=== PATIENT | female | born 1945 | race Caucasian/White ===

== ENCOUNTER 2017-10-23 17:19 | Inpatient (IN) | payer MEDICARE, OTHER ==
--- NOTE | 2017-10-23 17:37 | EDM.PDOC ---
ED HPI GENERAL MEDICAL PROBLEM - General Chief Complaint: Fever Stated Complaint: SWOLLEN FEET Time Seen by Provider: 10/23/17 17:19 Source of Information: Reports: Patient, Family History Limitations: Reports: Physical Impairment - History of Present Illness INITIAL COMMENTS - FREE TEXT/NARRATIVE: 72 y.o.w.f came with her friend to the ed due to worsening of SOB, weight loss, ankle swelling and unable to ambulate. Pt lives by herself. She is a smoker for > then 50 years. Poor PO intake in the past 3 days. No C/P no N/V/D. BP 84/45 Pulse 115 RR 20 O2 sat on 2 liters O2 by NC 94% Onset: Gradual Onset Date: 10/22/17 Onset Time: 08:00 Duration: Getting Worse, Intermittent Location: Reports: Chest Quality: Reports: Other (hemoptosis) Severity: Moderate Improves with: Reports: Rest Worsens with: Reports: Movement Context: Reports: Activity, Other (tobacco use) Associated Symptoms: Reports: Fever/Chills, Loss of Appetite, Shortness of Breath, Weakness Middle Back Pain Score (Numeric/FACES): 0 - Related Data Allergies Allergy/AdvReac Type Severity Reaction Status Date / Time No Known Allergies Allergy Verified 10/23/17 17:30 Home Meds: Home Meds Aspirin [Adult Low Dose Aspirin EC] 81 mg PO DAILY 10/23/17 [History] Calcium Carbonate [Calcium] 600 mg PO DAILY 10/23/17 [History] Multivitamin [Multi-Day Vitamins] 1 tab PO DAILY 10/23/17 [History] Pregabalin [Lyrica] 75 mg PO BID 10/23/17 [History] ED ROS GENERAL - Review of Systems Review Of Systems: See Below Constitutional: Reports: Chills, Weakness, Decreased Appetite, Weight Loss HEENT: Reports: No Symptoms Respiratory: Reports: Shortness of Breath Cardiovascular: Reports: No Symptoms Endocrine: Reports: No Symptoms GI/Abdominal: Reports: No Symptoms : Reports: No Symptoms Musculoskeletal: Reports: No Symptoms Skin: Reports: No Symptoms Neurological: Reports: No Symptoms, Weakness, Gait Disturbance Psychiatric: Reports: No Symptoms Hematologic/Lymphatic: Reports: No Symptoms Immunologic: Reports: No Symptoms ED EXAM, GENERAL - Physical Exam Exam: See Below Exam Limited By: Physical Impairment General Appearance: Alert, Mild Distress, Cachetic Eye Exam: Bilateral Eye: Normal Inspection Ears: Normal External Exam Ear Exam: Right Ear: TM Red, Bilateral Ear: Auricle Normal Nose: Normal Inspection Throat/Mouth: Normal Lips, Normal Voice, No Airway Compromise Head: Atraumatic, Normocephalic Neck: Normal Inspection, Supple, Non-Tender, Full Range of Motion Respiratory/Chest: Respiratory Distress, Decreased Breath Sounds (Right lung), Rales Cardiovascular: Normal Peripheral Pulses, Regular Rate, Rhythm, Other (ankle edema) Peripheral Pulses: 1+: Brachial (R) GI/Abdominal: Normal Bowel Sounds, Soft, Non-Tender, No Organomegaly, No Mass, Pelvis Stable (Female) Exam: Deferred Rectal (Female) Exam: Deferred Back Exam: Normal Inspection, Full Range of Motion Extremities: Pedal Edema (ankle edema bilat) Neurological: Alert, Oriented, CN II-XII Intact, Normal Cognition, Abnormal Gait (too weak to ambulate) Psychiatric: Normal Affect, Normal Mood Skin Exam: Warm, Dry, Intact, Normal Color, No Rash Lymphatic: No Adenopathy EKG INTERPRETATION EKG Date: 10/23/17 Time: 18:00 Rhythm: NSR Rate (Beats/Min): 106 [place]: Normal P-Wave: Present QRS: Normal ST-T: Normal QT: Normal Comparison: NA - No Prior EKG Course - Vital Signs Text/Narrative:: 72 y.o.w.f came with her friend to the ed due to worsening of SOB, coughing off blood for 3 days, weight loss, ankle swelling and unable to ambulate. Pt lives by herself. She is a smoker for > then 50 years. Poor PO intake in the past 3 days. No C/P no N/V/D. BP 84/45 Pulse 115 RR 20 O2 sat on 2 liters O2 by NC 94% denies Tuberculosis exposture PE: Weak, severely cachectic, with SOB and unable to ambulate due to weakness and SOB Imaging: Mass vs pneumonia R lung Labs: WBC 25K H/H nl.K 3.4 Na 139 Lactic acid 1.0 Glc 139 UA pos for UTI, BCx are pending Impression: Hemoptosis, Mass vs CA right lung, cachexia, weight loss. Weakness, unable to ambulate, UTI, DNR/DNI Tx: Levofloxacin, NS, Solu Medrol 6.45 pm Consultation: Dr. Paulino, Hospitalist: Solumedrol 125 every 8 hours, Abx, CT chest tonight Pt was signed out to Dr. Alejandre at 7 pm due to shift changes Last Recorded V/S: Last Vital Signs Temp 36.6 C 10/25/17 18:00 Pulse 105 H 10/25/17 18:00 Resp 18 10/25/17 18:00 BP 146/62 H 10/25/17 18:00 Pulse Ox 94 L 10/25/17 18:00 - Orders/Labs/Meds Orders: Medication Orders Albuterol (Ventolin Hfa) 0 gm INH Q4H PRN PRN Reason: Shortness of Breath Albuterol/Ipratropium (Duoneb 3.0-0.5 Mg/3 Ml) 3 ml NEB TIDRT [facility] Last Admin: 10/25/17 14:53 Dose: 3 ml Albuterol/Ipratropium (Duoneb 3.0-0.5 Mg/3 Ml) 3 ml NEB Q4H PRN PRN Reason: Cough Last Admin: 10/25/17 12:42 Dose: 3 ml Aspirin (Halfprin) 81 mg PO DAILY [facility] Calcium Carbonate (Calcium Carbonate/Vitamin D 1250 Mg-200 Unit) 1 tab PO DAILY [facility] Docusate Sodium (Colace) 100 mg PO BID PRN PRN Reason: Constipation Levofloxacin/Dextrose 750 mg/ (Premix) 150 mls @ 100 mls/hr IV Q24H [facility] Last Admin: 10/25/17 19:24 Dose: 100 mls/hr Infusion: 10/24/17 20:08 Dose: 100 mls/hr Admin: 10/24/17 18:38 Dose: 100 mls/hr Multivitamins/Minerals/Vitamin C (Tab-A-Ivelisse) 1 tab PO DAILY [facility] Pantoprazole Sodium (Protonix) 40 mg PO 0600 [facility] Last Admin: 10/25/17 13:59 Dose: 40 mg Prednisone (Prednisone) 20 mg PO BIDMEALS [facility] Last Admin: 10/25/17 18:00 Dose: 20 mg Admin: 10/25/17 08:37 Dose: 20 mg Admin: 10/24/17 18:42 Dose: 20 mg Admin: 10/24/17 11:14 Dose: 20 mg Pregabalin (Lyrica) 75 mg PO BID [facility] Last Admin: 10/25/17 08:37 Dose: 75 mg Admin: 10/24/17 20:40 Dose: 75 mg Admin: 10/24/17 09:25 Dose: 75 mg Admin: 10/23/17 22:08 Dose: 75 mg Sodium Chloride (Saline Flush) 10 ml FLUSH ASDIRECTED PRN PRN Reason: Keep Vein Open Last Admin: 10/24/17 19:14 Dose: 10 ml Admin: 10/24/17 10:29 Dose: 10 ml Admin: 10/23/17 18:43 Dose: 10 ml Labs: Laboratory Tests 10/23/17 10/23/17 10/23/17 Range/Units 17:50 17:50 17:50 WBC 25.7 H (4.5-12.0) X10-3/uL RBC 4.77 (3.23-5.20) x10(6)uL Hgb 12.9 (11.5-15.5) g/dL Hct 39.2 (30.0-51.3) % MCV 82.3 (80-96) fL MCH 27.0 L (27.7-33.6) pg MCHC 32.8 (32.2-35.4) g/dL RDW 12.6 (11.5-15.5) % Plt Count 496 H (125-369) X10(3)uL MPV 8.7 (7.4-10.4) fL Add Manual Diff Yes Neutrophils % (Manual) 88 H (46-82) % Lymphocytes % (Manual) 5 L (13-37) % Monocytes % (Manual) 7 (4-12) % Toxic Granulation Few H (NOT SEEN) PT 11.2 H (8.7-11.1) INR 1.11 (0.89-1.13) Sodium 139 (135-145) mmol/L Potassium 3.4 L (3.5-5.3) mmol/L Chloride 102 (100-110) mmol/L Carbon Dioxide 26 (21-32) mmol/L BUN 12 (7-18) mg/dL Creatinine 0.7 (0.55-1.02) mg/dL Est Cr Clr Drug Dosing 52.51 mL/min Estimated GFR (MDRD) > 60 (>60) BUN/Creatinine Ratio 17.1 (9-20) Glucose 137 H (80-116) mg/dL Lactic Acid (0.4-2.2) mmol/L Calcium 8.3 L (8.6-10.2) mg/dL Total Bilirubin 0.8 (0.1-1.3) mg/dL Direct Bilirubin 0.28 H (0.10-0.20) mg/dL AST 39 H (5-25) IU/L ALT 50 H (12-36) U/L Alkaline Phosphatase 244 H (56-112) IU/L Troponin I (<0.017-0.056) ng/mL NT-Pro-B Natriuret Pep (<=125) pg/mL Total Protein 7.2 (6.0-8.0) g/dL Albumin 2.5 L (3.2-4.6) g/dL Urine Color (YELLOW) Urine Appearance (CLEAR) Urine pH (5.0-6.5) Ur Specific [place] (1.010-1.025) Urine Protein (NEGATIVE) mg/dL Urine Glucose (UA) (NEGATIVE) mg/dL Urine Ketones (NEGATIVE) mg/dL Urine Occult Blood (NEGATIVE) Urine Nitrite (NEGATIVE) Urine Bilirubin (NEGATIVE) Urine Urobilinogen (NEGATIVE) mg/dL Ur Leukocyte Esterase (NEGATIVE) Urine RBC (0) Urine WBC (0) Ur Squamous Epith Cells (NS,R,O) Urine Bacteria (NS) 10/23/17 10/23/17 10/23/17 Range/Units 17:50 17:50 18:20 WBC (4.5-12.0) X10-3/uL RBC (3.23-5.20) x10(6)uL Hgb (11.5-15.5) g/dL Hct (30.0-51.3) % MCV (80-96) fL MCH (27.7-33.6) pg MCHC (32.2-35.4) g/dL RDW (11.5-15.5) % Plt Count (125-369) X10(3)uL MPV (7.4-10.4) fL Add Manual Diff Neutrophils % (Manual) (46-82) % Lymphocytes % (Manual) (13-37) % Monocytes % (Manual) (4-12) % Toxic Granulation (NOT SEEN) PT (8.7-11.1) INR (0.89-1.13) Sodium (135-145) mmol/L Potassium (3.5-5.3) mmol/L Chloride (100-110) mmol/L Carbon Dioxide (21-32) mmol/L BUN (7-18) mg/dL Creatinine (0.55-1.02) mg/dL Est Cr Clr Drug Dosing mL/min Estimated GFR (MDRD) (>60) BUN/Creatinine Ratio (9-20) Glucose (80-116) mg/dL Lactic Acid 1.0 (0.4-2.2) mmol/L Calcium (8.6-10.2) mg/dL Total Bilirubin (0.1-1.3) mg/dL Direct Bilirubin (0.10-0.20) mg/dL AST (5-25) IU/L ALT (12-36) U/L Alkaline Phosphatase (56-112) IU/L Troponin I < 0.017 L (<0.017-0.056) ng/mL NT-Pro-B Natriuret Pep 301 H (<=125) pg/mL Total Protein (6.0-8.0) g/dL Albumin (3.2-4.6) g/dL Urine Color Yellow (YELLOW) Urine Appearance Slightly cloudy (CLEAR) Urine pH 6.5 (5.0-6.5) Ur Specific [place] 1.015 (1.010-1.025) Urine Protein Negative (NEGATIVE) mg/dL Urine Glucose (UA) Normal (NEGATIVE) mg/dL Urine Ketones 15 H (NEGATIVE) mg/dL Urine Occult Blood Moderate H (NEGATIVE) Urine Nitrite Negative (NEGATIVE) Urine Bilirubin Negative (NEGATIVE) Urine Urobilinogen 1 H (NEGATIVE) mg/dL Ur Leukocyte Esterase Moderate H (NEGATIVE) Urine RBC 5-10 (0) Urine WBC 20-30 H (0) Ur Squamous Epith Cells Moderate H (NS,R,O) Urine Bacteria Few H (NS) Meds: Medications Generic Name Dose Route Start Last Admin Trade Name Freq PRN Reason Stop Dose Admin Albuterol 0 gm 10/25/17 09:09 Ventolin Hfa INH Q4H PRN Shortness of Breath Albuterol/Ipratropium 3 ml 10/25/17 15:00 10/25/17 14:53 Duoneb 3.0-0.5 Mg/3 Ml NEB 3 ml TIDRT [facility] Administration Albuterol/Ipratropium 3 ml 10/25/17 12:15 10/25/17 12:42 Duoneb 3.0-0.5 Mg/3 Ml NEB 3 ml Q4H PRN Administration Cough Aspirin 81 mg 10/26/17 09:00 Halfprin PO DAILY [facility] Calcium Carbonate 1 tab 10/26/17 09:00 Calcium Carbonate/Vitamin D 1250 Mg-200 Unit PO DAILY [facility] Docusate Sodium 100 mg 10/23/17 18:45 Colace PO BID PRN Constipation Levofloxacin/Dextrose 750 mg/ 150 mls @ 100 mls/hr 10/24/17 19:00 10/25/17 19 :24 Premix IV 100 mls/hr Q24H [facility] Administration Multivitamins/Minerals/Vitamin C 1 tab 10/26/17 09:00 Tab-A-Ivelisse PO DAILY [facility] Pantoprazole Sodium 40 mg 10/25/17 10:00 10/25/17 13:59 Protonix PO 40 mg 0600 [facility] Administration Prednisone 20 mg 10/24/17 10:00 10/25/17 18:00 Prednisone PO 20 mg BIDMEALS [facility] Administration Pregabalin 75 mg 10/23/17 22:00 10/25/17 08:37 Lyrica PO 75 mg BID [facility] Administration Sodium Chloride 10 ml 10/23/17 18:40 10/24/17 19:14 Saline Flush FLUSH 10 ml ASDIRECTED PRN Administration Keep Vein Open Discontinued Medications Generic Name Dose Route Start Last Admin Trade Name Freq PRN Reason Stop Dose Admin Albuterol/Ipratropium 3 ml 10/23/17 18:45 Duoneb 3.0-0.5 Mg/3 Ml INH ONETIME PRN Shortness Of Breath/wheezing Albuterol/Ipratropium 3 ml 10/24/17 10:00 10/25/17 05:50 Duoneb 3.0-0.5 Mg/3 Ml NEB 3 ml Q4H [facility] Administration Albuterol/Ipratropium 3 ml 10/25/17 09:03 Duoneb 3.0-0.5 Mg/3 Ml NEB Q4H PRN Dyspnea Albuterol/Ipratropium Confirm 10/25/17 12:21 10/25/17 13:44 Duoneb 3.0-0.5 Mg/3 Ml Administered 10/25/17 12:22 Not Given Dose 3 ml .ROUTE .STK-MED ONE Hydroxyzine HCl 25 mg 10/23/17 23:46 10/25/17 02:20 Atarax PO 25 mg BEDTIME PRN Administration Insomnia Hydroxyzine HCl Confirm 10/25/17 02:19 10/25/17 04:19 Atarax Administered 10/25/17 02:20 Not Given Dose 25 mg .ROUTE .STK-MED ONE Levofloxacin/Dextrose 500 mg/ 100 mls @ 100 mls/hr 10/23/17 18:30 10/23/17 19 :09 Premix IV 10/23/17 19:29 100 mls/hr ONETIME ONE Administration Lactated Ringer's 1,000 mls @ 125 mls/hr 10/23/17 18:45 10/24/17 04:43 Ringers, Lactated IV 125 mls/hr ASDIRECTED [facility] Administration Iopamidol 75 ml 10/24/17 10:26 10/24/17 11:38 Isovue-370 (76%) IV 10/24/17 10:27 60 ml ASDIRECTED ONE Administration Methylprednisolone Sodium Succinate 125 mg 10/23/17 18:41 10/23/17 19:03 Solu-Medrol IVPUSH 10/23/17 18:42 125 mg Q8H STA Administration Departure - Departure Time of Disposition: 18:57 Disposition: Admitted As Inpatient 64 Condition: Fair Clinical Impression: Lung infiltrate, Hemoptysis - Discharge Information
[2017-10-23] MEDS ORDERED: Levofloxacin/Dextrose 5%-Water 500 MG in Premix Bag 1 BAG IV ONE (18:30)
[2017-10-23] MEDS ORDERED: methylPREDNISolone Sodium Succinate 125 MG/2 ML SDV IVPUSH STA (18:41)
[2017-10-23] MEDS: Sodium Chloride 0.9% 10 ML Syringe FLUSH PRN (18:43)
[2017-10-23] MEDS ORDERED: Docusate Sodium 100 MG Cap PO PRN (18:45)
[2017-10-23] MEDS ORDERED: Albuterol/Ipratropium 3.0-0.5 MG/3 ML Neb Soln INH PRN (18:45)
[2017-10-23] MEDS: Lactated Ringers 1,000 ML IV SCH (19:06)
[2017-10-23] MEDS: Pregabalin 75 MG Cap PO SCH (22:08)
[2017-10-24] MEDS: hydrOXYzine HCl 25 MG Tab PO PRN (00:03)
[2017-10-24] MEDS: Lactated Ringers 1,000 ML IV SCH (04:43)
[2017-10-24] MEDS: Pregabalin 75 MG Cap PO SCH ×2 (09:25→20:40)
--- NOTE | 2017-10-24 09:30 | PCM.HP ---
H&P History of Present Illness - General Date of Service: 10/24/17 History Limitations: Reports: No Limitations - History of Present Illness Initial Comments - Free Text/Narative: Phase a 72-year-old female was a heavy smoker for more than 50 years. She presents yesterday night to the ER with shortness of breath and cough along with hemoptysis. She is a poor historian symptoms have gone on for several days in addition she's had low-grade fever for almost a month. She is not sure if she lost weight. Shortness of breath is worse with any ambulation and the cough is persistent and intermittent. Is a history of COPD,albeit undiagnosed. She also complains of leg swelling for several days. She has no chest pain. Middle Back Pain Score (Numeric/FACES): 2 - Related Data Allergies/Adverse Reactions: Allergies Allergy/AdvReac Type Severity Reaction Status Date / Time No Known Allergies Allergy Verified 10/23/17 17:30 Home Medications: Home Meds Aspirin [Adult Low Dose Aspirin EC] 81 mg PO DAILY 10/23/17 [History] Calcium Carbonate [Calcium] 600 mg PO DAILY 10/23/17 [History] Multivitamin [Multi-Day Vitamins] 1 tab PO DAILY 10/23/17 [History] Pregabalin [Lyrica] 75 mg PO BID 10/23/17 [History] Past Medical History HEENT History: Reports: Impaired Vision Other HEENT History: wears glasses. Has ear wax build up and needs gerald cleaned out Respiratory History: Reports: COPD, SOB Gastrointestinal History: Reports: Chronic Constipation, Colon Polyp Genitourinary History: Reports: None Musculoskeletal History: Reports: Osteoporosis Oncologic (Cancer) History: Reports: Other (See Below) Other Oncologic History: removed mole from by right eye Dermatologic History: Reports: Psoriasis - Infectious Disease History Infectious Disease History: Reports: Influenza, Measles - Past Surgical History HEENT Surgical History: Reports: Adenoidectomy, Tonsillectomy Respiratory Surgical History: Reports: None GI Surgical History: Reports: None Female Surgical History: Reports: Tubal Ligation Musculoskeletal Surgical History: Reports: Other (See Below) Other Musculoskeletal Surgeries/Procedures:: fx hip left and knee replacement left Oncologic Surgical History: Reports: None Dermatological Surgical History: Reports: None Social & Family History - Family History Family Medical History: Noncontributory - Tobacco Use Smoking Status *Q: Current Every Day Smoker Years of Tobacco use: 54 Packs/Tins Daily: 1 Used Tobacco, but Quit: No - Caffeine Use Caffeine Use: Reports: Coffee, Tea - Recreational Drug Use Recreational Drug Use: No H&P Review of Systems - Review of Systems: Review Of Systems: ROS reveals no pertinent complaints other than HPI. Exam - Exam Exam: See Below - Vital Signs Vital Signs: Last Vital Signs Temp 97.6 F 10/24/17 08:00 Pulse 92 10/24/17 08:00 Resp 20 10/24/17 08:00 BP 142/72 H 10/24/17 08:00 Pulse Ox 94 L 10/24/17 08:00 Weight: 49.668 kg - Exam Quality Assessment: No: Supplemental Oxygen General: Alert, Oriented, 4 HEENT: PERRLA, Hearing Intact, Mucosa Moist & Christoval, Nares Patent, Normal Nasal Septum, Posterior Pharynx Clear, Conjunctiva Clear, EOMI, EACs Clear, TMs Clear Neck: Supple, Trachea Midline, 2 Lungs: Normal Respiratory Effort, Decreased Breath Sounds Cardiovascular: Regular Rate, Regular Rhythm GI/Abdominal Exam: Normal Bowel Sounds, Soft, Non-Tender, No Organomegaly, No Distention, No Abnormal Bruit, No Mass, Pelvis Stable (Female) Exam: Deferred Rectal (Female) Exam: Deferred Back Exam: Normal Inspection, Full Range of Motion, NT Extremities: Pedal Edema Skin: Warm, Dry, Intact Neurological: Cranial Nerves Intact, Reflexes Equal Bilateral Neuro Extensive - Mental Status: Alert, Oriented x3, Normal Mood/Affect, Normal Cognition Neuro Extensive - Motor, Sensory, Reflexes: CN II-XII Intact, Normal Gait, Normal Reflexes Psychiatric: Alert, Normal Affect, Normal Mood - Patient Data Result Diagrams: 10/23/17 17:50 10/23/17 17:50 *Q Meaningful Use (ADM) - VTE *Q VTE Criteria *Q: - Stroke *Q Stroke Criteria *Q: - AMI *Q AMI Criteria *Q: - Problem List (1) CAP (community acquired pneumonia) SNOMED Code(s): 659607750 ICD Code: J18.9 - PNEUMONIA, UNSPECIFIED ORGANISM Status: Acute Current Visit: Yes Qualifiers: Laterality: right (2) Hemoptysis SNOMED Code(s): 58726348 ICD Code: R04.2 - HEMOPTYSIS Status: Acute Current Visit: Yes (3) Tobacco abuse SNOMED Code(s): 681208594 ICD Code: Z72.0 - TOBACCO USE Status: Acute Current Visit: Yes (4) COPD (chronic obstructive pulmonary disease) SNOMED Code(s): 10957648 ICD Code: J44.9 - CHRONIC OBSTRUCTIVE PULMONARY DISEASE, UNSPECIFIED Status : Acute Current Visit: Yes Qualifiers: COPD type: COPD with acute exacerbation Qualified Code(s): J44.1 - Chronic obstructive pulmonary disease with (acute) exacerbation (5) Leg edema SNOMED Code(s): 531117616 ICD Code: R60.0 - LOCALIZED EDEMA Status: Acute Current Visit: Yes (6) IBS (irritable bowel syndrome) SNOMED Code(s): 11601085 ICD Code: K58.9 - IRRITABLE BOWEL SYNDROME WITHOUT DIARRHEA Status: Acute Current Visit: Yes Qualifiers: Irritable bowel syndrome type: with diarrhea Qualified Code(s): K58.0 - Irritable bowel syndrome with diarrhea Problem List Initiated/Reviewed/Updated: Yes Orders Last 24hrs: Active Orders 24 hr Category Date Time Status Pregabalin [Lyrica] Med 10/23/17 22:00 Active 75 mg PO BID hydrOXYzine HCl [Atarax] Med 10/23/17 23:46 Active 25 mg PO BEDTIME PRN Medication Orders Albuterol/Ipratropium (Duoneb 3.0-0.5 Mg/3 Ml) 3 ml INH ONETIME PRN PRN Reason: Shortness Of Breath/wheezing Docusate Sodium (Colace) 100 mg PO BID PRN PRN Reason: Constipation Hydroxyzine HCl (Atarax) 25 mg PO BEDTIME PRN PRN Reason: Insomnia Last Admin: 10/24/17 00:03 Dose: 25 mg Lactated Ringer's (Ringers, Lactated) 1,000 mls @ 125 mls/hr IV ASDIRECTED [facility] Last Admin: 10/24/17 04:43 Dose: 125 mls/hr Infusion: 10/24/17 03:06 Dose: 125 mls/hr Admin: 10/23/17 19:06 Dose: 125 mls/hr Pregabalin (Lyrica) 75 mg PO BID [facility] Last Admin: 10/23/17 22:08 Dose: 75 mg Sodium Chloride (Saline Flush) 10 ml FLUSH ASDIRECTED PRN PRN Reason: Keep Vein Open Last Admin: 10/23/17 18:43 Dose: 10 ml Assessment/Plan Comment:: I personally reviewed the image of the x-ray that showed a mass in the right lung. This is possibly pneumonia or could be cancer. I've recommended a CT of the chest. In the meantime will treat with IV Levaquin, and oral prednisone. We' ll repeat CBC CMP and a BNP in the morning. Blood cultures are pending. Hep- Lock IV and encourage oral fluids.
[2017-10-24] MEDS ORDERED: Iopamidol 755 Mg/ML 75 ML Bottle IV ONE (10:26)
[2017-10-24] MEDS: Sodium Chloride 0.9% 10 ML Syringe FLUSH PRN ×2 (10:29→19:14)
--- NOTE | 2017-10-24 10:31 | CR ---
INDICATION: Hemoptysis. CHEST: A single AP upright portable view of the chest 10/23/2017 was compared with 11/12/2015 and now reveals an area of consolidation in the area of the right upper lobe, suprahilar and perihilar. Findings may be on the basis of pneumonia. In a smoker with this history, additional examination may be warranted, such as CT without and with IV contrast, especially since there is question of some nodularity in the lower lung [place]. Bilateral nipple shadows are also noted. 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 The heart is normal in size and shape. IMPRESSION: 1. Findings are compatible with pneumonia in the right upper lobe. Followup to clearing recommended. CT examination may be of further diagnostic benefit without and with IV contrast, since there is appearance of some nodularity in both lung bases. 2. COPD. 3. Mild ASD aorta. 4. Scoliosis. Report was called to Dr. Rodolfo Paulino at 0952 hours on 10/24/2017. JOSE
[2017-10-24] MEDS: Albuterol/Ipratropium 3.0-0.5 MG/3 ML Neb Soln NEB SCH ×4 (10:36→22:15)
[2017-10-24] MEDS: predniSONE 20 MG Tab PO SCH ×2 (11:14→18:42)
--- NOTE | 2017-10-24 13:08 | CT ---
INDICATION: Mass versus infiltrate right lung in a patient with hemoptysis. CT CHEST WITHOUT AND WITH CONTRAST: Spiral 2.5 mm axial sections were obtained through the chest without contrast and then with 60 mL Isovue 370 at 3 mL/second , with sagittal and coronal reconstructions, 10/24/2017. Comparison was chest x -ray from 10/23/2017. Total exam DLP = 290.94 mGy-cm. There is an area of somewhat triangular shaped infiltration extending most prominently through the right upper lobe, but also there is infiltrate in the middle lobe. Likely these infiltrates are on the basis of pneumonia, although an underlying neoplastic process is difficult to entirely exclude, and followup to clearing is strongly recommended. There is contrast enhancement in this area , which can be seen in areas of consolidating pneumonia. Lymphadenopathy in the mediastinum may be on the basis of pneumonia but should be correlated clinically. One lymph node, precarinal in location, was 17 mm. Other than benign disease cannot be excluded with this appearance. Severe central lobular emphysematous changes are noted. No active infiltrate or effusion was suggested on the left. Heavy markings at the right lung base likely fibrotic. No mediastinal masses were seen. Calcifications are noted in the thoracic aorta and abdominal aorta. No gross abnormality is noted in the upper abdomen included on the study. IMPRESSION: 1. Findings are felt to be most compatible with severely consolidating pneumonia in the right upper lobe with more patchy consolidating pneumonia in the middle lobe. Followup to clearing, however, is strongly recommended, since underlying neoplasia in the upper lobe cannot be excluded. 2. Severe central lobular emphysema. 3. ASD. Report was called to Dr. Rodolfo Paulino at 1200 hours on 10/24/2017. [facility]
[2017-10-24] MEDS: Levofloxacin/Dextrose 5%-Water 750 MG in Premix Bag 1 BAG IV SCH (18:38)
[2017-10-25] MEDS: Albuterol/Ipratropium 3.0-0.5 MG/3 ML Neb Soln NEB SCH ×4 (01:52→21:02)
[2017-10-25] MEDS ORDERED: hydrOXYzine HCl 25 MG Tab ONE (02:19)
[2017-10-25] MEDS: hydrOXYzine HCl 25 MG Tab PO PRN (02:20)
[2017-10-25] MEDS: Pregabalin 75 MG Cap PO SCH ×2 (08:37→21:02)
[2017-10-25] MEDS: predniSONE 20 MG Tab PO SCH ×2 (08:37→18:00)
[2017-10-25] MEDS ORDERED: Albuterol/Ipratropium 3.0-0.5 MG/3 ML Neb Soln NEB PRN ×2 (09:03→12:15)
--- NOTE | 2017-10-25 09:08 | PCM.PN ---
- General Info Date of Service: 10/25/17 Subjective Update: Olinda does sleep well, mostly because he woke up for DuoNeb. She complains that she still feels short of breath, weak, and has had a headache. Denies chest pain and she has no more fevers chills. - Patient Data Vitals - Most Recent: Last Vital Signs Temp 98.1 F 10/25/17 08:00 Pulse 111 H 10/25/17 08:00 Resp 20 10/25/17 08:00 BP 124/44 L 10/25/17 08:00 Pulse Ox 92 L 10/25/17 08:00 Weight - Most Recent: 49.668 kg I&O - Last 24 Hours: Intake & Output 10/24/17 10/25/17 10/25/17 22:59 06:59 14:59 Intake Total 150 150 Output Total 0 Balance 150 150 Lab Results Last 24 Hours: Laboratory Results - last 24 hr 10/25/17 10/25/17 Range/Units 06:10 06:10 WBC 22.3 H (4.5-12.0) X10-3/uL RBC 3.90 (3.23-5.20) x10(6)uL Hgb 10.8 L (11.5-15.5) g/dL Hct 32.1 (30.0-51.3) % MCV 82.4 (80-96) fL MCH 27.7 (27.7-33.6) pg MCHC 33.6 (32.2-35.4) g/dL RDW 12.4 (11.5-15.5) % Plt Count 432 H (125-369) X10(3)uL MPV 8.5 (7.4-10.4) fL Add Manual Diff Yes Neutrophils % (Manual) 86 H (46-82) % Band Neutrophils % 2 (0-6) % Lymphocytes % (Manual) 7 L (13-37) % Monocytes % (Manual) 5 (4-12) % Toxic Granulation Few H (NOT SEEN) Sodium 142 (135-145) mmol/L Potassium 3.5 (3.5-5.3) mmol/L Chloride 105 (100-110) mmol/L Carbon Dioxide 27 (21-32) mmol/L BUN 14 (7-18) mg/dL Creatinine 0.7 (0.55-1.02) mg/dL Est Cr Clr Drug Dosing 55.28 mL/min Estimated GFR (MDRD) > 60 (>60) BUN/Creatinine Ratio 20.0 (9-20) Glucose 180 H (80-116) mg/dL Calcium 8.6 (8.6-10.2) mg/dL Nikolas Results Last 24 Hours: Microbiology 10/24/17 13:25 Gram Stain - Final Sputum - Expectorated Sputum Culture - Preliminary Normal Joseline 10/23/17 18:55 Aerobic Blood Culture - Preliminary Blood - Venous - Lab Draw NO GROWTH AFTER 1 DAY Anaerobic Blood Culture - Preliminary NO GROWTH AFTER 1 DAY Med Orders - Current: Current Medications Albuterol/Ipratropium (Duoneb 3.0-0.5 Mg/3 Ml) 3 ml INH ONETIME PRN PRN Reason: Shortness Of Breath/wheezing Albuterol/Ipratropium (Duoneb 3.0-0.5 Mg/3 Ml) 3 ml NEB TID [facility]IGUELANGEL Albuterol/Ipratropium (Duoneb 3.0-0.5 Mg/3 Ml) 3 ml NEB Q4H PRN PRN Reason: Dyspnea Docusate Sodium (Colace) 100 mg PO BID PRN PRN Reason: Constipation Levofloxacin/Dextrose 750 mg/ (Premix) 150 mls @ 100 mls/hr IV Q24H [facility] Last Admin: 10/24/17 18:38 Dose: 100 mls/hr Pantoprazole Sodium (Protonix) 40 mg PO 0600 [facility] Prednisone (Prednisone) 20 mg PO BIDMEALS [facility] Last Admin: 10/25/17 08:37 Dose: 20 mg Pregabalin (Lyrica) 75 mg PO BID [facility] Last Admin: 10/25/17 08:37 Dose: 75 mg Sodium Chloride (Saline Flush) 10 ml FLUSH ASDIRECTED PRN PRN Reason: Keep Vein Open Last Admin: 10/24/17 19:14 Dose: 10 ml Discontinued Medications Albuterol/Ipratropium (Duoneb 3.0-0.5 Mg/3 Ml) 3 ml NEB Q4H [facility] Last Admin: 10/25/17 05:50 Dose: 3 ml Hydroxyzine HCl (Atarax) 25 mg PO BEDTIME PRN PRN Reason: Insomnia Last Admin: 10/25/17 02:20 Dose: 25 mg Hydroxyzine HCl (Atarax) Confirm Administered Dose 25 mg .ROUTE .STK-MED ONE Stop: 10/25/17 02:20 Last Admin: 10/25/17 04:19 Dose: Not Given Levofloxacin/Dextrose 500 mg/ (Premix) 100 mls @ 100 mls/hr IV ONETIME ONE Stop: 10/23/17 19:29 Last Admin: 10/23/17 19:09 Dose: 100 mls/hr Lactated Ringer's (Ringers, Lactated) 1,000 mls @ 125 mls/hr IV ASDIRECTED [facility] Last Admin: 10/24/17 04:43 Dose: 125 mls/hr Iopamidol (Isovue-370 (76%)) 75 ml IV ASDIRECTED ONE Stop: 10/24/17 10:27 Last Admin: 10/24/17 11:38 Dose: 60 ml Methylprednisolone Sodium Succinate (Solu-Medrol) 125 mg IVPUSH Q8H STA Stop: 10/23/17 18:42 Last Admin: 10/23/17 19:03 Dose: 125 mg - Exam General: Alert, Oriented HEENT: Pupils Equal Neck: Supple Lungs: Clear to Auscultation Cardiovascular: Regular Rate Skin: Warm Neurological: No New Focal Deficit Psy/Mental Status: Alert, Agitated - Problem List & Annotations (1) CAP (community acquired pneumonia) SNOMED Code(s): 730283107 Code(s): J18.9 - PNEUMONIA, UNSPECIFIED ORGANISM Status: Acute Current Visit: Yes Qualifiers: Laterality: right (2) Hemoptysis SNOMED Code(s): 30363329 Code(s): R04.2 - HEMOPTYSIS Status: Acute Current Visit: Yes (3) Tobacco abuse SNOMED Code(s): 573640480 Code(s): Z72.0 - TOBACCO USE Status: Acute Current Visit: Yes (4) COPD (chronic obstructive pulmonary disease) SNOMED Code(s): 31361123 Code(s): J44.9 - CHRONIC OBSTRUCTIVE PULMONARY DISEASE, UNSPECIFIED Status : Acute Current Visit: Yes Qualifiers: COPD type: COPD with acute exacerbation Qualified Code(s): J44.1 - Chronic obstructive pulmonary disease with (acute) exacerbation (5) Leg edema SNOMED Code(s): 627664671 Code(s): R60.0 - LOCALIZED EDEMA Status: Acute Current Visit: Yes (6) IBS (irritable bowel syndrome) SNOMED Code(s): 22171485 Code(s): K58.9 - IRRITABLE BOWEL SYNDROME WITHOUT DIARRHEA Status: Acute Current Visit: Yes Qualifiers: Irritable bowel syndrome type: with diarrhea Qualified Code(s): K58.0 - Irritable bowel syndrome with diarrhea (7) Dyspnea SNOMED Code(s): 735443303 Code(s): R06.00 - DYSPNEA, UNSPECIFIED Status: Acute Current Visit: Yes Qualifiers: Dyspnea type: dyspnea on exertion Qualified Code(s): R06.09 - Other forms of dyspnea (8) General weakness SNOMED Code(s): 72420238 Code(s): R53.1 - WEAKNESS Status: Acute Current Visit: Yes (9) Feeling poorly SNOMED Code(s): 779920274 Code(s): R68.89 - OTHER GENERAL SYMPTOMS AND SIGNS Status: Acute Current Visit: Yes - Problem List Review Problem List Initiated/Reviewed/Updated: Yes - My Orders Last 24 Hours: My Active Orders 10/24/17 09:54 RT Aerosol Therapy [RC] ASDIRECTED 10/24/17 10:00 predniSONE 20 mg PO BIDMEALS 10/24/17 10:43 IS (RT) [RT Incentive Spirometry] [RC] ASDIRECTED 10/24/17 13:25 CULTURE SPUTUM + SMEAR [RM] Routine 10/24/17 19:00 Levofloxacin/Dextrose 5%-Water [Levaquin in D5W 750 MG/150 ML] 750 mg Premix Bag 1 bag IV Q24H 10/25/17 09:03 Albuterol/Ipratropium [DuoNeb 3.0-0.5 MG/3 ML] 3 ml NEB Q4H PRN 10/25/17 09:04 OT Evaluation and Treatment [CONS] Routine PT Evaluation and Treatment [CONS] Routine 10/25/17 09:05 Consult to Meat Grader [CONS] Routine 10/25/17 10:00 Pantoprazole [ProTONIX] 40 mg PO 0600 10/25/17 14:00 Albuterol/Ipratropium [DuoNeb 3.0-0.5 MG/3 ML] 3 ml NEB TID 10/25/17 21:00 Pregabalin [Lyrica] 75 mg PO BID 10/26/17 05:11 BASIC METABOLIC PANEL,BMP [CHEM] AM CBC WITH AUTO DIFF [HEME] AM 10/26/17 09:00 Aspirin [Halfprin] 81 mg PO DAILY Calcium Carbonate [Calcium] 600 mg PO DAILY Multivitamins [Tab-A-Ivelisse] 1 tab PO DAILY - Plan Plan:: The CT scan of the chest done yesterday did not show any malignancy, favoring pneumonia. We'll continue IV Levaquin. Patient has dyspnea, we'll continue with SVNs but this as needed basis. For general weakness,feeling poorly, I've asked physical and outpatient therapy, along with medical numerical control operator to see if she needs home health upon discharge.
[2017-10-25] MEDS ORDERED: Albuterol 8 GM Inhaler INH PRN (09:09)
[2017-10-25] MEDS ORDERED: Albuterol/Ipratropium 3.0-0.5 MG/3 ML Neb Soln ONE (12:21)
[2017-10-25] MEDS: Pantoprazole 40 MG Tab.CR PO SCH (13:59)
[2017-10-25] MEDS: Levofloxacin/Dextrose 5%-Water 750 MG in Premix Bag 1 BAG IV SCH (19:24)
[2017-10-25] MEDS: Sodium Chloride 0.9% 10 ML Syringe FLUSH PRN (20:56)
[2017-10-25] MEDS ORDERED: Pregabalin 75 MG Cap PO SCH (21:00)
[2017-10-25] MEDS ORDERED: Acetaminophen 325 MG Tab PO PRN (21:43)
[2017-10-26] MEDS: Pantoprazole 40 MG Tab.CR PO SCH (05:43)
[2017-10-26] MEDS: Albuterol/Ipratropium 3.0-0.5 MG/3 ML Neb Soln NEB SCH (07:21)
--- NOTE | 2017-10-26 08:58 | PCM.PN ---
- General Info Date of Service: 10/26/17 Admission Dx/Problem (Free Text): Patient states she is coughing and some congestion. She denies shortness of breath with walking. She says walking is going quite well with her walker. She denies fevers or chills or hemoptysis. - Patient Data Vitals - Most Recent: Last Vital Signs Temp 97.7 F 10/26/17 05:43 Pulse 80 10/26/17 07:35 Resp 18 10/26/17 05:43 BP 139/78 10/26/17 05:43 Pulse Ox 93 L 10/26/17 07:35 Weight - Most Recent: 109 lb 8 oz I&O - Last 24 Hours: Intake & Output 10/25/17 10/26/17 10/26/17 22:59 06:59 14:59 Intake Total 150 0 Output Total 1000 Balance -850 0 Lab Results Last 24 Hours: Laboratory Results - last 24 hr 10/26/17 10/26/17 Range/Units 06:11 06:11 WBC 19.2 H (4.5-12.0) X10-3/uL RBC 3.89 (3.23-5.20) x10(6)uL Hgb 10.6 L (11.5-15.5) g/dL Hct 32.2 (30.0-51.3) % MCV 82.8 (80-96) fL MCH 27.1 L (27.7-33.6) pg MCHC 32.8 (32.2-35.4) g/dL RDW 12.3 (11.5-15.5) % Plt Count 481 H (125-369) X10(3)uL MPV 8.1 (7.4-10.4) fL Add Manual Diff Yes Neutrophils % (Manual) 76 (46-82) % Band Neutrophils % 1 (0-6) % Lymphocytes % (Manual) 12 L (13-37) % Monocytes % (Manual) 11 (4-12) % Sodium 143 (135-145) mmol/L Potassium 3.6 (3.5-5.3) mmol/L Chloride 107 (100-110) mmol/L Carbon Dioxide 28 (21-32) mmol/L BUN 15 (7-18) mg/dL Creatinine 0.7 (0.55-1.02) mg/dL Est Cr Clr Drug Dosing 55.28 mL/min Estimated GFR (MDRD) > 60 (>60) BUN/Creatinine Ratio 21.4 H (9-20) Glucose 145 H (80-116) mg/dL Calcium 8.3 L (8.6-10.2) mg/dL Nikolas Results Last 24 Hours: Microbiology 10/24/17 13:25 Gram Stain - Final Sputum - Expectorated Sputum Culture - Final Normal Joseline 10/23/17 18:55 Aerobic Blood Culture - Preliminary Blood - Venous - Lab Draw NO GROWTH AFTER 2 DAYS Anaerobic Blood Culture - Preliminary NO GROWTH AFTER 2 DAYS Med Orders - Current: Current Medications Acetaminophen (Tylenol) 650 mg PO Q4H PRN PRN Reason: Insomnia Last Admin: 10/25/17 22:38 Dose: 650 mg Albuterol (Ventolin Hfa) 0 gm INH Q4H PRN PRN Reason: Shortness of Breath Albuterol/Ipratropium (Duoneb 3.0-0.5 Mg/3 Ml) 3 ml NEB TIDRT [facility] Last Admin: 10/26/17 07:21 Dose: 3 ml Albuterol/Ipratropium (Duoneb 3.0-0.5 Mg/3 Ml) 3 ml NEB Q4H PRN PRN Reason: Cough Last Admin: 10/25/17 12:42 Dose: 3 ml Aspirin (Halfprin) 81 mg PO DAILY [facility] Calcium Carbonate (Calcium Carbonate/Vitamin D 1250 Mg-200 Unit) 1 tab PO DAILY [facility] Docusate Sodium (Colace) 100 mg PO BID PRN PRN Reason: Constipation Levofloxacin/Dextrose 750 mg/ (Premix) 150 mls @ 100 mls/hr IV Q24H [facility] Last Admin: 10/25/17 19:24 Dose: 100 mls/hr Multivitamins/Minerals/Vitamin C (Tab-A-Ivelisse) 1 tab PO DAILY [facility] Pantoprazole Sodium (Protonix) 40 mg PO 0600 [facility] Last Admin: 10/26/17 05:43 Dose: 40 mg Prednisone (Prednisone) 20 mg PO BIDMEALS [facility] Last Admin: 10/25/17 18:00 Dose: 20 mg Pregabalin (Lyrica) 75 mg PO BID [facility] Last Admin: 10/25/17 21:02 Dose: 75 mg Sodium Chloride (Saline Flush) 10 ml FLUSH ASDIRECTED PRN PRN Reason: Keep Vein Open Last Admin: 10/25/17 20:56 Dose: 10 ml Discontinued Medications Albuterol/Ipratropium (Duoneb 3.0-0.5 Mg/3 Ml) 3 ml INH ONETIME PRN PRN Reason: Shortness Of Breath/wheezing Albuterol/Ipratropium (Duoneb 3.0-0.5 Mg/3 Ml) 3 ml NEB Q4H [facility] Last Admin: 10/25/17 05:50 Dose: 3 ml Albuterol/Ipratropium (Duoneb 3.0-0.5 Mg/3 Ml) 3 ml NEB Q4H PRN PRN Reason: Dyspnea Albuterol/Ipratropium (Duoneb 3.0-0.5 Mg/3 Ml) Confirm Administered Dose 3 ml .ROUTE .STK-MED ONE Stop: 10/25/17 12:22 Last Admin: 10/25/17 13:44 Dose: Not Given Hydroxyzine HCl (Atarax) 25 mg PO BEDTIME PRN PRN Reason: Insomnia Last Admin: 10/25/17 02:20 Dose: 25 mg Hydroxyzine HCl (Atarax) Confirm Administered Dose 25 mg .ROUTE .STK-MED ONE Stop: 10/25/17 02:20 Last Admin: 10/25/17 04:19 Dose: Not Given Levofloxacin/Dextrose 500 mg/ (Premix) 100 mls @ 100 mls/hr IV ONETIME ONE Stop: 10/23/17 19:29 Last Admin: 10/23/17 19:09 Dose: 100 mls/hr Lactated Ringer's (Ringers, Lactated) 1,000 mls @ 125 mls/hr IV ASDIRECTED [facility] Last Admin: 10/24/17 04:43 Dose: 125 mls/hr Iopamidol (Isovue-370 (76%)) 75 ml IV ASDIRECTED ONE Stop: 10/24/17 10:27 Last Admin: 10/24/17 11:38 Dose: 60 ml Methylprednisolone Sodium Succinate (Solu-Medrol) 125 mg IVPUSH Q8H [facility] Stop: 10/23/17 18:42 Last Admin: 10/23/17 19:03 Dose: 125 mg - Exam General: Alert, Oriented, Cooperative Lungs: Clear to Auscultation, Normal Respiratory Effort. No: Rales, Rhonchi, Rub Extremities: No Pedal Edema - Problem List & Annotations (1) CAP (community acquired pneumonia) SNOMED Code(s): 257686094 Code(s): J18.9 - PNEUMONIA, UNSPECIFIED ORGANISM Status: Acute Current Visit: Yes Qualifiers: Laterality: right Lung location: upper lobe of lung Qualified Code(s): J18.1 - Lobar pneumonia, unspecified organism (2) Tobacco abuse SNOMED Code(s): 270179041 Code(s): Z72.0 - TOBACCO USE Status: Acute Current Visit: Yes - Problem List Review Problem List Initiated/Reviewed/Updated: Yes - My Orders Last 24 Hours: My Active Orders 10/25/17 21:43 Acetaminophen [Tylenol] 650 mg PO Q4H PRN - Plan Plan:: Discharge to home on Levaquin and prednisone twice a day. Home health.
[2017-10-26] MEDS ORDERED: Calcium Carbonate/Vitamin D3 1250 MG-200 Unit Tab PO SCH (09:00)
[2017-10-26] MEDS ORDERED: Multivitamin Tab PO SCH (09:00)
[2017-10-26] MEDS ORDERED: Aspirin 81 MG Tab.EC PO SCH (09:00)
--- NOTE | 2017-10-26 09:15 | PCM.DCSUM1 ---
Discharge Summary - Hospital Course Free Text/Narrative:: Hospital course-patient was placed on Levaquin 750 mg IV, prednisone 20 mg by mouth twice a day. Patient did well and responded well to the medications. She had a urine that showed Escherichia coli sensitive to everything. Patient's symptoms improved rapidly. A chest x-ray showed right upper lobe pneumonia. CT scan showed the same thing. Patient is able to walk down the [place]. Patient had PT and they felt that she could go home with home health. She'll be discharged to home with Levaquin 750 mg a day for 8 days. She also prednisone 20 mg a day twice a day. She states she has Advair inhaler and albuterol at home that she doesn't use. I advised her to start using them again. Smoking cessation was discussed. She is going to try to quit in her home. We discussed Chantix today but she scared because of possibility of bad dreams. Brief History: 72-year-old female was a heavy smoker for more than 50 years. She presents yesterday night to the ER with shortness of breath and cough along with hemoptysis. She is a poor historian symptoms have gone on for several days in addition she's had low-grade fever for almost a month. She is not sure if she lost weight. Shortness of breath is worse with any ambulation and the cough is persistent and intermittent. Is a history of COPD,albeit undiagnosed. She also complains of leg swelling for several days. She has no chest pain. - Discharge Data Discharge Date: 10/26/17 Discharge Disposition: Home, Home Health Agency 06 Condition: Good - Discharge Diagnosis/Problem(s) (1) CAP (community acquired pneumonia) SNOMED Code(s): 383861464 ICD Code: J18.9 - PNEUMONIA, UNSPECIFIED ORGANISM Status: Acute Current Visit: Yes Qualifiers: Laterality: right Lung location: upper lobe of lung Qualified Code(s): J18.1 - Lobar pneumonia, unspecified organism (2) Tobacco abuse SNOMED Code(s): 736410145 ICD Code: Z72.0 - TOBACCO USE Status: Acute Current Visit: Yes (3) UTI (urinary tract infection) SNOMED Code(s): 93280243 ICD Code: N39.0 - URINARY TRACT INFECTION, SITE NOT SPECIFIED Status: Acute Current Visit: Yes - Patient Summary/Data Consults: Consultations 10/25/17 09:04 OT Evaluation and Treatment [CONS] Routine Please Evaluate and Treat. OT Reason for Consult: ADL's This query below is only for informational purposes and is not editable. Admission Diagnosis/Problem: Hemoptysis PT Evaluation and Treatment [CONS] Routine Please Evaluate and Treat. PT Reason for Consult: Ambulation This query below is only for informational purposes and is not editable. Admission Diagnosis/Problem: Hemoptysis 10/25/17 09:05 Consult to Multifocal Lens Inspector [CONS] Routine Comment: Physician Instructions: - Patient Instructions Diet: Regular Diet as Tolerated Activity: As Tolerated Driving: Do Not Drive Showering/Bathing: May Shower Notify Provider of: Fever, Increased Pain, Nausea and/or Vomiting Other/Special Instructions: 1. Recheck with Pamella Segura in 7-10 days. 2. Home health with PT/OT for strengthening, ambulation, home safety, medication education and disease education. - Discharge Plan Prescriptions/Med Rec: Levofloxacin [Levaquin] 750 mg PO DAILY #8 tablet Home Medications: Home Meds Aspirin [Adult Low Dose Aspirin EC] 81 mg PO DAILY 10/23/17 [History] Calcium Carbonate [Calcium] 600 mg PO DAILY 10/23/17 [History] Multivitamin [Multi-Day Vitamins] 1 tab PO DAILY 10/23/17 [History] Pregabalin [Lyrica] 75 mg PO BID 10/23/17 [History] Levofloxacin [Levaquin] 750 mg PO DAILY #8 tablet 10/26/17 [Rx] Patient Handouts: Steps to Quit Smoking, [id number], Hemoptysis, [id number] , Urinary Tract Infection, Adult, Fall Prevention in Hospitals, Adult, Venous Thromboembolism Prevention Forms: ED Department Discharge Referrals: Pamella Segura, [facility] [Primary Care Provider] - - Discharge Summary/Plan Comment DC Time >30 min.: No - Patient Data Vitals - Most Recent: Last Vital Signs Temp 97.7 F 10/26/17 05:43 Pulse 80 10/26/17 07:35 Resp 18 10/26/17 05:43 BP 139/78 10/26/17 05:43 Pulse Ox 93 L 10/26/17 07:35 Weight - Most Recent: 109 lb 8 oz I&O - Last 24 hours: Intake & Output 10/25/17 10/26/17 10/26/17 22:59 06:59 14:59 Intake Total 150 0 Output Total 1000 Balance -850 0 Lab Results - Last 24 hrs: Laboratory Results - last 24 hr 10/26/17 10/26/17 Range/Units 06:11 06:11 WBC 19.2 H (4.5-12.0) X10-3/uL RBC 3.89 (3.23-5.20) x10(6)uL Hgb 10.6 L (11.5-15.5) g/dL Hct 32.2 (30.0-51.3) % MCV 82.8 (80-96) fL MCH 27.1 L (27.7-33.6) pg MCHC 32.8 (32.2-35.4) g/dL RDW 12.3 (11.5-15.5) % Plt Count 481 H (125-369) X10(3)uL MPV 8.1 (7.4-10.4) fL Add Manual Diff Yes Neutrophils % (Manual) 76 (46-82) % Band Neutrophils % 1 (0-6) % Lymphocytes % (Manual) 12 L (13-37) % Monocytes % (Manual) 11 (4-12) % Sodium 143 (135-145) mmol/L Potassium 3.6 (3.5-5.3) mmol/L Chloride 107 (100-110) mmol/L Carbon Dioxide 28 (21-32) mmol/L BUN 15 (7-18) mg/dL Creatinine 0.7 (0.55-1.02) mg/dL Est Cr Clr Drug Dosing 55.28 mL/min Estimated GFR (MDRD) > 60 (>60) BUN/Creatinine Ratio 21.4 H (9-20) Glucose 145 H (80-116) mg/dL Calcium 8.3 L (8.6-10.2) mg/dL [id number] Results - Last 24 hrs: Microbiology 10/24/17 13:25 Gram Stain - Final Sputum - Expectorated Sputum Culture - Final Normal Joseline 10/23/17 18:55 Aerobic Blood Culture - Preliminary Blood - Venous - Lab Draw NO GROWTH AFTER 2 DAYS Anaerobic Blood Culture - Preliminary NO GROWTH AFTER 2 DAYS Med Orders - Current: Current Medications Acetaminophen (Tylenol) 650 mg PO Q4H PRN PRN Reason: Insomnia Last Admin: 10/25/17 22:38 Dose: 650 mg Albuterol (Ventolin Hfa) 0 gm INH Q4H PRN PRN Reason: Shortness of Breath Albuterol/Ipratropium (Duoneb 3.0-0.5 Mg/3 Ml) 3 ml NEB TIDRT [facility] Last Admin: 10/26/17 07:21 Dose: 3 ml Albuterol/Ipratropium (Duoneb 3.0-0.5 Mg/3 Ml) 3 ml NEB Q4H PRN PRN Reason: Cough Last Admin: 10/25/17 12:42 Dose: 3 ml Aspirin (Halfprin) 81 mg PO DAILY [facility] Calcium Carbonate (Calcium Carbonate/Vitamin D 1250 Mg-200 Unit) 1 tab PO DAILY [facility] Docusate Sodium (Colace) 100 mg PO BID PRN PRN Reason: Constipation Levofloxacin/Dextrose 750 mg/ (Premix) 150 mls @ 100 mls/hr IV Q24H [facility] Last Admin: 10/25/17 19:24 Dose: 100 mls/hr Multivitamins/Minerals/Vitamin C (Tab-A-Ivelisse) 1 tab PO DAILY [facility] Pantoprazole Sodium (Protonix) 40 mg PO 0600 [facility] Last Admin: 10/26/17 05:43 Dose: 40 mg Prednisone (Prednisone) 20 mg PO BIDMEALS [facility] Last Admin: 10/25/17 18:00 Dose: 20 mg Pregabalin (Lyrica) 75 mg PO BID [facility] Last Admin: 10/25/17 21:02 Dose: 75 mg Sodium Chloride (Saline Flush) 10 ml FLUSH ASDIRECTED PRN PRN Reason: Keep Vein Open Last Admin: 10/25/17 20:56 Dose: 10 ml Discontinued Medications Albuterol/Ipratropium (Duoneb 3.0-0.5 Mg/3 Ml) 3 ml INH ONETIME PRN PRN Reason: Shortness Of Breath/wheezing Albuterol/Ipratropium (Duoneb 3.0-0.5 Mg/3 Ml) 3 ml NEB Q4H [facility] Last Admin: 10/25/17 05:50 Dose: 3 ml Albuterol/Ipratropium (Duoneb 3.0-0.5 Mg/3 Ml) 3 ml NEB Q4H PRN PRN Reason: Dyspnea Albuterol/Ipratropium (Duoneb 3.0-0.5 Mg/3 Ml) Confirm Administered Dose 3 ml .ROUTE .STK-MED ONE Stop: 10/25/17 12:22 Last Admin: 10/25/17 13:44 Dose: Not Given Hydroxyzine HCl (Atarax) 25 mg PO BEDTIME PRN PRN Reason: Insomnia Last Admin: 10/25/17 02:20 Dose: 25 mg Hydroxyzine HCl (Atarax) Confirm Administered Dose 25 mg .ROUTE .STK-MED ONE Stop: 10/25/17 02:20 Last Admin: 10/25/17 04:19 Dose: Not Given Levofloxacin/Dextrose 500 mg/ (Premix) 100 mls @ 100 mls/hr IV ONETIME ONE Stop: 10/23/17 19:29 Last Admin: 10/23/17 19:09 Dose: 100 mls/hr Lactated Ringer's (Ringers, Lactated) 1,000 mls @ 125 mls/hr IV ASDIRECTED [facility] Last Admin: 10/24/17 04:43 Dose: 125 mls/hr Iopamidol (Isovue-370 (76%)) 75 ml IV ASDIRECTED ONE Stop: 10/24/17 10:27 Last Admin: 10/24/17 11:38 Dose: 60 ml Methylprednisolone Sodium Succinate (Solu-Medrol) 125 mg IVPUSH Q8H [facility] Stop: 10/23/17 18:42 Last Admin: 10/23/17 19:03 Dose: 125 mg *Q Meaningful Use (DIS) - VTE *Q VTE Criteria *Q: - Stroke *Q Stroke Criteria *Q: - AMI *Q AMI Criteria *Q:
[2017-10-26] MEDS: Pregabalin 75 MG Cap PO SCH (10:03)
[2017-10-26] MEDS: predniSONE 20 MG Tab PO SCH (10:03)
== END 2017-10-26 14:00 | disposition home health service (06) | DRG 194 ==
LOC: FB.ED 17:19 → FB.MS 18:53
PROVIDERS: ADMIT Emergency Medicine; ATTEND Family Medicine
DX: J18.1 Lobar pneumonia, unspecified organism (principal); N39.0 Urinary tract infection, site not specified; R04.2 Hemoptysis; B96.20 Unspecified Escherichia coli [E. coli] as the cause of diseases classified elsewhere; F17.210 Nicotine dependence, cigarettes, uncomplicated; R53.1 Weakness; Z66 Do not resuscitate; R50.9 Fever, unspecified; R60.0 Localized edema; R68.89 Other general symptoms and signs; K58.0 Irritable bowel syndrome with diarrhea; H54.7 Unspecified visual loss; Z96.652 Presence of left artificial knee joint; Z79.82 Long term (current) use of aspirin; Z79.52 Long term (current) use of systemic steroids
CPT/HCPCS: 36415; 71045; 80048; 80076; 81001; 83605; 83880; 84484; 85025; 85610; 87040; 87086; 87088; 87186; 93005; 99285; J7050; 71270; 87070; 87205; 94150; 94640; 96365; 96375; 97161-GP; 97166-GO; A9270-GY; J1956; J2930; J7120; J7620; Q9967

== ENCOUNTER 2017-11-08 14:32 | Emergency (ER) | payer MEDICARE, OTHER ==
--- NOTE | 2017-11-08 16:02 | EDM.PDOC ---
ED HPI GENERAL MEDICAL PROBLEM - General Chief Complaint: Neuro Symptoms/Deficits Stated Complaint: FEVER WEAKNESS Time Seen by Provider: 11/08/17 15:10 Source of Information: Reports: Patient History Limitations: Reports: No Limitations - History of Present Illness INITIAL COMMENTS - FREE TEXT/NARRATIVE: c/o fever and weak and difficulty walking x 3d lives alone, gets Meals on Wheels, has not fallen was in hospital here 10/23 to 10/26 for RUL CAP with possible underlying CA on chest CT with and without contrast, repeat CxR 2d ago without change no rales today, internal CxR pending, hx and PE highly suspicious for CA will need to go to [facility] for additional imaging and possible bronchoscopy most recent prior CxR 11-12-15 from [facility] showed chronic hyperinflation and no opacity smoked 1 ppd until 2w ago on levofloxacin until 5d ago also dx with UTI, however U/A on 10/23/17 showed moderate squams, UC did show 50- 100k E coli sensitive to everything R sided Headache Pain Score (Numeric/FACES): 3 - Related Data Allergies Allergy/AdvReac Type Severity Reaction Status Date / Time No Known Allergies Allergy Verified 11/08/17 14:39 Home Meds: Home Meds Aspirin [Adult Low Dose Aspirin EC] 81 mg PO DAILY 10/23/17 [History] Calcium Carbonate [Calcium] 600 mg PO DAILY 10/23/17 [History] Multivitamin [Multi-Day Vitamins] 1 tab PO DAILY 10/23/17 [History] Pregabalin [Lyrica] 150 mg PO BID 10/23/17 [History] Fluticasone/Salmeterol [Advair 250-50 Diskus] 1 puff BID 11/08/17 [History] Past Medical History HEENT History: Reports: Impaired Vision Other HEENT History: wears glasses. 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: Other OB/BYN History: Musculoskeletal History: Reports: Fracture, Osteoporosis Other Musculoskeletal History: L knee fx, L ankle fx Neurological History: Reports: Neuropathy, Peripheral Oncologic (Cancer) History: Reports: Basal Cell Carcinoma, Other (See Below) Other Oncologic History: removed mole from by right eye Dermatologic History: Reports: Psoriasis - Infectious Disease History Infectious Disease History: Reports: Influenza, Measles - Past Surgical History Head Surgeries/Procedures: Reports: None HEENT Surgical History: Reports: Adenoidectomy, Tonsillectomy Respiratory Surgical History: Reports: None GI Surgical History: Reports: Colostomy Female Surgical History: Reports: Tubal Ligation Musculoskeletal Surgical History: Reports: Knee Replacement, Other (See Below) Other Musculoskeletal Surgeries/Procedures:: fx hip left and knee replacement left Oncologic Surgical History: Reports: None Dermatological Surgical History: Reports: None Social & Family History - Family History Family Medical History: Noncontributory - Tobacco Use Smoking Status *Q: Former Smoker Years of Tobacco use: 50 Packs/Tins Daily: 1.5 Used Tobacco, but Quit: Yes Month/Year Tobacco Last Used: sep - Caffeine Use Caffeine Use: Reports: Coffee - Recreational Drug Use Recreational Drug Use: No ED ROS GENERAL - Review of Systems Review Of Systems: See Below Constitutional: Reports: No Symptoms, Fever, Weakness, Fatigue HEENT: Reports: No Symptoms Respiratory: Reports: No Symptoms Cardiovascular: Reports: Dyspnea on Exertion Endocrine: Reports: No Symptoms GI/Abdominal: Reports: No Symptoms : Reports: No Symptoms Musculoskeletal: Reports: No Symptoms Skin: Reports: No Symptoms Neurological: Reports: Weakness Psychiatric: Reports: No Symptoms Hematologic/Lymphatic: Reports: No Symptoms Immunologic: Reports: No Symptoms ED EXAM, GENERAL - Physical Exam Exam: See Below Exam Limited By: No Limitations General Appearance: Alert, WD/WN, Mild Distress, Other (alert, cooperative, nontoxic, mild to moderate dyspnea) Nose: Normal Inspection, Normal Mucosa, No Blood Throat/Mouth: Normal Inspection, Normal Lips, Normal Teeth, Normal Gums, Normal Oropharynx, Normal Voice, No Airway Compromise Head: Atraumatic Neck: Normal Inspection, Supple, Non-Tender, Full Range of Motion Respiratory/Chest: Other (fair AE, no rales or wheeze posterior, scattered wheezing heard YOVANY anteriorly, leaning forward in w/c to breath, no retractions , using accessory muscles, talks 6-word sentences) Cardiovascular: Regular Rate, Rhythm, No Edema, No Gallop, No JVD, No Rub, Other (2/6 ANGEL at LSB, slight heave at 5th ICS just lateral to MCL) GI/Abdominal: Normal Bowel Sounds, Soft, Non-Tender, No Organomegaly, No Distention Back Exam: Normal Inspection Extremities: Normal Inspection, Normal Range of Motion, Non-Tender, No Pedal Edema Neurological: Alert, Oriented, CN II-XII Intact, Normal Cognition, No Motor/ Sensory Deficits Psychiatric: Normal Affect, Normal Mood Skin Exam: Warm, Dry, Intact, Normal Color, No Rash Lymphatic: No Adenopathy Course - Vital Signs Last Recorded V/S: Last Vital Signs Temp 38.3 C H 11/08/17 15:05 Pulse 116 H 11/08/17 14:36 Resp 24 H 11/08/17 14:36 BP 158/66 H 11/08/17 14:36 Pulse Ox 95 11/08/17 14:36 - Orders/Labs/Meds Orders: Active Orders 24 hr Category Date Time Status Chest 2V [CR] Stat Exams 11/08/17 15:47 Taken Head wo Cont [CT] Stat Exams 11/08/17 15:48 Taken CULTURE BLOOD [BC] Urgent Lab 11/08/17 15:20 Received CULTURE BLOOD [BC] Urgent Lab 11/08/17 16:05 Received URINALYSIS W/MICROSCOPIC [UA W/MICROSCOPIC] [URIN] Stat Lab 11/08/17 15:33 Ordered Blood Culture x2 Reflex Set [OM.PC] Urgent Oth 11/08/17 15:32 Ordered EKG 12 Lead [EK] Routine Ther 11/08/17 15:33 Ordered Labs: Laboratory Tests 11/08/17 11/08/17 11/08/17 Range/Units 15:20 15:20 15:20 WBC (4.5-12.0) X10-3/uL RBC (3.23-5.20) x10(6)uL Hgb (11.5-15.5) g/dL Hct (30.0-51.3) % MCV (80-96) fL MCH (27.7-33.6) pg MCHC (32.2-35.4) g/dL RDW (11.5-15.5) % Plt Count (125-369) X10(3)uL MPV (7.4-10.4) fL Add Manual Diff Neutrophils % (Manual) (46-82) % Band Neutrophils % (0-6) % Lymphocytes % (Manual) (13-37) % Monocytes % (Manual) (4-12) % POC VBG pH 7.36 (7.31-7.41) POC VBG pCO2 44.7 (41-51) mmHG POC VBG HCO3 25.5 (23-28) mmol/L POC VBG Total CO2 27 (24-29) mmol/L POC VBG Base Excess 0 (-2-3) mmol/L Sodium (135-145) mmol/L Potassium (3.5-5.3) mmol/L Chloride (100-110) mmol/L Carbon Dioxide (21-32) mmol/L BUN (7-18) mg/dL Creatinine (0.55-1.02) mg/dL Est Cr Clr Drug Dosing mL/min Estimated GFR (MDRD) (>60) BUN/Creatinine Ratio (9-20) Glucose (80-116) mg/dL Lactic Acid 1.7 (0.4-2.2) mmol/L Calcium (8.6-10.2) mg/dL Total Bilirubin (0.1-1.3) mg/dL AST (5-25) IU/L ALT (12-36) U/L Alkaline Phosphatase (56-112) IU/L Troponin I < 0.017 L (<0.017-0.056) ng/mL NT-Pro-B Natriuret Pep 456 H (<=125) pg/mL Total Protein (6.0-8.0) g/dL Albumin (3.2-4.6) g/dL Globulin g/dL Albumin/Globulin Ratio 11/08/17 11/08/17 Range/Units 15:20 15:20 WBC 48.4 H* (4.5-12.0) X10-3/uL RBC 5.11 (3.23-5.20) x10(6)uL Hgb 13.6 D (11.5-15.5) g/dL Hct 42.2 D (30.0-51.3) % MCV 82.7 (80-96) fL MCH 26.7 L (27.7-33.6) pg MCHC 32.3 (32.2-35.4) g/dL RDW 13.9 (11.5-15.5) % Plt Count 497 H (125-369) X10(3)uL MPV 8.2 (7.4-10.4) fL Add Manual Diff Yes Neutrophils % (Manual) 85 H (46-82) % Band Neutrophils % 5 (0-6) % Lymphocytes % (Manual) 4 L (13-37) % Monocytes % (Manual) 6 (4-12) % POC VBG pH (7.31-7.41) POC VBG pCO2 (41-51) mmHG POC VBG HCO3 (23-28) mmol/L POC VBG Total CO2 (24-29) mmol/L POC VBG Base Excess (-2-3) mmol/L Sodium 134 L (135-145) mmol/L Potassium 4.4 (3.5-5.3) mmol/L Chloride 94 L D (100-110) mmol/L Carbon Dioxide 26 (21-32) mmol/L BUN 10 (7-18) mg/dL Creatinine 0.9 (0.55-1.02) mg/dL Est Cr Clr Drug Dosing 42.76 mL/min Estimated GFR (MDRD) > 60 (>60) BUN/Creatinine Ratio 11.1 (9-20) Glucose 139 H (80-116) mg/dL Lactic Acid (0.4-2.2) mmol/L Calcium 9.2 (8.6-10.2) mg/dL Total Bilirubin 1.3 (0.1-1.3) mg/dL AST 42 H (5-25) IU/L ALT 49 H (12-36) U/L Alkaline Phosphatase 143 H (56-112) IU/L Troponin I (<0.017-0.056) ng/mL NT-Pro-B Natriuret Pep (<=125) pg/mL Total Protein 7.8 (6.0-8.0) g/dL Albumin 3.0 L (3.2-4.6) g/dL Globulin 4.8 g/dL Albumin/Globulin Ratio 0.6 Meds: Medications Discontinued Medications Generic Name Dose Route Start Last Admin Trade Name Freq PRN Reason Stop Dose Admin Piperacillin Sod/Tazobactam 100 mls @ 200 mls/hr 11/08/17 16:01 11/08/17 18: 00 Sod 4.5 gm/ Sodium Chloride IV 11/08/17 16:30 200 mls/hr NOW STA Administration Sodium Chloride 1,000 mls @ 999 mls/hr 11/08/17 16:07 11/08/17 17:00 Normal Saline IV 11/08/17 17:07 999 mls/hr .BOLUS ONE Administration - Re-Assessments/Exams Free Text/Narrative Re-Assessment/Exam: 11/08/17 19:34 d/w Dr Henriquez 30 min ago who accepted her in transfer to [facility], pt and dtr agree Departure - Departure Time of Disposition: 19:35 Disposition: DC/Tfer to Acute Hospital 02 Condition: Fair Clinical Impression: Right upper lobe pneumonia, Leukocytosis, Smoker within last 12 months - Discharge Information Referrals: Pamella Segura, CAPACITOR REPAIRER [Primary Care Provider] - Forms: ED Department Discharge - My Orders Last 24 Hours: My Active Orders 11/08/17 15:20 CULTURE BLOOD [BC] Urgent 11/08/17 15:32 Blood Culture x2 Reflex Set [OM.PC] Urgent 11/08/17 15:33 URINALYSIS W/MICROSCOPIC [UA W/MICROSCOPIC] [URIN] Stat EKG 12 Lead [EK] Routine 11/08/17 15:47 Chest 2V [CR] Stat 11/08/17 15:48 Head wo Cont [CT] Stat 11/08/17 16:05 CULTURE BLOOD [BC] Urgent - Assessment/Plan Last 24 Hours: My Active Orders 11/08/17 15:20 CULTURE BLOOD [BC] Urgent 11/08/17 15:32 Blood Culture x2 Reflex Set [OM.PC] Urgent 11/08/17 15:33 URINALYSIS W/MICROSCOPIC [UA W/MICROSCOPIC] [URIN] Stat EKG 12 Lead [EK] Routine 11/08/17 15:47 Chest 2V [CR] Stat 11/08/17 15:48 Head wo Cont [CT] Stat 11/08/17 16:05 CULTURE BLOOD [BC] Urgent
[2017-11-08] MEDS: Sodium Chloride 0.9% 1,000 ML IV ONE (17:00)
[2017-11-08] MEDS: Piperacillin/Tazobactam 4.5 GM in Sodium Chloride 0.9% 100 ML IV STA (18:00)
--- NOTE | 2017-11-09 09:07 | CT ---
INDICATION: Weakness, ataxia, question metastasis. CT HEAD WITHOUT CONTRAST: Serial contiguous 2.5 and 5-mm sections were obtained through the brain without contrast, 11/08/2017, and compared with 01/26. Total Exam DLP = 949.36 mGy-cm. No shift of midline structures was identified. Ventricles are prominent, compatible with a mild degree of central atrophy. White matter changes are noted with patchy areas of decreased density scattered throughout the white matter, appearing somewhat more prominent in some areas than on the previous study, suggesting progressive microvascular disease. This should be correlated clinically. No other abnormal areas of density were identified, except for what appears to be a lacunar infarct at the anterior limb of the right internal capsule, which was present previously, but not as well defined. No bleeding site or hematoma was seen. Calcifications are noted in the internal carotid arteries. The paranasal sinuses and mastoid air cells appear to be fairly well aerated and similar to the previous study. There are some minimally opacified, inferiorly located, mastoid air cells of questionable significance again noted. No definite cranial abnormality was identified. IMPRESSION: 1. No definite acute intracranial abnormality. 2. Progressive white matter changes compatible with microvascular disease - correlate clinically as other cause of leukoencephalopathy cannot be excluded. 3. Cerebrovascular disease with internal carotid artery calcifications noted. 4. Central atrophy slightly more prominent than on the previous examination. 5. No definite evidence of sinusitis on the current study. Report was called to Dr. Alejandre at 1650 hours, 11/08/2017. [facility]
--- NOTE | 2017-11-09 09:09 | CR ---
INDICATION: New fever and weak x3 days. CHEST: PA and lateral views of the chest were obtained 11/08/2017 and compared with 11/05/2017-[facility] images, revealing increased infiltration and increased density of infiltration in the right upper lobe compatible with progressively more severe right upper lobe pneumonia with a significant degree of consolidation. The infiltrate extends from perihilar area to the chest wall. No gross pleural effusion could be identified. Flattened diaphragm leaves, prominent AP diameter, and hyperaeration suggest COPD. Diminished bone density is suggested, compatible with osteoporosis along with a mild dextroconvex scoliosis and mild anterior hypertrophic degenerative changes off vertebral bodies. The aorta is calcified in the arch area. The heart did not appear enlarged. IMPRESSION: 1. Increasing severity of right upper lobe consolidating pneumonia, although other cause of the infiltrate besides infection should be considered - this should be followed up to clearing, as a central neoplasm is difficult to entirely exclude, especially in this age group in a smoker. 2. ASD aorta. 3. COPD. 4. Osteoporosis, scoliosis, DJD spine. Report was called to Dr. Alejandre at 1650 hours, 11/08/2017. [facility]
== END 2017-11-08 20:15 ==
LOC: FB.ED 14:32
DX: J18.9 Pneumonia, unspecified organism (principal); D72.829 Elevated white blood cell count, unspecified; J44.9 Chronic obstructive pulmonary disease, unspecified; L40.9 Psoriasis, unspecified; Z79.82 Long term (current) use of aspirin; Z79.899 Other long term (current) drug therapy; Z87.891 Personal history of nicotine dependence
CPT/HCPCS: 36415; 70450; 71046; 80053; 81001; 82803; 83605; 83880; 84484; 85025; 87040; 93005; 96361; 96365; 99285; J2543; J7030; J7040

== ENCOUNTER 2017-11-14 13:34 | Inpatient (IN) | payer MEDICARE, OTHER ==
[2017-11-14] MEDS ORDERED: Benzocaine/Cetylpyridinium/Menthol Lozenge MUCMEM PRN (16:00)
[2017-11-14] MEDS ORDERED: Enoxaparin 30 MG/0.3 ML Syringe SUBCUT SCH (16:00)
[2017-11-14] MEDS ORDERED: Docusate Sodium 100 MG Cap PO PRN (16:00)
[2017-11-14] MEDS ORDERED: guaiFENesin 100 MG/5 ML Soln 5 ML UD Cup PO PRN (16:00)
--- NOTE | 2017-11-14 16:53 | PCM.HP ---
H&P History of Present Illness - General Date of Service: 11/14/17 Admit Problem/Dx: Admission Diagnosis/Problem Admission Diagnosis/Problem Debility Source of Information: Patient, Old Records, Provider - History of Present Illness Initial Comments - Free Text/Narative: The patient is a 72-year-old female admitted to [facility] on October 24 2017 with pneumonia. She was discharged home on 10/26/17 on oral Levaquin. She returned on 11/08/17 with recurrent symptoms, chest x-ray showed worsening infiltrate, and white cell count was 48,000. At that time the patient was transferred to [place] for non-resolving pneumonia, rule out malignancy, and was treated with antibiotics and a lung biopsy with brushings which was negative for cancer. After 6 days of Zosyn the patient did well. She was quite debilitated after almost a month of illness and we were asked to admit the patient for swing bed for physical rehabilitation and for completion of 10 day course of IV Zosyn. The patient is feeling fairly well. She is very very weak but no longer has any chest pain or shortness of breath. She had some diarrhea with her antibiotics and a C. difficile was going to be tested but she had no further stools today. She has no pain. She is just very fatigued. Past medical history: Basal cell cancer of the face Irritable bowel syndrome COPD Neuropathic pain for which she takes Lyrica. Social history: The patient lives in [place] in her own home alone. She is . She has no family nearby. She has no children. Family history: The patient's mother at 86 of heart problems and had early dementia. The patient's father at 86 of unknown causes. He had some type of cancer but it had resolved. She has one brother in good health and one sister with macular degeneration. She lost a sister to breast cancer at the age of 40 and a brother to Parkinson's disease at 70. - Related Data Allergies/Adverse Reactions: Allergies Allergy/AdvReac Type Severity Reaction Status Date / Time No Known Allergies Allergy Verified 11/08/17 14:39 Home Medications: Home Meds Aspirin [Adult Low Dose Aspirin EC] 81 mg PO DAILY 10/23/17 [History] Multivitamin [Multi-Day Vitamins] 1 tab PO DAILY 10/23/17 [History] Pregabalin [Lyrica] 75 mg PO BID 10/23/17 [History] Fluticasone/Salmeterol [Advair 250-50 Diskus] 1 puff IH BID 11/08/17 [History] Acetaminophen/Diphenhydramine [Tylenol Pm Ex-Strength Caplet] 1 tab PO BEDTIME PRN 11/14/17 [History] Albuterol [Ventolin HFA] 2 puff IH Q4H PRN 11/14/17 [History] Ca Carbonate/Vitamin D3/Vit K [Calcium + D Soft Chewable Tab] 1 tab PO DAILY [History] Past Medical History HEENT History: Reports: Impaired Vision Other HEENT History: wears glasses. 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 History: Musculoskeletal History: Reports: Fracture, Osteoporosis Other Musculoskeletal History: L knee fx, L ankle fx Neurological History: Reports: Neuropathy, Peripheral Oncologic (Cancer) History: Reports: Basal Cell Carcinoma, Other (See Below) Other Oncologic History: removed mole from by right eye Dermatologic History: Reports: Psoriasis - Infectious Disease History Infectious Disease History: Reports: Influenza, Measles - Past Surgical History Head Surgeries/Procedures: Reports: None HEENT Surgical History: Reports: Adenoidectomy, Tonsillectomy Respiratory Surgical History: Reports: None GI Surgical History: Reports: Colostomy Female Surgical History: Reports: Tubal Ligation Musculoskeletal Surgical History: Reports: Knee Replacement, Other (See Below) Other Musculoskeletal Surgeries/Procedures:: fx hip left and knee replacement left Oncologic Surgical History: Reports: None Dermatological Surgical History: Reports: None Social & Family History - Family History Family Medical History: Noncontributory - Tobacco Use Smoking Status *Q: Former Smoker Years of Tobacco use: 50 Packs/Tins Daily: 1.5 Used Tobacco, but Quit: Yes Month/Year Tobacco Last Used: 2017 - Caffeine Use Caffeine Use: Reports: Coffee Other Caffeine Use: 1-2 cups per day - Recreational Drug Use Recreational Drug Use: No H&P Review of Systems - Review of Systems: Review Of Systems: ROS reveals no pertinent complaints other than HPI. Exam - Exam Exam: See Below - Vital Signs Vital Signs: Last Vital Signs Temp 36.3 C 11/14/17 16:10 Pulse 101 H 11/14/17 16:10 Resp 18 11/14/17 16:10 BP 140/56 L 11/14/17 16:10 Pulse Ox 93 L 11/14/17 16:10 Weight: 52.645 kg - Exam Quality Assessment: Supplemental Oxygen General: Alert, Oriented, Cooperative HEENT: PERRLA, Conjunctiva Clear, Mucosa Moist & [place], Posterior Pharynx Clear Neck: Supple, Trachea Midline Lungs: Clear to Auscultation, Normal Respiratory Effort, Decreased Breath Sounds Cardiovascular: Regular Rate, Regular Rhythm, Normal S1, Normal S2 GI/Abdominal Exam: Normal Bowel Sounds, Soft, Non-Tender, No Distention Back Exam: Normal Inspection Extremities: Normal Inspection, No Pedal Edema Psychiatric: Alert, Normal Affect, Normal Mood - Patient Data Lab Results Last 24 hrs: Glucose 120, BUN 14, creatinine 0.73, BUN creatinine ratio 19.2, sodium 138, potassium 3.6, chloride 101, carbon dioxide 30 calcium 8.1, phosphorus 2.8, albumin 2.3, white count 17.2, hemoglobin 8.9, absolute neutrophils 13.7, platelets 321. This is from 11/13. Bronchoalveolar lavage was negative for malignancy and showed only reactive cells and acute inflammation. *Q Meaningful Use (ADM) - VTE *Q VTE Criteria *Q: - Stroke *Q Stroke Criteria *Q: - AMI *Q AMI Criteria *Q: - Problem List (1) General weakness SNOMED Code(s): 88792031 ICD Code: R53.1 - WEAKNESS Status: Acute Current Visit: No Problem Details: Significant debility and weakness after almost a month of illness and 2 weeks of that in the hospital. PT and OT to evaluate and treat. Dietary consult for nutritional supplementation. (2) COPD (chronic obstructive pulmonary disease) SNOMED Code(s): 23405586 ICD Code: J44.9 - CHRONIC OBSTRUCTIVE PULMONARY DISEASE, UNSPECIFIED Status : Acute Current Visit: No Problem Details: With recent history of right upper lobe pneumonia. Continue antibiotic therapy. DuoNeb's 4 times a day when necessary. Patient may benefit from Spiriva. Tobacco cessation. Patient has a follow-up visit in 6 weeks with pulmonary for follow-up CT. (3) IBS (irritable bowel syndrome) SNOMED Code(s): 97464362 ICD Code: K58.9 - IRRITABLE BOWEL SYNDROME WITHOUT DIARRHEA Status: Acute Current Visit: No Problem Details: No diarrhea today. Continue to monitor. Also will monitor for C. difficile. Qualifiers: Irritable bowel syndrome type: with diarrhea Qualified Code(s): K58.0 - Irritable bowel syndrome with diarrhea (4) Right upper lobe pneumonia SNOMED Code(s): 863182068 ICD Code: J18.1 - LOBAR PNEUMONIA, UNSPECIFIED ORGANISM Status: Acute Current Visit: No Problem Details: Resolving. Patient needs 4 more days of antibiotic therapy with Zosyn 4.5 g every 8 hours. (5) Tobacco abuse SNOMED Code(s): 401290730 ICD Code: Z72.0 - TOBACCO USE Status: Acute Current Visit: No Problem Details: Currently not smoking. Will encourage to continue cessation. Nicotine replacement as needed. (6) DVT prophylaxis SNOMED Code(s): 402151247 ICD Code: [id number] - Status: Acute Current Visit: Yes Problem Details: Heparin 5000 units twice a day. Problem List Initiated/Reviewed/Updated: Yes Orders Last 24hrs: Active Orders 24 hr Category Date Time Status Patient Status [ADT] Routine ADT 11/14/17 16:00 Active Dietary Supplements [RC] WITHMEALSANDBED Care 11/14/17 16:00 Active Height and Weight [RC] WEEKLY Care 11/14/17 16:00 Active Notify Provider Vital Signs [RC] ASDIRECTED Care 11/14/17 16:02 Active Oxygen Therapy [RC] PRN Care 11/14/17 16:00 Active Up ad Raisa [RC] ASDIRECTED Care 11/14/17 16:00 Active VTE/DVT Education [RC] Per Unit Routine Care 11/14/17 16:00 Active Vital Signs [RC] PER UNIT ROUTINE Care 11/14/17 16:00 Active Consult to Separator Tender [CONS] Routine Cons 11/14/17 16:00 Active Respiratory Care Assess and Treatment [CONS] Routine Cons 11/14/17 16:00 Active Regular Diet [DIET] Diet 11/14/17 Lunch Active Acetaminophen [Tylenol] Med 11/14/17 16:00 Active 650 mg PO Q4H PRN Benzocaine/Cetylpyrd/Menthol [Cepacol Sore Throat] Med 11/14/17 16:00 Active 1 lozenge MUCMEM ASDIRECTED PRN Docusate Sodium [Colace] Med 11/14/17 16:00 Active 100 mg PO BID PRN Heparin Sodium Med 11/14/17 21:00 Active 5,000 units SUBCUT Q12H Mometasone/Formoterol [Dulera 200-5 MCG] Med 11/14/17 21:00 Active 2 puff IH BID Pregabalin [Lyrica] Med 11/14/17 21:00 Active 75 mg PO BID guaiFENesin [Robitussin] Med 11/14/17 16:00 Active 100 mg PO Q4H PRN Antiembolic Hose [OM.PC] Per Unit Routine Oth 11/14/17 16:02 Ordered Sequential Compression Device [OM.PC] Per Unit Routine Oth 11/14/17 16:02 Ordered Resuscitation Status Routine Resus Stat 11/14/17 16:00 Ordered Medication Orders Acetaminophen (Tylenol) 650 mg PO Q4H PRN PRN Reason: Pain (Mild 1-3)/fever Benzocaine/Menthol (Cepacol Sore Throat) 1 lozenge MUCMEM ASDIRECTED PRN PRN Reason: Sore Throat Docusate Sodium (Colace) 100 mg PO BID PRN PRN Reason: Constipation Guaifenesin (Robitussin) 100 mg PO Q4H PRN PRN Reason: Cough Heparin Sodium (Porcine) (Heparin Sodium) 5,000 units SUBCUT Q12H MIGUELANGEL Mometasone Furoate/Formoterol Fumar (Dulera 200-5 Mcg) 2 puff IH BID MIGUELANGEL Pregabalin (Lyrica) 75 mg PO BID [facility] Assessment/Plan Comment:: CODE STATUS from [facility] was DNR/DNI. Will continue this.
[2017-11-14] MEDS: Piperacillin/Tazobactam 4.5 GM in Sodium Chloride 0.9% 100 ML IV SCH (18:43)
[2017-11-14] MEDS: Formoterol/Mometasone 200-5 MCG 8.8 GM Inhaler IH SCH (20:56)
[2017-11-14] MEDS: Heparin Sodium 5,000 Units/ML Vial SUBCUT SCH (20:59)
[2017-11-14] MEDS: Pregabalin 75 MG Cap PO SCH (21:00)
[2017-11-14] MEDS: Acetaminophen 325 MG Tab PO PRN (21:09)
[2017-11-15] MEDS: Piperacillin/Tazobactam 4.5 GM in Sodium Chloride 0.9% 100 ML IV SCH ×3 (03:51→19:16)
[2017-11-15] MEDS: Sodium Chloride 0.9% 10 ML Syringe FLUSH PRN ×2 (03:53→12:13)
[2017-11-15] MEDS: Pregabalin 75 MG Cap PO SCH ×2 (08:58→20:36)
[2017-11-15] MEDS: Formoterol/Mometasone 200-5 MCG 8.8 GM Inhaler IH SCH ×2 (08:58→20:35)
[2017-11-15] MEDS: Heparin Sodium 5,000 Units/ML Vial SUBCUT SCH ×2 (08:59→20:36)
--- NOTE | 2017-11-15 18:18 | PCM.SN ---
- Free Text/Narrative Note: Patient doing well today except for diarrhea returned. I added a C. difficile as this was not done in [place].
[2017-11-15] MEDS: Acetaminophen 325 MG Tab PO PRN (20:36)
[2017-11-16] MEDS: Piperacillin/Tazobactam 4.5 GM in Sodium Chloride 0.9% 100 ML IV SCH ×3 (03:48→18:50)
[2017-11-16] MEDS: Sodium Chloride 0.9% 10 ML Syringe FLUSH PRN ×3 (03:50→20:11)
[2017-11-16] MEDS ORDERED: Albuterol/Ipratropium 3.0-0.5 MG/3 ML Neb Soln INH PRN (08:54)
[2017-11-16] MEDS: Formoterol/Mometasone 200-5 MCG 8.8 GM Inhaler IH SCH ×2 (08:55→21:12)
[2017-11-16] MEDS: Heparin Sodium 5,000 Units/ML Vial SUBCUT SCH ×2 (08:55→21:14)
[2017-11-16] MEDS: Pregabalin 75 MG Cap PO SCH ×2 (08:55→21:19)
[2017-11-16] MEDS: Multivitamin Tab PO SCH (09:34)
[2017-11-16] MEDS: Calcium Carbonate/Vitamin D3 1250 MG-200 Unit Tab PO SCH (09:34)
[2017-11-16] MEDS: Aspirin 81 MG Tab.EC PO SCH (09:34)
[2017-11-16] MEDS: Melatonin 3 MG Tab PO SCH (21:16)
[2017-11-16] MEDS: Acetaminophen 325 MG Tab PO PRN (21:19)
[2017-11-17] MEDS: Piperacillin/Tazobactam 4.5 GM in Sodium Chloride 0.9% 100 ML IV SCH ×3 (03:32→18:40)
[2017-11-17] MEDS: Sodium Chloride 0.9% 10 ML Syringe FLUSH PRN ×4 (03:34→11:59)
[2017-11-17] MEDS: Multivitamin Tab PO SCH (08:34)
[2017-11-17] MEDS: Formoterol/Mometasone 200-5 MCG 8.8 GM Inhaler IH SCH ×2 (08:34→21:03)
[2017-11-17] MEDS: Heparin Sodium 5,000 Units/ML Vial SUBCUT SCH ×2 (08:34→21:03)
[2017-11-17] MEDS: Calcium Carbonate/Vitamin D3 1250 MG-200 Unit Tab PO SCH (08:34)
[2017-11-17] MEDS: Aspirin 81 MG Tab.EC PO SCH (08:34)
[2017-11-17] MEDS: Pregabalin 75 MG Cap PO SCH ×2 (08:36→21:03)
[2017-11-17] MEDS: Acetaminophen 325 MG Tab PO PRN (21:03)
[2017-11-17] MEDS: Melatonin 3 MG Tab PO SCH (21:03)
[2017-11-18] MEDS: Piperacillin/Tazobactam 4.5 GM in Sodium Chloride 0.9% 100 ML IV SCH ×3 (03:32→18:49)
[2017-11-18] MEDS: Multivitamin Tab PO SCH (08:29)
[2017-11-18] MEDS: Calcium Carbonate/Vitamin D3 1250 MG-200 Unit Tab PO SCH (08:29)
[2017-11-18] MEDS: Sodium Chloride 0.9% 10 ML Syringe FLUSH PRN (08:29)
[2017-11-18] MEDS: Aspirin 81 MG Tab.EC PO SCH (08:29)
[2017-11-18] MEDS: Pregabalin 75 MG Cap PO SCH ×2 (08:29→20:40)
[2017-11-18] MEDS: Formoterol/Mometasone 200-5 MCG 8.8 GM Inhaler IH SCH ×2 (08:29→20:40)
[2017-11-18] MEDS: Heparin Sodium 5,000 Units/ML Vial SUBCUT SCH ×2 (08:29→20:41)
[2017-11-18] MEDS: Melatonin 3 MG Tab PO SCH (20:40)
[2017-11-19] MEDS: Piperacillin/Tazobactam 4.5 GM in Sodium Chloride 0.9% 100 ML IV SCH ×2 (03:52→10:44)
[2017-11-19] MEDS: Formoterol/Mometasone 200-5 MCG 8.8 GM Inhaler IH SCH (09:37)
[2017-11-19] MEDS: Heparin Sodium 5,000 Units/ML Vial SUBCUT SCH (09:38)
[2017-11-19] MEDS: Multivitamin Tab PO SCH (09:38)
[2017-11-19] MEDS: Calcium Carbonate/Vitamin D3 1250 MG-200 Unit Tab PO SCH (09:38)
[2017-11-19] MEDS: Pregabalin 75 MG Cap PO SCH (09:38)
[2017-11-19] MEDS: Aspirin 81 MG Tab.EC PO SCH (09:38)
[2017-11-19] MEDS ORDERED: Tuberculin, PPD 5 Units/0.1 ML 1 ML MDV IDERM ONE (10:30)
--- NOTE | 2017-11-19 10:52 | DISCH ---
DISCHARGE DATE: 11/19/2017 REASON FOR ADMISSION: 1. General debility and weakness. 2. Right upper lobe pneumonia. 3. Tobacco abuse. 4. Chronic obstructive pulmonary disease. 5. Irritable bowel syndrome. BRIEF HISTORY AND HOSPITAL COURSE: This is a 72-year-old female who had been sick with pneumonia for approximately two weeks, was admitted here, and transferred to [place] with a non resolving pneumonia. Biopsy revealed a lung infection for which she responded to Zosyn. She finished a course of Zosyn on the . She had been going through physical therapy and she is ready to go to the senior care for further rehab. She was taking Tylenol PM to help sleep, but this was discontinued in favor of melatonin 6 mg. DISCHARGE MEDICATIONS: 1. Albuterol. 2. Ipratropium as needed. 3. Aspirin. 4. Docusate sodium. 5. Robitussin with codeine. 6. One multivitamin a day. 7. Lyrica 75 mg b.i.d. FOLLOWUP: She will see Pamella Segura at the senior care within the coming month. Please note that I spent more than 35 minutes in the discharge of the patient. /[id number] L[place]ZAR[place]/EDDI
== END 2017-11-19 11:34 | disposition home or self-care (01) | DRG 195 ==
LOC: FB.MS 15:55
PROVIDERS: ADMIT Family Medicine; ATTEND Family Medicine
DX: J18.1 Lobar pneumonia, unspecified organism (principal); R53.1 Weakness; K58.0 Irritable bowel syndrome with diarrhea; J44.9 Chronic obstructive pulmonary disease, unspecified; Z85.828 Personal history of other malignant neoplasm of skin; M79.2 Neuralgia and neuritis, unspecified; M81.0 Age-related osteoporosis without current pathological fracture; Z87.891 Personal history of nicotine dependence; H54.7 Unspecified visual loss; Z79.82 Long term (current) use of aspirin; Z96.652 Presence of left artificial knee joint; Z66 Do not resuscitate
CPT/HCPCS: 36415; 82565; 84460; 85025; 86580; 94150; 97110-GO; 97110-GP; 97116-GP; 97161-GP; 97165-GO; 97530-GP; A9270-GY; J1644; J2543; J7030; J7050

== ENCOUNTER 2018-05-04 18:53 | Inpatient (IN) | payer MEDICARE, OTHER ==
[2018-05-04] MEDS ORDERED: Albuterol/Ipratropium 3.0-0.5 MG/3 ML Neb Soln NEB ONE (19:02)
[2018-05-04] MEDS ORDERED: Meclizine 25 MG Tab PO ONE (19:02)
--- NOTE | 2018-05-04 19:03 | EDM.PDOC ---
ED HPI GENERAL MEDICAL PROBLEM - General Chief Complaint: Fever Stated Complaint: cold, tired Time Seen by Provider: 05/04/18 18:53 Source of Information: Reports: Patient History Limitations: Reports: Physical Impairment - History of Present Illness INITIAL COMMENTS - FREE TEXT/NARRATIVE: 72 y.o.w.f with a h/o COPD, former smoker, came to the ED by PC due to cough and SOB, fever and chills for several days and those symptoms are getting worse. getting worse. No N/V or diarrhea. Pt had poor po intake in the last few days as well. She does not feel well at all for a week. Pt is a poor historian and no family is present. BP{ 158/73 Pulse 117 Temp 37.1 Pulse ox 87% on 2 liters O 2 Onset Date: 04/29/18 Onset Time: 08:00 Duration: Day(s):, Getting Worse Location: Reports: Chest Quality: Reports: Ache, Burning, Dull, Other (sob) Severity: Moderate Improves with: Reports: Rest Worsens with: Reports: Movement Context: Reports: Sick Contact Associated Symptoms: Reports: Chest Pain, Cough, Fever/Chills - Related Data Allergies Allergy/AdvReac Type Severity Reaction Status Date / Time No Known Allergies Allergy Verified 05/04/18 18:57 Home Meds: Home Meds Aspirin [Adult Low Dose Aspirin EC] 81 mg PO DAILY 10/23/17 [History] Multivitamin [Multi-Day Vitamins] 1 tab PO DAILY 10/23/17 [History] Pregabalin [Lyrica] 75 mg PO BID 10/23/17 [History] Fluticasone/Salmeterol [Advair 250-50 Diskus] 1 puff IH BID 11/08/17 [History] Ca Carbonate/Vitamin D3/Vit K [Calcium + D Soft Chewable Tab] 1 tab PO DAILY [History] Melatonin 6 mg PO BEDTIME #30 tablet 11/19/17 [Rx] guaiFENesin [Robitussin] 100 mg PO Q4H PRN #2 cup 11/19/17 [Rx] Acetaminophen 325 mg PO Q4HR PRN 05/04/18 [History] Albuterol [Ventolin HFA] 90 mcg INH Q4HR PRN 05/04/18 [History] Bifidobacterium Infantis [Align] 4 mg PO DAILY 05/04/18 [History] Loratadine [Claritin] 10 mg PO DAILY 05/04/18 [History] Nystatin 1 applic TOP DAILY PRN 05/04/18 [History] Omeprazole 20 mg PO DAILY 05/04/18 [History] Polyethylene Glycol 3350 [Miralax] 17 gm PO DAILY 05/04/18 [History] Ranitidine HCl [Zantac] 300 mg PO DAILY 05/04/18 [History] Past Medical History HEENT History: Reports: Impaired Vision Other HEENT History: wears glasses. 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: Musculoskeletal History: Reports: Fracture, Osteoporosis Other Musculoskeletal History: L knee fx, L ankle fx Neurological History: Reports: Neuropathy, Peripheral Oncologic (Cancer) History: Reports: Basal Cell Carcinoma, Other (See Below) Other Oncologic History: removed mole from by right eye Dermatologic History: Reports: Psoriasis Other Dermatologic History: years ago - Infectious Disease History Infectious Disease History: Reports: Influenza, Measles - Past Surgical History Head Surgeries/Procedures: Reports: None HEENT Surgical History: Reports: Adenoidectomy, Tonsillectomy Respiratory Surgical History: Reports: None GI Surgical History: Reports: Colostomy Female Surgical History: Reports: Tubal Ligation Musculoskeletal Surgical History: Reports: Knee Replacement, Other (See Below) Other Musculoskeletal Surgeries/Procedures:: fx hip left and knee replacement left Oncologic Surgical History: Reports: None Dermatological Surgical History: Reports: None Social & Family History - Family History Family Medical History: Noncontributory - Caffeine Use Caffeine Use: Reports: Coffee Other Caffeine Use: 1-2 cups per day ED ROS GENERAL - Review of Systems Review Of Systems: See Below Constitutional: Reports: Weakness, Night Sweats, Decreased Appetite HEENT: Reports: No Symptoms Respiratory: Reports: Shortness of Breath Cardiovascular: Reports: No Symptoms Endocrine: Reports: No Symptoms GI/Abdominal: Reports: No Symptoms : Reports: No Symptoms Musculoskeletal: Reports: No Symptoms Skin: Reports: No Symptoms Neurological: Reports: No Symptoms Psychiatric: Reports: No Symptoms Hematologic/Lymphatic: Reports: No Symptoms Immunologic: Reports: No Symptoms ED EXAM, GENERAL - Physical Exam Exam: See Below Exam Limited By: No Limitations General Appearance: Alert, Moderate Distress, Cachetic Eye Exam: Bilateral Eye: Normal Inspection Ears: Normal External Exam Ear Exam: Bilateral Ear: Auricle Normal Nose: Normal Inspection, Normal Mucosa, No Blood Throat/Mouth: Normal Inspection, Normal Lips, Normal Gums, Normal Voice, No Airway Compromise Head: Atraumatic, Normocephalic Neck: Normal Inspection, Supple, Non-Tender, Full Range of Motion Respiratory/Chest: No Accessory Muscle Use, Chest Non-Tender, Respiratory Distress, Decreased Breath Sounds, Crackles, Rhonchi, Wheezing Cardiovascular: Normal Peripheral Pulses, Regular Rate, Rhythm, No Edema, No Gallop, No JVD, No Murmur, No Rub Peripheral Pulses: 1+: Brachial (R) GI/Abdominal: Normal Bowel Sounds, Soft, Non-Tender, No Organomegaly, No Distention, No Abnormal Bruit, No Mass, Pelvis Stable (Female) Exam: Deferred Rectal (Female) Exam: Deferred Back Exam: Normal Inspection, Full Range of Motion Extremities: Normal Inspection, Normal Range of Motion, Non-Tender, No Pedal Edema, Normal Capillary Refill Neurological: Alert, Oriented, CN II-XII Intact, Normal Cognition, Normal Gait, No Motor/Sensory Deficits Psychiatric: Normal Affect, Normal Mood Skin Exam: Warm, Dry, Intact, Normal Color, No Rash Lymphatic: No Adenopathy Course - Vital Signs Text/Narrative:: 72 y.o.w.f with a h/o COPD, former smoker, came to the ED by PC due to cough and SOB, fever and chills for several days and those symptoms are getting worse. getting worse. No N/V or diarrhea. Pt had poor po intake in the last few days as well. She does not feel well at all for a week. Pt is a poor historian and no family is present. BP{ 158/73 Pulse 117 Temp 37.1 Pulse ox 87% on 2 liters O 2 PE: Thin, ill appearing 72 y.o.w.f with F/C and sob Imaging: CXR: RML and RLL infiltrate Labs: WBC 21K HGB 12.1 HKT 37.7 INR 1.03 BMP nl Glc 163 Lactic acid 0.7 GFR > 60 Na/K nl BUN 9 Cr 0.8 Impression: RML and RLL infiltrate Tx: Leveoquine, NS, Duoneb 7.41pm Consultation: Dr. Paulino: Accepted the pt for admission to inpatient M/ S Plan: admit to inpatient Last Recorded V/S: Last Vital Signs Temp 36.6 C 05/06/18 00:00 Pulse 95 05/06/18 00:00 Resp 20 05/06/18 00:00 BP 119/66 05/06/18 00:00 Pulse Ox 92 L 05/06/18 00:00 - Orders/Labs/Meds Orders: Medication Orders Albuterol/Ipratropium (Duoneb 3.0-0.5 Mg/3 Ml) 3 ml INH ONETIME PRN PRN Reason: Shortness Of Breath/wheezing Docusate Sodium (Colace) 100 mg PO BID PRN PRN Reason: Constipation Levofloxacin/Dextrose 750 mg/ (Premix) 150 mls @ 100 mls/hr IV Q24H [facility] Last Admin: 05/05/18 20:19 Dose: 100 mls/hr Melatonin (Melatonin) 6 mg PO BEDTIME [facility] Last Admin: 05/05/18 20:20 Dose: 6 mg Admin: 05/04/18 22:06 Dose: 6 mg Methylprednisolone Sodium Succinate (Solu-Medrol) 125 mg IVPUSH Q8H [facility] Last Admin: 05/06/18 00:14 Dose: 125 mg Admin: 05/05/18 16:53 Dose: 125 mg Admin: 05/05/18 09:27 Dose: 125 mg Ondansetron HCl (Zofran Odt) 4 mg PO Q4H PRN PRN Reason: nausea, able to take PO Pregabalin (Lyrica) 75 mg PO BID [facility] Last Admin: 05/05/18 20:28 Dose: Admin: 05/05/18 09:27 Dose: 75 mg Admin: 05/04/18 22:05 Dose: 75 mg Sodium Chloride (Saline Flush) 10 ml FLUSH ASDIRECTED PRN PRN Reason: Keep Vein Open Last Admin: 05/05/18 16:53 Dose: 10 ml Labs: Laboratory Tests 05/04/18 05/04/18 05/04/18 Range/Units 19:10 19:10 19:10 WBC 23.1 H (4.5-12.0) X10-3/uL RBC 4.72 (3.23-5.20) x10(6)uL Hgb 12.1 D (11.5-15.5) g/dL Hct 37.7 (30.0-51.3) % MCV 79.8 L (80-96) fL MCH 25.7 L (27.7-33.6) pg MCHC 32.2 (32.2-35.4) g/dL RDW 14.6 (11.5-15.5) % Plt Count 326 (125-369) X10(3)uL MPV 8.1 (7.4-10.4) fL Add Manual Diff Yes Neutrophils % (Manual) 81 (46-82) % Band Neutrophils % 5 (0-6) % Lymphocytes % (Manual) 8 L (13-37) % Monocytes % (Manual) 6 (4-12) % Microcytosis Few PT 9.8 (8.7-11.1) INR 1.01 (0.89-1.13) Sodium 136 (135-145) mmol/L Potassium 3.8 (3.5-5.3) mmol/L Chloride 101 D (100-110) mmol/L Carbon Dioxide 26 (21-32) mmol/L BUN 9 (7-18) mg/dL Creatinine 0.8 (0.55-1.02) mg/dL Est Cr Clr Drug Dosing TNP Estimated GFR (MDRD) > 60 (>60) BUN/Creatinine Ratio 11.3 (9-20) Glucose 163 H (80-116) mg/dL Lactic Acid (0.4-2.2) mmol/L Calcium 9.0 (8.6-10.2) mg/dL 05/04/18 Range/Units 19:10 WBC (4.5-12.0) X10-3/uL RBC (3.23-5.20) x10(6)uL Hgb (11.5-15.5) g/dL Hct (30.0-51.3) % MCV (80-96) fL MCH (27.7-33.6) pg MCHC (32.2-35.4) g/dL RDW (11.5-15.5) % Plt Count (125-369) X10(3)uL MPV (7.4-10.4) fL Add Manual Diff Neutrophils % (Manual) (46-82) % Band Neutrophils % (0-6) % Lymphocytes % (Manual) (13-37) % Monocytes % (Manual) (4-12) % Microcytosis PT (8.7-11.1) INR (0.89-1.13) Sodium (135-145) mmol/L Potassium (3.5-5.3) mmol/L Chloride (100-110) mmol/L Carbon Dioxide (21-32) mmol/L BUN (7-18) mg/dL Creatinine (0.55-1.02) mg/dL Est Cr Clr Drug Dosing Estimated GFR (MDRD) (>60) BUN/Creatinine Ratio (9-20) Glucose (80-116) mg/dL Lactic Acid 0.7 (0.4-2.2) mmol/L Calcium (8.6-10.2) mg/dL Meds: Medications Generic Name Dose Route Start Last Admin Trade Name Freq PRN Reason Stop Dose Admin Albuterol/Ipratropium 3 ml 05/04/18 19:49 Duoneb 3.0-0.5 Mg/3 Ml INH ONETIME PRN Shortness Of Breath/wheezing Docusate Sodium 100 mg 05/04/18 19:49 Colace PO BID PRN Constipation Levofloxacin/Dextrose 750 mg/ 150 mls @ 100 mls/hr 05/05/18 20:00 05/05/18 20 :19 Premix IV 100 mls/hr Q24H [facility]UELANGEL Administration Melatonin 6 mg 05/04/18 21:55 05/05/18 20:20 Melatonin PO 6 mg BEDTIME [facility]ANG[facility] Administration Methylprednisolone Sodium Succinate 125 mg 05/05/18 08:30 05/06/18 00:14 Solu-Medrol IVPUSH 125 mg Q8H [facility] Administration Ondansetron HCl 4 mg 05/04/18 19:49 Zofran Odt PO Q4H PRN nausea, able to take PO Pregabalin 75 mg 05/04/18 21:30 05/05/18 20:28 Lyrica PO Not Given BID [facility]UELANGEL Sodium Chloride 10 ml 05/04/18 19:49 05/05/18 16:53 Saline Flush FLUSH 10 ml ASDIRECTED PRN Administration Keep Vein Open Discontinued Medications Generic Name Dose Route Start Last Admin Trade Name Dorothea PRN Reason Stop Dose Admin Albuterol/Ipratropium 3 ml 05/04/18 19:02 05/04/18 19:10 Duoneb 3.0-0.5 Mg/3 Ml NEB 05/04/18 19:03 3 ml ONETIME ONE Administration Levofloxacin/Dextrose 750 mg/ 150 mls @ 100 mls/hr 05/04/18 19:45 05/04/18 20 :00 Premix IV 05/04/18 21:14 100 mls/hr ONETIME ONE Administration Sodium Chloride 1,000 mls @ 125 mls/hr 05/04/18 21:45 05/05/18 05:24 Normal Saline IV 125 mls/hr ASDIRECTED MIGUELANGEL Administration Meclizine HCl 25 mg 05/04/18 19:02 05/04/18 19:10 Antivert PO 05/04/18 19:03 25 mg ONETIME ONE Administration Melatonin 6 mg 05/05/18 21:00 Melatonin PO BEDTIME [facility]UELANGEL Pregabalin Confirm 05/05/18 20:15 05/05/18 20:20 Lyrica Administered 05/05/18 20:16 75 mg Dose Administration 75 mg .ROUTE .STK-MED ONE Departure - Departure Time of Disposition: 15:00 Disposition: DC/Tfer to Acute Hospital 02 Condition: Fair Clinical Impression: Pneumonia - Discharge Information
[2018-05-04] MEDS ORDERED: Levofloxacin/Dextrose 5%-Water 750 MG in Premix Bag 1 BAG IV ONE (19:45)
[2018-05-04] MEDS ORDERED: Ondansetron 4 MG Tab.DIS PO PRN (19:49)
[2018-05-04] MEDS ORDERED: Albuterol/Ipratropium 3.0-0.5 MG/3 ML Neb Soln INH PRN (19:49)
[2018-05-04] MEDS ORDERED: Docusate Sodium 100 MG Cap PO PRN (19:49)
[2018-05-04] MEDS: Sodium Chloride 0.9% 1,000 ML IV SCH (21:50)
[2018-05-04] MEDS: Pregabalin 75 MG Cap PO SCH (22:05)
[2018-05-04] MEDS: Melatonin 3 MG Tab PO SCH (22:06)
[2018-05-05] MEDS: Sodium Chloride 0.9% 1,000 ML IV SCH (05:24)
--- NOTE | 2018-05-05 08:40 | PCM.HP ---
H&P History of Present Illness - General Date of Service: 05/05/18 Admit Problem/Dx: Admission Diagnosis/Problem Admission Diagnosis/Problem Pneumonia Source of Information: Patient History Limitations: Reports: No Limitations - History of Present Illness Initial Comments - Free Text/Narative: Yanelis is a pleasant 72-year-old female who came in with cough fever and chills over 2 days. Crystal lives at the [facility].She has a history of COPD, but does not use oxygen. She was in her usual state of health until 2 days ago. She is a former smoker and quit in October. At that time she was diagnosed with pneumonia and COPD exacerbation. She denies any headache but has had decreased appetite, and difficulty sleeping. - Related Data Allergies/Adverse Reactions: Allergies Allergy/AdvReac Type Severity Reaction Status Date / Time No Known Allergies Allergy Verified 05/04/18 18:57 Home Medications: Home Meds Aspirin [Adult Low Dose Aspirin EC] 81 mg PO DAILY 10/23/17 [History] Multivitamin [Multi-Day Vitamins] 1 tab PO DAILY 10/23/17 [History] Pregabalin [Lyrica] 75 mg PO BID 10/23/17 [History] Fluticasone/Salmeterol [Advair 250-50 Diskus] 1 puff IH BID 11/08/17 [History] Ca Carbonate/Vitamin D3/Vit K [Calcium + D Soft Chewable Tab] 1 tab PO DAILY [History] Melatonin 6 mg PO BEDTIME #30 tablet 11/19/17 [Rx] guaiFENesin [Robitussin] 100 mg PO Q4H PRN #2 cup 11/19/17 [Rx] Acetaminophen 325 mg PO Q4HR PRN 05/04/18 [History] Albuterol [Ventolin HFA] 90 mcg INH Q4HR PRN 05/04/18 [History] Bifidobacterium Infantis [Align] 4 mg PO DAILY 05/04/18 [History] Loratadine [Claritin] 10 mg PO DAILY 05/04/18 [History] Nystatin 1 applic TOP DAILY PRN 05/04/18 [History] Omeprazole 20 mg PO DAILY 05/04/18 [History] Polyethylene Glycol 3350 [Miralax] 17 gm PO DAILY 05/04/18 [History] Ranitidine HCl [Zantac] 300 mg PO DAILY 05/04/18 [History] Past Medical History HEENT History: Reports: Impaired Vision Other HEENT History: wears glasses. 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: Musculoskeletal History: Reports: Fracture, Osteoporosis Other Musculoskeletal History: L knee fx, L ankle fx Neurological History: Reports: Neuropathy, Peripheral Oncologic (Cancer) History: Reports: Basal Cell Carcinoma, Other (See Below) Other Oncologic History: removed mole from by right eye Dermatologic History: Reports: Psoriasis Other Dermatologic History: years ago - Infectious Disease History Infectious Disease History: Reports: Influenza, Measles - Past Surgical History Head Surgeries/Procedures: Reports: None HEENT Surgical History: Reports: Adenoidectomy, Tonsillectomy Respiratory Surgical History: Reports: None GI Surgical History: Reports: Colostomy Female Surgical History: Reports: Tubal Ligation Musculoskeletal Surgical History: Reports: Knee Replacement, Other (See Below) Other Musculoskeletal Surgeries/Procedures:: fx hip left and knee replacement left Oncologic Surgical History: Reports: None Dermatological Surgical History: Reports: None Social & Family History - Family History Family Medical History: Noncontributory - Tobacco Use Smoking Status *Q: Never Smoker Used Tobacco, but Quit: Yes Month/Year Tobacco Last Used: 1 year Second Hand Smoke Exposure: No - Caffeine Use Caffeine Use: Reports: Coffee Other Caffeine Use: 1-2 cups per day - Recreational Drug Use Recreational Drug Use: No H&P Review of Systems - Review of Systems: Review Of Systems: ROS reveals no pertinent complaints other than HPI. Exam - Exam Exam: See Below - Vital Signs Vital Signs: Last Vital Signs Temp 99.4 F 05/05/18 08:00 Pulse 112 H 05/05/18 08:00 Resp 16 05/05/18 08:00 BP 151/76 H 05/05/18 08:00 Pulse Ox 92 L 05/05/18 08:00 Weight: 62.278 kg - Exam Quality Assessment: Supplemental Oxygen General: Alert, Oriented HEENT: PERRLA Neck: Supple Lungs: Rales, Rhonchi Cardiovascular: Regular Rate GI/Abdominal Exam: Normal Bowel Sounds Back Exam: Normal Inspection Extremities: Normal Inspection, Normal Range of Motion, Non-Tender, No Pedal Edema, Normal Capillary Refill Skin: Warm, Dry, Intact Neurological: Cranial Nerves Intact, Reflexes Equal Bilateral Psychiatric: Alert, Normal Affect, Normal Mood - Patient Data Lab Results Last 24 hrs: Laboratory Results - last 24 hr 05/04/18 05/04/18 05/04/18 Range/Units 19:10 19:10 19:10 WBC 23.1 H (4.5-12.0) X10-3/uL RBC 4.72 (3.23-5.20) x10(6)uL Hgb 12.1 D (11.5-15.5) g/dL Hct 37.7 (30.0-51.3) % MCV 79.8 L (80-96) fL MCH 25.7 L (27.7-33.6) pg MCHC 32.2 (32.2-35.4) g/dL RDW 14.6 (11.5-15.5) % Plt Count 326 (125-369) X10(3)uL MPV 8.1 (7.4-10.4) fL Add Manual Diff Yes Neutrophils % (Manual) 81 (46-82) % Band Neutrophils % 5 (0-6) % Lymphocytes % (Manual) 8 L (13-37) % Monocytes % (Manual) 6 (4-12) % Microcytosis Few PT 9.8 (8.7-11.1) INR 1.01 (0.89-1.13) Sodium 136 (135-145) mmol/L Potassium 3.8 (3.5-5.3) mmol/L Chloride 101 D (100-110) mmol/L Carbon Dioxide 26 (21-32) mmol/L BUN 9 (7-18) mg/dL Creatinine 0.8 (0.55-1.02) mg/dL Est Cr Clr Drug Dosing TNP Estimated GFR (MDRD) > 60 (>60) BUN/Creatinine Ratio 11.3 (9-20) Glucose 163 H (80-116) mg/dL Lactic Acid (0.4-2.2) mmol/L Calcium 9.0 (8.6-10.2) mg/dL 05/04/18 Range/Units 19:10 WBC (4.5-12.0) X10-3/uL RBC (3.23-5.20) x10(6)uL Hgb (11.5-15.5) g/dL Hct (30.0-51.3) % MCV (80-96) fL MCH (27.7-33.6) pg MCHC (32.2-35.4) g/dL RDW (11.5-15.5) % Plt Count (125-369) X10(3)uL MPV (7.4-10.4) fL Add Manual Diff Neutrophils % (Manual) (46-82) % Band Neutrophils % (0-6) % Lymphocytes % (Manual) (13-37) % Monocytes % (Manual) (4-12) % Microcytosis PT (8.7-11.1) INR (0.89-1.13) Sodium (135-145) mmol/L Potassium (3.5-5.3) mmol/L Chloride (100-110) mmol/L Carbon Dioxide (21-32) mmol/L BUN (7-18) mg/dL Creatinine (0.55-1.02) mg/dL Est Cr Clr Drug Dosing Estimated GFR (MDRD) (>60) BUN/Creatinine Ratio (9-20) Glucose (80-116) mg/dL Lactic Acid 0.7 (0.4-2.2) mmol/L Calcium (8.6-10.2) mg/dL Result Diagrams: 05/05/18 12:45 05/05/18 12:45 EKG INTERPRETATION Rhythm: NSR - Problem List (1) CAP (community acquired pneumonia) SNOMED Code(s): 906744906 ICD Code: J18.9 - PNEUMONIA, UNSPECIFIED ORGANISM Status: Acute Current Visit: No Qualifiers: Laterality: right Lung location: upper lobe of lung Qualified Code(s): J18.1 - Lobar pneumonia, unspecified organism (2) COPD (chronic obstructive pulmonary disease) SNOMED Code(s): 31599815 ICD Code: J44.9 - CHRONIC OBSTRUCTIVE PULMONARY DISEASE, UNSPECIFIED Status : Acute Current Visit: No (3) Feeling poorly SNOMED Code(s): 405007799 ICD Code: R68.89 - OTHER GENERAL SYMPTOMS AND SIGNS Status: Acute Current Visit: No (4) IBS (irritable bowel syndrome) SNOMED Code(s): 89982102 ICD Code: K58.9 - IRRITABLE BOWEL SYNDROME WITHOUT DIARRHEA Status: Acute Current Visit: No Qualifiers: Irritable bowel syndrome type: with diarrhea Qualified Code(s): K58.0 - Irritable bowel syndrome with diarrhea (5) Smoker within last 12 months SNOMED Code(s): 7088274453109 ICD Code: Z87.891 - PERSONAL HISTORY OF NICOTINE DEPENDENCE Status: Acute Current Visit: No Problem List Initiated/Reviewed/Updated: Yes Orders Last 24hrs: Active Orders 24 hr Category Date Time Status Patient Status [ADT] Routine ADT 05/04/18 19:50 Active Oxygen Therapy [RC] PRN Care 05/04/18 19:50 Active RT Aerosol Therapy [RC] ASDIRECTED Care 05/04/18 19:02 Active Up With Assistance [RC] ASDIRECTED Care 05/04/18 19:49 Active Vital Signs [RC] 00,04,08,12,16,20 Care 05/04/18 19:50 Active Chest 1V Frontal [CR] Stat Exams 05/04/18 19:02 Taken BASIC METABOLIC PANEL,BMP [CHEM] Stat Lab 05/05/18 08:17 Ordered CBC WITH AUTO DIFF [HEME] Stat Lab 05/05/18 08:17 Ordered CULTURE BLOOD [BC] Urgent Lab 05/04/18 19:40 Received CULTURE BLOOD [BC] Urgent Lab 05/04/18 19:45 Received PRO B-TYPE NATRIUR PEPT,BNPPRO [CHEM] Stat Lab 05/05/18 08:17 Ordered TROPONIN I [CHEM] Routine Lab 05/05/18 08:17 Ordered Albuterol/Ipratropium [DuoNeb 3.0-0.5 MG/3 ML] Med 05/04/18 19:49 Active 3 ml INH ONETIME PRN Docusate Sodium [Colace] Med 05/04/18 19:49 Active 100 mg PO BID PRN Levofloxacin/Dextrose 5%-Water [Levaquin in D5W 750 MG/ Med 05/05/18 08:30 Ordered 150 ML] 750 mg Premix Bag 1 bag IV Q24H Melatonin Med 05/04/18 21:55 Active 6 mg PO BEDTIME Ondansetron [Zofran ODT] Med 05/04/18 19:49 Active 4 mg PO Q4H PRN Pregabalin [Lyrica] Med 05/04/18 21:30 Active 75 mg PO BID Sodium Chloride 0.9% [Saline Flush] Med 05/04/18 19:49 Active 10 ml FLUSH ASDIRECTED PRN methylPREDNISolone Sod Succ [Solu-MEDROL] Med 05/05/18 08:30 Ordered 125 mg IVPUSH Q8H Blood Culture x2 Reflex Set [OM.PC] Urgent Oth 05/04/18 19:36 Ordered Peripheral IV Insertion Adult [OM.PC] Routine Oth 05/04/18 19:49 Ordered Resuscitation Status Routine Resus Stat 05/04/18 19:49 Ordered Medication Orders Albuterol/Ipratropium (Duoneb 3.0-0.5 Mg/3 Ml) 3 ml INH ONETIME PRN PRN Reason: Shortness Of Breath/wheezing Docusate Sodium (Colace) 100 mg PO BID PRN PRN Reason: Constipation Levofloxacin/Dextrose 750 mg/ (Premix) 150 mls @ 100 mls/hr IV Q24H [facility] Melatonin (Melatonin) 6 mg PO BEDTIME [facility] Last Admin: 05/04/18 22:06 Dose: 6 mg Methylprednisolone Sodium Succinate (Solu-Medrol) 125 mg IVPUSH Q8H [facility]ANGEL Ondansetron HCl (Zofran Odt) 4 mg PO Q4H PRN PRN Reason: nausea, able to take PO Pregabalin (Lyrica) 75 mg PO BID [facility] Last Admin: 05/04/18 22:05 Dose: 75 mg Sodium Chloride (Saline Flush) 10 ml FLUSH ASDIRECTED PRN PRN Reason: Keep Vein Open Assessment/Plan Comment:: I will continue with Levaquin, and added Solu-Medrol. I have discontinued IV fluids. We'll continue DuoNeb every 4 hours when necessary and incentive spirometry. Plan to repeat a CBC basic profile and BNP.
[2018-05-05] MEDS: methylPREDNISolone Sodium Succinate 125 MG/2 ML SDV IVPUSH SCH ×2 (09:27→16:53)
[2018-05-05] MEDS: Pregabalin 75 MG Cap PO SCH ×2 (09:27→20:28)
[2018-05-05] MEDS: Sodium Chloride 0.9% 10 ML Syringe FLUSH PRN (16:53)
[2018-05-05] MEDS ORDERED: Pregabalin 25 MG Cap ONE (20:15)
[2018-05-05] MEDS: Levofloxacin/Dextrose 5%-Water 750 MG in Premix Bag 1 BAG IV SCH (20:19)
[2018-05-05] MEDS: Melatonin 3 MG Tab PO SCH (20:20)
[2018-05-05] MEDS ORDERED: Melatonin 3 MG Tab PO SCH (21:00)
[2018-05-06] MEDS: methylPREDNISolone Sodium Succinate 125 MG/2 ML SDV IVPUSH SCH ×3 (00:14→17:01)
[2018-05-06] MEDS ORDERED: Acetaminophen 325 MG Tab PO PRN (09:00)
[2018-05-06] MEDS ORDERED: guaiFENesin 100 MG/5 ML Soln 5 ML UD Cup PO PRN (09:00)
[2018-05-06] MEDS ORDERED: Polyethylene Glycol 3350 Powder 17 GM Packet PO PRN (09:00)
--- NOTE | 2018-05-06 09:04 | PCM.PN ---
- General Info Date of Service: 05/06/18 Subjective Update: Crystal feels much better than when she came in. Still weak,short of breath,but is much improved Functional Status: Reports: Pain Controlled - Review of Systems General: Reports: No Symptoms, Weakness HEENT: Reports: No Symptoms Pulmonary: Reports: Shortness of Breath, Cough, Wheezing Cardiovascular: Reports: No Symptoms Gastrointestinal: Reports: No Symptoms Genitourinary: Reports: No Symptoms - Patient Data Vitals - Most Recent: Last Vital Signs Temp 97.5 F 05/06/18 07:30 Pulse 93 05/06/18 07:30 Resp 20 05/06/18 07:30 BP 141/76 H 05/06/18 07:30 Pulse Ox 86 L 05/06/18 07:30 Weight - Most Recent: 62.278 kg I&O - Last 24 Hours: Intake & Output 05/05/18 05/06/18 05/06/18 22:59 06:59 14:59 Intake Total 143 Balance 143 Lab Results Last 24 Hours: Laboratory Results - last 24 hr 05/05/18 05/05/18 05/05/18 Range/Units 12:45 12:45 12:45 WBC 20.0 H (4.5-12.0) X10-3/uL RBC 4.29 (3.23-5.20) x10(6)uL Hgb 11.3 L (11.5-15.5) g/dL Hct 34.5 (30.0-51.3) % MCV 80.4 (80-96) fL MCH 26.3 L (27.7-33.6) pg MCHC 32.7 (32.2-35.4) g/dL RDW 14.7 (11.5-15.5) % Plt Count 288 (125-369) X10(3)uL MPV 8.1 (7.4-10.4) fL Add Manual Diff Yes Neutrophils % (Manual) 97 H (46-82) % Lymphocytes % (Manual) 2 L (13-37) % Monocytes % (Manual) 1 L (4-12) % Hypersegmented Neuts Occasional Sodium 135 (135-145) mmol/L Potassium 4.4 (3.5-5.3) mmol/L Chloride 103 (100-110) mmol/L Carbon Dioxide 25 (21-32) mmol/L BUN 7 (7-18) mg/dL Creatinine 0.8 (0.55-1.02) mg/dL Est Cr Clr Drug Dosing 60.00 mL/min Estimated GFR (MDRD) > 60 (>60) BUN/Creatinine Ratio 8.8 L (9-20) Glucose 234 H (80-116) mg/dL Calcium 8.7 (8.6-10.2) mg/dL Troponin I < 0.017 L (<0.017-0.056) ng/mL NT-Pro-B Natriuret Pep (<=125) pg/mL 05/05/18 Range/Units 12:45 WBC (4.5-12.0) X10-3/uL RBC (3.23-5.20) x10(6)uL Hgb (11.5-15.5) g/dL Hct (30.0-51.3) % MCV (80-96) fL MCH (27.7-33.6) pg MCHC (32.2-35.4) g/dL RDW (11.5-15.5) % Plt Count (125-369) X10(3)uL MPV (7.4-10.4) fL Add Manual Diff Neutrophils % (Manual) (46-82) % Lymphocytes % (Manual) (13-37) % Monocytes % (Manual) (4-12) % Hypersegmented Neuts Sodium (135-145) mmol/L Potassium (3.5-5.3) mmol/L Chloride (100-110) mmol/L Carbon Dioxide (21-32) mmol/L BUN (7-18) mg/dL Creatinine (0.55-1.02) mg/dL Est Cr Clr Drug Dosing mL/min Estimated GFR (MDRD) (>60) BUN/Creatinine Ratio (9-20) Glucose (80-116) mg/dL Calcium (8.6-10.2) mg/dL Troponin I (<0.017-0.056) ng/mL NT-Pro-B Natriuret Pep 835 H (<=125) pg/mL Nikolas Results Last 24 Hours: Microbiology 05/04/18 19:40 Aerobic Blood Culture - Preliminary Blood - Venous NO GROWTH AFTER 1 DAY Anaerobic Blood Culture - Preliminary NO GROWTH AFTER 1 DAY 05/04/18 19:45 Aerobic Blood Culture - Preliminary Blood - Venous - Lab Draw NO GROWTH AFTER 1 DAY Anaerobic Blood Culture - Preliminary NO GROWTH AFTER 1 DAY Med Orders - Current: Current Medications Albuterol/Ipratropium (Duoneb 3.0-0.5 Mg/3 Ml) 3 ml INH ONETIME PRN PRN Reason: Shortness Of Breath/wheezing Docusate Sodium (Colace) 100 mg PO BID PRN PRN Reason: Constipation Last Admin: 05/06/18 08:46 Dose: 100 mg Levofloxacin/Dextrose 750 mg/ (Premix) 150 mls @ 100 mls/hr IV Q24H [facility] Last Admin: 05/05/18 20:19 Dose: 100 mls/hr Melatonin (Melatonin) 6 mg PO BEDTIME [facility] Last Admin: 05/05/18 20:20 Dose: 6 mg Methylprednisolone Sodium Succinate (Solu-Medrol) 125 mg IVPUSH Q8H [facility] Last Admin: 05/06/18 00:14 Dose: 125 mg Ondansetron HCl (Zofran Odt) 4 mg PO Q4H PRN PRN Reason: nausea, able to take PO Pregabalin (Lyrica) 75 mg PO BID [facility] Last Admin: 05/05/18 20:28 Dose: Not Given Sodium Chloride (Saline Flush) 10 ml FLUSH ASDIRECTED PRN PRN Reason: Keep Vein Open Last Admin: 05/05/18 16:53 Dose: 10 ml Discontinued Medications Albuterol/Ipratropium (Duoneb 3.0-0.5 Mg/3 Ml) 3 ml NEB ONETIME ONE Stop: 05/04/18 19:03 Last Admin: 05/04/18 19:10 Dose: 3 ml Levofloxacin/Dextrose 750 mg/ (Premix) 150 mls @ 100 mls/hr IV ONETIME ONE Stop: 05/04/18 21:14 Last Admin: 05/04/18 20:00 Dose: 100 mls/hr Sodium Chloride (Normal Saline) 1,000 mls @ 125 mls/hr IV ASDIRECTED [facility] Last Admin: 05/05/18 05:24 Dose: 125 mls/hr Meclizine HCl (Antivert) 25 mg PO ONETIME ONE Stop: 05/04/18 19:03 Last Admin: 05/04/18 19:10 Dose: 25 mg Melatonin (Melatonin) 6 mg PO BEDTIME [facility] Pregabalin (Lyrica) Confirm Administered Dose 75 mg .ROUTE .STK-MED ONE Stop: 05/05/18 20:16 Last Admin: 05/05/18 20:20 Dose: 75 mg - Exam Quality Assessment: Supplemental Oxygen General: Alert, Mild Distress HEENT: Pupils Equal Neck: Supple Lungs: Clear to Auscultation Cardiovascular: Regular Rate - Problem List & Annotations (1) CAP (community acquired pneumonia) SNOMED Code(s): 016636891 Code(s): J18.9 - PNEUMONIA, UNSPECIFIED ORGANISM Status: Acute Current Visit: No Qualifiers: Laterality: right Lung location: upper lobe of lung Qualified Code(s): J18.1 - Lobar pneumonia, unspecified organism (2) COPD (chronic obstructive pulmonary disease) SNOMED Code(s): 48322751 Code(s): J44.9 - CHRONIC OBSTRUCTIVE PULMONARY DISEASE, UNSPECIFIED Status : Acute Current Visit: No Qualifiers: COPD type: COPD with acute lower respiratory infection Qualified Code(s): J44.0 - Chronic obstructive pulmonary disease with acute lower respiratory infection (3) Feeling poorly SNOMED Code(s): 586831397 Code(s): R68.89 - OTHER GENERAL SYMPTOMS AND SIGNS Status: Acute Current Visit: No (4) IBS (irritable bowel syndrome) SNOMED Code(s): 65452737 Code(s): K58.9 - IRRITABLE BOWEL SYNDROME WITHOUT DIARRHEA Status: Acute Current Visit: No Qualifiers: Irritable bowel syndrome type: with diarrhea Qualified Code(s): K58.0 - Irritable bowel syndrome with diarrhea (5) Smoker within last 12 months SNOMED Code(s): 0091454831955 Code(s): Z87.891 - PERSONAL HISTORY OF NICOTINE DEPENDENCE Status: Acute Current Visit: No (6) Palliative care patient SNOMED Code(s): 370965033 Code(s): Z51.5 - ENCOUNTER FOR PALLIATIVE CARE Status: Acute Current Visit: Yes (7) Dyspnea SNOMED Code(s): 982983492 Code(s): R06.00 - DYSPNEA, UNSPECIFIED Status: Acute Current Visit: Yes Qualifiers: Dyspnea type: dyspnea on exertion Qualified Code(s): R06.09 - Other forms of dyspnea - Problem List Review Problem List Initiated/Reviewed/Updated: Yes - My Orders Last 24 Hours: My Active Orders 05/05/18 08:30 methylPREDNISolone Sod Succ [Solu-MEDROL] 125 mg IVPUSH Q8H 05/05/18 15:04 IS (RT) [RT Incentive Spirometry] [RC] ASDIRECTED 05/05/18 20:00 Levofloxacin/Dextrose 5%-Water [Levaquin in D5W 750 MG/150 ML] 750 mg Premix Bag 1 bag IV Q24H 05/06/18 08:59 CXR [Chest 2V] [CR] Routine 05/06/18 09:00 Acetaminophen [Tylenol] 650 mg PO Q4H PRN Aspirin [Halfprin] 81 mg PO DAILY Bifidobacterium Infantis [Align] 4 mg PO DAILY Ca Carbonate/Vitamin D3/Vit K [Calcium + D Soft Chewable Tab] 1 tab PO DAILY Fluticasone/Salmeterol [Advair 250-50 Diskus] 1 puff IH BID Loratadine [Claritin] 10 mg PO DAILY Multivitamins [Tab-A-Ivelisse] 1 tab PO DAILY Nystatin [Nystatin] 1 applic TOP BID Omeprazole [Omeprazole] 20 mg PO DAILY Polyethylene Glycol 3350 [MiraLAX] 17 gm PO DAILY PRN Ranitidine HCl [Zantac] 300 mg PO DAILY guaiFENesin [Robitussin] 100 mg PO Q4H PRN 05/06/18 21:00 Melatonin 9 mg PO BEDTIME 05/07/18 05:11 BASIC METABOLIC PANEL,BMP [CHEM] AM CBC WITH AUTO DIFF [HEME] AM - Plan Plan:: Continue current Rx. Obtain a repeat 2 view CXR
[2018-05-06] MEDS ORDERED: Albuterol/Ipratropium 3.0-0.5 MG/3 ML Neb Soln INH PRN (10:00)
[2018-05-06] MEDS: Sodium Chloride 0.9% 10 ML Syringe FLUSH PRN ×3 (10:19→21:42)
[2018-05-06] MEDS: Multivitamin Tab PO SCH (10:50)
[2018-05-06] MEDS: Pantoprazole 40 MG Tab.CR PO SCH (10:50)
[2018-05-06] MEDS: Formoterol/Mometasone 200-5 MCG 8.8 GM Inhaler IH SCH ×2 (10:50→21:33)
[2018-05-06] MEDS: Calcium Carbonate/Vitamin D3 1250 MG-200 Unit Tab PO SCH (10:50)
[2018-05-06] MEDS: Aspirin 81 MG Tab.EC PO SCH (10:50)
[2018-05-06] MEDS: Lactobacillus Rhamnosus GG (Probiotic) Cap PO SCH (10:50)
[2018-05-06] MEDS: Nystatin Topical Powder 15 GM Bottle TOP SCH ×2 (10:52→21:27)
--- NOTE | 2018-05-06 10:54 | CR ---
INDICATION: Follow up pneumonia. CHEST: PA and lateral views of the chest were obtained 05/06/2018 and compared with 05/04/2018 and 11/08/2017 and revealed decreased infiltrate in the right mid lung field and possibly minimally in the right lung base, compared with the previous study, suggesting resolving pneumonia superimposed on fibrosis in that area. No other change or new acute process was identified. MTDD
[2018-05-06] MEDS: Pregabalin 75 MG Cap PO SCH ×2 (10:58→21:46)
[2018-05-06] MEDS: Loratadine 10 MG Tab PO SCH (11:03)
--- NOTE | 2018-05-06 11:14 | CR ---
INDICATION: Short of breath. CHEST: An AP upright view of the chest revealed an appearance of hyperaeration. Interstitial markings are very prominent with irregular linear density in the right upper middle lung field also seen and heavier markings overall in the mid to lower lung [place] with bronchial wall cuffing and probable bronchiectasis in the lower lung [place] and mid lung field on the right. Findings most likely represent chronic inflammatory disease and pulmonary fibrosis. The possibility that these findings all represent fibrosis is also a consideration - correlate clinically. Patchy pneumonia cannot be excluded in the lung bases and right mid lung field, as well as upper middle lung field to the right with the areas of heavy markings present. The heart is normal in size and shape. The aorta is calcified in the arch area. Dextroconvex scoliosis of moderate degree is noted of the upper middle thoracic spine. IMPRESSION: 1. Findings most likely represent chronic findings in the chest, most likely pulmonary fibrosis, possibly with chronic inflammatory disease superimposed with bronchiectasis. Findings are most notable in the upper middle lung field on the right and both lung bases, as well as mid lung field on the right. Some of these findings are likely on the basis of previous pneumonia with fibrosis. Additionally, interstitial fibrosis is strongly suggested. 2. COPD. 3. ASD aorta. 4. Scoliosis. MTDD
[2018-05-06] MEDS: Levofloxacin/Dextrose 5%-Water 750 MG in Premix Bag 1 BAG IV SCH (20:07)
[2018-05-06] MEDS: Melatonin 3 MG Tab PO SCH (21:37)
[2018-05-06] MEDS: Famotidine 20 MG Tab PO SCH (21:39)
[2018-05-07] MEDS: Sodium Chloride 0.9% 10 ML Syringe FLUSH PRN ×2 (00:01→10:32)
[2018-05-07] MEDS: methylPREDNISolone Sodium Succinate 125 MG/2 ML SDV IVPUSH SCH ×2 (00:07→10:32)
[2018-05-07] MEDS: Pantoprazole 40 MG Tab.CR PO SCH (06:33)
[2018-05-07] MEDS: Calcium Carbonate/Vitamin D3 1250 MG-200 Unit Tab PO SCH (08:28)
[2018-05-07] MEDS: Loratadine 10 MG Tab PO SCH (08:28)
[2018-05-07] MEDS: Multivitamin Tab PO SCH (08:28)
[2018-05-07] MEDS: Lactobacillus Rhamnosus GG (Probiotic) Cap PO SCH (08:28)
[2018-05-07] MEDS: Aspirin 81 MG Tab.EC PO SCH (08:28)
[2018-05-07] MEDS: Formoterol/Mometasone 200-5 MCG 8.8 GM Inhaler IH SCH ×2 (08:28→20:18)
[2018-05-07] MEDS: Nystatin Topical Powder 15 GM Bottle TOP SCH ×2 (08:29→20:20)
--- NOTE | 2018-05-07 09:28 | PCM.PN ---
- General Info Date of Service: 05/07/18 Subjective Update: Crystal reports marked improvement, she is now off oxygenation. Functional Status: Reports: Pain Controlled, Tolerating Diet - Review of Systems General: Reports: No Symptoms HEENT: Reports: No Symptoms Pulmonary: Reports: Cough Cardiovascular: Reports: No Symptoms Gastrointestinal: Reports: No Symptoms - Patient Data Vitals - Most Recent: Last Vital Signs Temp 97.6 F 05/07/18 05:00 Pulse 82 05/07/18 05:00 Resp 16 05/07/18 05:00 BP 140/74 05/07/18 05:00 Pulse Ox 95 05/07/18 05:00 Weight - Most Recent: 62.278 kg I&O - Last 24 Hours: Intake & Output 05/06/18 05/07/18 05/07/18 22:59 06:59 14:59 Intake Total 150 Balance 150 Lab Results Last 24 Hours: Laboratory Results - last 24 hr 05/07/18 05/07/18 Range/Units 06:15 06:15 WBC 14.7 H (4.5-12.0) X10-3/uL RBC 3.91 (3.23-5.20) x10(6)uL Hgb 10.0 L (11.5-15.5) g/dL Hct 31.2 (30.0-51.3) % MCV 79.9 L (80-96) fL MCH 25.7 L (27.7-33.6) pg MCHC 32.2 (32.2-35.4) g/dL RDW 14.7 (11.5-15.5) % Plt Count 284 (125-369) X10(3)uL MPV 8.5 (7.4-10.4) fL Neut % (Auto) 87.4 H (46-82) % Lymph % (Auto) 7.8 L (13-37) % [place] % (Auto) 4.7 (4-12) % Eos % (Auto) 0 L (1.0-5.0) % Baso % (Auto) 0 (0-2) % Neut # (Auto) 12.9 H (1.6-8.3) # Lymph # (Auto) 1.1 (0.6-5.0) # [place] # (Auto) 0.7 (0.0-1.3) # Eos # (Auto) 0.0 (0.0-0.8) # Baso # (Auto) 0.0 (0.0-0.2) # Sodium 140 (135-145) mmol/L Potassium 4.0 (3.5-5.3) mmol/L Chloride 105 (100-110) mmol/L Carbon Dioxide 29 (21-32) mmol/L BUN 18 D (7-18) mg/dL Creatinine 0.8 (0.55-1.02) mg/dL Est Cr Clr Drug Dosing 60.00 mL/min Estimated GFR (MDRD) > 60 (>60) BUN/Creatinine Ratio 22.5 H (9-20) Glucose 179 H (80-116) mg/dL Calcium 8.4 L (8.6-10.2) mg/dL Nikolas Results Last 24 Hours: Microbiology 05/04/18 19:45 Aerobic Blood Culture - Preliminary Blood - Venous - Lab Draw NO GROWTH AFTER 2 DAYS Anaerobic Blood Culture - Preliminary NO GROWTH AFTER 2 DAYS 05/04/18 19:40 Aerobic Blood Culture - Preliminary Blood - Venous NO GROWTH AFTER 2 DAYS Anaerobic Blood Culture - Preliminary NO GROWTH AFTER 2 DAYS Med Orders - Current: Current Medications Acetaminophen (Tylenol) 650 mg PO Q4H PRN PRN Reason: Pain (moderate 4-6) Albuterol/Ipratropium (Duoneb 3.0-0.5 Mg/3 Ml) 3 ml INH Q4H PRN PRN Reason: Shortness Of Breath/wheezing Aspirin (Halfprin) 81 mg PO DAILY [facility] Last Admin: 05/07/18 08:28 Dose: 81 mg Calcium Carbonate (Calcium Carbonate/Vitamin D 1250 Mg-200 Unit) 1 tab PO DAILY [facility] Last Admin: 05/07/18 08:28 Dose: 1 tab Docusate Sodium (Colace) 100 mg PO BID PRN PRN Reason: Constipation Last Admin: 05/06/18 08:46 Dose: 100 mg Famotidine (Pepcid) 40 mg PO BEDTIME [facility] Last Admin: 05/06/18 21:39 Dose: 40 mg Guaifenesin (Robitussin) 100 mg PO Q4H PRN PRN Reason: Cough Levofloxacin/Dextrose 750 mg/ (Premix) 150 mls @ 100 mls/hr IV Q24H [facility] Last Admin: 05/06/18 20:07 Dose: 100 mls/hr Lactobacillus Rhamnosus (Culturelle) 1 cap PO DAILY [facility] Last Admin: 05/07/18 08:28 Dose: 1 cap Loratadine (Claritin) 10 mg PO DAILY [facility] Last Admin: 05/07/18 08:28 Dose: 10 mg Melatonin (Melatonin) 9 mg PO BEDTIME [facility] Last Admin: 05/06/18 21:37 Dose: 9 mg Methylprednisolone Sodium Succinate (Solu-Medrol) 125 mg IVPUSH Q8H [facility] Last Admin: 05/07/18 00:07 Dose: 125 mg Mometasone Furoate/Formoterol Fumar (Dulera 200-5 Mcg) 2 puff IH BID [facility] Last Admin: 05/07/18 08:28 Dose: 2 puff Multivitamins/Minerals/Vitamin C (Tab-A-Ivelisse) 1 tab PO DAILY [facility] Last Admin: 05/07/18 08:28 Dose: 1 tab Nystatin (Nystop) 0 gm TOP BID [facility] Last Admin: 05/07/18 08:29 Dose: Not Given Ondansetron HCl (Zofran Odt) 4 mg PO Q4H PRN PRN Reason: nausea, able to take PO Pantoprazole Sodium (Protonix) 40 mg PO DAILY@0600 [facility] Last Admin: 05/07/18 06:33 Dose: 40 mg Polyethylene Glycol (Miralax) 17 gm PO DAILY PRN PRN Reason: Constipation Last Admin: 05/06/18 11:49 Dose: 17 gm Pregabalin (Lyrica) 75 mg PO BID [facility] Last Admin: 05/06/18 21:46 Dose: 75 mg Sodium Chloride (Saline Flush) 10 ml FLUSH ASDIRECTED PRN PRN Reason: Keep Vein Open Last Admin: 05/07/18 00:01 Dose: 10 ml Discontinued Medications Albuterol/Ipratropium (Duoneb 3.0-0.5 Mg/3 Ml) 3 ml NEB ONETIME ONE Stop: 05/04/18 19:03 Last Admin: 05/04/18 19:10 Dose: 3 ml Albuterol/Ipratropium (Duoneb 3.0-0.5 Mg/3 Ml) 3 ml INH ONETIME PRN PRN Reason: Shortness Of Breath/wheezing Levofloxacin/Dextrose 750 mg/ (Premix) 150 mls @ 100 mls/hr IV ONETIME ONE Stop: 05/04/18 21:14 Last Admin: 05/04/18 20:00 Dose: 100 mls/hr Sodium Chloride (Normal Saline) 1,000 mls @ 125 mls/hr IV ASDIRECTED [facility] Last Admin: 05/05/18 05:24 Dose: 125 mls/hr Meclizine HCl (Antivert) 25 mg PO ONETIME ONE Stop: 05/04/18 19:03 Last Admin: 05/04/18 19:10 Dose: 25 mg Melatonin (Melatonin) 6 mg PO BEDTIME [facility] Melatonin (Melatonin) 6 mg PO BEDTIME [facility] Last Admin: 05/05/18 20:20 Dose: 6 mg Pregabalin (Lyrica) Confirm Administered Dose 75 mg .ROUTE .STK-MED ONE Stop: 05/05/18 20:16 Last Admin: 05/05/18 20:20 Dose: 75 mg - Exam General: Alert HEENT: Pupils Equal Neck: Supple Lungs: Clear to Auscultation - Problem List & Annotations (1) CAP (community acquired pneumonia) SNOMED Code(s): 204751954 Code(s): J18.9 - PNEUMONIA, UNSPECIFIED ORGANISM Status: Acute Current Visit: No Qualifiers: Laterality: right Lung location: upper lobe of lung Qualified Code(s): J18.1 - Lobar pneumonia, unspecified organism (2) COPD (chronic obstructive pulmonary disease) SNOMED Code(s): 70143939 Code(s): J44.9 - CHRONIC OBSTRUCTIVE PULMONARY DISEASE, UNSPECIFIED Status : Acute Current Visit: No Qualifiers: COPD type: COPD with acute lower respiratory infection Qualified Code(s): J44.0 - Chronic obstructive pulmonary disease with acute lower respiratory infection (3) Feeling poorly SNOMED Code(s): 501277076 Code(s): R68.89 - OTHER GENERAL SYMPTOMS AND SIGNS Status: Acute Current Visit: No (4) IBS (irritable bowel syndrome) SNOMED Code(s): 43212484 Code(s): K58.9 - IRRITABLE BOWEL SYNDROME WITHOUT DIARRHEA Status: Acute Current Visit: No Qualifiers: Irritable bowel syndrome type: with diarrhea Qualified Code(s): K58.0 - Irritable bowel syndrome with diarrhea (5) Smoker within last 12 months SNOMED Code(s): 7570912533225 Code(s): Z87.891 - PERSONAL HISTORY OF NICOTINE DEPENDENCE Status: Acute Current Visit: No (6) Palliative care patient SNOMED Code(s): 666535915 Code(s): Z51.5 - ENCOUNTER FOR PALLIATIVE CARE Status: Acute Current Visit: Yes (7) Dyspnea SNOMED Code(s): 957792337 Code(s): R06.00 - DYSPNEA, UNSPECIFIED Status: Acute Current Visit: Yes Qualifiers: Dyspnea type: dyspnea on exertion Qualified Code(s): R06.09 - Other forms of dyspnea - Problem List Review Problem List Initiated/Reviewed/Updated: Yes - My Orders Last 24 Hours: My Active Orders 05/06/18 09:00 Acetaminophen [Tylenol] 650 mg PO Q4H PRN Aspirin [Halfprin] 81 mg PO DAILY Loratadine [Claritin] 10 mg PO DAILY Multivitamins [Tab-A-Ivelisse] 1 tab PO DAILY Pantoprazole [ProTONIX] 40 mg PO DAILY@0600 Polyethylene Glycol 3350 [MiraLAX] 17 gm PO DAILY PRN guaiFENesin [Robitussin] 100 mg PO Q4H PRN 05/06/18 09:15 Calcium Carbonate/Vitamin D3 [Calcium Carbonate/Vitamin D 1250 MG-200 Unit] 1 tab PO DAILY Nystatin [Nystop] 0 gm TOP BID 05/06/18 09:30 Mometasone/Formoterol [Dulera 200-5 MCG] 2 puff IH BID 05/06/18 09:45 Lactobacillus Rhamnosus GG [Culturelle] 1 cap PO DAILY 05/06/18 21:00 Famotidine [Pepcid] 40 mg PO BEDTIME Melatonin 9 mg PO BEDTIME - Plan Plan:: Switch to orals today and then discharge home tomorrow.
[2018-05-07] MEDS: Pregabalin 75 MG Cap PO SCH ×2 (10:28→20:22)
[2018-05-07] MEDS: predniSONE 20 MG Tab PO SCH ×2 (11:05→17:37)
[2018-05-07] MEDS ORDERED: Levofloxacin 750 MG Tab PO SCH (20:00)
[2018-05-07] MEDS: Famotidine 20 MG Tab PO SCH (20:22)
[2018-05-07] MEDS: Melatonin 3 MG Tab PO SCH (20:22)
[2018-05-08] MEDS: Pantoprazole 40 MG Tab.CR PO SCH (05:32)
[2018-05-08] MEDS: predniSONE 20 MG Tab PO SCH (08:18)
[2018-05-08] MEDS: Loratadine 10 MG Tab PO SCH (08:20)
[2018-05-08] MEDS: Calcium Carbonate/Vitamin D3 1250 MG-200 Unit Tab PO SCH (08:20)
[2018-05-08] MEDS: Lactobacillus Rhamnosus GG (Probiotic) Cap PO SCH (08:21)
[2018-05-08] MEDS: Multivitamin Tab PO SCH (08:21)
[2018-05-08] MEDS: Formoterol/Mometasone 200-5 MCG 8.8 GM Inhaler IH SCH (08:21)
[2018-05-08] MEDS: Aspirin 81 MG Tab.EC PO SCH (08:21)
[2018-05-08] MEDS: Nystatin Topical Powder 15 GM Bottle TOP SCH (08:21)
[2018-05-08] MEDS: Pregabalin 75 MG Cap PO SCH (08:33)
--- NOTE | 2018-05-08 08:54 | PCM.PN ---
- General Info Date of Service: 05/08/18 Admission Dx/Problem (Free Text): Admission Diagnosis/Problem Admission Diagnosis/Problem Pneumonia Subjective Update: Crystal reports marked improvement, she is now off oxygenation. Functional Status: Reports: Pain Controlled, Tolerating Diet - Review of Systems General: Reports: No Symptoms HEENT: Reports: No Symptoms Pulmonary: Reports: No Symptoms Cardiovascular: Reports: No Symptoms - Patient Data Vitals - Most Recent: Last Vital Signs Temp 97.5 F 05/08/18 08:00 Pulse 91 05/08/18 08:00 Resp 18 05/08/18 08:00 BP 157/77 H 05/08/18 08:00 Pulse Ox 93 L 05/08/18 08:00 Weight - Most Recent: 62.278 kg Nikolas Results Last 24 Hours: Microbiology 05/04/18 19:40 Aerobic Blood Culture - Preliminary Blood - Venous NO GROWTH AFTER 3 DAYS Anaerobic Blood Culture - Preliminary NO GROWTH AFTER 3 DAYS 05/04/18 19:45 Aerobic Blood Culture - Preliminary Blood - Venous - Lab Draw NO GROWTH AFTER 3 DAYS Anaerobic Blood Culture - Preliminary NO GROWTH AFTER 3 DAYS Med Orders - Current: Current Medications Acetaminophen (Tylenol) 650 mg PO Q4H PRN PRN Reason: Pain (moderate 4-6) Albuterol/Ipratropium (Duoneb 3.0-0.5 Mg/3 Ml) 3 ml INH Q4H PRN PRN Reason: Shortness Of Breath/wheezing Aspirin (Halfprin) 81 mg PO DAILY [facility] Last Admin: 05/08/18 08:21 Dose: 81 mg Calcium Carbonate (Calcium Carbonate/Vitamin D 1250 Mg-200 Unit) 1 tab PO DAILY [facility] Last Admin: 05/08/18 08:20 Dose: 1 tab Docusate Sodium (Colace) 100 mg PO BID PRN PRN Reason: Constipation Last Admin: 05/06/18 08:46 Dose: 100 mg Famotidine (Pepcid) 40 mg PO BEDTIME [facility] Last Admin: 05/07/18 20:22 Dose: 40 mg Guaifenesin (Robitussin) 100 mg PO Q4H PRN PRN Reason: Cough Lactobacillus Rhamnosus (Culturelle) 1 cap PO DAILY [facility] Last Admin: 05/08/18 08:21 Dose: 1 cap Levofloxacin (Levaquin) 750 mg PO Q24H [facility] Last Admin: 05/07/18 20:21 Dose: 750 mg Loratadine (Claritin) 10 mg PO DAILY [facility] Last Admin: 05/08/18 08:20 Dose: 10 mg Melatonin (Melatonin) 9 mg PO BEDTIME [facility] Last Admin: 05/07/18 20:22 Dose: 9 mg Mometasone Furoate/Formoterol Fumar (Dulera 200-5 Mcg) 2 puff IH BID [facility] Last Admin: 05/08/18 08:21 Dose: 2 puff Multivitamins/Minerals/Vitamin C (Tab-A-Ivelisse) 1 tab PO DAILY [facility] Last Admin: 05/08/18 08:21 Dose: 1 tab Nystatin (Nystop) 0 gm TOP BID [facility] Last Admin: 05/08/18 08:21 Dose: 1 applic Ondansetron HCl (Zofran Odt) 4 mg PO Q4H PRN PRN Reason: nausea, able to take PO Pantoprazole Sodium (Protonix) 40 mg PO DAILY@0600 [facility] Last Admin: 05/08/18 05:32 Dose: 40 mg Polyethylene Glycol (Miralax) 17 gm PO DAILY PRN PRN Reason: Constipation Last Admin: 05/06/18 11:49 Dose: 17 gm Prednisone (Prednisone) 20 mg PO BIDMEALS [facility] Last Admin: 05/08/18 08:18 Dose: 20 mg Pregabalin (Lyrica) 75 mg PO BID [facility] Last Admin: 05/08/18 08:33 Dose: 75 mg Sodium Chloride (Saline Flush) 10 ml FLUSH ASDIRECTED PRN PRN Reason: Keep Vein Open Last Admin: 05/07/18 10:32 Dose: 10 ml Discontinued Medications Albuterol/Ipratropium (Duoneb 3.0-0.5 Mg/3 Ml) 3 ml NEB ONETIME ONE Stop: 05/04/18 19:03 Last Admin: 05/04/18 19:10 Dose: 3 ml Albuterol/Ipratropium (Duoneb 3.0-0.5 Mg/3 Ml) 3 ml INH ONETIME PRN PRN Reason: Shortness Of Breath/wheezing Levofloxacin/Dextrose 750 mg/ (Premix) 150 mls @ 100 mls/hr IV ONETIME ONE Stop: 05/04/18 21:14 Last Admin: 05/04/18 20:00 Dose: 100 mls/hr Sodium Chloride (Normal Saline) 1,000 mls @ 125 mls/hr IV ASDIRECTED [facility] Last Admin: 05/05/18 05:24 Dose: 125 mls/hr Levofloxacin/Dextrose 750 mg/ (Premix) 150 mls @ 100 mls/hr IV Q24H [facility] Last Admin: 05/06/18 20:07 Dose: 100 mls/hr Meclizine HCl (Antivert) 25 mg PO ONETIME ONE Stop: 05/04/18 19:03 Last Admin: 05/04/18 19:10 Dose: 25 mg Melatonin (Melatonin) 6 mg PO BEDTIME [facility] Melatonin (Melatonin) 6 mg PO BEDTIME [facility] Last Admin: 05/05/18 20:20 Dose: 6 mg Methylprednisolone Sodium Succinate (Solu-Medrol) 125 mg IVPUSH Q8H [facility] Last Admin: 05/07/18 10:32 Dose: Not Given Pregabalin (Lyrica) Confirm Administered Dose 75 mg .ROUTE .STK-MED ONE Stop: 05/05/18 20:16 Last Admin: 05/05/18 20:20 Dose: 75 mg - Exam Quality Assessment: No: Supplemental Oxygen General: Alert, Oriented HEENT: Pupils Equal Neck: Supple Lungs: Clear to Auscultation Cardiovascular: Regular Rate - Problem List & Annotations (1) CAP (community acquired pneumonia) SNOMED Code(s): 686135775 Code(s): J18.9 - PNEUMONIA, UNSPECIFIED ORGANISM Status: Acute Current Visit: No Qualifiers: Laterality: right Lung location: upper lobe of lung Qualified Code(s): J18.1 - Lobar pneumonia, unspecified organism (2) COPD (chronic obstructive pulmonary disease) SNOMED Code(s): 28062538 Code(s): J44.9 - CHRONIC OBSTRUCTIVE PULMONARY DISEASE, UNSPECIFIED Status : Acute Current Visit: No Qualifiers: COPD type: COPD with acute lower respiratory infection Qualified Code(s): J44.0 - Chronic obstructive pulmonary disease with acute lower respiratory infection (3) Feeling poorly SNOMED Code(s): 991182953 Code(s): R68.89 - OTHER GENERAL SYMPTOMS AND SIGNS Status: Acute Current Visit: No (4) IBS (irritable bowel syndrome) SNOMED Code(s): 72830646 Code(s): K58.9 - IRRITABLE BOWEL SYNDROME WITHOUT DIARRHEA Status: Acute Current Visit: No Qualifiers: Irritable bowel syndrome type: with diarrhea Qualified Code(s): K58.0 - Irritable bowel syndrome with diarrhea (5) Smoker within last 12 months SNOMED Code(s): 5983743718851 Code(s): Z87.891 - PERSONAL HISTORY OF NICOTINE DEPENDENCE Status: Acute Current Visit: No (6) Palliative care patient SNOMED Code(s): 681624199 Code(s): Z51.5 - ENCOUNTER FOR PALLIATIVE CARE Status: Acute Current Visit: Yes (7) Dyspnea SNOMED Code(s): 684746352 Code(s): R06.00 - DYSPNEA, UNSPECIFIED Status: Acute Current Visit: Yes Qualifiers: Dyspnea type: dyspnea on exertion Qualified Code(s): R06.09 - Other forms of dyspnea - Problem List Review Problem List Initiated/Reviewed/Updated: Yes - My Orders Last 24 Hours: My Active Orders 05/07/18 09:30 predniSONE 20 mg PO BIDMEALS 05/07/18 20:00 levoFLOXacin [Levaquin] 750 mg PO Q24H - Plan Plan:: discharge home today
--- NOTE | 2018-05-08 16:26 | DISCH ---
DISCHARGE DATE: 05/08/2018 REASON FOR ADMISSION: 1. Pneumonia. 2. COPD. DISCHARGE DIAGNOSES: 1. Pneumonia. 2. Chronic obstructive pulmonary disease. SECONDARY DIAGNOSES: 1. Irritable bowel syndrome. 2. Generalized anxiety disorder. 3. Peripheral neuropathy. 4. History of tobacco abuse. HOSPITAL COURSE: This is a 72-year-old female from [facility] who was admitted for cough, fever, lethargy, and was found to have pneumonia and COPD exacerbation. She was treated with IV Levaquin and Solu-Medrol. Symptoms improved dramatically. She was able to go back to the [facility] today with Home Health, and the [facility] to monitor vital signs, blood pressure, and medications. DISCHARGE MEDICATIONS: 1. Prednisone 10 mg b.i.d. for 5 days. 2. 750 mg of Levaquin daily for another five days. 3. She will also go home on her usual home medications. Please note that I spent more than 35 minutes in discharge of the patient. The patient was advised to see Dr. Lee in one week. /[id number] LÁZARO/EDDI
== END 2018-05-08 13:52 | disposition home health service (06) | DRG 190 ==
LOC: FB.ED 18:53 → FB.MS 19:49
PROVIDERS: ADMIT Family Medicine; ATTEND Family Medicine
DX: J44.0 Chronic obstructive pulmonary disease with (acute) lower respiratory infection (principal); J18.1 Lobar pneumonia, unspecified organism; J44.1 Chronic obstructive pulmonary disease with (acute) exacerbation; R06.02 Shortness of breath; R05 Cough; R50.9 Fever, unspecified; Z51.5 Encounter for palliative care; Z66 Do not resuscitate; Z87.891 Personal history of nicotine dependence; K58.0 Irritable bowel syndrome with diarrhea; F41.1 Generalized anxiety disorder; Z85.828 Personal history of other malignant neoplasm of skin; Z87.01 Personal history of pneumonia (recurrent); H54.7 Unspecified visual loss; G62.9 Polyneuropathy, unspecified; Z96.659 Presence of unspecified artificial knee joint; Z86.010 Personal history of colon polyps; Z79.82 Long term (current) use of aspirin; Z79.52 Long term (current) use of systemic steroids
CPT/HCPCS: 36415; 71045; 80048; 83605; 85025; 85610; 87040 ×2; 94640; 99284; A9270; 71046; 83880; 84484; 93005; 94150; 96365; 96366; J1956; J2930; J7030; J7050; J7620-GY

== ENCOUNTER 2019-05-07 12:48 | Inpatient (IN) | payer MEDICARE, OTHER ==
[2019-05-07] MEDS ORDERED: Ondansetron 4 MG Tab.DIS PO PRN (13:02)
--- NOTE | 2019-05-07 14:49 | CT ---
INDICATION: Generalized weakness - question CVA. CT HEAD WITHOUT CONTRAST: Spiral 3.75 mm axial sections were obtained through the brain without contrast, 05/07/19, and compared with 11/08/17. Total exam DLP = 1,296.53 mGy-cm. The paranasal sinuses and the mastoid air cells appear to be fairly well-aerated , except for inferiorly at the mastoid air cells, which is of questionable significance but could be related to previous mastoiditis. Moderate degenerative change is noted at the atlantoodontoid joint. No definite cranial abnormality was identified. Calcifications are noted in the vertebral and for the most part left internal carotid arteries. The orbits appear to be intact. There appears to be significant progression of white matter changes in a patchily diffuse pattern, compatible with moderately severe microvascular disease that is progressive. The lateral ventricles appear to be slightly more prominent, suggesting progressive central atrophy. No bleeding site or hematoma was seen. No finding to strongly suggest an acute thrombotic CVA was noted. No shift of midline structures was noted. IMPRESSION: 1. No acute intracranial abnormality. 2. Progressive central atrophy. 3. Progressive white matter changes compatible with moderate to moderately severe microvascular disease. 4. Cerebrovascular disease with arterial calcifications. Report was called to Dr. Lundy at 1426 hours on 05/07/19. [facility]
[2019-05-07] MEDS ORDERED: Albuterol 8 GM Inhaler *PTOM INH PRN (15:35)
[2019-05-07] MEDS ORDERED: Acetaminophen 325 MG Tab PO PRN (15:35)
[2019-05-07] MEDS ORDERED: Albuterol 0.083% 2.5 MG/3 ML Neb Soln INH PRN (15:35)
[2019-05-07] MEDS ORDERED: Polyethylene Glycol 3350 Powder 17 GM Packet PO PRN (15:35)
--- NOTE | 2019-05-07 15:44 | PCM.HP.2 ---
H&P History of Present Illness - General Date of Service: 05/07/19 Admit Problem/Dx: Admission Diagnosis/Problem Admission Diagnosis/Problem Weakness Source of Information: Patient History Limitations: Reports: No Limitations - History of Present Illness Initial Comments - Free Text/Narative: This is a 73-year-old female patient of the [facility]. She has a history of severe COPD. She's had over week history where she is becoming progressively weak. She states that she couldn't keep up with her walker which she normally uses. And today she couldn't stand on need to use the wheelchair. She was brought to the clinic and seen by Jesse Sanchez. He could not find any etiology but she couldn't get up and was profoundly weak. UA was negative and CBC was normal. Did a chest x-ray and the resulted not been read by the time she came over here. But it was read as either a little pneumonia or edema. She has no recent weight changes. She denies fevers, chills, ear pain, sore throat, congestion. She does have a cough is mildly productive. She denies any more shortness of breath in usual. - Related Data Allergies/Adverse Reactions: Allergies Allergy/AdvReac Type Severity Reaction Status Date / Time No Known Allergies Allergy Verified 08/26/18 21:50 Home Medications: Home Meds Aspirin [Adult Low Dose Aspirin EC] 81 mg PO DAILY 10/23/17 [History] Multivitamin [Multi-Day Vitamins] 1 tab PO DAILY@1200 10/23/17 [History] Pregabalin [Lyrica] 75 mg PO BID 10/23/17 [History] Ca Carbonate/Vitamin D3/Vit K [Calcium + D Soft Chewable Tab] 1 tab PO DAILY@ 1200 11/14/17 [History] Loratadine [Claritin] 10 mg PO DAILY 05/04/18 [History] Nystatin 1 applic TOP BID PRN 05/04/18 [History] Omeprazole 20 mg PO DAILY 05/04/18 [History] Ranitidine HCl [Zantac] 300 mg PO DAILY 05/04/18 [History] Melatonin 9 mg PO BEDTIME 05/06/18 [History] Acetaminophen [Tylenol] 650 mg PO Q4H PRN 08/12/18 [History] Albuterol [Ventolin HFA] 2 puff IH Q4H PRN 08/12/18 [History] Polyethylene Glycol 3350 [MiraLAX] 17 gm PO DAILY PRN 08/12/18 [History] Furosemide [Lasix] 20 mg PO DAILY@1200 08/26/18 [History] Albuterol Sulfate 3 ml IH Q4H PRN 05/07/19 [History] Arformoterol [Brovana] 15 mcg INH BID 05/07/19 [History] Bifidobacterium Infantis [Align] 4 mg PO BID 05/07/19 [History] Budesonide [Pulmicort] 0.5 mg PO BID 05/07/19 [History] Carvedilol [Coreg] 3.125 mg PO BIDMEALS 05/07/19 [History] Cholecalciferol (Vitamin D3) [Vitamin D3] 25 mcg PO DAILY@1200 05/07/19 [History ] Dicyclomine [Bentyl] 10 mg PO TIDAC 05/07/19 [History] Ferrous Gluconate 324 mg PO MOWEFR@08 05/07/19 [History] Incruse 62.5 mcg IH DAILY 05/07/19 [History] Loperamide [Imodium AD] 2 mg PO ASDIRECTED PRN 05/07/19 [History] Magnesium Chloride [Mag-64] 128 mg PO BIDMEALS 05/07/19 [History] Potassium Chloride 10 meq PO DAILY 05/07/19 [History] Tamsulosin HCl [Flomax] 0.4 mg PO DAILY 05/07/19 [History] Triamcinolone Acetonide 1 applic TP BID PRN 05/07/19 [History] Past Medical History HEENT History: Reports: Impaired Vision Other HEENT History: wears glasses. Has ear wax build up and needs gerald cleaned out Cardiovascular History: Reports: None Respiratory History: Reports: COPD, Pneumonia, Recurrent, SOB Gastrointestinal History: Reports: Chronic Constipation, Colon Polyp, Diverticulosis, GERD, Irritable Bowel Syndrome Genitourinary History: Reports: None Other Genitourinary History: previous UTI HOME HEALTH REGISTERED NURSE History: Reports: Other OB/BYN History: Musculoskeletal History: Reports: Fracture, Osteoporosis, Other (See Below) Other Musculoskeletal History: L knee fx, L ankle fx, bursitis left hip Neurological History: Reports: Neuropathy, Peripheral Psychiatric History: Reports: None Endocrine/Metabolic History: Reports: None Hematologic History: Reports: Anemia, Anticoagulation Therapy, Blood Transfusion (s) Other Hematologic History: ASA 81mg Daily Immunologic History: Reports: None Oncologic (Cancer) History: Reports: Basal Cell Carcinoma, Other (See Below) Other Oncologic History: removed mole from by right eye Dermatologic History: Reports: Psoriasis Other Dermatologic History: years ago - Infectious Disease History Infectious Disease History: Reports: Measles - Past Surgical History Head Surgeries/Procedures: Reports: None HEENT Surgical History: Reports: Adenoidectomy, Tonsillectomy Respiratory Surgical History: Reports: None GI Surgical History: Reports: Colonoscopy Musculoskeletal Surgical History: Reports: Hip Replacement, Knee Replacement, Other (See Below) Other Musculoskeletal Surgeries/Procedures:: fx hip left and knee replacement left Oncologic Surgical History: Reports: None Dermatological Surgical History: Reports: None Social & Family History - Family History Family Medical History: Noncontributory - Tobacco Use Smoking Status *Q: Former Smoker Years of Tobacco use: 50 Used Tobacco, but Quit: Yes Month/Year Tobacco Last Used: 04/2016 Second Hand Smoke Exposure: No - Caffeine Use Caffeine Use: Reports: Coffee, Soda Other Caffeine Use: 1-2 cups per day - Recreational Drug Use Recreational Drug Use: No H&P Review of Systems - Review of Systems: Review Of Systems: See Below General: Reports: Weakness. Denies: Fever, Chills, Malaise, Fatigue HEENT: Reports: No Symptoms Pulmonary: Reports: Wheezing, Cough, Sputum. Denies: Shortness of Breath, Hemoptysis Cardiovascular: Reports: No Symptoms Gastrointestinal: Reports: No Symptoms Genitourinary: Reports: No Symptoms Musculoskeletal: Reports: No Symptoms Skin: Reports: No Symptoms Psychiatric: Reports: No Symptoms Neurological: Reports: No Symptoms Hematologic/Lymphatic: Reports: No Symptoms Immunologic: Reports: No Symptoms Exam - Exam Exam: See Below - Vital Signs Vital Signs: Last Vital Signs Temp 98.1 F 05/07/19 13:13 Pulse 99 05/07/19 13:13 Resp 16 05/07/19 13:13 BP 144/79 H 05/07/19 13:13 Pulse Ox 92 L 05/07/19 13:13 Weight: 167 lb 8.821 oz - Exam General: Alert, Oriented, Cooperative Neck: Supple, Trachea Midline Lungs: Clear to Auscultation, Decreased Breath Sounds, Wheezing. No: Crackles, Rales Cardiovascular: Regular Rate, Regular Rhythm, Normal S1, Normal S2. No: Systolic Murmur, Diastolic Murmur GI/Abdominal Exam: Normal Bowel Sounds, Soft, Non-Tender, No Distention Back Exam: Normal Inspection Extremities: Normal Inspection, Non-Tender, No Pedal Edema Skin: Warm, Dry, Intact Neurological: Normal Speech Neuro Extensive - Mental Status: Alert, Oriented x3, Normal Mood/Affect, Normal Cognition Psychiatric: Alert, Normal Affect, Normal Mood - Problem List (1) Weakness SNOMED Code(s): 08207826 ICD Code: R53.1 - WEAKNESS Status: Acute Current Visit: Yes (2) Palliative care status SNOMED Code(s): 274826356 ICD Code: Z51.5 - ENCOUNTER FOR PALLIATIVE CARE Status: Acute Current Visit: Yes (3) Pneumonia SNOMED Code(s): 523134825 ICD Code: J18.9 - PNEUMONIA, UNSPECIFIED ORGANISM Status: Acute Current Visit: No Problem List Initiated/Reviewed/Updated: Yes Orders Last 24hrs: Active Orders 24 hr Category Date Time Status Patient Status [ADT] Routine ADT 05/07/19 13:02 Active Bedrest Bedside Commode [RC] ASDIRECTED Care 05/07/19 13:02 Active EKG Documentation Completion [RC] ASDIRECTED Care 05/07/19 15:33 Ordered Height and Weight [RC] DAILY Care 05/07/19 13:02 Active Intake and Output [RC] QSHIFT Care 05/07/19 13:02 Active Oxygen Therapy [RC] PRN Care 05/07/19 13:02 Active Oxygen Therapy [RC] PRN Care 05/07/19 15:35 Ordered Vital Signs [RC] Q4H Care 05/07/19 13:02 Active Consult to Occupational Therapy [OT Evaluation and Cons 05/07/19 15:35 Ordered Treatment] [CONS] Routine Regular Diet [DIET] Diet 05/07/19 Dinner Active COMPREHENSIVE METABOLIC PN,CMP [CHEM] Routine Lab 05/07/19 15:35 Ordered CULTURE BLOOD [BC] Urgent Lab 05/07/19 15:34 Ordered CULTURE BLOOD [BC] Urgent Lab 05/07/19 15:34 Ordered PRO B-TYPE NATRIUR PEPT,BNPPRO [CHEM] Routine Lab 05/07/19 15:33 Ordered TROPONIN I [CHEM] Routine Lab 05/07/19 15:33 Ordered Acetaminophen [Tylenol] Med 05/07/19 15:35 Ordered 650 mg PO Q4H PRN Albuterol [Proventil Neb Soln] Med 05/07/19 15:35 Ordered 2.5 mg INH Q4H PRN Albuterol [Ventolin HFA] Med 05/07/19 15:35 Ordered 2 puff INH Q4H PRN Arformoterol [Brovana] Med 05/07/19 21:00 Ordered 15 mcg INH BID Aspirin [Halfprin] Med 05/08/19 09:00 Ordered 81 mg PO DAILY Bifidobacterium Infantis [Align] Med 05/07/19 21:00 Ordered 4 mg PO BID Budesonide [Pulmicort] Med 05/07/19 21:00 Ordered 0.5 mg INH BID Ca Carbonate/Vitamin D3/Vit K [Calcium + D Soft Med 05/08/19 12:00 Ordered Chewable Tab] 1 tab PO DAILY@1200 Carvedilol [Coreg] Med 05/07/19 18:00 Ordered 3.125 mg PO BIDMEALS Cholecalciferol (Vitamin D3) [Vitamin D3] Med 05/08/19 12:00 Ordered 25 mcg PO DAILY@1200 Dicyclomine [Bentyl] Med 05/07/19 17:30 Ordered 10 mg PO TIDAC Enoxaparin [Lovenox] Med 05/07/19 14:30 Active 40 mg SUBCUT DAILY@1430 Ferrous Gluconate [Ferrous Gluconate] Med 05/09/19 08:00 Ordered 324 mg PO MOWEFR@08 Furosemide [Lasix] Med 05/08/19 12:00 Ordered 20 mg PO DAILY@1200 Incruse Med 05/08/19 09:00 Ordered 62.5 mcg IH DAILY Loperamide [Imodium AD] Med 05/07/19 15:35 Ordered 2 mg PO ASDIRECTED PRN Loratadine [Claritin] Med 05/08/19 09:00 Ordered 10 mg PO DAILY Magnesium Chloride [Mag-64] Med 05/07/19 18:00 Ordered 128 mg PO BIDMEALS Melatonin Med 05/07/19 21:00 Ordered 9 mg PO BEDTIME Multivitamins [Tab-A-Ivelisse] Med 05/08/19 12:00 Ordered 1 tab PO DAILY@1200 Nystatin [Nystatin] Med 05/07/19 15:35 Ordered 1 applic TOP BID PRN Omeprazole [Omeprazole] Med 05/08/19 09:00 Ordered 20 mg PO DAILY Ondansetron [Zofran ODT] Med 05/07/19 13:02 Active 4 mg PO Q4H PRN Polyethylene Glycol 3350 [MiraLAX] Med 05/07/19 15:35 Ordered 17 gm PO DAILY PRN Potassium Chloride [Klor-Con 10] Med 05/08/19 09:00 Ordered 10 meq PO DAILY Pregabalin [Lyrica] Med 05/07/19 21:00 Ordered 75 mg PO BID Ranitidine HCl [Zantac] Med 05/08/19 09:00 Ordered 300 mg PO DAILY Sodium Chloride 0.9% [Normal Saline] 1,000 ml Med 05/07/19 13:15 Active IV ASDIRECTED Sodium Chloride 0.9% [Saline Flush] Med 05/07/19 13:02 Active 10 ml FLUSH ASDIRECTED PRN Blood Culture x2 Reflex Set [OM.PC] Urgent Oth 05/07/19 15:34 Ordered Peripheral IV Insertion Adult [OM.PC] Routine Oth 05/07/19 13:02 Ordered Sequential Compression Device [OM.PC] Per Unit Routine Oth 05/07/19 13:03 Ordered Resuscitation Status Routine Resus Stat 05/07/19 13:02 Ordered EKG 12 Lead [EK] Routine Ther 05/07/19 15:33 Ordered Medication Orders Enoxaparin Sodium (Lovenox) 40 mg SUBCUT DAILY@1430 MIGUELANGEL Sodium Chloride (Normal Saline) 1,000 mls @ 125 mls/hr IV ASDIRECTED MIGUELANGEL Ondansetron HCl (Zofran Odt) 4 mg PO Q4H PRN PRN Reason: nausea, able to take PO Sodium Chloride (Saline Flush) 10 ml FLUSH ASDIRECTED PRN PRN Reason: Keep Vein Open Assessment/Plan Comment:: 1. Admit to observation. 2. Patient wants to be a DO NOT RESUSCITATE. 3. CT scan was read as age-related changes and no acute strokes or tumors bleeds. 4. VTE prophylaxis with Lovenox 5. Blood cultures, troponin, EKG CMP 6. She had a UA, CBC at the clinic. Chest x-ray was read later after I did the orders that showed possible edema or pneumonia. 7. PT/OT 8. Regular diet 9. Bed rest with bedside commode. If the nurses feel that she can get up we can advance to up with assist. 10. Reviewed her medications and restart the majority.
[2019-05-07] MEDS ORDERED: cefTRIAXone 1 GM in Sodium Chloride 0.9% 50 ML IV SCH (15:45)
[2019-05-07] MEDS ORDERED: Loperamide 2 MG Cap PO PRN (16:29)
[2019-05-07] MEDS ORDERED: Nystatin Topical Powder 15 GM Bottle TOP PRN (16:30)
[2019-05-07] MEDS: Enoxaparin 40 MG/0.4 ML Syringe SUBCUT SCH (16:37)
[2019-05-07] MEDS ORDERED: Azithromycin 500 MG in Sodium Chloride 0.9% 250 ML IV ONE (17:00)
[2019-05-07] MEDS: Sodium Chloride 0.9% 1,000 ML IV SCH (17:03)
[2019-05-07] MEDS: cefTRIAXone 1 GM Vial IVPUSH SCH (17:04)
[2019-05-07] MEDS: Carvedilol 3.125 MG Tab PO SCH (17:29)
[2019-05-07] MEDS: Magnesium Chloride 64 MG Tab.ER *PTOM PO SCH (17:29)
[2019-05-07] MEDS ORDERED: Melatonin 3 MG Tab *PTOM PO SCH (21:00)
[2019-05-07] MEDS: Pregabalin 75 MG Cap PO SCH (21:00)
[2019-05-07] MEDS: BIFIDOBACTERIUM INFANTIS 4 MG PO SCH (21:03)
[2019-05-07] MEDS: Arformoterol 15 MCG/2 ML Neb Soln INH SCH (21:03)
[2019-05-07] MEDS: Budesonide 0.5 MG/2 ML Neb Susp INH SCH (21:04)
[2019-05-08] MEDS: Sodium Chloride 0.9% 1,000 ML IV SCH (01:57)
[2019-05-08] MEDS ORDERED: (Omeprazole [Omeprazole] 20 MG) *PTOM PO SCH (06:00)
--- NOTE | 2019-05-08 08:32 | PCM.PN ---
- General Info Date of Service: 05/08/19 Admission Dx/Problem (Free Text): The patient states that she still cough and a little phlegm up. She denies been short of breath although she's not using oxygen at home which she is here. She denies wheezing today, fevers, chills. She states she feels a little stronger and she has a little bit of appetite today. - Patient Data Vitals - Most Recent: Last Vital Signs Temp 98.2 F 05/08/19 05:05 Pulse 95 05/08/19 05:05 Resp 22 H 05/08/19 05:05 BP 142/68 H 05/08/19 05:05 Pulse Ox 93 L 05/08/19 05:05 Weight - Most Recent: 167 lb 8.821 oz I&O - Last 24 Hours: Intake & Output 05/07/19 05/08/19 05/08/19 22:59 06:59 14:59 Intake Total 936 917 Output Total 680 300 Balance 256 617 Lab Results Last 24 Hours: Laboratory Results - last 24 hr 05/07/19 05/07/19 Range/Units 15:55 15:55 Sodium 136 (135-145) mmol/L Potassium 4.3 (3.5-5.3) mmol/L Chloride 100 (100-110) mmol/L Carbon Dioxide 30 (21-32) mmol/L BUN 8 (7-18) mg/dL Creatinine 0.9 (0.55-1.02) mg/dL Est Cr Clr Drug Dosing 52.52 mL/min Estimated GFR (MDRD) > 60 (>60) BUN/Creatinine Ratio 8.9 L (9-20) Glucose 129 H (80-116) mg/dL Calcium 8.7 (8.6-10.2) mg/dL Total Bilirubin 0.4 (0.1-1.3) mg/dL AST 51 H (5-25) IU/L ALT 73 H D (12-36) U/L Alkaline Phosphatase 108 (56-112) IU/L Troponin I < 0.017 L (<0.017-0.056) ng/mL NT-Pro-B Natriuret Pep 238 (<=450) pg/mL Total Protein 6.9 (6.0-8.0) g/dL Albumin 3.1 L (3.2-4.6) g/dL Globulin 3.8 g/dL Albumin/Globulin Ratio 0.8 Med Orders - Current: Current Medications Acetaminophen (Tylenol) 650 mg PO Q4H PRN PRN Reason: Pain/Fever Albuterol (Ventolin Hfa) 0 gm INH Q4H PRN PRN Reason: Wheezing Albuterol (Proventil Neb Soln) 2.5 mg INH Q4H PRN PRN Reason: Wheezing Arformoterol Tartrate (Brovana) 15 mcg INH BID [facility] Last Admin: 05/07/19 21:03 Dose: 15 mcg Aspirin (Halfprin) 81 mg PO DAILY [facility] Budesonide (Pulmicort) 0.5 mg INH BID [facility] Last Admin: 05/07/19 21:04 Dose: 0.5 mg Carvedilol (Coreg) 3.125 mg PO BIDMEALS [facility] Last Admin: 05/07/19 17:29 Dose: 3.125 mg Ceftriaxone Sodium (Rocephin) 1 gm IVPUSH Q24H [facility] Last Admin: 05/07/19 17:04 Dose: 1 gm Cholecalciferol (Vitamin D3) 25 mcg PO DAILY@1200 [facility] Enoxaparin Sodium (Lovenox) 40 mg SUBCUT DAILY@1430 [facility] Last Admin: 05/07/19 16:37 Dose: 40 mg Furosemide (Lasix) 20 mg PO DAILY@1200 [facility] Azithromycin 250 mg/ Sodium (Chloride) 250 mls @ 250 mls/hr IV Q24H [facility] Stop: 05/11/19 17:59 Loperamide HCl (Imodium) 2 mg PO ASDIRECTED PRN PRN Reason: LOOSE STOOLES Loratadine (Claritin) 10 mg PO DAILY [facility] Magnesium Chloride (Mag-64) 128 mg PO BIDMEALS [facility] Last Admin: 05/07/19 17:29 Dose: 128 mg Melatonin (Melatonin) 9 mg PO BEDTIME [facility] Last Admin: 05/07/19 21:02 Dose: 9 mg Multivitamins/Minerals/Vitamin C (Tab-A-Ivelisse) 1 tab PO DAILY@1200 [facility] (Bifidobacterium Infantis [Align] 4 Mg) *Ptom 4 mg PO BID [facility] Last Admin: 05/07/19 21:03 Dose: 4 mg Viactiv ([Calcium + D Soft Chewabled] * Ptom 1 tab PO DAILY@1200 [facility] (Dicyclomine [Bentyl (] 20 Mg) *Ptom) 0 mg PO TIDAC [facility] Last Admin: 05/08/19 06:44 Dose: 20 mg Ferrous Gluconate [ Ferrous Gluconate] 324 Mg *Ptom 324 mg PO MOWEFR@08 [facility] Non-Formulary Medication 1 Each ( Incruse 62.5 Mcg) * Ptom 62.5 mcg IH DAILY [facility] (Omeprazole [ Omeprazole] 20 Mg) * Ptom 20 mg PO DAILY@0600 [facility] Last Admin: 05/08/19 06:45 Dose: 20 mg (Ranitidine Hcl [ Zantac] 300 Mg) * Ptom 300 mg PO DAILY@0600 [facility] Last Admin: 05/08/19 06:44 Dose: 300 mg Nystatin (Nystop) 0 gm TOP BID PRN PRN Reason: RASH Ondansetron HCl (Zofran Odt) 4 mg PO Q4H PRN PRN Reason: nausea, able to take PO Polyethylene Glycol (Miralax) 17 gm PO DAILY PRN PRN Reason: Constipation Potassium Chloride (Klor-Con 10) 10 meq PO DAILY [facility] Pregabalin (Lyrica) 75 mg PO BID [facility] Last Admin: 05/07/19 21:00 Dose: 75 mg Sodium Chloride (Saline Flush) 10 ml FLUSH ASDIRECTED PRN PRN Reason: Keep Vein Open Discontinued Medications Sodium Chloride (Normal Saline) 1,000 mls @ 125 mls/hr IV ASDIRECTED [facility] Last Admin: 05/08/19 01:57 Dose: 125 mls/hr Azithromycin 500 mg/ Sodium (Chloride) 250 mls @ 250 mls/hr IV ONETIME ONE Stop: 05/07/19 17:59 Last Admin: 05/07/19 17:00 Dose: 250 mls/hr - Exam General: Alert, Oriented Lungs: Clear to Auscultation, Normal Respiratory Effort, Decreased Breath Sounds , Crackles, Rales, Rhonchi Cardiovascular: Regular Rate, No Murmurs - Problem List & Annotations (1) Weakness SNOMED Code(s): 60969356 Code(s): R53.1 - WEAKNESS Status: Acute Current Visit: Yes (2) Palliative care status SNOMED Code(s): 245997790 Code(s): Z51.5 - ENCOUNTER FOR PALLIATIVE CARE Status: Acute Current Visit: Yes (3) Pneumonia SNOMED Code(s): 415806965 Code(s): J18.9 - PNEUMONIA, UNSPECIFIED ORGANISM Status: Acute Current Visit: No - Problem List Review Problem List Initiated/Reviewed/Updated: Yes - My Orders Last 24 Hours: My Active Orders 05/07/19 13:02 Patient Status [ADT] Routine Height and Weight [RC] DAILY Oxygen Therapy [RC] PRN Vital Signs [RC] QSHIFT Ondansetron [Zofran ODT] 4 mg PO Q4H PRN Sodium Chloride 0.9% [Saline Flush] 10 ml FLUSH ASDIRECTED PRN Peripheral IV Insertion Adult [OM.PC] Routine Resuscitation Status Routine 05/07/19 13:03 Sequential Compression Device [OM.PC] Per Unit Routine 05/07/19 14:30 Enoxaparin [Lovenox] 40 mg SUBCUT DAILY@1430 05/07/19 15:33 EKG 12 Lead [EK] Routine 05/07/19 15:34 Blood Culture x2 Reflex Set [OM.PC] Urgent 05/07/19 15:35 Oxygen Therapy [RC] PRN Consult to Occupational Therapy [OT Evaluation and Treatment] [CONS] Routine Acetaminophen [Tylenol] 650 mg PO Q4H PRN Albuterol [Proventil Neb Soln] 2.5 mg INH Q4H PRN Albuterol [Ventolin HFA] 0 gm INH Q4H PRN Polyethylene Glycol 3350 [MiraLAX] 17 gm PO DAILY PRN 05/07/19 15:55 CULTURE BLOOD [BC] Urgent 05/07/19 16:00 CULTURE BLOOD [BC] Urgent 05/07/19 16:15 cefTRIAXone [Rocephin] 1 gm IVPUSH Q24H 05/07/19 16:29 Loperamide [Imodium] 2 mg PO ASDIRECTED PRN 05/07/19 16:30 Nystatin [Nystop] 0 gm TOP BID PRN 05/07/19 17:30 Dicyclomine [Bentyl] 0 mg PO TIDAC 05/07/19 18:00 Carvedilol [Coreg] 3.125 mg PO BIDMEALS Magnesium Chloride [Mag-64] 128 mg PO BIDMEALS 05/07/19 19:35 Up With Assistance [RC] ASDIRECTED 05/07/19 21:00 Arformoterol [Brovana] 15 mcg INH BID Bifidobacterium Infantis [Align] 4 mg PO BID Budesonide [Pulmicort] 0.5 mg INH BID Melatonin 9 mg PO BEDTIME Pregabalin [Lyrica] 75 mg PO BID 05/07/19 Dinner Regular Diet [DIET] 05/08/19 06:00 Omeprazole [Omeprazole] 20 mg PO DAILY@0600 Ranitidine HCl [Zantac] 300 mg PO DAILY@0600 05/08/19 08:29 Consult to Physical Therapy [PT Evaluation and Treatment] [CONS] Routine 05/08/19 09:00 Aspirin [Halfprin] 81 mg PO DAILY Incruse 62.5 mcg IH DAILY Loratadine [Claritin] 10 mg PO DAILY Potassium Chloride [Klor-Con 10] 10 meq PO DAILY 05/08/19 12:00 Ca Carbonate/Vitamin D3/Vit K [Calcium + D Soft Chewable Tab] 1 tab PO DAILY@ 1200 Cholecalciferol (Vitamin D3) [Vitamin D3] 25 mcg PO DAILY@1200 Furosemide [Lasix] 20 mg PO DAILY@1200 Multivitamins [Tab-A-Ivelisse] 1 tab PO DAILY@1200 05/08/19 17:00 Azithromycin [Zithromax] 250 mg Sodium Chloride 0.9% [Normal Saline] 250 ml IV Q24H 05/09/19 08:00 Ferrous Gluconate [Ferrous Gluconate] 324 mg PO MOWEFR@08 - Plan Plan:: 1 DC IV fluids and saline lock IV. 2. Vitals every shift. 3. Continue to wean O2. 4. PT/OT eval 5. Make sure that she is impatient 6. Continue IV antibiotics
[2019-05-08] MEDS ORDERED: INCRUSE 62.5 MCG IH SCH (09:00)
[2019-05-08] MEDS: Carvedilol 3.125 MG Tab PO SCH ×2 (09:07→17:12)
[2019-05-08] MEDS: Magnesium Chloride 64 MG Tab.ER *PTOM PO SCH (09:08)
[2019-05-08] MEDS: predniSONE 20 MG Tab PO SCH (09:08)
[2019-05-08] MEDS: BIFIDOBACTERIUM INFANTIS 4 MG PO SCH (09:10)
[2019-05-08] MEDS: Arformoterol 15 MCG/2 ML Neb Soln INH SCH ×2 (09:11→20:03)
[2019-05-08] MEDS: Aspirin 81 MG Tab.EC PO SCH (09:11)
[2019-05-08] MEDS: Loratadine 10 MG Tab PO SCH (09:11)
[2019-05-08] MEDS: Potassium Chloride 10 MEQ TAB PO SCH (09:12)
[2019-05-08] MEDS: Budesonide 0.5 MG/2 ML Neb Susp INH SCH ×2 (09:12→20:02)
[2019-05-08] MEDS: Pregabalin 75 MG Cap PO SCH ×2 (09:15→20:02)
[2019-05-08] MEDS ORDERED: Albuterol 8 GM Inhaler INH PRN (09:51)
[2019-05-08] MEDS: Calcium Carbonate 500 MG Tablet PO SCH (11:50)
[2019-05-08] MEDS: Dicyclomine 10 MG Cap PO SCH ×2 (11:50→17:14)
[2019-05-08] MEDS: Multivitamin Tab PO SCH (11:50)
[2019-05-08] MEDS: Furosemide 20 MG Tab PO SCH (11:50)
[2019-05-08] MEDS: Cholecalciferol (Vitamin D3) 25 MCG Tab PO SCH (11:50)
[2019-05-08] MEDS: Enoxaparin 40 MG/0.4 ML Syringe SUBCUT SCH (14:51)
[2019-05-08] MEDS: cefTRIAXone 1 GM Vial IVPUSH SCH (16:48)
[2019-05-08] MEDS: Sodium Chloride 0.9% 10 ML Syringe FLUSH PRN (16:54)
[2019-05-08] MEDS: Azithromycin 250 MG in Sodium Chloride 0.9% 250 ML IV SCH (17:03)
[2019-05-08] MEDS: Magnesium Chloride 64 MG Tab.ER PO SCH (17:14)
[2019-05-08] MEDS: Lactobacillus Rhamnosus GG (Probiotic) Cap PO SCH (20:02)
[2019-05-08] MEDS: Melatonin 3 MG Tab PO SCH (20:02)
[2019-05-09] MEDS: Famotidine 20 MG Tab PO SCH (07:08)
[2019-05-09] MEDS: Pantoprazole 40 MG Tab.CR PO SCH (07:09)
[2019-05-09] MEDS: Dicyclomine 10 MG Cap PO SCH ×3 (07:12→16:32)
[2019-05-09] MEDS: predniSONE 20 MG Tab PO SCH (07:58)
[2019-05-09] MEDS: Ferrous Sulfate 325 MG Tab PO SCH (07:58)
[2019-05-09] MEDS: Magnesium Chloride 64 MG Tab.ER PO SCH ×2 (07:58→17:34)
[2019-05-09] MEDS: Potassium Chloride 10 MEQ TAB PO SCH (07:59)
[2019-05-09] MEDS: Lactobacillus Rhamnosus GG (Probiotic) Cap PO SCH ×2 (07:59→20:27)
[2019-05-09] MEDS: Loratadine 10 MG Tab PO SCH (07:59)
[2019-05-09] MEDS: Aspirin 81 MG Tab.EC PO SCH (07:59)
[2019-05-09] MEDS: Pregabalin 75 MG Cap PO SCH ×2 (09:02→20:33)
[2019-05-09] MEDS: Carvedilol 3.125 MG Tab PO SCH ×2 (09:02→17:33)
[2019-05-09] MEDS: Tiotropium Inhaler 18 MCG Inhalation Powder Cap Kit of 5 INH SCH (09:06)
[2019-05-09] MEDS: Arformoterol 15 MCG/2 ML Neb Soln INH SCH ×2 (09:07→20:21)
[2019-05-09] MEDS: Budesonide 0.5 MG/2 ML Neb Susp INH SCH ×2 (09:31→20:23)
[2019-05-09] MEDS: Furosemide 20 MG Tab PO SCH (11:41)
[2019-05-09] MEDS: Multivitamin Tab PO SCH (11:41)
[2019-05-09] MEDS: Calcium Carbonate 500 MG Tablet PO SCH (11:41)
[2019-05-09] MEDS: Cholecalciferol (Vitamin D3) 25 MCG Tab PO SCH (11:41)
[2019-05-09] MEDS: Sodium Chloride 0.9% 10 ML Syringe FLUSH PRN ×3 (11:42→17:52)
--- NOTE | 2019-05-09 13:33 | CR ---
INDICATION: Follow up pneumonia. CHEST: PA and lateral views of the chest were obtained 05/09/19 and compared with 08/26/18 and 08/15/18. Findings remain compatible with COPD and osteoporosis with a stable compression fracture at what appears to be T11. The heart remains normal in size and shape. The aorta is slightly tortuous with calcification in the arch. Heavy markings in the mid to lower lung field on the right and to a lesser extent on the left are again noted and appear slightly diminished in severity compared with the previous study, suggesting resolving pneumonia in areas of pulmonary fibrosis. A new acute process is not identified. IMPRESSION: There does appear to be some resolution of areas of heavy markings , most likely representing superimposed areas of patchy pneumonia with pulmonary fibrosis. MTDD
--- NOTE | 2019-05-09 13:46 | PCM.PN ---
- General Info Date of Service: 05/09/19 Subjective Update: Patient short of breath after taking shower and was off oxygen. States she normally isn't on oxygen at home but records/imaging suggest severe COPD. No chest pain, nausea, vomiting or diarrhea. Had CBC normal and CXR showed pneumonia at [facility] per Dr Lundy's H&P. Blood cultures negative to date. No fevers, or chills. - Patient Data Vitals - Most Recent: Last Vital Signs Temp 36.4 C 05/09/19 08:50 Pulse 90 05/09/19 09:02 Resp 20 05/09/19 08:50 BP 133/66 05/09/19 09:02 Pulse Ox 94 L 05/09/19 08:50 Weight - Most Recent: 76 kg Nikolas Results Last 24 Hours: Microbiology 05/07/19 15:55 Aerobic Blood Culture - Preliminary Blood - Venous NO GROWTH AFTER 1 DAY Anaerobic Blood Culture - Preliminary NO GROWTH AFTER 1 DAY 05/07/19 16:00 Aerobic Blood Culture - Preliminary Blood - Venous - Lab Draw NO GROWTH AFTER 1 DAY Anaerobic Blood Culture - Preliminary NO GROWTH AFTER 1 DAY Med Orders - Current: Current Medications Acetaminophen (Tylenol) 650 mg PO Q4H PRN PRN Reason: Pain/Fever Albuterol (Proventil Neb Soln) 2.5 mg INH Q4H PRN PRN Reason: Wheezing Albuterol (Ventolin Hfa) 0 gm INH Q4H PRN PRN Reason: Wheezing Arformoterol Tartrate (Brovana) 15 mcg INH BID [facility] Last Admin: 05/09/19 09:07 Dose: 15 mcg Aspirin (Halfprin) 81 mg PO DAILY [facility] Last Admin: 05/09/19 07:59 Dose: 81 mg Budesonide (Pulmicort) 0.5 mg INH BID [facility] Last Admin: 05/09/19 09:31 Dose: 0.5 mg Calcium Carbonate/Glycine (Oyster Shell Calcium) 500 mg PO DAILY@1200 [facility] Last Admin: 05/09/19 11:41 Dose: 500 mg Carvedilol (Coreg) 3.125 mg PO BIDMEALS [facility] Last Admin: 05/09/19 09:02 Dose: 3.125 mg Ceftriaxone Sodium (Rocephin) 1 gm IVPUSH Q24H [facility] Last Admin: 05/08/19 16:48 Dose: 1 gm Cholecalciferol (Vitamin D3) 25 mcg PO DAILY@1200 [facility] Last Admin: 05/09/19 11:41 Dose: 25 mcg Dicyclomine HCl (Bentyl) 10 mg PO TIDAC [facility] Last Admin: 05/09/19 11:41 Dose: 10 mg Enoxaparin Sodium (Lovenox) 40 mg SUBCUT DAILY@1430 [facility] Last Admin: 05/08/19 14:51 Dose: 40 mg Famotidine (Pepcid) 40 mg PO DAILY@0600 [facility] Last Admin: 05/09/19 07:08 Dose: 40 mg Ferrous Sulfate (Ferrous Sulfate) 325 mg PO MoWeFr@0800 [facility] Last Admin: 05/09/19 07:58 Dose: 325 mg Furosemide (Lasix) 20 mg PO DAILY@1200 [facility] Last Admin: 05/09/19 11:41 Dose: 20 mg Azithromycin 250 mg/ Sodium (Chloride) 250 mls @ 250 mls/hr IV Q24H [facility] Stop: 05/11/19 17:59 Last Admin: 05/08/19 17:03 Dose: 250 mls/hr Lactobacillus Rhamnosus (Culturelle) 1 cap PO BID [facility] Last Admin: 05/09/19 07:59 Dose: 1 cap Loperamide HCl (Imodium) 2 mg PO ASDIRECTED PRN PRN Reason: LOOSE STOOLES Loratadine (Claritin) 10 mg PO DAILY [facility] Last Admin: 05/09/19 07:59 Dose: 10 mg Magnesium Chloride (Mag-64) 128 mg PO BIDMEALS [facility] Last Admin: 05/09/19 07:58 Dose: 128 mg Melatonin (Melatonin) 9 mg PO BEDTIME [facility] Last Admin: 05/08/19 20:02 Dose: 9 mg Multivitamins/Minerals/Vitamin C (Tab-A-Ivelisse) 1 tab PO DAILY@1200 [facility] Last Admin: 05/09/19 11:41 Dose: 1 tab Nystatin (Nystop) 0 gm TOP BID PRN PRN Reason: RASH Ondansetron HCl (Zofran Odt) 4 mg PO Q4H PRN PRN Reason: nausea, able to take PO Pantoprazole Sodium (Protonix) 40 mg PO DAILY@0600 [facility] Last Admin: 05/09/19 07:09 Dose: 40 mg Polyethylene Glycol (Miralax) 17 gm PO DAILY PRN PRN Reason: Constipation Potassium Chloride (Klor-Con 10) 10 meq PO DAILY [facility] Last Admin: 05/09/19 07:59 Dose: 10 meq Prednisone (Prednisone) 40 mg PO WITHBREAKFAST [facility] Stop: 05/12/19 08:01 Last Admin: 05/09/19 07:58 Dose: 40 mg Pregabalin (Lyrica) 75 mg PO BID [facility] Last Admin: 05/09/19 09:02 Dose: 75 mg Sodium Chloride (Saline Flush) 10 ml FLUSH ASDIRECTED PRN PRN Reason: Keep Vein Open Last Admin: 05/09/19 11:42 Dose: 10 ml Tiotropium [place] (Spiriva Handihaler) 18 mcg INH DAILY [facility] Last Admin: 05/09/19 09:06 Dose: 1 cap Discontinued Medications Albuterol (Ventolin Hfa) 0 gm INH Q4H PRN PRN Reason: Wheezing Sodium Chloride (Normal Saline) 1,000 mls @ 125 mls/hr IV ASDIRECTED [facility] Last Admin: 05/08/19 01:57 Dose: 125 mls/hr Azithromycin 500 mg/ Sodium (Chloride) 250 mls @ 250 mls/hr IV ONETIME ONE Stop: 05/07/19 17:59 Last Admin: 05/07/19 17:00 Dose: 250 mls/hr Magnesium Chloride (Mag-64) 128 mg PO BIDMEALS [facility] Last Admin: 05/08/19 09:08 Dose: 128 mg Melatonin (Melatonin) 9 mg PO BEDTIME [facility] Last Admin: 05/07/19 21:02 Dose: 9 mg (Bifidobacterium Infantis [Align] 4 Mg) *Ptom 4 mg PO BID [facility] Last Admin: 05/08/19 09:10 Dose: 4 mg (Dicyclomine [Bentyl (] 20 Mg) *Ptom) 0 mg PO TIDAC [facility] Last Admin: 05/08/19 06:44 Dose: 20 mg Non-Formulary Medication 1 Each ( Incruse 62.5 Mcg) * Ptom 62.5 mcg IH DAILY [facility] Last Admin: 05/08/19 09:12 Dose: 62.5 mcg (Omeprazole [ Omeprazole] 20 Mg) * Ptom 20 mg PO DAILY@0600 [facility] Last Admin: 05/08/19 06:45 Dose: 20 mg (Ranitidine Hcl [ Zantac] 300 Mg) * Ptom 300 mg PO DAILY@0600 [facility] Last Admin: 05/08/19 06:44 Dose: 300 mg - Exam Quality Assessment: Supplemental Oxygen General: Alert, Oriented, Cooperative, Other (Mild respiratory distress) Lungs: Decreased Breath Sounds (Increased effort since coming back to bed), Wheezing (bibasilar) Cardiovascular: Regular Rate, Regular Rhythm GI/Abdominal Exam: Normal Bowel Sounds, Soft, Non-Tender, No Distention Extremities: No Pedal Edema - Problem List & Annotations (1) CAP (community acquired pneumonia) SNOMED Code(s): 177751184 Code(s): J18.9 - PNEUMONIA, UNSPECIFIED ORGANISM Status: Acute Current Visit: No Qualifiers: Laterality: unspecified laterality Qualified Code(s): J18.9 - Pneumonia, unspecified organism (2) COPD exacerbation SNOMED Code(s): 434248634 Code(s): J44.1 - CHRONIC OBSTRUCTIVE PULMONARY DISEASE W (ACUTE) EXACERBATION Status: Acute Current Visit: No (3) Weakness SNOMED Code(s): 48307704 Code(s): R53.1 - WEAKNESS Status: Acute Current Visit: Yes (4) COPD (chronic obstructive pulmonary disease) SNOMED Code(s): 71891182 Code(s): J44.9 - CHRONIC OBSTRUCTIVE PULMONARY DISEASE, UNSPECIFIED Status : Acute Current Visit: No Qualifiers: COPD type: COPD with acute lower respiratory infection Qualified Code(s): J44.0 - Chronic obstructive pulmonary disease with acute lower respiratory infection (5) Palliative care status SNOMED Code(s): 819949734 Code(s): Z51.5 - ENCOUNTER FOR PALLIATIVE CARE Status: Acute Current Visit: Yes - Problem List Review Problem List Initiated/Reviewed/Updated: Yes - My Orders Last 24 Hours: My Active Orders 05/10/19 06:00 CBC WITH AUTO DIFF [HEME] Routine COMPREHENSIVE METABOLIC PN,CMP [CHEM] Routine - Plan Plan:: 1. Chest X-ray showed no acute process, some improvement of patchy pneumonia with pulmonary fibrosis. 2. Continue antibiotics at this time, recheck her CBC/CMP tomorrow. Continue Prednisone. 3. Continue to wean O2. 4. PT/OT eval
[2019-05-09] MEDS: Enoxaparin 40 MG/0.4 ML Syringe SUBCUT SCH (14:17)
[2019-05-09] MEDS: cefTRIAXone 1 GM Vial IVPUSH SCH (16:38)
[2019-05-09] MEDS: Azithromycin 250 MG in Sodium Chloride 0.9% 250 ML IV SCH (16:42)
[2019-05-09] MEDS: Melatonin 3 MG Tab PO SCH (20:24)
[2019-05-10] MEDS: Pantoprazole 40 MG Tab.CR PO SCH (06:27)
[2019-05-10] MEDS: Famotidine 20 MG Tab PO SCH (06:28)
[2019-05-10] MEDS: Carvedilol 3.125 MG Tab PO SCH ×2 (07:48→17:29)
[2019-05-10] MEDS: Magnesium Chloride 64 MG Tab.ER PO SCH ×2 (07:48→17:27)
[2019-05-10] MEDS: Dicyclomine 10 MG Cap PO SCH ×3 (07:49→17:28)
[2019-05-10] MEDS: predniSONE 20 MG Tab PO SCH (07:49)
[2019-05-10] MEDS: Lactobacillus Rhamnosus GG (Probiotic) Cap PO SCH ×2 (08:34→20:45)
[2019-05-10] MEDS: Potassium Chloride 10 MEQ TAB PO SCH (08:35)
[2019-05-10] MEDS: Loratadine 10 MG Tab PO SCH (08:35)
[2019-05-10] MEDS: Arformoterol 15 MCG/2 ML Neb Soln INH SCH ×2 (08:36→20:44)
[2019-05-10] MEDS: Tiotropium Inhaler 18 MCG Inhalation Powder Cap Kit of 5 INH SCH (08:36)
[2019-05-10] MEDS: Aspirin 81 MG Tab.EC PO SCH (08:36)
[2019-05-10] MEDS: Pregabalin 75 MG Cap PO SCH ×2 (08:46→20:54)
[2019-05-10] MEDS: Budesonide 0.5 MG/2 ML Neb Susp INH SCH ×2 (08:46→20:44)
--- NOTE | 2019-05-10 09:22 | PCM.PN ---
- General Info Date of Service: 05/10/19 Subjective Update: Patient is off oxygen this morning, states she got up to the bathroom ok, did not feel as short of breath. Feeling stronger, but not to her baseline. No chest pain, or nausea, vomiting. Doesn't know if she's ever had PFTs done. - Patient Data Vitals - Most Recent: Last Vital Signs Temp 36.4 C 05/09/19 23:30 Pulse 84 05/10/19 07:48 Resp 20 05/10/19 06:40 BP 168/92 H 05/10/19 07:48 Pulse Ox 90 L 05/10/19 06:40 Weight - Most Recent: 76 kg Lab Results Last 24 Hours: Laboratory Results - last 24 hr 05/10/19 05/10/19 Range/Units 06:15 06:15 WBC 11.7 (4.5-12.0) X10-3/uL RBC 4.48 (3.23-5.20) x10(6)uL Hgb 12.2 (11.5-15.5) g/dL Hct 37.1 (30.0-51.3) % MCV 82.9 (80-96) fL MCH 27.3 L (27.7-33.6) pg MCHC 32.9 (32.2-35.4) g/dL RDW 14.3 (11.5-15.5) % Plt Count 296 (125-369) X10(3)uL MPV 8.4 (7.4-10.4) fL Neut % (Auto) 68.6 (46-82) % Lymph % (Auto) 19.9 (13-37) % Cochran % (Auto) 9.6 (4-12) % Eos % (Auto) 2 (1.0-5.0) % Baso % (Auto) 0 (0-2) % Neut # (Auto) 8.1 (1.6-8.3) # Lymph # (Auto) 2.3 (0.6-5.0) # Cochran # (Auto) 1.1 (0.0-1.3) # Eos # (Auto) 0.2 (0.0-0.8) # Baso # (Auto) 0.0 (0.0-0.2) # Sodium 143 (135-145) mmol/L Potassium 3.8 (3.5-5.3) mmol/L Chloride 105 D (100-110) mmol/L Carbon Dioxide 28 (21-32) mmol/L BUN 10 (7-18) mg/dL Creatinine 0.8 (0.55-1.02) mg/dL Est Cr Clr Drug Dosing 59.09 mL/min Estimated GFR (MDRD) > 60 (>60) BUN/Creatinine Ratio 12.5 (9-20) Glucose 92 (80-116) mg/dL Calcium 8.6 (8.6-10.2) mg/dL Total Bilirubin 0.3 (0.1-1.3) mg/dL AST 24 D (5-25) IU/L ALT 65 H D (12-36) U/L Alkaline Phosphatase 98 (56-112) IU/L Total Protein 6.2 (6.0-8.0) g/dL Albumin 2.6 L (3.2-4.6) g/dL Globulin 3.6 g/dL Albumin/Globulin Ratio 0.7 Nikolas Results Last 24 Hours: Microbiology 05/07/19 16:00 Aerobic Blood Culture - Preliminary Blood - Venous - Lab Draw NO GROWTH AFTER 2 DAYS Anaerobic Blood Culture - Preliminary NO GROWTH AFTER 2 DAYS 05/07/19 15:55 Aerobic Blood Culture - Preliminary Blood - Venous NO GROWTH AFTER 2 DAYS Anaerobic Blood Culture - Preliminary NO GROWTH AFTER 2 DAYS Med Orders - Current: Current Medications Acetaminophen (Tylenol) 650 mg PO Q4H PRN PRN Reason: Pain/Fever Albuterol (Proventil Neb Soln) 2.5 mg INH Q4H PRN PRN Reason: Wheezing Albuterol (Ventolin Hfa) 0 gm INH Q4H PRN PRN Reason: Wheezing Arformoterol Tartrate (Brovana) 15 mcg INH BID [facility] Last Admin: 05/10/19 08:36 Dose: 15 mcg Aspirin (Halfprin) 81 mg PO DAILY [facility] Last Admin: 05/10/19 08:36 Dose: 81 mg Budesonide (Pulmicort) 0.5 mg INH BID [facility] Last Admin: 05/10/19 08:46 Dose: 0.5 mg Calcium Carbonate/Glycine (Oyster Shell Calcium) 500 mg PO DAILY@1200 [facility] Last Admin: 05/09/19 11:41 Dose: 500 mg Carvedilol (Coreg) 3.125 mg PO BIDMEALS [facility] Last Admin: 05/10/19 07:48 Dose: 3.125 mg Ceftriaxone Sodium (Rocephin) 1 gm IVPUSH Q24H [facility] Last Admin: 05/09/19 16:38 Dose: 1 gm Cholecalciferol (Vitamin D3) 25 mcg PO DAILY@1200 [facility] Last Admin: 05/09/19 11:41 Dose: 25 mcg Dicyclomine HCl (Bentyl) 10 mg PO TIDAC [facility] Last Admin: 05/10/19 07:49 Dose: 10 mg Enoxaparin Sodium (Lovenox) 40 mg SUBCUT DAILY@1430 [facility] Last Admin: 05/09/19 14:17 Dose: 40 mg Famotidine (Pepcid) 40 mg PO DAILY@0600 [facility] Last Admin: 05/10/19 06:28 Dose: 40 mg Ferrous Sulfate (Ferrous Sulfate) 325 mg PO MoWeFr@0800 [facility] Last Admin: 05/09/19 07:58 Dose: 325 mg Furosemide (Lasix) 20 mg PO DAILY@1200 [facility] Last Admin: 05/09/19 11:41 Dose: 20 mg Azithromycin 250 mg/ Sodium (Chloride) 250 mls @ 250 mls/hr IV Q24H [facility] Stop: 05/11/19 17:59 Last Admin: 05/09/19 16:42 Dose: 250 mls/hr Lactobacillus Rhamnosus (Culturelle) 1 cap PO BID [facility] Last Admin: 05/10/19 08:34 Dose: 1 cap Loperamide HCl (Imodium) 2 mg PO ASDIRECTED PRN PRN Reason: LOOSE STOOLES Loratadine (Claritin) 10 mg PO DAILY [facility] Last Admin: 05/10/19 08:35 Dose: 10 mg Magnesium Chloride (Mag-64) 128 mg PO BIDMEALS [facility] Last Admin: 05/10/19 07:48 Dose: 128 mg Melatonin (Melatonin) 9 mg PO BEDTIME [facility] Last Admin: 05/09/19 20:24 Dose: 9 mg Multivitamins/Minerals/Vitamin C (Tab-A-Ivelisse) 1 tab PO DAILY@1200 [facility] Last Admin: 05/09/19 11:41 Dose: 1 tab Nystatin (Nystop) 0 gm TOP BID PRN PRN Reason: RASH Ondansetron HCl (Zofran Odt) 4 mg PO Q4H PRN PRN Reason: nausea, able to take PO Pantoprazole Sodium (Protonix) 40 mg PO DAILY@0600 [facility] Last Admin: 05/10/19 06:27 Dose: 40 mg Polyethylene Glycol (Miralax) 17 gm PO DAILY PRN PRN Reason: Constipation Potassium Chloride (Klor-Con 10) 10 meq PO DAILY [facility] Last Admin: 05/10/19 08:35 Dose: 10 meq Prednisone (Prednisone) 40 mg PO WITHBREAKFAST [facility] Stop: 05/12/19 08:01 Last Admin: 05/10/19 07:49 Dose: 40 mg Pregabalin (Lyrica) 75 mg PO BID [facility] Last Admin: 05/10/19 08:46 Dose: 75 mg Sodium Chloride (Saline Flush) 10 ml FLUSH ASDIRECTED PRN PRN Reason: Keep Vein Open Last Admin: 05/09/19 17:52 Dose: 10 ml Tiotropium [place] (Spiriva Handihaler) 18 mcg INH DAILY [facility] Last Admin: 05/10/19 08:36 Dose: 1 cap Discontinued Medications Albuterol (Ventolin Hfa) 0 gm INH Q4H PRN PRN Reason: Wheezing Sodium Chloride (Normal Saline) 1,000 mls @ 125 mls/hr IV ASDIRECTED [facility] Last Admin: 05/08/19 01:57 Dose: 125 mls/hr Azithromycin 500 mg/ Sodium (Chloride) 250 mls @ 250 mls/hr IV ONETIME ONE Stop: 05/07/19 17:59 Last Admin: 05/07/19 17:00 Dose: 250 mls/hr Magnesium Chloride (Mag-64) 128 mg PO BIDMEALS [facility] Last Admin: 05/08/19 09:08 Dose: 128 mg Melatonin (Melatonin) 9 mg PO BEDTIME [facility] Last Admin: 05/07/19 21:02 Dose: 9 mg (Bifidobacterium Infantis [Align] 4 Mg) *Ptom 4 mg PO BID [facility] Last Admin: 05/08/19 09:10 Dose: 4 mg (Dicyclomine [Bentyl (] 20 Mg) *Ptom) 0 mg PO TIDAC [facility] Last Admin: 05/08/19 06:44 Dose: 20 mg Non-Formulary Medication 1 Each ( Incruse 62.5 Mcg) * Ptom 62.5 mcg IH DAILY [facility] Last Admin: 05/08/19 09:12 Dose: 62.5 mcg (Omeprazole [ Omeprazole] 20 Mg) * Ptom 20 mg PO DAILY@0600 [facility] Last Admin: 05/08/19 06:45 Dose: 20 mg (Ranitidine Hcl [ Zantac] 300 Mg) * Ptom 300 mg PO DAILY@0600 [facility] Last Admin: 05/08/19 06:44 Dose: 300 mg - Exam General: Alert, Oriented, Cooperative Lungs: Normal Respiratory Effort, Decreased Breath Sounds, Wheezing Cardiovascular: Regular Rate, Regular Rhythm GI/Abdominal Exam: Normal Bowel Sounds, Soft, Non-Tender, No Distention Extremities: No Pedal Edema Skin: Warm, Dry, Intact Psy/Mental Status: Alert, Normal Affect, Normal Mood - Problem List & Annotations (1) CAP (community acquired pneumonia) SNOMED Code(s): 662135020 Code(s): J18.9 - PNEUMONIA, UNSPECIFIED ORGANISM Status: Acute Current Visit: No Qualifiers: Laterality: unspecified laterality Qualified Code(s): J18.9 - Pneumonia, unspecified organism (2) COPD exacerbation SNOMED Code(s): 961487395 Code(s): J44.1 - CHRONIC OBSTRUCTIVE PULMONARY DISEASE W (ACUTE) EXACERBATION Status: Acute Current Visit: No (3) Weakness SNOMED Code(s): 58477418 Code(s): R53.1 - WEAKNESS Status: Acute Current Visit: Yes (4) COPD (chronic obstructive pulmonary disease) SNOMED Code(s): 91598456 Code(s): J44.9 - CHRONIC OBSTRUCTIVE PULMONARY DISEASE, UNSPECIFIED Status : Acute Current Visit: No Qualifiers: COPD type: COPD with acute lower respiratory infection Qualified Code(s): J44.0 - Chronic obstructive pulmonary disease with acute lower respiratory infection (5) Palliative care status SNOMED Code(s): 787621734 Code(s): Z51.5 - ENCOUNTER FOR PALLIATIVE CARE Status: Acute Current Visit: Yes - Problem List Review Problem List Initiated/Reviewed/Updated: Yes - Plan Plan:: 1. Chest X-ray showed no acute process, some improvement of patchy pneumonia with pulmonary fibrosis. 2. Continue antibiotics at this time, labs normal, improving clinically. Continue Prednisone. 3. PT/OT eval 4. Possible discharge on Sunday back to [facility].
[2019-05-10] MEDS: Calcium Carbonate 500 MG Tablet PO SCH (12:11)
[2019-05-10] MEDS: Cholecalciferol (Vitamin D3) 25 MCG Tab PO SCH (12:12)
[2019-05-10] MEDS: Multivitamin Tab PO SCH (12:12)
[2019-05-10] MEDS: Furosemide 20 MG Tab PO SCH (12:12)
[2019-05-10] MEDS: Enoxaparin 40 MG/0.4 ML Syringe SUBCUT SCH ×2 (12:13→15:35)
[2019-05-10] MEDS: cefTRIAXone 1 GM Vial IVPUSH SCH (15:37)
[2019-05-10] MEDS: Sodium Chloride 0.9% 10 ML Syringe FLUSH PRN ×2 (15:38→17:27)
[2019-05-10] MEDS: Azithromycin 250 MG in Sodium Chloride 0.9% 250 ML IV SCH (16:22)
[2019-05-10] MEDS: Melatonin 3 MG Tab PO SCH (20:54)
[2019-05-11] MEDS: Famotidine 20 MG Tab PO SCH (05:28)
[2019-05-11] MEDS: Pantoprazole 40 MG Tab.CR PO SCH (05:28)
--- NOTE | 2019-05-11 08:46 | PCM.PN ---
- General Info Date of Service: 05/11/19 Subjective Update: Patient is sitting up in bed, off oxygen, feeling much better. States she ambulated to bathroom and back with walker by herself. No chest pain, vomiting or diarrhea. Shortness of breath and wheezing better. - Patient Data Vitals - Most Recent: Last Vital Signs Temp 36.2 C 05/11/19 08:00 Pulse 78 05/11/19 08:00 Resp 20 05/11/19 08:00 BP 162/82 H 05/11/19 08:00 Pulse Ox 91 L 05/11/19 08:00 Weight - Most Recent: 76 kg I&O - Last 24 Hours: Intake & Output 05/10/19 05/11/19 05/11/19 22:59 06:59 14:59 Intake Total 500 Balance 500 Nikolas Results Last 24 Hours: Microbiology 05/07/19 16:00 Aerobic Blood Culture - Preliminary Blood - Venous - Lab Draw NO GROWTH AFTER 3 DAYS Anaerobic Blood Culture - Preliminary NO GROWTH AFTER 3 DAYS 05/07/19 15:55 Aerobic Blood Culture - Preliminary Blood - Venous NO GROWTH AFTER 3 DAYS Anaerobic Blood Culture - Preliminary NO GROWTH AFTER 3 DAYS Med Orders - Current: Current Medications Acetaminophen (Tylenol) 650 mg PO Q4H PRN PRN Reason: Pain/Fever Albuterol (Proventil Neb Soln) 2.5 mg INH Q4H PRN PRN Reason: Wheezing Albuterol (Ventolin Hfa) 0 gm INH Q4H PRN PRN Reason: Wheezing Arformoterol Tartrate (Brovana) 15 mcg INH BID [facility] Last Admin: 05/10/19 20:44 Dose: 15 mcg Aspirin (Halfprin) 81 mg PO DAILY [facility] Last Admin: 05/10/19 08:36 Dose: 81 mg Budesonide (Pulmicort) 0.5 mg INH BID [facility] Last Admin: 05/10/19 20:44 Dose: 0.5 mg Calcium Carbonate/Glycine (Oyster Shell Calcium) 500 mg PO DAILY@1200 [facility] Last Admin: 05/10/19 12:11 Dose: 500 mg Carvedilol (Coreg) 3.125 mg PO BIDMEALS [facility] Last Admin: 05/10/19 17:29 Dose: 3.125 mg Ceftriaxone Sodium (Rocephin) 1 gm IVPUSH Q24H [facility] Last Admin: 05/10/19 15:37 Dose: 1 gm Cholecalciferol (Vitamin D3) 25 mcg PO DAILY@1200 [facility] Last Admin: 05/10/19 12:12 Dose: 25 mcg Dicyclomine HCl (Bentyl) 10 mg PO TIDAC [facility] Last Admin: 05/10/19 17:28 Dose: 10 mg Enoxaparin Sodium (Lovenox) 40 mg SUBCUT DAILY@1430 [facility] Last Admin: 05/10/19 15:35 Dose: Not Given Famotidine (Pepcid) 40 mg PO DAILY@0600 [facility] Last Admin: 05/11/19 05:28 Dose: 40 mg Ferrous Sulfate (Ferrous Sulfate) 325 mg PO MoWeFr@0800 [facility] Last Admin: 05/09/19 07:58 Dose: 325 mg Furosemide (Lasix) 20 mg PO DAILY@1200 [facility] Last Admin: 05/10/19 12:12 Dose: 20 mg Azithromycin 250 mg/ Sodium (Chloride) 250 mls @ 250 mls/hr IV Q24H [facility] Stop: 05/11/19 17:59 Last Admin: 05/10/19 16:22 Dose: 250 mls/hr Lactobacillus Rhamnosus (Culturelle) 1 cap PO BID [facility] Last Admin: 05/10/19 20:45 Dose: 1 cap Loperamide HCl (Imodium) 2 mg PO ASDIRECTED PRN PRN Reason: LOOSE STOOLES Loratadine (Claritin) 10 mg PO DAILY [facility] Last Admin: 05/10/19 08:35 Dose: 10 mg Magnesium Chloride (Mag-64) 128 mg PO BIDMEALS [facility] Last Admin: 05/10/19 17:27 Dose: 128 mg Melatonin (Melatonin) 9 mg PO BEDTIME [facility] Last Admin: 05/10/19 20:54 Dose: 9 mg Multivitamins/Minerals/Vitamin C (Tab-A-Ivelisse) 1 tab PO DAILY@1200 [facility] Last Admin: 05/10/19 12:12 Dose: 1 tab Nystatin (Nystop) 0 gm TOP BID PRN PRN Reason: RASH Ondansetron HCl (Zofran Odt) 4 mg PO Q4H PRN PRN Reason: nausea, able to take PO Pantoprazole Sodium (Protonix) 40 mg PO DAILY@0600 [facility] Last Admin: 05/11/19 05:28 Dose: 40 mg Polyethylene Glycol (Miralax) 17 gm PO DAILY PRN PRN Reason: Constipation Potassium Chloride (Klor-Con 10) 10 meq PO DAILY [facility] Last Admin: 05/10/19 08:35 Dose: 10 meq Prednisone (Prednisone) 40 mg PO WITHBREAKFAST [facility] Stop: 05/12/19 08:01 Last Admin: 05/10/19 07:49 Dose: 40 mg Pregabalin (Lyrica) 75 mg PO BID [facility] Last Admin: 05/10/19 20:54 Dose: 75 mg Sodium Chloride (Saline Flush) 10 ml FLUSH ASDIRECTED PRN PRN Reason: Keep Vein Open Last Admin: 05/10/19 17:27 Dose: 10 ml Tiotropium [place] (Spiriva Handihaler) 18 mcg INH DAILY [facility] Last Admin: 05/10/19 08:36 Dose: 1 cap Discontinued Medications Albuterol (Ventolin Hfa) 0 gm INH Q4H PRN PRN Reason: Wheezing Sodium Chloride (Normal Saline) 1,000 mls @ 125 mls/hr IV ASDIRECTED [facility] Last Admin: 05/08/19 01:57 Dose: 125 mls/hr Azithromycin 500 mg/ Sodium (Chloride) 250 mls @ 250 mls/hr IV ONETIME ONE Stop: 05/07/19 17:59 Last Admin: 05/07/19 17:00 Dose: 250 mls/hr Magnesium Chloride (Mag-64) 128 mg PO BIDMEALS [facility] Last Admin: 05/08/19 09:08 Dose: 128 mg Melatonin (Melatonin) 9 mg PO BEDTIME [facility] Last Admin: 05/07/19 21:02 Dose: 9 mg (Bifidobacterium Infantis [Align] 4 Mg) *Ptom 4 mg PO BID [facility] Last Admin: 05/08/19 09:10 Dose: 4 mg (Dicyclomine [Bentyl (] 20 Mg) *Ptom) 0 mg PO TIDAC [facility] Last Admin: 05/08/19 06:44 Dose: 20 mg Non-Formulary Medication 1 Each ( Incruse 62.5 Mcg) * Ptom 62.5 mcg IH DAILY [facility] Last Admin: 05/08/19 09:12 Dose: 62.5 mcg (Omeprazole [ Omeprazole] 20 Mg) * Ptom 20 mg PO DAILY@0600 [facility] Last Admin: 05/08/19 06:45 Dose: 20 mg (Ranitidine Hcl [ Zantac] 300 Mg) * Ptom 300 mg PO DAILY@0600 [facility] Last Admin: 05/08/19 06:44 Dose: 300 mg - Exam General: Alert, Oriented, Cooperative Lungs: Clear to Auscultation, Normal Respiratory Effort, Decreased Breath Sounds. No: Wheezing Cardiovascular: Regular Rate, Regular Rhythm GI/Abdominal Exam: Normal Bowel Sounds, Soft, Non-Tender, No Distention Extremities: No Pedal Edema - Problem List & Annotations (1) CAP (community acquired pneumonia) SNOMED Code(s): 130165235 Code(s): J18.9 - PNEUMONIA, UNSPECIFIED ORGANISM Status: Acute Current Visit: No Qualifiers: Laterality: unspecified laterality Qualified Code(s): J18.9 - Pneumonia, unspecified organism (2) COPD exacerbation SNOMED Code(s): 876977226 Code(s): J44.1 - CHRONIC OBSTRUCTIVE PULMONARY DISEASE W (ACUTE) EXACERBATION Status: Acute Current Visit: No (3) Weakness SNOMED Code(s): 34628280 Code(s): R53.1 - WEAKNESS Status: Acute Current Visit: Yes (4) COPD (chronic obstructive pulmonary disease) SNOMED Code(s): 66247528 Code(s): J44.9 - CHRONIC OBSTRUCTIVE PULMONARY DISEASE, UNSPECIFIED Status : Acute Current Visit: No Qualifiers: COPD type: COPD with acute lower respiratory infection Qualified Code(s): J44.0 - Chronic obstructive pulmonary disease with acute lower respiratory infection (5) Palliative care status SNOMED Code(s): 238156911 Code(s): Z51.5 - ENCOUNTER FOR PALLIATIVE CARE Status: Acute Current Visit: Yes - Problem List Review Problem List Initiated/Reviewed/Updated: Yes - Plan Plan:: 1. Cultures No growth. 2. Continue antibiotics, improving clinically. Continue Prednisone day 3 of 5. 3. PT/OT eval 4. Discharge on Sunday back to [facility].
[2019-05-11] MEDS: Dicyclomine 10 MG Cap PO SCH ×3 (08:51→17:16)
[2019-05-11] MEDS: Loratadine 10 MG Tab PO SCH (08:52)
[2019-05-11] MEDS: Magnesium Chloride 64 MG Tab.ER PO SCH ×2 (08:52→17:16)
[2019-05-11] MEDS: Carvedilol 3.125 MG Tab PO SCH ×2 (08:52→17:16)
[2019-05-11] MEDS: predniSONE 20 MG Tab PO SCH (08:53)
[2019-05-11] MEDS: Aspirin 81 MG Tab.EC PO SCH (08:55)
[2019-05-11] MEDS: Potassium Chloride 10 MEQ TAB PO SCH (08:55)
[2019-05-11] MEDS: Tiotropium Inhaler 18 MCG Inhalation Powder Cap Kit of 5 INH SCH (08:55)
[2019-05-11] MEDS: Budesonide 0.5 MG/2 ML Neb Susp INH SCH ×2 (08:56→20:03)
[2019-05-11] MEDS: Lactobacillus Rhamnosus GG (Probiotic) Cap PO SCH ×2 (08:56→20:08)
[2019-05-11] MEDS: Arformoterol 15 MCG/2 ML Neb Soln INH SCH ×2 (08:56→20:02)
[2019-05-11] MEDS: Pregabalin 75 MG Cap PO SCH ×2 (09:03→20:04)
[2019-05-11] MEDS: Cholecalciferol (Vitamin D3) 25 MCG Tab PO SCH (11:53)
[2019-05-11] MEDS: Calcium Carbonate 500 MG Tablet PO SCH (11:53)
[2019-05-11] MEDS: Furosemide 20 MG Tab PO SCH (11:54)
[2019-05-11] MEDS: Multivitamin Tab PO SCH (11:54)
[2019-05-11] MEDS: Enoxaparin 40 MG/0.4 ML Syringe SUBCUT SCH (14:30)
[2019-05-11] MEDS: Azithromycin 250 MG in Sodium Chloride 0.9% 250 ML IV SCH (17:12)
[2019-05-11] MEDS: Sodium Chloride 0.9% 10 ML Syringe FLUSH PRN ×2 (17:14→18:07)
[2019-05-11] MEDS: cefTRIAXone 1 GM Vial IVPUSH SCH (17:15)
[2019-05-11] MEDS: Melatonin 3 MG Tab PO SCH (20:08)
[2019-05-12] MEDS: Pantoprazole 40 MG Tab.CR PO SCH (05:37)
[2019-05-12] MEDS: Famotidine 20 MG Tab PO SCH (05:37)
[2019-05-12] MEDS: Carvedilol 3.125 MG Tab PO SCH (07:31)
[2019-05-12] MEDS: Dicyclomine 10 MG Cap PO SCH ×2 (07:31→10:42)
[2019-05-12] MEDS: Ferrous Sulfate 325 MG Tab PO SCH (07:32)
[2019-05-12] MEDS: Magnesium Chloride 64 MG Tab.ER PO SCH (07:32)
[2019-05-12] MEDS: predniSONE 20 MG Tab PO SCH (07:33)
[2019-05-12] MEDS: Potassium Chloride 10 MEQ TAB PO SCH (08:08)
[2019-05-12] MEDS: Tiotropium Inhaler 18 MCG Inhalation Powder Cap Kit of 5 INH SCH (08:08)
[2019-05-12] MEDS: Lactobacillus Rhamnosus GG (Probiotic) Cap PO SCH (08:09)
[2019-05-12] MEDS: Aspirin 81 MG Tab.EC PO SCH (08:09)
[2019-05-12] MEDS: Loratadine 10 MG Tab PO SCH (08:09)
[2019-05-12] MEDS: Arformoterol 15 MCG/2 ML Neb Soln INH SCH (08:09)
[2019-05-12] MEDS: Budesonide 0.5 MG/2 ML Neb Susp INH SCH (08:09)
[2019-05-12] MEDS: Pregabalin 75 MG Cap PO SCH (08:36)
[2019-05-12] MEDS: Sodium Chloride 0.9% 10 ML Syringe FLUSH PRN (10:29)
[2019-05-12] MEDS: Furosemide 20 MG Tab PO SCH (10:42)
[2019-05-12] MEDS: Calcium Carbonate 500 MG Tablet PO SCH (10:45)
[2019-05-12] MEDS: Multivitamin Tab PO SCH (10:46)
[2019-05-12] MEDS: Cholecalciferol (Vitamin D3) 25 MCG Tab PO SCH (10:46)
[2019-05-12] MEDS ORDERED: cefTRIAXone 1 GM Vial IVPUSH SCH (11:00)
--- NOTE | 2019-05-12 12:37 | PCM.DCSUM1 ---
Discharge Summary - Hospital Course HPI Initial Comments: A 73-year-old female patient of the [facility]. She has a history of severe COPD. She's had over week history where she is becoming progressively weak. She states that she couldn't keep up with her walker which she normally uses. And today she couldn't stand on need to use the wheelchair. She was brought to the clinic and seen by Jesse Sanchez PA-C. He could not find any etiology but she couldn't get up and was profoundly weak. UA was negative and CBC was normal. Did a chest x-ray and the result had not been read by the time she came over here. Received the read later as either a little pneumonia or edema. She has no recent weight changes. She denies fevers, chills, ear pain, sore throat, congestion. She does have a cough is mildly productive. She denies any more shortness of breath in usual. She did not remember the last time she saw Pulmonology in [place] or when she last had PFTs. Diagnosis: Stroke: No - Discharge Data Discharge Date: 05/12/19 Discharge Disposition: Home, Self-Care 01 Condition: Good - Referral to Home Health Date of Face to Face Encounter: 05/12/19 Reason for Homebound Status: COPD, discharged to Basic Care Facility [facility] Primary Care Physician: Jesse Sanchez PA-C Skilled Need: Basic care - Discharge Diagnosis/Problem(s) (1) CAP (community acquired pneumonia) SNOMED Code(s): 803943260 ICD Code: J18.9 - PNEUMONIA, UNSPECIFIED ORGANISM Status: Acute Current Visit: No Problem Details: improving Qualifiers: Laterality: unspecified laterality Qualified Code(s): J18.9 - Pneumonia, unspecified organism (2) COPD exacerbation SNOMED Code(s): 840539891 ICD Code: J44.1 - CHRONIC OBSTRUCTIVE PULMONARY DISEASE W (ACUTE) EXACERBATION Status: Acute Current Visit: No (3) Weakness SNOMED Code(s): 06379777 ICD Code: R53.1 - WEAKNESS Status: Resolved Current Visit: Yes (4) COPD (chronic obstructive pulmonary disease) SNOMED Code(s): 93084656 ICD Code: J44.9 - CHRONIC OBSTRUCTIVE PULMONARY DISEASE, UNSPECIFIED Status : Chronic Current Visit: No Qualifiers: COPD type: unspecified COPD Qualified Code(s): J44.9 - Chronic obstructive pulmonary disease, unspecified (5) Palliative care status SNOMED Code(s): 491031373 ICD Code: Z51.5 - ENCOUNTER FOR PALLIATIVE CARE Status: Chronic Current Visit: Yes - Patient Summary/Data Consults: Consultations 05/07/19 15:35 Consult to Occupational Therapy [OT Evaluation and Treatment] [CONS] Routine Please Evaluate and Treat. OT Reason for Consult: Strengthening This query below is only for informational purposes and is not editable. Admission Diagnosis/Problem: Weakness 05/08/19 08:29 Consult to Physical Therapy [PT Evaluation and Treatment] [CONS] Routine Please Evaluate and Treat. PT Reason for Consult: Strengthening This query below is only for informational purposes and is not editable. Admission Diagnosis/Problem: Weakness Hospital Course: Started on Rocephin and Azithromycin, Prednisone 40 mg daily for 4 days, repeat of her CBC was normal. Her chest x-ray showed a patchy infiltrate improved from comparison but no acute findings, pulmonary fibrosis in bases. She was weaned off oxygen over the weekend. Seen by PT, over the weekend she improved to point she was ambulating by herself to the bathroom with her front wheel walker. Completed course of Azithromycin and will continue Cefdinir for 4 more days. - Patient Instructions Diet: Regular Diet as Tolerated Activity: As Tolerated Driving: May Drive Today Showering/Bathing: May Shower Notify Provider of: Fever, Increased Pain Other/Special Instructions: Follow up with Jesse Sanchez PA-C at [facility] on or Sunday this week. - Discharge Plan *PRESCRIPTION DRUG MONITORING PROGRAM REVIEWED*: Not Applicable *COPY OF PRESCRIPTION DRUG MONITORING REPORT IN PATIENT AMITA: Not Applicable Prescriptions/Med Rec: Cefdinir 300 mg PO BID 4 Days #8 capsule Home Medications: Home Meds Aspirin [Adult Low Dose Aspirin EC] 81 mg PO DAILY 10/23/17 [History] Multivitamin [Multi-Day Vitamins] 1 tab PO DAILY@1200 10/23/17 [History] Pregabalin [Lyrica] 75 mg PO BID 10/23/17 [History] Ca Carbonate/Vitamin D3/Vit K [Calcium + D Soft Chewable Tab] 1 tab PO DAILY@ 1200 11/14/17 [History] Loratadine [Claritin] 10 mg PO DAILY 05/04/18 [History] Nystatin 1 applic TOP BID PRN 05/04/18 [History] Omeprazole 20 mg PO DAILY 05/04/18 [History] Ranitidine HCl [Zantac] 300 mg PO DAILY 05/04/18 [History] Melatonin 9 mg PO BEDTIME 05/06/18 [History] Acetaminophen [Tylenol] 650 mg PO Q4H PRN 08/12/18 [History] Albuterol [Ventolin HFA] 2 puff IH Q4H PRN 08/12/18 [History] Polyethylene Glycol 3350 [MiraLAX] 17 gm PO DAILY PRN 08/12/18 [History] Furosemide [Lasix] 20 mg PO DAILY@1200 08/26/18 [History] Albuterol Sulfate 3 ml IH Q4H PRN 05/07/19 [History] Arformoterol [Brovana] 15 mcg INH BID 05/07/19 [History] Bifidobacterium Infantis [Align] 4 mg PO BID 05/07/19 [History] Budesonide [Pulmicort] 0.5 mg PO BID 05/07/19 [History] Carvedilol [Coreg] 3.125 mg PO BIDMEALS 05/07/19 [History] Cholecalciferol (Vitamin D3) [Vitamin D3] 25 mcg PO DAILY@1200 05/07/19 [History ] Dicyclomine [Bentyl] 10 mg PO TIDAC 05/07/19 [History] Ferrous Gluconate 324 mg PO MOWEFR@08 05/07/19 [History] Incruse 62.5 mcg IH DAILY 05/07/19 [History] Loperamide [Imodium AD] 2 mg PO ASDIRECTED PRN 05/07/19 [History] Magnesium Chloride [Mag-64] 128 mg PO BIDMEALS 05/07/19 [History] Potassium Chloride 10 meq PO DAILY 05/07/19 [History] Tamsulosin HCl [Flomax] 0.4 mg PO DAILY 05/07/19 [History] Triamcinolone Acetonide 1 applic TP BID PRN 05/07/19 [History] Cefdinir 300 mg PO BID 4 Days #8 capsule 05/12/19 [Rx] Oxygen Therapy Mode: Room Air Patient Handouts: Chronic Obstructive Pulmonary Disease, [id number], Fall Prevention in Hospitals, Adult, Venous Thromboembolism Prevention, Community- Acquired Pneumonia, Adult, [id number] - Discharge Summary/Plan Comment DC Time >30 min.: Yes - Patient Data Vitals - Most Recent: Last Vital Signs Temp 36.6 C 05/12/19 07:46 Pulse 80 05/12/19 08:10 Resp 20 05/12/19 07:46 BP 156/82 H 05/12/19 07:46 Pulse Ox 92 L 05/12/19 07:46 Weight - Most Recent: 76 kg [id number] Results - Last 24 hrs: Microbiology 05/07/19 16:00 Aerobic Blood Culture - Preliminary Blood - Venous - Lab Draw NO GROWTH AFTER 4 DAYS Anaerobic Blood Culture - Preliminary NO GROWTH AFTER 4 DAYS 05/07/19 15:55 Aerobic Blood Culture - Preliminary Blood - Venous NO GROWTH AFTER 4 DAYS Anaerobic Blood Culture - Preliminary NO GROWTH AFTER 4 DAYS Med Orders - Current: Current Medications Acetaminophen (Tylenol) 650 mg PO Q4H PRN PRN Reason: Pain/Fever Albuterol (Proventil Neb Soln) 2.5 mg INH Q4H PRN PRN Reason: Wheezing Albuterol (Ventolin Hfa) 0 gm INH Q4H PRN PRN Reason: Wheezing Arformoterol Tartrate (Brovana) 15 mcg INH BID [facility] Last Admin: 05/12/19 08:09 Dose: 15 mcg Aspirin (Halfprin) 81 mg PO DAILY [facility] Last Admin: 05/12/19 08:09 Dose: 81 mg Budesonide (Pulmicort) 0.5 mg INH BID [facility] Last Admin: 05/12/19 08:09 Dose: 0.5 mg Calcium Carbonate/Glycine (Oyster Shell Calcium) 500 mg PO DAILY@1200 [facility] Last Admin: 05/12/19 10:45 Dose: 500 mg Carvedilol (Coreg) 3.125 mg PO BIDMEALS [facility] Last Admin: 05/12/19 07:31 Dose: 3.125 mg Ceftriaxone Sodium (Rocephin) 1 gm IVPUSH Q24H [facility] Last Admin: 05/12/19 10:28 Dose: 1 gm Cholecalciferol (Vitamin D3) 25 mcg PO DAILY@1200 [facility] Last Admin: 05/12/19 10:46 Dose: 25 mcg Dicyclomine HCl (Bentyl) 10 mg PO TIDAC [facility] Last Admin: 05/12/19 10:42 Dose: 10 mg Enoxaparin Sodium (Lovenox) 40 mg SUBCUT DAILY@1430 [facility] Last Admin: 05/11/19 14:30 Dose: 40 mg Famotidine (Pepcid) 40 mg PO DAILY@0600 [facility] Last Admin: 05/12/19 05:37 Dose: 40 mg Ferrous Sulfate (Ferrous Sulfate) 325 mg PO MoWeFr@0800 [facility] Last Admin: 05/12/19 07:32 Dose: 325 mg Furosemide (Lasix) 20 mg PO DAILY@1200 [facility] Last Admin: 05/12/19 10:42 Dose: 20 mg Lactobacillus Rhamnosus (Culturelle) 1 cap PO BID [facility] Last Admin: 05/12/19 08:09 Dose: 1 cap Loperamide HCl (Imodium) 2 mg PO ASDIRECTED PRN PRN Reason: LOOSE STOOLES Loratadine (Claritin) 10 mg PO DAILY [facility] Last Admin: 05/12/19 08:09 Dose: 10 mg Magnesium Chloride (Mag-64) 128 mg PO BIDMEALS [facility] Last Admin: 05/12/19 07:32 Dose: 128 mg Melatonin (Melatonin) 9 mg PO BEDTIME [facility] Last Admin: 05/11/19 20:08 Dose: 9 mg Multivitamins/Minerals/Vitamin C (Tab-A-Ivelisse) 1 tab PO DAILY@1200 [facility] Last Admin: 05/12/19 10:46 Dose: 1 tab Nystatin (Nystop) 0 gm TOP BID PRN PRN Reason: RASH Ondansetron HCl (Zofran Odt) 4 mg PO Q4H PRN PRN Reason: nausea, able to take PO Pantoprazole Sodium (Protonix) 40 mg PO DAILY@0600 [facility] Last Admin: 05/12/19 05:37 Dose: 40 mg Polyethylene Glycol (Miralax) 17 gm PO DAILY PRN PRN Reason: Constipation Potassium Chloride (Klor-Con 10) 10 meq PO DAILY [facility] Last Admin: 05/12/19 08:08 Dose: 10 meq Pregabalin (Lyrica) 75 mg PO BID [facility] Last Admin: 05/12/19 08:36 Dose: 75 mg Sodium Chloride (Saline Flush) 10 ml FLUSH ASDIRECTED PRN PRN Reason: Keep Vein Open Last Admin: 05/12/19 10:29 Dose: 10 ml Tiotropium Victor (Spiriva Handihaler) 18 mcg INH DAILY [facility] Last Admin: 05/12/19 08:08 Dose: 1 cap Discontinued Medications Albuterol (Ventolin Hfa) 0 gm INH Q4H PRN PRN Reason: Wheezing Ceftriaxone Sodium (Rocephin) 1 gm IVPUSH Q24H [facility] Last Admin: 05/11/19 17:15 Dose: 1 gm Sodium Chloride (Normal Saline) 1,000 mls @ 125 mls/hr IV ASDIRECTED [facility] Last Admin: 05/08/19 01:57 Dose: 125 mls/hr Azithromycin 500 mg/ Sodium (Chloride) 250 mls @ 250 mls/hr IV ONETIME ONE Stop: 05/07/19 17:59 Last Admin: 05/07/19 17:00 Dose: 250 mls/hr Azithromycin 250 mg/ Sodium (Chloride) 250 mls @ 250 mls/hr IV Q24H [facility] Stop: 05/11/19 17:59 Last Admin: 05/11/19 17:12 Dose: 250 mls/hr Magnesium Chloride (Mag-64) 128 mg PO BIDMEALS [facility] Last Admin: 05/08/19 09:08 Dose: 128 mg Melatonin (Melatonin) 9 mg PO BEDTIME [facility] Last Admin: 05/07/19 21:02 Dose: 9 mg (Bifidobacterium Infantis [Align] 4 Mg) *Ptom 4 mg PO BID [facility] Last Admin: 05/08/19 09:10 Dose: 4 mg (Dicyclomine [Bentyl (] 20 Mg) *Ptom) 0 mg PO TIDAC [facility] Last Admin: 05/08/19 06:44 Dose: 20 mg Non-Formulary Medication 1 Each ( Incruse 62.5 Mcg) * Ptom 62.5 mcg IH DAILY [facility] Last Admin: 05/08/19 09:12 Dose: 62.5 mcg (Omeprazole [ Omeprazole] 20 Mg) * Ptom 20 mg PO DAILY@0600 [facility] Last Admin: 05/08/19 06:45 Dose: 20 mg (Ranitidine Hcl [ Zantac] 300 Mg) * Ptom 300 mg PO DAILY@0600 [facility] Last Admin: 05/08/19 06:44 Dose: 300 mg Prednisone (Prednisone) 40 mg PO WITHBREAKFAST [facility] Stop: 05/12/19 08:01 Last Admin: 05/12/19 07:33 Dose: 40 mg - Exam General: Reports: Alert, Oriented, Cooperative Lungs: Reports: Clear to Auscultation, Normal Respiratory Effort, Wheezing ( rarely) Cardiovascular: Reports: Regular Rate, Regular Rhythm GI/Abdominal Exam: Normal Bowel Sounds, Soft, Non-Tender Extremities: No Pedal Edema Skin: Reports: Warm, Dry, Intact Psy/Mental Status: Reports: Alert, Normal Affect, Normal Mood
== END 2019-05-12 13:10 | DRG 190 ==
LOC: UNDOADMOB 12:48 → FB.MS 12:48 → OBSVTOIN 05-08 08:32 → FB.MS 05-08 08:32 → INTOOBSV 05-08 08:32
PROVIDERS: ADMIT Family Medicine; ATTEND Family Medicine
DX: J44.0 Chronic obstructive pulmonary disease with (acute) lower respiratory infection (principal); R53.1 Weakness; J44.9 Chronic obstructive pulmonary disease, unspecified; J18.9 Pneumonia, unspecified organism; Z79.01 Long term (current) use of anticoagulants; J44.1 Chronic obstructive pulmonary disease with (acute) exacerbation; Z51.5 Encounter for palliative care; Z66 Do not resuscitate; H54.7 Unspecified visual loss; K21.9 Gastro-esophageal reflux disease without esophagitis; M81.8 Other osteoporosis without current pathological fracture; G62.9 Polyneuropathy, unspecified; D64.9 Anemia, unspecified; Z96.642 Presence of left artificial hip joint; Z96.652 Presence of left artificial knee joint; J84.10 Pulmonary fibrosis, unspecified; Z79.899 Other long term (current) drug therapy; Z79.82 Long term (current) use of aspirin; Z87.440 Personal history of urinary (tract) infections; Z85.828 Personal history of other malignant neoplasm of skin; Z87.310 Personal history of (healed) osteoporosis fracture; Z90.89 Acquired absence of other organs; Z87.891 Personal history of nicotine dependence
CPT/HCPCS: 36415; 70450; 80053; 83880; 84484; 87040 ×2; 93005; 94640; 94760 ×2; A9270 ×9; J0456; J0696; J1650; J7030 ×2; J7050; 71046; 85025; 97110-GO; 97116-GP; 97161-GP; 97165-GO; 97530-GO; 97535-GO; J7605

== ENCOUNTER 2019-12-12 09:51 | Emergency (ER) | payer MEDICARE, OTHER ==
[2019-12-12] MEDS ORDERED: Lidocaine 2% 20 ML MDV INFILT ONE (09:52)
--- NOTE | 2019-12-12 10:40 | EDM.PDOC ---
ED HPI GENERAL MEDICAL PROBLEM - General Chief Complaint: Laceration Stated Complaint: HEAD LACERATION Time Seen by Provider: 12/12/19 10:18 Source of Information: Reports: Patient History Limitations: Reports: No Limitations - History of Present Illness INITIAL COMMENTS - FREE TEXT/NARRATIVE: states she tripped on her walker and fell, hit some furniture ans sustained laceration to the right side of her forehead and pain to the right knee the hit the floor has laceration with controlled bleeding right knee is tender and swollen at the patella and patello-femoral ligament area , with bruising denies any loss of consciousness Onset: Today Location: Reports: Face Quality: Reports: Ache Severity: Mild Improves with: Reports: Cold Therapy Worsens with: Reports: None Context: Reports: Other (was getting up when she tripped) Associated Symptoms: Reports: No Other Symptoms Right Knee Pain Score (Numeric/FACES): 5 - Related Data Allergies Allergy/AdvReac Type Severity Reaction Status Date / Time No Known Allergies Allergy Verified 08/26/18 21:50 Home Meds: Home Meds Aspirin [Adult Low Dose Aspirin EC] 81 mg PO DAILY 10/23/17 [History] Multivitamin [Multi-Day Vitamins] 1 tab PO DAILY@1200 10/23/17 [History] Pregabalin [Lyrica] 75 mg PO BID 10/23/17 [History] Calcium Carb/Vitamin D3/Vit K1 [Calcium + D Soft Chewable Tab] 1 tab PO DAILY@ 1200 11/14/17 [History] Loratadine [Claritin] 10 mg PO DAILY 05/04/18 [History] Omeprazole 20 mg PO DAILY 05/04/18 [History] Melatonin 9 mg PO BEDTIME 05/06/18 [History] Acetaminophen [Tylenol] 650 mg PO Q4H PRN 08/12/18 [History] Albuterol [Ventolin HFA] 2 puff IH Q4H PRN 08/12/18 [History] polyethylene glycoL 3350 [MiraLAX] 17 gm PO DAILY PRN 08/12/18 [History] Furosemide [Lasix] 20 mg PO DAILY@1200 08/26/18 [History] Albuterol Sulfate 3 ml IH Q4H PRN 05/07/19 [History] Arformoterol [Brovana] 15 mcg INH BID 05/07/19 [History] Bifidobacterium Infantis [Align] 4 mg PO BID 05/07/19 [History] Budesonide [Pulmicort] 0.5 mg PO BID 05/07/19 [History] Cholecalciferol (Vitamin D3) [Vitamin D3] 25 mcg PO DAILY@1200 05/07/19 [History ] Dicyclomine [Bentyl] 10 mg PO TIDAC 05/07/19 [History] Ferrous Gluconate 324 mg PO MOWEFR@08 05/07/19 [History] Incruse 62.5 mcg IH DAILY 05/07/19 [History] Loperamide [Imodium AD] 2 mg PO ASDIRECTED PRN 05/07/19 [History] Magnesium Chloride [Mag-64] 128 mg PO BIDMEALS 05/07/19 [History] Potassium Chloride 10 meq PO DAILY 05/07/19 [History] Tamsulosin HCl [Flomax] 0.4 mg PO DAILY 05/07/19 [History] Triamcinolone Acetonide 1 applic TP BID PRN 05/07/19 [History] carvediloL [Coreg] 3.125 mg PO BIDMEALS 05/07/19 [History] Azithromycin 500 mg PO DAILY 12/12/19 [History] Famotidine 40 mg PO BEDTIME 12/12/19 [History] Past Medical History HEENT History: Reports: Impaired Vision Other HEENT History: wears glasses. Has ear wax build up and needs gerald cleaned out Cardiovascular History: Reports: None Respiratory History: Reports: COPD, Pneumonia, Recurrent, SOB Gastrointestinal History: Reports: Chronic Constipation, Colon Polyp, Diverticulosis, GERD, Irritable Bowel Syndrome Genitourinary History: Reports: None Other Genitourinary History: previous UTI EXTERMINATOR HELPER History: Reports: Other EXTERMINATOR HELPER History: Musculoskeletal History: Reports: Fracture, Osteoporosis, Other (See Below) Other Musculoskeletal History: L knee fx, L ankle fx, bursitis left hip Neurological History: Reports: Neuropathy, Peripheral Psychiatric History: Reports: None Endocrine/Metabolic History: Reports: None Hematologic History: Reports: Anemia, Anticoagulation Therapy, Blood Transfusion (s) Other Hematologic History: ASA 81mg Daily Immunologic History: Reports: None Oncologic (Cancer) History: Reports: Basal Cell Carcinoma, Other (See Below) Other Oncologic History: removed mole from by right eye Dermatologic History: Reports: Psoriasis Other Dermatologic History: years ago - Infectious Disease History Infectious Disease History: Reports: Measles - Past Surgical History Head Surgeries/Procedures: Reports: None HEENT Surgical History: Reports: Adenoidectomy, Tonsillectomy Respiratory Surgical History: Reports: None GI Surgical History: Reports: Colonoscopy Musculoskeletal Surgical History: Reports: Hip Replacement, Knee Replacement, Other (See Below) Other Musculoskeletal Surgeries/Procedures:: fx hip left and knee replacement left Oncologic Surgical History: Reports: None Dermatological Surgical History: Reports: None Social & Family History - Family History Family Medical History: Noncontributory - Tobacco Use Smoking Status *Q: Never Smoker - Caffeine Use Caffeine Use: Reports: Coffee Other Caffeine Use: 1-2 cups per day - Recreational Drug Use Recreational Drug Use: No ED ROS GENERAL - Review of Systems Review Of Systems: See Below Constitutional: Reports: No Symptoms HEENT: Reports: No Symptoms. Denies: Ear Discharge, Eye Discharge, Nosebleed, Vision Change Respiratory: Reports: No Symptoms Cardiovascular: Reports: No Symptoms Endocrine: Reports: No Symptoms GI/Abdominal: Reports: No Symptoms Musculoskeletal: Reports: Leg Pain, Joint Pain (right knee pain and swelling), Joint Swelling Skin: Reports: Wound (laceration of forehead) Neurological: Reports: No Symptoms Psychiatric: Reports: No Symptoms Hematologic/Lymphatic: Reports: No Symptoms Immunologic: Reports: No Symptoms ED EXAM, SKIN/RASH Exam: See Below Exam Limited By: No Limitations General Appearance: Alert, WD/WN, No Apparent Distress Eye Exam: Bilateral Eye: EOMI Throat/Mouth: Normal Inspection Head: Facial Swelling, Facial Tenderness, Other (laceration right forehead : vertical , clean well approximated wound about 3 cm long and 0.5 cm deep) Neck: Supple, Non-Tender Respiratory/Chest: Lungs Clear, Normal Breath Sounds Cardiovascular: Regular Rate, Rhythm GI/Abdominal: Soft, Non-Tender Back Exam: Normal Inspection Extremities: Joint Swelling (right knee with bruising), Limited Range of Motion (right knee) Neurological: Alert, Oriented, CN II-XII Intact Psychiatric: Normal Affect Location, Skin: Face (laceration to the right side of forehead about 3cm long and 0.5cm deep), Lower Extremity, Right (right knee with bruise and swelling in the patella region) ED SKIN PROCEDURES - Laceration/Wound Repair Right Forehead Appearance: Subcutaneous, Muscle, Linear, Clean Distal NVT: Neuro & Vascular Intact Anesthetic Type: Local Local Anesthesia - Lidocaine (Xylocaine): 2% Plain Local Anesthetic Volume: 5cc Skin Prep: Chlorhexidine (Hibiciens) Saline Irrigation (cc's): 20 Exploration/Debridement/Repair: Wound Explored, Explored to Base, No Foreign Material Found Closed with: Sutures Lac/Wound length In cm: 3 Suture Size: 5-0 # of Sutures: 5 Suture Type: Simple, Other (ethilon) Sterile Dressing Applied: Nurse Tetanus Status Addressed: Yes Complications: No Progress/Comments: tolerated well Course - Vital Signs Last Recorded V/S: Last Vital Signs Temp 36.1 C 12/12/19 10:07 Pulse 72 12/12/19 10:07 Resp 16 12/12/19 10:07 BP 147/66 H 12/12/19 10:07 Pulse Ox 95 12/12/19 10:07 Departure - Departure Time of Disposition: 12:30 Disposition: Home, Self-Care 01 Condition: Fair Clinical Impression: Fracture of patella, right, closed, Laceration of skin of forehead without complication - Discharge Information *PRESCRIPTION DRUG MONITORING PROGRAM REVIEWED*: Not Applicable *COPY OF PRESCRIPTION DRUG MONITORING REPORT IN PATIENT AMITA: Not Applicable Instructions: Laceration Care, Adult, [id number], Patellar Fracture With Rehab-SportsMed Referrals: Te Lee MD [Primary Care Provider] - Forms: ED Department Discharge Sepsis Event Note - Evaluation Sepsis Screening Result: No Definite Risk - Focused Exam Vital Signs: Vital Signs Temp Pulse Resp BP Pulse Ox 12/12/19 10:07 36.1 C 72 16 147/66 H 95 Date Exam was Performed: 12/12/19 Time Exam was Performed: 12:07
--- NOTE | 2019-12-12 12:05 | CR ---
INDICATION: Fall on patella, pain in right knee. RIGHT KNEE: Three views of the right knee revealed a comminuted fracture of the patella with separation and offset of fracture fragments. No other acute bone or joint abnormality was identified. There appears to be some mild loss of lateral femorotibial joint space. Overall bone density appeared to be normal. IMPRESSION: Comminuted fracture of the patella with deformity. MTDD
[2019-12-12] MEDS ORDERED: Diphtheria,Pertussis(Acell),Tetanus Vaccine 0.5 ML SDV IM ONE (12:51)
== END 2019-12-12 13:50 | disposition home or self-care (01) ==
LOC: FB.ED 09:51
DX: S82.041A Displaced comminuted fracture of right patella, initial encounter for closed fracture (principal); S01.81XA Laceration without foreign body of other part of head, initial encounter; J44.9 Chronic obstructive pulmonary disease, unspecified; G62.9 Polyneuropathy, unspecified; Z79.82 Long term (current) use of aspirin; Z79.899 Other long term (current) drug therapy; Z23 Encounter for immunization; W01.190A Fall on same level from slipping, tripping and stumbling with subsequent striking against furniture, initial encounter
CPT/HCPCS: 12013; 73562; 90471; 90715; 99282; 99283; J2001

== ENCOUNTER 2020-01-02 18:55 | Inpatient (IN) | payer MEDICARE, OTHER ==
--- NOTE | 2020-01-02 19:21 | EDM.PDOC ---
ED HPI GENERAL MEDICAL PROBLEM - General Stated Complaint: HIP INJURY Time Seen by Provider: 01/02/20 19:00 Source of Information: Reports: Patient, EMS, Family, Other ([facility]) History Limitations: Reports: No Limitations - History of Present Illness INITIAL COMMENTS - FREE TEXT/NARRATIVE: brought in by ambulance states she was on commode when she leaned forward and fell on her left side , hit her left shoulder and left hip. had to be helped up ( had left hip replaced 20 yrs ago) now has pain in the left hip on flexion and attempts to bear weight has pa in in the left hip with flexion pt has fracture of the right leg , currently in immobilizer left hip replaced 12rs ago Current smoker uses a walker but was not able to use walker since after the fall, was in recliner only Onset: Today Location: Reports: Lower Extremity, Left (pain in the left hip) Quality: Reports: Ache, Dull Severity: Moderate Improves with: Reports: Rest Worsens with: Reports: Movement Context: Reports: Trauma left hip and shoulder Pain Score (Numeric/FACES): 4 - Related Data Allergies Allergy/AdvReac Type Severity Reaction Status Date / Time No Known Allergies Allergy Verified 01/02/20 19:28 Home Meds: Home Meds Aspirin [Adult Low Dose Aspirin EC] 81 mg PO DAILY 10/23/17 [History] Pregabalin [Lyrica] 75 mg PO BID 10/23/17 [History] Calcium Carb/Vitamin D3/Vit K1 [Calcium + D Soft Chewable Tab] 1 tab PO DAILY [History] Loratadine [Claritin] 10 mg PO DAILY 05/04/18 [History] Omeprazole 20 mg PO DAILY 05/04/18 [History] Melatonin 9 mg PO BEDTIME 05/06/18 [History] Acetaminophen [Tylenol] 650 mg PO Q4H PRN 08/12/18 [History] Albuterol [Ventolin HFA] 2 puff IH Q4H PRN 08/12/18 [History] polyethylene glycoL 3350 [MiraLAX] 17 gm PO DAILY PRN 08/12/18 [History] Furosemide [Lasix] 20 mg PO DAILY 08/26/18 [History] Albuterol Sulfate 3 ml IH Q4H PRN 05/07/19 [History] Arformoterol [Brovana] 15 mcg INH BID 05/07/19 [History] Bifidobacterium Infantis [Align] 4 mg PO BID 05/07/19 [History] Budesonide [Pulmicort] 0.5 mg PO BID 05/07/19 [History] Dicyclomine [Bentyl] 10 mg PO TIDAC 05/07/19 [History] Ferrous Gluconate 324 mg PO MOWEFR@08 05/07/19 [History] Incruse 62.5 mcg IH DAILY 05/07/19 [History] Loperamide [Imodium AD] 2 mg PO ASDIRECTED PRN 05/07/19 [History] Magnesium Chloride [Mag-64] 64 mg PO BIDMEALS 05/07/19 [History] Potassium Chloride 10 meq PO DAILY 05/07/19 [History] Tamsulosin HCl [Flomax] 0.4 mg PO DAILY 05/07/19 [History] carvediloL [Coreg] 3.125 mg PO BID 05/07/19 [History] Acetaminophen/HYDROcodone [[place] 325-5 MG] 1 tab PO Q6H PRN #10 tab 12/12/19 [Rx ] Azithromycin 500 mg PO MOWEFR 12/12/19 [History] Famotidine 40 mg PO BEDTIME 12/12/19 [History] Bisacodyl [Laxative Suppository] 10 mg RC Q3D 01/02/20 [History] Cholecalciferol (Vitamin D3) [Vitamin D3] 1,000 unit PO DAILY 01/02/20 [History] Mag Hydrox/Aluminum Hyd/Simeth [Mylanta Maximum Strength Liq] 10 ml PO QID 01/01 [History] Magnesium Hydroxide [Milk of Magnesia] 30 ml PO DAILY PRN 01/02/20 [History] Multivit-Min/FA/Lycopen/Lutein [Certavite Sr with Lutein Tab] 1 each PO DAILY [History] guaiFENesin [Robitussin] 200 mg PO Q4H 01/02/20 [History] Past Medical History HEENT History: Reports: Impaired Vision Other HEENT History: wears glasses. 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: Musculoskeletal History: Reports: Fracture, Osteoporosis, Other (See Below) Other Musculoskeletal History: L knee fx, L ankle fx, bursitis left hip Neurological History: Reports: Neuropathy, Peripheral Psychiatric History: Reports: None Endocrine/Metabolic History: Reports: None Hematologic History: Reports: Anemia, Anticoagulation Therapy, Blood Transfusion (s) Other Hematologic History: ASA 81mg Daily Immunologic History: Reports: None Oncologic (Cancer) History: Reports: Basal Cell Carcinoma, Other (See Below) Other Oncologic History: removed mole from by right eye Dermatologic History: Reports: Psoriasis Other Dermatologic History: years ago - Infectious Disease History Infectious Disease History: Reports: Measles - Past Surgical History Head Surgeries/Procedures: Reports: None HEENT Surgical History: Reports: Adenoidectomy, Tonsillectomy Respiratory Surgical History: Reports: None GI Surgical History: Reports: Colonoscopy Musculoskeletal Surgical History: Reports: Hip Replacement, Knee Replacement, Other (See Below) Other Musculoskeletal Surgeries/Procedures:: fx hip left and knee replacement left Oncologic Surgical History: Reports: None Dermatological Surgical History: Reports: None Social & Family History - Family History Family Medical History: Noncontributory - Caffeine Use Caffeine Use: Reports: Coffee Other Caffeine Use: 1-2 cups per day Review of Systems - Review of Systems Review Of Systems: Comprehensive ROS is negative, except as noted in HPI. Constitutional: Reports: Weakness Eyes: Reports: No Symptoms Ears: Reports: No Symptoms Nose: Reports: No Symptoms Respiratory: Reports: Wheezing, Cough Cardiovascular: Denies: Chest Pain GI/Abdominal: Denies: Abdominal Pain Genitourinary: Reports: No Symptoms Musculoskeletal: Reports: Shoulder Pain (left sied), Leg Pain (right leg pain), Joint Pain (left hip join tpain ) Skin: Reports: No Symptoms Neurological: Reports: No Symptoms Psychiatric: Reports: No Symptoms ED EXAM, GENERAL - Physical Exam Exam: See Below Exam Limited By: No Limitations General Appearance: Alert, No Apparent Distress Eye Exam: Bilateral Eye: EOMI Ears: Normal External Exam Ear Exam: Bilateral Ear: Auricle Normal Throat/Mouth: Normal Oropharynx Head: Atraumatic, Normocephalic Neck: Supple, Non-Tender Respiratory/Chest: Decreased Breath Sounds, Wheezing Cardiovascular: Regular Rate, Rhythm GI/Abdominal: Soft, Non-Tender Back Exam: Decreased Range of Motion Extremities: Leg Pain (on the r ), Limited Range of Motion (pain on flexion of left hip noted) Neurological: Alert, Oriented. No: Normal Gait Psychiatric: Normal Affect Skin Exam: Warm, Intact Course - Vital Signs Last Recorded V/S: Last Vital Signs Temp 36.2 C 01/02/20 19:06 Pulse 83 01/02/20 19:06 Resp 18 01/02/20 19:06 BP 132/71 01/02/20 19:06 Pulse Ox 92 L 01/02/20 19:06 - Orders/Labs/Meds Orders: Active Orders 24 hr Category Date Time Status Hip Min 2V or 3V w Pelvis Lt [CR] Stat Exams 01/02/20 19:08 Taken Pelvis wo Cont [CT] Stat Exams 01/02/20 20:15 Ordered - Re-Assessments/Exams Free Text/Narrative Re-Assessment/Exam: 01/02/20 21:52 pt was given Fentanyl in the ambulance since then was sleeping and noted to have drop in 02 saturation which improved with 2 Liters of oxygen via NC pt is not oxygen dependent but has history of COPD on inhalers Xray of left hip looked abnormal despite read by radiologist that there was no fracture CT of the pelvis was done and confirmed pt did have small acute nondisplaced fracture in the base of the left greater trochanter will need to be seen by Ortho for further evaluation pt will need assist , will admit till assessed by Ortho Departure - Departure Time of Disposition: 21:45 Disposition: Admitted As Inpatient 64 Condition: Fair Clinical Impression: Fracture of greater trochanter of left femur, Tobacco abuse, Smoker within last 12 months, Fracture of patella, right, closed, DNR no code (do not resuscitate), Left hip pain COPD (chronic obstructive pulmonary disease) Qualifiers: COPD type: unspecified COPD Qualified Code(s): J44.9 - Chronic obstructive pulmonary disease, unspecified Hx of total hip arthroplasty Qualifiers: Laterality: left Qualified Code(s): Z96.642 - Presence of left artificial hip joint GERD (gastroesophageal reflux disease) Qualifiers: Esophagitis presence: without esophagitis Qualified Code(s): K21.9 - Gastro- esophageal reflux disease without esophagitis - Discharge Information Sepsis Event Note - Focused Exam Vital Signs: Vital Signs Temp Pulse Resp BP Pulse Ox 01/02/20 19:06 36.2 C 83 18 132/71 92 L Date Exam was Performed: 01/02/20 Time Exam was Performed: 20:16 - My Orders Last 24 Hours: My Active Orders 01/02/20 19:08 Hip Min 2V or 3V w Pelvis Lt [CR] Stat 01/02/20 20:15 Pelvis wo Cont [CT] Stat - Assessment/Plan Last 24 Hours: My Active Orders 01/02/20 19:08 Hip Min 2V or 3V w Pelvis Lt [CR] Stat 01/02/20 20:15 Pelvis wo Cont [CT] Stat
[2020-01-02] MEDS ORDERED: Acetaminophen 325 MG Tab PO PRN ×2 (21:31→21:38)
[2020-01-02] MEDS ORDERED: Non-Formulary Medication 1 Each (Loperamide [Imodium Ad] 2 MG) PO PRN (21:38)
[2020-01-02] MEDS ORDERED: Albuterol 0.083% 2.5 MG/3 ML Neb Soln NEB PRN (21:38)
[2020-01-02] MEDS ORDERED: Albuterol 8 GM Inhaler INH PRN (21:38)
[2020-01-02] MEDS ORDERED: Bisacodyl 10 MG Supp RECTAL SCH (21:45)
[2020-01-02] MEDS: Non-Formulary Medication 1 Each (Arformoterol [Brovana] 15 MCG) INH SCH ×2 (21:54→23:43)
[2020-01-02] MEDS: Pregabalin 75 MG Cap PO SCH ×2 (21:58→22:48)
[2020-01-02] MEDS: Budesonide 0.5 MG/2 ML Neb Susp NEB SCH ×2 (22:30→22:48)
[2020-01-02] MEDS: guaiFENesin 100 MG/5 ML Soln 5 ML UD Cup PO SCH (22:48)
[2020-01-02] MEDS: Carvedilol 3.125 MG Tab PO SCH (22:48)
[2020-01-03] MEDS: guaiFENesin 100 MG/5 ML Soln 5 ML UD Cup PO SCH ×3 (05:36→09:08)
[2020-01-03] MEDS: Acetaminophen/HYDROcodone 325-5 MG Tab PO PRN (06:12)
[2020-01-03] MEDS ORDERED: Albuterol 8 GM Inhaler*PT OWN MED INH PRN (08:42)
[2020-01-03] MEDS ORDERED: Sodium Chloride 0.9% 10 ML Syringe FLUSH PRN (08:57)
[2020-01-03] MEDS ORDERED: Non-Formulary Medication 1 Each (Omeprazole [Omeprazole] 20 MG) PO SCH (09:00)
[2020-01-03] MEDS ORDERED: Nicotine 14 MG/24 Hr Patch TRDERM SCH (09:00)
[2020-01-03] MEDS ORDERED: INCRUSE 62.5 MCG IH SCH (09:00)
[2020-01-03] MEDS: Budesonide 0.5 MG/2 ML Neb Susp NEB SCH ×2 (09:08→20:59)
[2020-01-03] MEDS: Carvedilol 3.125 MG Tab PO SCH ×2 (09:09→20:58)
[2020-01-03] MEDS: Pregabalin 75 MG Cap PO SCH ×2 (09:09→20:56)
[2020-01-03] MEDS: Potassium Chloride 10 MEQ Tab.ER PO SCH (09:09)
[2020-01-03] MEDS: Furosemide 20 MG Tab PO SCH (09:09)
[2020-01-03] MEDS: Non-Formulary Medication 1 Each (Arformoterol [Brovana] 15 MCG) INH SCH (09:09)
[2020-01-03] MEDS: Magnesium Chloride 64 MG Tab.ER PO SCH ×2 (09:09→16:59)
[2020-01-03] MEDS: Tamsulosin 0.4 MG Cap.ER PO SCH (09:09)
[2020-01-03] MEDS ORDERED: guaiFENesin 100 MG/5 ML Soln 5 ML UD Cup PO PRN (09:30)
--- NOTE | 2020-01-03 09:39 | PCM.HP.2 ---
H&P History of Present Illness - General Date of Service: 01/03/20 Admit Problem/Dx: Admission Diagnosis/Problem Admission Diagnosis/Problem Fracture of femur Source of Information: Patient, EMS, EMS Notes Reviewed - History of Present Illness Initial Comments - Free Text/Narative: Crystal was using a bedside commode last night when she was trying to get up the commode broke, throwing her to the left side, hitting her left hip and shoulder on the floor. She sustained a non-displaced trochanter fracture adjacent to her left hip prosthesis. She had seen her orthopedic yesterday morning for recheck of her right patellar fracture, they had adjusted her knee brace and told her it was healing well. Denies any fevers, chills, cough, shortness of breath, or chest pain. No nausea, vomiting or diarrhea. No change in her urinary habits, no burning. Pain is currently controlled, icing her left hip. She is not on oxygen at home, her COPD is stable per patient, feels she is at her base line. left hip and shoulder Pain Score (Numeric/FACES): 0 - Related Data Allergies/Adverse Reactions: Allergies Allergy/AdvReac Type Severity Reaction Status Date / Time No Known Allergies Allergy Verified 01/02/20 19:28 Home Medications: Home Meds Aspirin [Adult Low Dose Aspirin EC] 81 mg PO DAILY 10/23/17 [History] Pregabalin [Lyrica] 75 mg PO BID 10/23/17 [History] Calcium Carb/Vitamin D3/Vit K1 [Calcium + D Soft Chewable Tab] 1 tab PO DAILY [History] Loratadine [Claritin] 10 mg PO DAILY 05/04/18 [History] Omeprazole 20 mg PO DAILY 05/04/18 [History] Melatonin 9 mg PO BEDTIME 05/06/18 [History] Acetaminophen [Tylenol] 650 mg PO Q4H PRN 08/12/18 [History] Albuterol [Ventolin HFA] 2 puff IH Q4H PRN 08/12/18 [History] polyethylene glycoL 3350 [MiraLAX] 17 gm PO DAILY PRN 08/12/18 [History] Furosemide [Lasix] 20 mg PO DAILY 08/26/18 [History] Albuterol Sulfate 3 ml IH Q4H PRN 05/07/19 [History] Arformoterol [Brovana] 15 mcg INH BID 05/07/19 [History] Bifidobacterium Infantis [Align] 4 mg PO BID 05/07/19 [History] Budesonide [Pulmicort] 0.5 mg PO BID 05/07/19 [History] Dicyclomine [Bentyl] 10 mg PO TIDAC 05/07/19 [History] Ferrous Gluconate 324 mg PO MOWEFR@08 05/07/19 [History] Incruse 62.5 mcg IH DAILY 05/07/19 [History] Loperamide [Imodium AD] 2 mg PO ASDIRECTED PRN 05/07/19 [History] Magnesium Chloride [Mag-64] 64 mg PO BIDMEALS 05/07/19 [History] Potassium Chloride 10 meq PO DAILY 05/07/19 [History] Tamsulosin HCl [Flomax] 0.4 mg PO DAILY 05/07/19 [History] carvediloL [Coreg] 3.125 mg PO BID 05/07/19 [History] Acetaminophen/HYDROcodone [[place] 325-5 MG] 1 tab PO Q6H PRN #10 tab 12/12/19 [Rx ] Azithromycin 500 mg PO MOWEFR 12/12/19 [History] Famotidine 40 mg PO BEDTIME 12/12/19 [History] Bisacodyl [Laxative Suppository] 10 mg RC Q3D 01/02/20 [History] Cholecalciferol (Vitamin D3) [Vitamin D3] 1,000 unit PO DAILY 01/02/20 [History] Mag Hydrox/Aluminum Hyd/Simeth [Mylanta Maximum Strength Liq] 10 ml PO QID 01/01 [History] Magnesium Hydroxide [Milk of Magnesia] 30 ml PO DAILY PRN 01/02/20 [History] Multivit-Min/FA/Lycopen/Lutein [Certavite Sr with Lutein Tab] 1 each PO DAILY [History] guaiFENesin [Robitussin] 200 mg PO Q4H 01/02/20 [History] Past Medical History HEENT History: Reports: Impaired Vision Other HEENT History: wears glasses. Has ear wax build up and needs gerald cleaned out Cardiovascular History: Reports: None Respiratory History: Reports: COPD, Pneumonia, Recurrent, SOB Other Respiratory History: Nicotine dependence, acute and chronic respiratory failure. 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: Musculoskeletal History: Reports: Fracture (right patella fracture, left trochanter fracture adjacent to left hip prosthesis(stable)), Osteoporosis, Other (See Below) Other Musculoskeletal History: L knee fx, L ankle fx, bursitis left hip Neurological History: Reports: Neuropathy, Peripheral Psychiatric History: Reports: None Endocrine/Metabolic History: Reports: None Hematologic History: Reports: Anemia, Anticoagulation Therapy, Blood Transfusion (s) Other Hematologic History: ASA 81mg Daily Immunologic History: Reports: None Oncologic (Cancer) History: Reports: Basal Cell Carcinoma, Other (See Below) Other Oncologic History: removed mole from by right eye Dermatologic History: Reports: Psoriasis Other Dermatologic History: years ago - Infectious Disease History Infectious Disease History: Reports: Measles - Past Surgical History Head Surgeries/Procedures: Reports: None HEENT Surgical History: Reports: Adenoidectomy, Tonsillectomy Respiratory Surgical History: Reports: None GI Surgical History: Reports: Colonoscopy Musculoskeletal Surgical History: Reports: Hip Replacement, Knee Replacement, Other (See Below) Other Musculoskeletal Surgeries/Procedures:: fx hip left and knee replacement left Oncologic Surgical History: Reports: None Dermatological Surgical History: Reports: None Social & Family History - Family History Family Medical History: Noncontributory - Tobacco Use Smoking Status *Q: Former Smoker Used Tobacco, but Quit: Yes Month/Year Tobacco Last Used: 3 years ago Second Hand Smoke Exposure: No - Caffeine Use Caffeine Use: Reports: Coffee Other Caffeine Use: 1-2 cups per day - Recreational Drug Use Recreational Drug Use: No H&P Review of Systems - Review of Systems: Review Of Systems: Comprehensive ROS is negative, except as noted in HPI. Exam - Exam Exam: See Below - Vital Signs Vital Signs: Last Vital Signs Temp 96.5 F L 01/02/20 22:26 Pulse 87 01/03/20 09:09 Resp 18 01/03/20 04:00 BP 125/75 01/03/20 09:09 Pulse Ox 94 L 01/02/20 22:30 Weight: 165 lb 3 oz - Exam General: Alert, Oriented, Cooperative HEENT: PERRLA, Conjunctiva Clear, Mucosa Moist & [place] Neck: Supple, Trachea Midline Lungs: Clear to Auscultation, Normal Respiratory Effort. No: Crackles, Wheezing Cardiovascular: Regular Rate, Regular Rhythm GI/Abdominal Exam: Normal Bowel Sounds, Soft, Non-Tender, No Distention (Female) Exam: Deferred Rectal (Female) Exam: Deferred Extremities: No Pedal Edema, Limited Range of Motion (left hip, TTP over left greater trochanter, right knee immobilizer present) Peripheral Pulses: 2+: Radial (L), Radial (R) Skin: Warm, Dry - Patient Data Lab Results Last 24 hrs: Laboratory Results - last 24 hr 01/03/20 01/03/20 01/03/20 Range/Units 06:00 06:00 06:00 WBC 8.0 (4.5-12.0) X10-3/uL RBC 4.84 (3.23-5.20) x10(6)uL Hgb 13.1 (11.5-15.5) g/dL Hct 41.6 (30.0-51.3) % MCV 86.0 (80-96) fL MCH 27.0 L (27.7-33.6) pg MCHC 31.4 L (32.2-35.4) g/dL RDW 14.2 (11.5-15.5) % Plt Count 263 (125-369) X10(3)uL MPV 8.2 (7.4-10.4) fL Neut % (Auto) 70.6 (46-82) % Lymph % (Auto) 13.9 (13-37) % [place] % (Auto) 9.7 (4-12) % Eos % (Auto) 5 (1.0-5.0) % Baso % (Auto) 1 (0-2) % Neut # (Auto) 5.6 (1.6-8.3) # Lymph # (Auto) 1.1 (0.6-5.0) # [place] # (Auto) 0.8 (0.0-1.3) # Eos # (Auto) 0.4 (0.0-0.8) # Baso # (Auto) 0.0 (0.0-0.2) # PT 10.1 (9.0-11.1) sec INR 0.94 L (1.00-1.24) Sodium 139 (135-145) mmol/L Potassium 4.4 (3.5-5.3) mmol/L Chloride 103 (100-110) mmol/L Carbon Dioxide 29 (21-32) mmol/L BUN 12 (7-18) mg/dL Creatinine 0.7 (0.55-1.02) mg/dL Est Cr Clr Drug Dosing 64.01 mL/min Estimated GFR (MDRD) > 60 (>60) BUN/Creatinine Ratio 17.1 (9-20) Glucose 109 (80-116) mg/dL Calcium 8.0 L (8.6-10.2) mg/dL Result Diagrams: 01/03/20 06:00 01/03/20 06:00 Sepsis Event Note - Evaluation Sepsis Screening Result: No Definite Risk - Focused Exam Vital Signs: Vital Signs Temp Pulse Pulse Resp BP BP Pulse Ox 01/03/20 09:09 87 125/75 01/03/20 04:00 18 01/02/20 22:48 83 120/70 01/02/20 22:30 01/02/20 22:26 96.5 F L 83 18 128/94 H 96 Pulse Ox 01/03/20 09:09 01/03/20 04:00 01/02/20 22:48 01/02/20 22:30 94 L 01/02/20 22:26 Date Exam was Performed: 01/03/20 Time Exam was Performed: 09:34 - Problem List (1) Fracture of greater trochanter of left femur SNOMED Code(s): 983355242, 81267639009316912 ICD Code: S72.112A - DISP FX OF GREATER TROCHANTER OF LEFT FEMUR, INIT Status: Acute Current Visit: Yes (2) Fracture of patella, right, closed SNOMED Code(s): 56345755, 45084027125517953 ICD Code: S82.001A - UNSP FRACTURE OF RIGHT PATELLA, INIT FOR CLOS FX Status: Acute Current Visit: Yes (3) GERD (gastroesophageal reflux disease) SNOMED Code(s): 470874724 ICD Code: K21.9 - GASTRO-ESOPHAGEAL REFLUX DISEASE WITHOUT ESOPHAGITIS Status: Acute Current Visit: Yes Qualifiers: Esophagitis presence: without esophagitis Qualified Code(s): K21.9 - Gastro -esophageal reflux disease without esophagitis (4) DNR no code (do not resuscitate) Status: Acute Current Visit: Yes (5) DNI (do not intubate) SNOMED Code(s): 280439465 ICD Code: Z78.9 - OTHER SPECIFIED HEALTH STATUS Status: Acute Current Visit: No (6) Former smoker SNOMED Code(s): 8285816 ICD Code: Z87.891 - PERSONAL HISTORY OF NICOTINE DEPENDENCE Status: Acute Current Visit: Yes (7) COPD (chronic obstructive pulmonary disease) SNOMED Code(s): 65689195 ICD Code: J44.9 - CHRONIC OBSTRUCTIVE PULMONARY DISEASE, UNSPECIFIED Status : Chronic Current Visit: Yes Qualifiers: COPD type: unspecified COPD Qualified Code(s): J44.9 - Chronic obstructive pulmonary disease, unspecified Problem List Initiated/Reviewed/Updated: Yes Orders Last 24hrs: Active Orders 24 hr Category Date Time Status Patient Status [ADT] Routine ADT 01/02/20 21:32 Active Antiembolic Devices [RC] .Routine Care 01/02/20 21:34 Active Bedrest Bedside Commode [RC] ASDIRECTED Care 01/02/20 21:31 Active Intake and Output [RC] 06,14,22 Care 01/02/20 21:35 Active Oxygen Therapy [RC] CONTINUOUS Care 01/02/20 21:36 Active Pulse Oximetry [RC] PRN Care 01/02/20 21:32 Active VTE/DVT Education [RC] Click to Edit Care 01/02/20 21:34 Active Vital Signs [RC] 00,04,08,12,16,20 Care 01/02/20 21:32 Active OT Evaluation and Treatment [CONS] Routine Cons 01/03/20 09:32 Ordered PT Evaluation and Treatment [CONS] Routine Cons 01/03/20 09:32 Ordered Hip Min 2V or 3V w Pelvis Lt [CR] Stat Exams 01/02/20 19:08 Taken Pelvis wo Cont [CT] Stat Exams 01/02/20 20:15 Taken Acetaminophen [Tylenol] Med 01/03/20 09:45 Ordered 500 mg PO Q6H Acetaminophen/HYDROcodone [[place] 325-5 MG] Med 01/02/20 21:38 Active 1 tab PO Q6H PRN Albuterol [Proventil Neb Soln] Med 01/02/20 21:38 Active 2.5 mg NEB Q4H PRN Albuterol [Ventolin HFA] Med 01/03/20 08:42 Active 0 gm INH Q4H PRN Budesonide [Pulmicort] Med 01/02/20 09:00 Active 0.5 mg NEB BID Famotidine [Famotidine] Med 01/03/20 21:00 Active 40 mg PO BEDTIME Furosemide [Lasix] Med 01/03/20 09:00 Active 20 mg PO DAILY Ibuprofen [Motrin] Med 01/03/20 09:45 Ordered 200 mg PO Q6H Incruse Med 01/03/20 09:00 Active 62.5 mcg IH DAILY Loperamide [Imodium AD] Med 01/02/20 21:38 Active 2 mg PO ASDIRECTED PRN Magnesium Chloride [Mag-64] Med 01/03/20 08:00 Active 64 mg PO BIDMEALS Potassium Chloride [Klor-Con 10] Med 01/03/20 09:00 Active 10 meq PO DAILY Pregabalin [Lyrica] Med 01/02/20 09:00 Active 75 mg PO BID Sodium Chloride 0.9% [Saline Flush] Med 01/03/20 08:57 Active 10 ml FLUSH ASDIRECTED PRN Tamsulosin [Flomax] Med 01/03/20 09:00 Active 0.4 mg PO DAILY bisacodyL [Dulcolax] Med 01/02/20 21:45 Active 10 mg RECTAL Q3D carvediloL [Coreg] Med 01/02/20 21:45 Active 3.125 mg PO BID guaiFENesin [Robitussin] Med 01/03/20 09:30 Ordered 200 mg PO Q4H PRN polyethylene glycoL 3350 [MiraLAX] Med 01/02/20 21:38 Active 17 gm PO DAILY PRN Antiembolic Hose [OM.PC] Stat Oth 01/02/20 21:31 Ordered DVT/VTE Prophylaxis Reflex [OM.PC] Per Unit Routine Oth 01/02/20 21:32 Ordered Resuscitation Status Routine Resus Stat 01/02/20 21:31 Ordered Medication Orders Acetaminophen (Tylenol Extra Strength) 500 mg PO Q6H [facility]ANG[facility] Hydrocodone Bitart/Acetaminophen ([place] 325-5 Mg) 1 tab PO Q6H PRN PRN Reason: Pain (severe 7-10) Last Admin: 01/03/20 06:12 Dose: 1 tab Albuterol (Proventil Neb Soln) 2.5 mg NEB Q4H PRN PRN Reason: Wheezing Albuterol (Ventolin Hfa) 0 gm INH Q4H PRN PRN Reason: Wheezing Bisacodyl (Dulcolax) 10 mg RECTAL Q3D [facility] Last Admin: 01/02/20 22:29 Dose: Budesonide (Pulmicort) 0.5 mg NEB BID [facility] Last Admin: 01/03/20 09:08 Dose: 0.5 mg Admin: 01/02/20 22:48 Dose: 0.5 mg Admin: 01/02/20 22:30 Dose: Not Given Carvedilol (Coreg) 3.125 mg PO BID [facility] Last Admin: 01/03/20 09:09 Dose: 3.125 mg Admin: 01/02/20 22:48 Dose: 3.125 mg Furosemide (Lasix) 20 mg PO DAILY [facility] Last Admin: 01/03/20 09:09 Dose: 20 mg Guaifenesin (Robitussin) 200 mg PO Q4H PRN PRN Reason: Cough Ibuprofen (Motrin) 200 mg PO Q6H [facility] Stop: 01/07/20 09:46 Magnesium Chloride (Mag-64) 64 mg PO BIDMEALS [facility] Last Admin: 01/03/20 09:09 Dose: 64 mg Non-Formulary Medication (Famotidine [Famotidine]) 40 mg PO BEDTIME [facility] Non-Formulary Medication (Loperamide [Imodium Ad]) 2 mg PO ASDIRECTED PRN PRN Reason: Diarrhea (Incruse 62.5 Mcg)* (Pt Own Med*) 62.5 mcg IH DAILY [facility] Last Admin: 01/03/20 08:55 Dose: 62.5 mcg Polyethylene Glycol (Miralax) 17 gm PO DAILY PRN PRN Reason: Constipation Potassium Chloride (Klor-Con 10) 10 meq PO DAILY [facility] Last Admin: 01/03/20 09:09 Dose: 10 meq Pregabalin (Lyrica) 75 mg PO BID [facility] Last Admin: 01/03/20 09:09 Dose: 75 mg Admin: 01/02/20 22:48 Dose: 75 mg Admin: 01/02/20 21:58 Dose: Not Given Sodium Chloride (Saline Flush) 10 ml FLUSH ASDIRECTED PRN PRN Reason: IV Use Last Admin: 01/03/20 09:03 Dose: 10 ml Tamsulosin HCl (Flomax) 0.4 mg PO DAILY [facility] Last Admin: 01/03/20 09:09 Dose: 0.4 mg Assessment/Plan Comment:: 1. Admit for pain control and PT/OT. Spoke with Dr Huston's midlevel provider , Iris Marie from [facility] destination specialist team, Dr Huston reviewed her CT pelvis and left hip x-ray, stated prosthesis was stable so she has a non- surgical fracture, advised 50% weight bearing, NO hip abduction. Follow up with her orthopedist in 1 week. 2. Resume home medications, do not have patient's Brovana so will hold during her hospitalization. Also hold her omeprazole and substitute hospital formulary Pantoprazole. 3. Heart healthy diet. 4. Scheduled Tylenol 500 mg & Ibuprofen 200 mg q6h and Hydrocodone/APAP as needed for breakthrough pain. 5. DVT prophylaxis: Lovenox 30 mg SQ q24h 6. DNR/DNI - Mortality Measure Prognosis:: Good
[2020-01-03] MEDS ORDERED: Enoxaparin 30 MG/0.3 ML Syringe SUBCUT SCH (10:00)
[2020-01-03] MEDS ORDERED: Acetaminophen 500 MG Tab PO SCH (10:00)
[2020-01-03] MEDS: Ibuprofen 200 MG Tab PO SCH ×3 (10:09→21:03)
[2020-01-03] MEDS: Acetaminophen 500 MG Tab PO SCH ×3 (10:09→21:04)
[2020-01-03] MEDS: Pantoprazole 40 MG Tab.CR PO SCH (10:09)
[2020-01-03] MEDS ORDERED: Famotidine 20 MG Tab ONE (20:50)
[2020-01-03] MEDS: Non-Formulary Medication 1 Each (Famotidine [Famotidine] 40 MG) PO SCH (20:56)
[2020-01-04] MEDS: Ibuprofen 200 MG Tab PO SCH ×4 (04:50→21:24)
[2020-01-04] MEDS: Acetaminophen 500 MG Tab PO SCH ×4 (04:51→21:24)
[2020-01-04] MEDS: Polyethylene Glycol 3350 Powder 17 GM Packet PO PRN (05:02)
[2020-01-04] MEDS: Pantoprazole 40 MG Tab.CR PO SCH (05:03)
[2020-01-04] MEDS: Enoxaparin 40 MG/0.4 ML Syringe SUBCUT SCH (08:13)
[2020-01-04] MEDS: Furosemide 20 MG Tab PO SCH (08:13)
[2020-01-04] MEDS: Pregabalin 75 MG Cap PO SCH ×2 (08:13→20:32)
[2020-01-04] MEDS: Tamsulosin 0.4 MG Cap.ER PO SCH (08:14)
[2020-01-04] MEDS: Magnesium Chloride 64 MG Tab.ER PO SCH ×2 (08:14→18:51)
[2020-01-04] MEDS: Potassium Chloride 10 MEQ Tab.ER PO SCH (08:14)
[2020-01-04] MEDS: Carvedilol 3.125 MG Tab PO SCH ×2 (08:14→20:31)
[2020-01-04] MEDS: Budesonide 0.5 MG/2 ML Neb Susp NEB SCH ×2 (08:15→20:31)
--- NOTE | 2020-01-04 10:20 | PCM.PN ---
- General Info Date of Service: 01/04/20 Admission Dx/Problem (Free Text): Crystal's pain has improved in her hip. She was complaining of left shoulder pain with restricted movement yesterday so shoulder x-ray was done. No acute fracture , or dislocation. Has old healed humeral fracture which Crystal states is more than a decade old, when she was still working. She has not had bowel movement but feels like she will. No shortness of breath, cough, nausea or diarrhea. - Patient Data Vitals - Most Recent: Last Vital Signs Temp 97.4 F 01/04/20 08:00 Pulse 79 01/04/20 08:14 Resp 18 01/04/20 08:00 BP 140/78 01/04/20 08:14 Pulse Ox 93 L 01/04/20 08:00 Weight - Most Recent: 165 lb 3 oz I&O - Last 24 Hours: Intake & Output 01/03/20 01/04/20 01/04/20 22:59 06:59 14:59 Intake Total 100 300 400 Output Total 0 Balance 100 300 400 Med Orders - Current: Current Medications Acetaminophen (Tylenol Extra Strength) 500 mg PO Q6H [facility] Last Admin: 01/04/20 10:00 Dose: 500 mg Hydrocodone Bitart/Acetaminophen ([place] 325-5 Mg) 1 tab PO Q6H PRN PRN Reason: Pain (severe 7-10) Last Admin: 01/03/20 06:12 Dose: 1 tab Albuterol (Proventil Neb Soln) 2.5 mg NEB Q4H PRN PRN Reason: Wheezing Albuterol (Ventolin Hfa) 0 gm INH Q4H PRN PRN Reason: Wheezing Bisacodyl (Dulcolax) 10 mg RECTAL Q3D [facility] Last Admin: 01/02/20 22:29 Dose: Not Given Budesonide (Pulmicort) 0.5 mg NEB BID [facility] Last Admin: 01/04/20 08:15 Dose: 0.5 mg Carvedilol (Coreg) 3.125 mg PO BID [facility] Last Admin: 01/04/20 08:14 Dose: 3.125 mg Enoxaparin Sodium (Lovenox) 40 mg SUBCUT Q24H [facility] Last Admin: 01/04/20 08:13 Dose: 40 mg Furosemide (Lasix) 20 mg PO DAILY [facility] Last Admin: 01/04/20 08:13 Dose: 20 mg Guaifenesin (Robitussin) 200 mg PO Q4H PRN PRN Reason: Cough Ibuprofen (Motrin) 200 mg PO Q6H [facility] Stop: 01/07/20 10:01 Last Admin: 01/04/20 09:59 Dose: 200 mg Magnesium Chloride (Mag-64) 64 mg PO BIDMEALS [facility] Last Admin: 01/04/20 08:14 Dose: 64 mg Non-Formulary Medication (Famotidine [Famotidine]) 40 mg PO BEDTIME [facility] Last Admin: 01/03/20 20:56 Dose: 40 mg Non-Formulary Medication (Loperamide [Imodium Ad]) 2 mg PO ASDIRECTED PRN PRN Reason: Diarrhea (Incruse 62.5 Mcg)* (Pt Own Med*) 62.5 mcg IH DAILY [facility] Last Admin: 01/04/20 08:14 Dose: 62.5 mcg Pantoprazole Sodium (Protonix) 40 mg PO 0600 [facility] Last Admin: 01/04/20 05:03 Dose: 40 mg Polyethylene Glycol (Miralax) 17 gm PO DAILY PRN PRN Reason: Constipation Last Admin: 01/04/20 05:02 Dose: 17 gm Potassium Chloride (Klor-Con 10) 10 meq PO DAILY [facility] Last Admin: 01/04/20 08:14 Dose: 10 meq Pregabalin (Lyrica) 75 mg PO BID [facility] Last Admin: 01/04/20 08:13 Dose: 75 mg Sodium Chloride (Saline Flush) 10 ml FLUSH ASDIRECTED PRN PRN Reason: IV Use Last Admin: 01/03/20 09:03 Dose: 10 ml Tamsulosin HCl (Flomax) 0.4 mg PO DAILY [facility] Last Admin: 01/04/20 08:14 Dose: 0.4 mg Discontinued Medications Acetaminophen (Tylenol) 650 mg PO Q4H PRN PRN Reason: analgesia/fever Acetaminophen (Tylenol) 650 mg PO Q4H PRN PRN Reason: Pain/Fever Acetaminophen (Tylenol Extra Strength) 500 mg PO Q4H [facility] Albuterol (Ventolin Hfa) 0 gm INH Q4H PRN PRN Reason: Wheezing Enoxaparin Sodium (Lovenox) 30 mg SUBCUT Q24H [facility] Last Admin: 01/03/20 10:10 Dose: 30 mg Famotidine (Pepcid) Confirm Administered Dose 40 mg .ROUTE .STK-MED ONE Stop: 01/03/20 20:51 Last Admin: 01/03/20 21:02 Dose: Not Given Guaifenesin (Robitussin) 200 mg PO Q4H [facility] Last Admin: 01/03/20 09:08 Dose: 200 mg Nicotine (Habitrol) 14 mg TRDERM DAILY [facility] Last Admin: 01/03/20 08:56 Dose: Not Given Non-Formulary Medication (Arformoterol [Brovana]) 15 mcg INH BID [facility] Last Admin: 01/03/20 09:09 Dose: Not Given Non-Formulary Medication (Incruse) 62.5 mcg IH DAILY [facility] Non-Formulary Medication (Omeprazole [Omeprazole]) 20 mg PO DAILY [facility] Last Admin: 01/03/20 09:16 Dose: Not Given - Exam General: Alert, Oriented, Cooperative, No Acute Distress Lungs: Clear to Auscultation, Normal Respiratory Effort, Wheezing (apices). No : Crackles, Rales, Rhonchi Cardiovascular: Regular Rate, Regular Rhythm GI/Abdominal Exam: Normal Bowel Sounds, Soft, Non-Tender, No Distention Extremities: Normal Inspection (Right immobilizer brace in place RLE.), No Pedal Edema Peripheral Pulses: 2+: Radial (L), Radial (R) Sepsis Event Note - Evaluation Sepsis Screening Result: No Definite Risk - Focused Exam Vital Signs: Vital Signs Temp Pulse Pulse Resp BP BP BP 01/04/20 08:14 79 140/78 01/04/20 08:00 97.4 F 79 18 140/78 01/04/20 01:00 97.0 F 75 16 100/63 Pulse Ox 01/04/20 08:14 01/04/20 08:00 93 L 01/04/20 01:00 91 L Date Exam was Performed: 01/04/20 Time Exam was Performed: 10:14 - Problem List & Annotations (1) Fracture of greater trochanter of left femur SNOMED Code(s): 610460186, 56204700950599987 Code(s): S72.112A - DISP FX OF GREATER TROCHANTER OF LEFT FEMUR, INIT Status: Acute Current Visit: Yes Qualifiers: Encounter type: sequela Fracture type: closed Fracture alignment: nondisplaced Qualified Code(s): S72.115S - Nondisplaced fracture of greater trochanter of left femur, sequela (2) Fracture of patella, right, closed SNOMED Code(s): 75778224, 08764815600931534 Code(s): S82.001A - UNSP FRACTURE OF RIGHT PATELLA, INIT FOR CLOS FX Status : Acute Current Visit: Yes Qualifiers: Encounter type: sequela Fracture morphology: unspecified fracture morphology (3) GERD (gastroesophageal reflux disease) SNOMED Code(s): 461579768 Code(s): K21.9 - GASTRO-ESOPHAGEAL REFLUX DISEASE WITHOUT ESOPHAGITIS Status: Chronic Current Visit: Yes Qualifiers: Esophagitis presence: without esophagitis Qualified Code(s): K21.9 - Gastro -esophageal reflux disease without esophagitis (4) DNR no code (do not resuscitate) Status: Chronic Current Visit: Yes (5) DNI (do not intubate) SNOMED Code(s): 331286167 Code(s): Z78.9 - OTHER SPECIFIED HEALTH STATUS Status: Chronic Current Visit: No (6) Former smoker SNOMED Code(s): 4879281 Code(s): Z87.891 - PERSONAL HISTORY OF NICOTINE DEPENDENCE Status: Chronic Current Visit: Yes (7) COPD (chronic obstructive pulmonary disease) SNOMED Code(s): 29092587 Code(s): J44.9 - CHRONIC OBSTRUCTIVE PULMONARY DISEASE, UNSPECIFIED Status : Chronic Current Visit: Yes Qualifiers: COPD type: unspecified COPD Qualified Code(s): J44.9 - Chronic obstructive pulmonary disease, unspecified - Problem List Review Problem List Initiated/Reviewed/Updated: Yes - My Orders Last 24 Hours: My Active Orders 01/03/20 09:30 guaiFENesin [Robitussin] 200 mg PO Q4H PRN 01/03/20 09:32 OT Evaluation and Treatment [CONS] Routine PT Evaluation and Treatment [CONS] Routine 01/03/20 09:49 Pantoprazole [ProTONIX] 40 mg PO 0600 01/03/20 09:52 Shoulder Comp Lt [CR] Routine 01/03/20 10:00 Acetaminophen [Tylenol Extra Strength] 500 mg PO Q6H Ibuprofen [Motrin] 200 mg PO Q6H 01/04/20 09:00 Enoxaparin [Lovenox] 40 mg SUBCUT Q24H - Plan Plan:: 1. pain control and PT/OT. Spoke with Dr Samayoa's midlevel provider, Iris Marie from [facility] broadcast operations engineer team, Dr Samayoa reviewed her CT pelvis and left hip x-ray, stated prosthesis was stable so she has a non-surgical fracture , advised 50% weight bearing, NO hip abduction. Follow up with her orthopedist in 1 week. Anticipate patient requiring swing bed placement for further PT/OT, as she will be 50% weight bearing on left and has knee immobilizer on the right. 2. COPD stable. 3. Scheduled Tylenol 500 mg & Ibuprofen 200 mg q6h and Hydrocodone/APAP as needed for breakthrough pain.
[2020-01-04] MEDS: Acetaminophen/HYDROcodone 325-5 MG Tab PO PRN (18:51)
[2020-01-04] MEDS ORDERED: Famotidine 20 MG Tab ONE (20:20)
[2020-01-04] MEDS: Non-Formulary Medication 1 Each (Famotidine [Famotidine] 40 MG) PO SCH (20:31)
[2020-01-05] MEDS: Ibuprofen 200 MG Tab PO SCH ×2 (04:57→10:03)
[2020-01-05] MEDS: Acetaminophen 500 MG Tab PO SCH ×2 (04:57→10:03)
[2020-01-05] MEDS: Polyethylene Glycol 3350 Powder 17 GM Packet PO PRN (05:03)
[2020-01-05] MEDS: Pantoprazole 40 MG Tab.CR PO SCH (05:03)
[2020-01-05] MEDS: Acetaminophen/HYDROcodone 325-5 MG Tab PO PRN (07:49)
[2020-01-05] MEDS: Magnesium Chloride 64 MG Tab.ER PO SCH (07:49)
[2020-01-05] MEDS ORDERED: Ondansetron 4 MG Tab.DIS PO PRN (08:07)
[2020-01-05] MEDS ORDERED: Loperamide 2 MG Cap PO PRN (08:12)
[2020-01-05] MEDS: Carvedilol 3.125 MG Tab PO SCH (08:46)
[2020-01-05] MEDS: Tamsulosin 0.4 MG Cap.ER PO SCH (08:46)
[2020-01-05] MEDS: Potassium Chloride 10 MEQ Tab.ER PO SCH (08:46)
[2020-01-05] MEDS: Furosemide 20 MG Tab PO SCH (08:46)
[2020-01-05] MEDS: Budesonide 0.5 MG/2 ML Neb Susp NEB SCH (08:47)
[2020-01-05] MEDS: Enoxaparin 40 MG/0.4 ML Syringe SUBCUT SCH (08:47)
[2020-01-05] MEDS: Pregabalin 75 MG Cap PO SCH (08:52)
[2020-01-05] MEDS ORDERED: Arformoterol 15 MCG/2 ML Neb Soln INH SCH (10:00)
--- NOTE | 2020-01-05 13:39 | PCM.DCSUM1 ---
Discharge Summary - Hospital Course HPI Initial Comments: Crystal was using a bedside commode last night when she was trying to get up the commode broke, throwing her to the left side, hitting her left hip and shoulder on the floor. She sustained a non-displaced trochanter fracture adjacent to her left hip prosthesis. She had seen her orthopedic yesterday morning for recheck of her right patellar fracture, they had adjusted her knee brace and told her it was healing well. Denies any fevers, chills, cough, shortness of breath, or chest pain. No nausea, vomiting or diarrhea. No change in her urinary habits, no burning. Pain is currently controlled, icing her left hip. She is not on oxygen at home, her COPD is stable per patient, feels she is at her base line. Diagnosis: Stroke: No - Discharge Data Discharge Date: 01/05/20 Discharge Disposition: DC/Tfer W/I Hosp To [place] [id number] Condition: Good - Referral to Home Health Primary Care Physician: Te Lee MD - Discharge Diagnosis/Problem(s) (1) Fracture of greater trochanter of left femur SNOMED Code(s): 820187418, 20609296189212144 ICD Code: S72.112A - DISP FX OF GREATER TROCHANTER OF LEFT FEMUR, INIT Status: Acute Current Visit: Yes Qualifiers: Encounter type: sequela Fracture type: closed Fracture alignment: nondisplaced Qualified Code(s): S72.115S - Nondisplaced fracture of greater trochanter of left femur, sequela (2) Fracture of patella, right, closed SNOMED Code(s): 08691536, 87813315685607506 ICD Code: S82.001A - UNSP FRACTURE OF RIGHT PATELLA, INIT FOR CLOS FX Status: Acute Current Visit: Yes Qualifiers: Encounter type: sequela Fracture morphology: unspecified fracture morphology (3) GERD (gastroesophageal reflux disease) SNOMED Code(s): 366257591 ICD Code: K21.9 - GASTRO-ESOPHAGEAL REFLUX DISEASE WITHOUT ESOPHAGITIS Status: Chronic Current Visit: Yes Qualifiers: Esophagitis presence: without esophagitis Qualified Code(s): K21.9 - Gastro -esophageal reflux disease without esophagitis (4) DNR no code (do not resuscitate) Status: Chronic Current Visit: Yes (5) DNI (do not intubate) SNOMED Code(s): 707998414 ICD Code: Z78.9 - OTHER SPECIFIED HEALTH STATUS Status: Chronic Current Visit: No (6) Former smoker SNOMED Code(s): 2067219 ICD Code: Z87.891 - PERSONAL HISTORY OF NICOTINE DEPENDENCE Status: Chronic Current Visit: Yes (7) COPD (chronic obstructive pulmonary disease) SNOMED Code(s): 54582338 ICD Code: J44.9 - CHRONIC OBSTRUCTIVE PULMONARY DISEASE, UNSPECIFIED Status : Chronic Current Visit: Yes Qualifiers: COPD type: unspecified COPD Qualified Code(s): J44.9 - Chronic obstructive pulmonary disease, unspecified - Patient Summary/Data Consults: Consultations 01/03/20 09:32 OT Evaluation and Treatment [CONS] Routine Please Evaluate and Treat. OT Reason for Consult: ADL's Special Instructions: 50% weight bearing, no hip abduction This query below is only for informational purposes and is not editable. Admission Diagnosis/Problem: Fracture of femur PT Evaluation and Treatment [CONS] Routine Please Evaluate and Treat. PT Reason for Consult: Ambulation Special Instructions: 50% weight bearing, no hip abduction This query below is only for informational purposes and is not editable. Admission Diagnosis/Problem: Fracture of femur Hospital Course: Crystal was admitted Sunday evening for non-displaced left greater trochanter fracture adjacent to left hip prosthesis. Spoke with [facility], Dr Dutton on Sunday morning, reviewed her CT pelvis & femur x-ray, advised that this is a non-surgical fracture, recommended 50% weight bearing, NO hip ABduction with follow up with Orthopedics in 1 week. Patient had right patellar fracture, healing with knee immobilizer on when out of bed, 100% weight bearing. Her COPD is stable. Labs stable on admission. She was evaluated by PT/ OT who recommended swing bed placement for rehab therapies. She will be transferred to swing bed care today and anticipate discharge back to the [facility]. - Patient Instructions Diet: Heart Healthy Diet Activity: Apply Ice Other/Special Instructions: Transfer to swingbed - Discharge Plan *PRESCRIPTION DRUG MONITORING PROGRAM REVIEWED*: Not Applicable *COPY OF PRESCRIPTION DRUG MONITORING REPORT IN PATIENT AMITA: Not Applicable Home Medications: Home Meds Aspirin [Adult Low Dose Aspirin EC] 81 mg PO DAILY 10/23/17 [History] Pregabalin [Lyrica] 75 mg PO BID 10/23/17 [History] Calcium Carb/Vitamin D3/Vit K1 [Calcium + D Soft Chewable Tab] 1 tab PO DAILY [History] Loratadine [Claritin] 10 mg PO DAILY 05/04/18 [History] Omeprazole 20 mg PO DAILY 05/04/18 [History] Melatonin 9 mg PO BEDTIME 05/06/18 [History] Acetaminophen [Tylenol] 650 mg PO Q4H PRN 08/12/18 [History] Albuterol [Ventolin HFA] 2 puff IH Q4H PRN 08/12/18 [History] polyethylene glycoL 3350 [MiraLAX] 17 gm PO DAILY PRN 08/12/18 [History] Furosemide [Lasix] 20 mg PO DAILY 08/26/18 [History] Arformoterol [Brovana] 15 mcg INH BID 05/07/19 [History] Bifidobacterium Infantis [Align] 4 mg PO BID 05/07/19 [History] Budesonide [Pulmicort] 0.5 mg PO BID 05/07/19 [History] Dicyclomine [Bentyl] 10 mg PO TIDAC 05/07/19 [History] Ferrous Gluconate 324 mg PO MOWEFR@08 05/07/19 [History] Incruse 62.5 mcg IH DAILY 05/07/19 [History] Loperamide [Imodium AD] 2 mg PO ASDIRECTED PRN 05/07/19 [History] Magnesium Chloride [Mag-64] 64 mg PO BIDMEALS 05/07/19 [History] Potassium Chloride 10 meq PO DAILY 05/07/19 [History] Tamsulosin HCl [Flomax] 0.4 mg PO DAILY 05/07/19 [History] carvediloL [Coreg] 3.125 mg PO BID 05/07/19 [History] Acetaminophen/HYDROcodone [[place] 325-5 MG] 1 tab PO Q6H PRN #10 tab 12/12/19 [Rx ] Azithromycin 500 mg PO MOWEFR 12/12/19 [History] Famotidine 40 mg PO BEDTIME 12/12/19 [History] Bisacodyl [Laxative Suppository] 10 mg RC Q3D 01/02/20 [History] Cholecalciferol (Vitamin D3) [Vitamin D3] 1,000 unit PO DAILY 01/02/20 [History] Mag Hydrox/Aluminum Hyd/Simeth [Mylanta Maximum Strength Liq] 10 ml PO QID 01/01 [History] Magnesium Hydroxide [Milk of Magnesia] 30 ml PO DAILY PRN 01/02/20 [History] Multivit-Min/FA/Lycopen/Lutein [Certavite Sr-Antioxidant Tab] 1 each PO DAILY [History] guaiFENesin [Robitussin] 200 mg PO Q4H PRN 01/02/20 [History] Albuterol Sulfate 1.25 mg IH Q4H PRN 01/05/20 [History] Maintain SPO2% less than: 92 Maintain SpO2% greater than: 88 Patient Handouts: Venous Thromboembolism Prevention Forms: ED Department Discharge Referrals: Te Lee MD [Primary Care Provider] - - Discharge Summary/Plan Comment DC Time >30 min.: No - General Info Date of Service: 01/05/20 Admission Dx/Problem (Free Text: Crystal states her breathing is good, no chest pain. No nausea or vomiting. Has not had bowel movement since Sunday evening, but passing gas. Pain is controlled, was able to sleep last night. Functional Status: Reports: Pain Controlled, Tolerating Diet, Urinating - Patient Data Vitals - Most Recent: Last Vital Signs Temp 97.5 F 01/05/20 08:00 Pulse 72 01/05/20 08:46 Resp 14 01/05/20 08:00 BP 164/80 H 01/05/20 08:46 Pulse Ox 89 L 01/05/20 09:00 Weight - Most Recent: 165 lb 3 oz I&O - Last 24 hours: Intake & Output 01/04/20 01/05/20 01/05/20 22:59 06:59 14:59 Intake Total 400 300 Balance 400 300 Med Orders - Current: Current Medications Acetaminophen (Tylenol Extra Strength) 500 mg PO Q6H [facility] Last Admin: 01/05/20 10:03 Dose: 500 mg Hydrocodone Bitart/Acetaminophen ([place] 325-5 Mg) 1 tab PO Q6H PRN PRN Reason: Pain (severe 7-10) Last Admin: 01/05/20 07:49 Dose: 1 tab Albuterol (Proventil Neb Soln) 2.5 mg NEB Q4H PRN PRN Reason: Wheezing Arformoterol Tartrate (Brovana) 15 mcg INH BID [facility] Last Admin: 01/05/20 11:12 Dose: 15 mcg Bisacodyl (Dulcolax) 10 mg RECTAL Q3D [facility] Last Admin: 01/02/20 22:29 Dose: Not Given Budesonide (Pulmicort) 0.5 mg NEB BID [facility] Last Admin: 01/05/20 08:47 Dose: 0.5 mg Carvedilol (Coreg) 3.125 mg PO BID [facility] Last Admin: 01/05/20 08:46 Dose: 3.125 mg Enoxaparin Sodium (Lovenox) 40 mg SUBCUT Q24H [facility] Last Admin: 01/05/20 08:47 Dose: 40 mg Famotidine (Pepcid) 40 mg PO BEDTIME [facility] Furosemide (Lasix) 20 mg PO DAILY [facility] Last Admin: 01/05/20 08:46 Dose: 20 mg Guaifenesin (Robitussin) 200 mg PO Q4H PRN PRN Reason: Cough Ibuprofen (Motrin) 200 mg PO Q6H [facility] Stop: 01/07/20 10:01 Last Admin: 01/05/20 10:03 Dose: 200 mg Loperamide HCl (Imodium) 2 mg PO ASDIRECTED PRN PRN Reason: DIARRHEA Magnesium Chloride (Mag-64) 64 mg PO BIDMEALS [facility] Last Admin: 01/05/20 07:49 Dose: 64 mg Ondansetron HCl (Zofran Odt) 4 mg PO Q4H PRN PRN Reason: Nausea/Vomiting Pantoprazole Sodium (Protonix) 40 mg PO 0600 [facility] Last Admin: 01/05/20 05:03 Dose: 40 mg Polyethylene Glycol (Miralax) 17 gm PO DAILY PRN PRN Reason: Constipation Last Admin: 01/05/20 05:03 Dose: 17 gm Potassium Chloride (Klor-Con 10) 10 meq PO DAILY [facility] Last Admin: 01/05/20 08:46 Dose: 10 meq Pregabalin (Lyrica) 75 mg PO BID [facility] Last Admin: 01/05/20 08:52 Dose: 75 mg Sodium Chloride (Saline Flush) 10 ml FLUSH ASDIRECTED PRN PRN Reason: IV Use Last Admin: 01/03/20 09:03 Dose: 10 ml Tamsulosin HCl (Flomax) 0.4 mg PO DAILY [facility] Last Admin: 01/05/20 08:46 Dose: 0.4 mg Tiotropium [place] (Spiriva Handihaler) 18 mcg INH DAILY [facility] Discontinued Medications Acetaminophen (Tylenol) 650 mg PO Q4H PRN PRN Reason: analgesia/fever Acetaminophen (Tylenol) 650 mg PO Q4H PRN PRN Reason: Pain/Fever Acetaminophen (Tylenol Extra Strength) 500 mg PO Q4H [facility] Albuterol (Ventolin Hfa) 0 gm INH Q4H PRN PRN Reason: Wheezing Albuterol (Ventolin Hfa) 0 gm INH Q4H PRN PRN Reason: Wheezing Enoxaparin Sodium (Lovenox) 30 mg SUBCUT Q24H [facility] Last Admin: 01/03/20 10:10 Dose: 30 mg Famotidine (Pepcid) Confirm Administered Dose 40 mg .ROUTE .STK-MED ONE Stop: 01/03/20 20:51 Last Admin: 01/03/20 21:02 Dose: Not Given Famotidine (Pepcid) Confirm Administered Dose 40 mg .ROUTE .STK-MED ONE Stop: 01/04/20 20:21 Last Admin: 01/04/20 20:30 Dose: Not Given Guaifenesin (Robitussin) 200 mg PO Q4H [facility] Last Admin: 01/03/20 09:08 Dose: 200 mg Nicotine (Habitrol) 14 mg TRDERM DAILY [facility] Last Admin: 01/03/20 08:56 Dose: Not Given Non-Formulary Medication (Arformoterol [Brovana]) 15 mcg INH BID [facility] Last Admin: 01/03/20 09:09 Dose: Not Given Non-Formulary Medication (Famotidine [Famotidine]) 40 mg PO BEDTIME [facility] Last Admin: 01/04/20 20:31 Dose: 40 mg Non-Formulary Medication (Incruse) 62.5 mcg IH DAILY [facility] Non-Formulary Medication (Loperamide [Imodium Ad]) 2 mg PO ASDIRECTED PRN PRN Reason: Diarrhea Non-Formulary Medication (Omeprazole [Omeprazole]) 20 mg PO DAILY [facility] Last Admin: 01/03/20 09:16 Dose: Not Given (Incruse 62.5 Mcg)* (Pt Own Med*) 62.5 mcg IH DAILY [facility] Last Admin: 01/05/20 08:47 Dose: 62.5 mcg - Exam General: Reports: Alert, Oriented, Cooperative, No Acute Distress Lungs: Reports: Clear to Auscultation, Normal Respiratory Effort Cardiovascular: Reports: Regular Rate, Regular Rhythm GI/Abdominal Exam: Normal Bowel Sounds, Soft, Non-Tender, No Distention Extremities: No Pedal Edema
[2020-01-05] MEDS ORDERED: Famotidine 20 MG Tab PO SCH (21:00)
[2020-01-06] MEDS ORDERED: Tiotropium Inhaler 18 MCG Inhalation Powder Cap Kit of 5 INH SCH (09:00)
== END 2020-01-05 13:28 | disposition swing bed (61) | DRG 536 ==
LOC: FB.ED 18:55 → FB.MS 21:53
PROVIDERS: ADMIT Family Medicine; ATTEND Family Medicine
DX: S72.115A Nondisplaced fracture of greater trochanter of left femur, initial encounter for closed fracture (principal); S82.001D Unspecified fracture of right patella, subsequent encounter for closed fracture with routine healing; W18.11XA Fall from or off toilet without subsequent striking against object, initial encounter; S82.001A Unspecified fracture of right patella, initial encounter for closed fracture; J96.11 Chronic respiratory failure with hypoxia; K21.9 Gastro-esophageal reflux disease without esophagitis; J44.9 Chronic obstructive pulmonary disease, unspecified; Z66 Do not resuscitate; K57.90 Diverticulosis of intestine, part unspecified, without perforation or abscess without bleeding; Z79.82 Long term (current) use of aspirin; K58.9 Irritable bowel syndrome, unspecified; H54.7 Unspecified visual loss; K59.09 Other constipation; M81.0 Age-related osteoporosis without current pathological fracture; Z96.642 Presence of left artificial hip joint; G62.9 Polyneuropathy, unspecified; Z79.01 Long term (current) use of anticoagulants; L40.9 Psoriasis, unspecified; Z96.652 Presence of left artificial knee joint; Z87.891 Personal history of nicotine dependence; Z79.899 Other long term (current) drug therapy; Z87.01 Personal history of pneumonia (recurrent); Z86.010 Personal history of colon polyps; Z87.440 Personal history of urinary (tract) infections; Z90.89 Acquired absence of other organs; Z85.828 Personal history of other malignant neoplasm of skin
CPT/HCPCS: 36415; 72192; 73030-LT; 73502-LT; 80048; 85025; 85610; 94640; 94760; 97161-GP; 97165-GO; 99284; A9270-GY; J1650; J7605

== ENCOUNTER 2020-01-05 13:30 | Inpatient (IN) | payer MEDICARE, OTHER ==
[2020-01-05] MEDS ORDERED: Polyethylene Glycol 3350 Powder 17 GM Packet PO PRN (14:04)
[2020-01-05] MEDS ORDERED: Ondansetron 4 MG Tab.DIS PO PRN (14:04)
[2020-01-05] MEDS ORDERED: Docusate Sodium 100 MG Cap PO PRN (14:04)
[2020-01-05] MEDS ORDERED: guaiFENesin 100 MG/5 ML Soln 5 ML UD Cup PO PRN (14:29)
[2020-01-05] MEDS ORDERED: Bisacodyl 10 MG Supp RECTAL PRN (14:30)
--- NOTE | 2020-01-05 14:51 | PCM.HP.2 ---
H&P History of Present Illness - General Date of Service: 01/05/20 Admit Problem/Dx: Admission Diagnosis/Problem Admission Diagnosis/Problem Fracture of femur Source of Information: Patient, Old Records - History of Present Illness Initial Comments - Free Text/Narative: Acute HPI: Crystal was using a bedside commode last night when she was trying to get up the commode broke, throwing her to the left side, hitting her left hip and shoulder on the floor. She sustained a non-displaced trochanter fracture adjacent to her left hip prosthesis. She had seen her orthopedic yesterday morning, John Pena PA-C for recheck of her right patellar fracture, they had adjusted her knee brace and told her it was healing well. Denies any fevers , chills, cough, shortness of breath, or chest pain. No nausea, vomiting or diarrhea. No change in her urinary habits, no burning. Pain is currently controlled, icing her left hip. She is not on oxygen at home, her COPD is stable per patient, feels she is at her base line. Hospital course: Crystal was admitted Sunday evening for non-displaced left greater trochanter fracture adjacent to left hip prosthesis. Spoke with [facility], Dr Dutton on Sunday morning, reviewed her CT pelvis & femur x-ray , advised that this is a non-surgical fracture, recommended 50% weight bearing, NO hip ABduction with follow up with Orthopedics in 1 week. Patient had right patellar fracture, healing with knee immobilizer on when out of bed, 100% weight bearing. Her COPD is stable. Labs stable on admission. She was evaluated by PT/OT who recommended swing bed placement for rehab therapies. She will be transferred to swing bed care today and anticipate discharge back to the [facility]. - Related Data Allergies/Adverse Reactions: Allergies Allergy/AdvReac Type Severity Reaction Status Date / Time No Known Allergies Allergy Verified 01/02/20 19:28 Home Medications: Home Meds Aspirin [Adult Low Dose Aspirin EC] 81 mg PO DAILY 10/23/17 [History] Pregabalin [Lyrica] 75 mg PO BID 10/23/17 [History] Calcium Carb/Vitamin D3/Vit K1 [Calcium + D Soft Chewable Tab] 1 tab PO DAILY [History] Loratadine [Claritin] 10 mg PO DAILY 05/04/18 [History] Omeprazole 20 mg PO DAILY 05/04/18 [History] Melatonin 9 mg PO BEDTIME 05/06/18 [History] Acetaminophen [Tylenol] 650 mg PO Q4H PRN 08/12/18 [History] Albuterol [Ventolin HFA] 2 puff IH Q4H PRN 08/12/18 [History] polyethylene glycoL 3350 [MiraLAX] 17 gm PO DAILY PRN 08/12/18 [History] Furosemide [Lasix] 20 mg PO DAILY 08/26/18 [History] Arformoterol [Brovana] 15 mcg INH BID 05/07/19 [History] Bifidobacterium Infantis [Align] 4 mg PO BID 05/07/19 [History] Budesonide [Pulmicort] 0.5 mg PO BID 05/07/19 [History] Dicyclomine [Bentyl] 10 mg PO TIDAC 05/07/19 [History] Ferrous Gluconate 324 mg PO MOWEFR@08 05/07/19 [History] Incruse 62.5 mcg IH DAILY 05/07/19 [History] Loperamide [Imodium AD] 2 mg PO ASDIRECTED PRN 05/07/19 [History] Magnesium Chloride [Mag-64] 64 mg PO BIDMEALS 05/07/19 [History] Potassium Chloride 10 meq PO DAILY 05/07/19 [History] Tamsulosin HCl [Flomax] 0.4 mg PO DAILY 05/07/19 [History] carvediloL [Coreg] 3.125 mg PO BID 05/07/19 [History] Acetaminophen/HYDROcodone [[place] 325-5 MG] 1 tab PO Q6H PRN #10 tab 12/12/19 [Rx ] Azithromycin 500 mg PO MOWEFR 12/12/19 [History] Famotidine 40 mg PO BEDTIME 12/12/19 [History] Bisacodyl [Laxative Suppository] 10 mg RC Q3D 01/02/20 [History] Cholecalciferol (Vitamin D3) [Vitamin D3] 1,000 unit PO DAILY 01/02/20 [History] Mag Hydrox/Aluminum Hyd/Simeth [Mylanta Maximum Strength Liq] 10 ml PO QID 01/01 [History] Magnesium Hydroxide [Milk of Magnesia] 30 ml PO DAILY PRN 01/02/20 [History] Multivit-Min/FA/Lycopen/Lutein [Certavite Sr-Antioxidant Tab] 1 each PO DAILY [History] guaiFENesin [Robitussin] 200 mg PO Q4H PRN 01/02/20 [History] Albuterol Sulfate 1.25 mg IH Q4H PRN 01/05/20 [History] Past Medical History HEENT History: Reports: Impaired Vision Other HEENT History: wears glasses. Has ear wax build up and needs gerald cleaned out Cardiovascular History: Reports: None Respiratory History: Reports: COPD, Pneumonia, Recurrent, SOB Other Respiratory History: Nicotine dependence, acute and chronic respiratory failure. Gastrointestinal History: Reports: Chronic Constipation, Colon Polyp, Diverticulosis, GERD, Irritable Bowel Syndrome Genitourinary History: Reports: None Other Genitourinary History: previous UTI LODE MINER History: Reports: Other OB/BYN History: Musculoskeletal History: Reports: Fracture (right patella fracture, left trochanter fracture adjacent to left hip prosthesis(stable)), Osteoporosis, Other (See Below) Other Musculoskeletal History: L knee fx, L ankle fx, bursitis left hip Neurological History: Reports: Neuropathy, Peripheral Psychiatric History: Reports: None Endocrine/Metabolic History: Reports: None Hematologic History: Reports: Anemia, Anticoagulation Therapy, Blood Transfusion (s) Other Hematologic History: ASA 81mg Daily Immunologic History: Reports: None Oncologic (Cancer) History: Reports: Basal Cell Carcinoma, Other (See Below) Other Oncologic History: removed mole from by right eye Dermatologic History: Reports: Psoriasis Other Dermatologic History: years ago - Infectious Disease History Infectious Disease History: Reports: Measles - Past Surgical History Head Surgeries/Procedures: Reports: None HEENT Surgical History: Reports: Adenoidectomy, Tonsillectomy Respiratory Surgical History: Reports: None GI Surgical History: Reports: Colonoscopy Musculoskeletal Surgical History: Reports: Hip Replacement, Knee Replacement, Other (See Below) Other Musculoskeletal Surgeries/Procedures:: fx hip left and knee replacement left Oncologic Surgical History: Reports: None Dermatological Surgical History: Reports: None Social & Family History - Family History Family Medical History: Noncontributory - Tobacco Use Smoking Status *Q: Former Smoker Used Tobacco, but Quit: Yes - Caffeine Use Caffeine Use: Reports: Coffee Other Caffeine Use: 1-2 cups per day H&P Review of Systems - Review of Systems: Review Of Systems: Comprehensive ROS is negative, except as noted in HPI. Exam - Exam Exam: See Below - Vital Signs Weight: 165 lb 3 oz - Exam General: Alert, Oriented, Cooperative. No: Mild Distress Lungs: Clear to Auscultation, Normal Respiratory Effort. No: Wheezing Cardiovascular: Regular Rate, Regular Rhythm GI/Abdominal Exam: Normal Bowel Sounds, Soft, Non-Tender, No Distention (Female) Exam: Deferred Rectal (Female) Exam: Deferred Extremities: No Pedal Edema, Limited Range of Motion (TTP over left greater trochanter) Peripheral Pulses: 2+: Radial (L), Radial (R) Psychiatric: Normal Affect, Normal Mood - Problem List (1) Fracture of greater trochanter of left femur SNOMED Code(s): 889397708, 46333323847385373 ICD Code: S72.112A - DISP FX OF GREATER TROCHANTER OF LEFT FEMUR, INIT Status: Acute Current Visit: No Onset Date: ~01/02/20 Qualifiers: Encounter type: sequela Fracture type: closed Fracture alignment: nondisplaced Qualified Code(s): S72.115S - Nondisplaced fracture of greater trochanter of left femur, sequela (2) Fracture of patella, right, closed SNOMED Code(s): 72906282, 09521968009311653 ICD Code: S82.001A - UNSP FRACTURE OF RIGHT PATELLA, INIT FOR CLOS FX Status: Acute Current Visit: No Onset Date: ~12/12/19 Qualifiers: Encounter type: sequela Fracture morphology: unspecified fracture morphology (3) Hx of total hip arthroplasty SNOMED Code(s): 818808598698, 170426469537 ICD Code: Z96.649 - PRESENCE OF UNSPECIFIED ARTIFICIAL HIP JOINT Status: Chronic Current Visit: No Qualifiers: Laterality: left Qualified Code(s): Z96.642 - Presence of left artificial hip joint (4) Stage III chronic kidney disease SNOMED Code(s): 734234483 ICD Code: N18.3 - CHRONIC KIDNEY DISEASE, STAGE 3 (MODERATE) Status: Chronic Current Visit: No (5) COPD (chronic obstructive pulmonary disease) SNOMED Code(s): 51503529 ICD Code: J44.9 - CHRONIC OBSTRUCTIVE PULMONARY DISEASE, UNSPECIFIED Status : Chronic Current Visit: No Qualifiers: COPD type: unspecified COPD Qualified Code(s): J44.9 - Chronic obstructive pulmonary disease, unspecified (6) GERD (gastroesophageal reflux disease) SNOMED Code(s): 870758095 ICD Code: K21.9 - GASTRO-ESOPHAGEAL REFLUX DISEASE WITHOUT ESOPHAGITIS Status: Chronic Current Visit: No Qualifiers: Esophagitis presence: without esophagitis Qualified Code(s): K21.9 - Gastro -esophageal reflux disease without esophagitis (7) DNI (do not intubate) SNOMED Code(s): 249031117 ICD Code: Z78.9 - OTHER SPECIFIED HEALTH STATUS Status: Chronic Current Visit: No (8) DNR no code (do not resuscitate) Status: Chronic Current Visit: No (9) Former smoker SNOMED Code(s): 3109402 ICD Code: Z87.891 - PERSONAL HISTORY OF NICOTINE DEPENDENCE Status: Chronic Current Visit: No (10) Palliative care status SNOMED Code(s): 738819681 ICD Code: Z51.5 - ENCOUNTER FOR PALLIATIVE CARE Status: Chronic Current Visit: No Problem List Initiated/Reviewed/Updated: Yes Orders Last 24hrs: Active Orders 24 hr Category Date Time Status Patient Status [ADT] Routine ADT 01/05/20 14:05 Active Antiembolic Devices [RC] .Routine Care 01/05/20 14:49 Active Bedrest Bedside Commode [RC] ASDIRECTED Care 01/05/20 14:14 Active Height and Weight [RC] MO Care 01/05/20 14:05 Active Oxygen Therapy [RC] PRN Care 01/05/20 14:05 Active RT Post Treatment Assessment [RC] Click to Edit Care 01/05/20 14:47 Active Vital Signs [RC] 0800 Care 01/05/20 14:05 Active OT Evaluation and Treatment [CONS] Routine Cons 01/05/20 14:04 Active PT Evaluation and Treatment [CONS] Routine Cons 01/05/20 14:04 Active Heart Healthy Diet [DIET] Diet 01/06/20 Breakfast Active Acetaminophen [Tylenol Extra Strength] Med 01/05/20 17:00 Ordered 500 mg PO QID Acetaminophen/HYDROcodone [[place] 325-5 MG] Med 01/05/20 14:04 Active 1 tab PO Q4H PRN Albuterol Sulfate [Albuterol Sulfate] Med 01/05/20 14:19 Ordered 2.5 mg IH Q4H PRN Arformoterol [Brovana] Med 01/05/20 21:00 Ordered 15 mcg INH BID Azithromycin [Zithromax] Med 01/05/20 14:30 Ordered 500 mg PO MOWEFR Budesonide [Pulmicort] Med 01/05/20 21:00 Ordered 0.5 mg INH BID Calcium Carb/Vitamin D3/Vit K1 [Calcium + D Soft Med 01/06/20 09:00 Ordered Chewable Tab] 1 tab PO DAILY Cholecalciferol (Vitamin D3) [Vitamin D3] Med 01/06/20 09:00 Ordered 1,000 unit PO DAILY Dicyclomine [Bentyl] Med 01/05/20 17:30 Ordered 10 mg PO TIDAC Docusate Sodium [Colace] Med 01/05/20 14:04 Active 100 mg PO BID PRN Enoxaparin [Lovenox] Med 01/06/20 09:00 Active 40 mg SUBCUT Q24H Famotidine [Famotidine] Med 01/05/20 21:00 Ordered 40 mg PO BEDTIME Ferrous Gluconate [Ferrous Gluconate] Med 01/07/20 08:00 Ordered 324 mg PO MOWEFR@08 Furosemide [Lasix] Med 01/06/20 09:00 Ordered 20 mg PO DAILY Ibuprofen [Motrin] Med 01/05/20 17:00 Ordered 200 mg PO QID Loperamide [Imodium AD] Med 01/05/20 14:29 Ordered 2 mg PO ASDIRECTED PRN Magnesium Chloride [Mag-64] Med 01/05/20 18:00 Ordered 64 mg PO BIDMEALS Melatonin Med 01/05/20 21:00 Ordered 9 mg PO BEDTIME Multivit-Min/FA/Lycopen/Lutein [Certavite Sr- Med 01/06/20 09:00 Ordered Antioxidant Tab] 1 each PO DAILY Ondansetron [Zofran ODT] Med 01/05/20 14:04 Active 4 mg PO Q4H PRN Pantoprazole [ProTONIX] Med 01/06/20 06:00 Ordered 40 mg PO 0600 Potassium Chloride [Klor-Con 10] Med 01/06/20 09:00 Ordered 10 meq PO DAILY Pregabalin [Lyrica] Med 01/05/20 21:00 Ordered 75 mg PO BID Tamsulosin [Flomax] Med 01/06/20 09:00 Ordered 0.4 mg PO DAILY Tiotropium [Spiriva HandiHaler] Med 01/06/20 09:00 Ordered 18 mcg INH DAILY bisacodyL [Dulcolax] Med 01/05/20 14:30 Ordered 10 mg RECTAL Q3D carvediloL [Coreg] Med 01/05/20 21:00 Ordered 3.125 mg PO BID guaiFENesin [Robitussin] Med 01/05/20 14:29 Ordered 200 mg PO Q4H PRN polyethylene glycoL 3350 [MiraLAX] Med 01/05/20 14:29 Ordered 17 gm PO DAILY PRN Antiembolic Hose [OM.PC] Per Unit Routine Oth 01/05/20 14:06 Ordered Resuscitation Status Routine Resus Stat 01/05/20 14:04 Ordered Medication Orders Acetaminophen (Tylenol Extra Strength) 500 mg PO QID MIGUELANGEL Hydrocodone Bitart/Acetaminophen ([place] 325-5 Mg) 1 tab PO Q4H PRN PRN Reason: Pain (moderate 4-6) Arformoterol Tartrate (Brovana) 15 mcg INH BID MIGUELANGEL Azithromycin (Zithromax) 500 mg PO MOWEFR MIGUELANGEL Bisacodyl (Dulcolax) 10 mg RECTAL Q3D MIGUELANGEL Budesonide (Pulmicort) 0.5 mg INH BID MIGUELANGEL Carvedilol (Coreg) 3.125 mg PO BID MIGUELANGEL Docusate Sodium (Colace) 100 mg PO BID PRN PRN Reason: Constipation Enoxaparin Sodium (Lovenox) 40 mg SUBCUT Q24H [facility] Furosemide (Lasix) 20 mg PO DAILY [facility] Guaifenesin (Robitussin) 200 mg PO Q4H PRN PRN Reason: Cough Ibuprofen (Motrin) 200 mg PO QID [facility] Magnesium Chloride (Mag-64) 64 mg PO BIDMEALS [facility] Melatonin (Melatonin) 9 mg PO BEDTIME [facility] Non-Formulary Medication (Albuterol Sulfate [Albuterol Sulfate]) 2.5 mg IH Q4H PRN PRN Reason: Shortness of Breath Non-Formulary Medication (Calcium Carb/Vitamin D3/Vit K1 [Calcium + D Soft Chewable Tab]) 1 tab PO DAILY [facility] Non-Formulary Medication (Cholecalciferol (Vitamin D3) [Vitamin D3]) 1,000 unit PO DAILY [facility] Non-Formulary Medication (Dicyclomine [Bentyl]) 10 mg PO TIDAC [facility] Non-Formulary Medication (Famotidine [Famotidine]) 40 mg PO BEDTIME [facility]UELANG[facility] Non-Formulary Medication (Ferrous Gluconate [Ferrous Gluconate]) 324 mg PO MOWEFR@08 [facility] Non-Formulary Medication (Loperamide [Imodium Ad]) 2 mg PO ASDIRECTED PRN PRN Reason: Diarrhea Non-Formulary Medication (Multivit-Min/Fa/Lycopen/Lutein [Certavite Sr- Antioxidant Tab]) 1 each PO DAILY [facility] Ondansetron HCl (Zofran Odt) 4 mg PO Q4H PRN PRN Reason: nausea, able to take PO Pantoprazole Sodium (Protonix) 40 mg PO 0600 [facility] Polyethylene Glycol (Miralax) 17 gm PO DAILY PRN PRN Reason: Constipation Potassium Chloride (Klor-Con 10) 10 meq PO DAILY [facility] Pregabalin (Lyrica) 75 mg PO BID [facility]ANG[facility] Tamsulosin HCl (Flomax) 0.4 mg PO DAILY [facility] Tiotropium [place] (Spiriva Handihaler) 18 mcg INH DAILY [facility] Assessment/Plan Comment:: 1. Admit to Swing bed for PT/OT services for Left greater trochanter fracture adjacent to left hip prosthesis(stable). 2. 100% weight bearing on right, brace on when out of bed; 50% weight bearing on left, no hip abduction. 3. Bedside commode until her ambulation improves. 4. Resume home medications. 5. Tylenol 500 mg qid and Ibuprofen 200 mg qid with [place] 5/325 mg q4h prn breakthrough pain. 6. DVT prophylaxis: Lovenox 40 mg SQ daily. 7. DNR/DNI. - Mortality Measure Prognosis:: Good
[2020-01-05] MEDS ORDERED: Loperamide 2 MG Cap PO PRN (15:05)
[2020-01-05] MEDS: Azithromycin 500 MG Tab PO SCH (15:17)
[2020-01-05] MEDS: Acetaminophen/HYDROcodone 325-5 MG Tab PO PRN (15:20)
[2020-01-05] MEDS ORDERED: Albuterol 0.083% 2.5 MG/3 ML Neb Soln INH PRN (16:00)
[2020-01-05] MEDS: Ibuprofen 200 MG Tab PO SCH ×2 (17:54→20:54)
[2020-01-05] MEDS: Acetaminophen 500 MG Tab PO SCH ×2 (17:54→20:52)
[2020-01-05] MEDS: Magnesium Chloride 64 MG Tab.ER PO SCH (17:55)
[2020-01-05] MEDS: Dicyclomine 10 MG Cap PO SCH (17:55)
[2020-01-05] MEDS: Budesonide 0.5 MG/2 ML Neb Susp INH SCH (20:50)
[2020-01-05] MEDS: Arformoterol 15 MCG/2 ML Neb Soln INH SCH (20:50)
[2020-01-05] MEDS: Pregabalin 75 MG Cap PO SCH (20:52)
[2020-01-05] MEDS: Carvedilol 3.125 MG Tab PO SCH (20:53)
[2020-01-05] MEDS: Melatonin 3 MG Tab PO SCH (20:54)
[2020-01-05] MEDS: Famotidine 20 MG Tab PO SCH (20:55)
[2020-01-06] MEDS: Pantoprazole 40 MG Tab.CR PO SCH (06:25)
[2020-01-06] MEDS: Dicyclomine 10 MG Cap PO SCH ×3 (06:30→17:53)
[2020-01-06] MEDS: Acetaminophen/HYDROcodone 325-5 MG Tab PO PRN ×2 (08:01→14:34)
[2020-01-06] MEDS: Multivitamins with Iron/Calcium/Folic Acid/Minerals Tab PO SCH (08:01)
[2020-01-06] MEDS: Acetaminophen 500 MG Tab PO SCH ×4 (08:02→20:27)
[2020-01-06] MEDS: Cholecalciferol (Vitamin D3) 25 MCG Tab PO SCH (08:02)
[2020-01-06] MEDS: Ibuprofen 200 MG Tab PO SCH ×4 (08:02→20:30)
[2020-01-06] MEDS: Magnesium Chloride 64 MG Tab.ER PO SCH ×2 (08:02→17:53)
[2020-01-06] MEDS: Potassium Chloride 10 MEQ Tab.ER PO SCH (08:03)
[2020-01-06] MEDS: Enoxaparin 40 MG/0.4 ML Syringe SUBCUT SCH (08:03)
[2020-01-06] MEDS: Calcium Carbonate 500 MG Tablet PO SCH (08:03)
[2020-01-06] MEDS: Carvedilol 3.125 MG Tab PO SCH ×2 (08:03→20:28)
[2020-01-06] MEDS: Tamsulosin 0.4 MG Cap.ER PO SCH (08:03)
[2020-01-06] MEDS: Arformoterol 15 MCG/2 ML Neb Soln INH SCH ×2 (08:03→20:24)
[2020-01-06] MEDS: Furosemide 20 MG Tab PO SCH (08:03)
[2020-01-06] MEDS: Budesonide 0.5 MG/2 ML Neb Susp INH SCH ×2 (08:04→20:25)
[2020-01-06] MEDS: Pregabalin 75 MG Cap PO SCH ×2 (08:08→20:36)
[2020-01-06] MEDS: Tiotropium Inhaler 18 MCG Inhalation Powder Cap Kit of 5 INH SCH (08:09)
[2020-01-06] MEDS: Melatonin 3 MG Tab PO SCH (20:26)
[2020-01-06] MEDS: Famotidine 20 MG Tab PO SCH (20:26)
[2020-01-07] MEDS: Pantoprazole 40 MG Tab.CR PO SCH (06:29)
[2020-01-07] MEDS: Dicyclomine 10 MG Cap PO SCH ×3 (06:30→17:15)
[2020-01-07] MEDS: Ibuprofen 200 MG Tab PO SCH ×4 (08:59→20:26)
[2020-01-07] MEDS: Acetaminophen 500 MG Tab PO SCH ×4 (09:00→20:26)
[2020-01-07] MEDS: Multivitamins with Iron/Calcium/Folic Acid/Minerals Tab PO SCH (09:01)
[2020-01-07] MEDS: Potassium Chloride 10 MEQ Tab.ER PO SCH (09:01)
[2020-01-07] MEDS: Calcium Carbonate 500 MG Tablet PO SCH (09:01)
[2020-01-07] MEDS: Furosemide 20 MG Tab PO SCH (09:01)
[2020-01-07] MEDS: Ferrous Sulfate 325 MG Tab PO SCH (09:02)
[2020-01-07] MEDS: Carvedilol 3.125 MG Tab PO SCH ×2 (09:02→20:29)
[2020-01-07] MEDS: Cholecalciferol (Vitamin D3) 25 MCG Tab PO SCH (09:02)
[2020-01-07] MEDS: Tamsulosin 0.4 MG Cap.ER PO SCH (09:02)
[2020-01-07] MEDS: Arformoterol 15 MCG/2 ML Neb Soln INH SCH ×2 (09:03→20:25)
[2020-01-07] MEDS: Enoxaparin 40 MG/0.4 ML Syringe SUBCUT SCH (09:03)
[2020-01-07] MEDS: Tiotropium Inhaler 18 MCG Inhalation Powder Cap Kit of 5 INH SCH (09:09)
[2020-01-07] MEDS: Magnesium Chloride 64 MG Tab.ER PO SCH ×2 (09:10→17:15)
[2020-01-07] MEDS: Budesonide 0.5 MG/2 ML Neb Susp INH SCH ×2 (09:20→20:25)
[2020-01-07] MEDS: Pregabalin 75 MG Cap PO SCH ×2 (09:28→20:36)
[2020-01-07] MEDS: Azithromycin 500 MG Tab PO SCH (14:24)
[2020-01-07] MEDS: Famotidine 20 MG Tab PO SCH (20:25)
[2020-01-07] MEDS: Melatonin 3 MG Tab PO SCH (20:30)
[2020-01-07] MEDS: Acetaminophen/HYDROcodone 325-5 MG Tab PO PRN (23:30)
[2020-01-08] MEDS: Acetaminophen/HYDROcodone 325-5 MG Tab PO PRN ×3 (04:47→14:07)
[2020-01-08] MEDS: Pantoprazole 40 MG Tab.CR PO SCH (06:39)
[2020-01-08] MEDS: Dicyclomine 10 MG Cap PO SCH ×3 (06:42→18:16)
[2020-01-08] MEDS: Tiotropium Inhaler 18 MCG Inhalation Powder Cap Kit of 5 INH SCH (09:33)
[2020-01-08] MEDS: Magnesium Chloride 64 MG Tab.ER PO SCH ×2 (09:37→18:16)
[2020-01-08] MEDS: Tamsulosin 0.4 MG Cap.ER PO SCH (09:37)
[2020-01-08] MEDS: Arformoterol 15 MCG/2 ML Neb Soln INH SCH ×2 (09:37→21:02)
[2020-01-08] MEDS: Pregabalin 75 MG Cap PO SCH ×2 (09:38→21:19)
[2020-01-08] MEDS: Calcium Carbonate 500 MG Tablet PO SCH (09:38)
[2020-01-08] MEDS: Enoxaparin 40 MG/0.4 ML Syringe SUBCUT SCH (09:38)
[2020-01-08] MEDS: Furosemide 20 MG Tab PO SCH (09:38)
[2020-01-08] MEDS: Multivitamins with Iron/Calcium/Folic Acid/Minerals Tab PO SCH (09:38)
[2020-01-08] MEDS: Ibuprofen 200 MG Tab PO SCH ×4 (09:38→21:03)
[2020-01-08] MEDS: Potassium Chloride 10 MEQ Tab.ER PO SCH (09:38)
[2020-01-08] MEDS: Budesonide 0.5 MG/2 ML Neb Susp INH SCH ×2 (09:38→21:12)
[2020-01-08] MEDS: Acetaminophen 500 MG Tab PO SCH ×4 (09:38→21:08)
[2020-01-08] MEDS: Cholecalciferol (Vitamin D3) 25 MCG Tab PO SCH (09:39)
[2020-01-08] MEDS: Carvedilol 3.125 MG Tab PO SCH ×2 (09:40→21:07)
[2020-01-08] MEDS: Melatonin 3 MG Tab PO SCH (21:02)
[2020-01-08] MEDS: Famotidine 20 MG Tab PO SCH (21:09)
[2020-01-09] MEDS: Dicyclomine 10 MG Cap PO SCH ×3 (07:04→17:53)
[2020-01-09] MEDS: Pantoprazole 40 MG Tab.CR PO SCH (07:04)
[2020-01-09] MEDS: Magnesium Chloride 64 MG Tab.ER PO SCH ×2 (09:47→17:53)
[2020-01-09] MEDS: Arformoterol 15 MCG/2 ML Neb Soln INH SCH ×2 (09:47→21:19)
[2020-01-09] MEDS: Carvedilol 3.125 MG Tab PO SCH ×2 (09:47→21:15)
[2020-01-09] MEDS: Ferrous Sulfate 325 MG Tab PO SCH (09:47)
[2020-01-09] MEDS: Enoxaparin 40 MG/0.4 ML Syringe SUBCUT SCH (09:48)
[2020-01-09] MEDS: Tamsulosin 0.4 MG Cap.ER PO SCH (09:48)
[2020-01-09] MEDS: Potassium Chloride 10 MEQ Tab.ER PO SCH (09:48)
[2020-01-09] MEDS: Furosemide 20 MG Tab PO SCH (09:48)
[2020-01-09] MEDS: Ibuprofen 200 MG Tab PO SCH ×4 (09:48→21:16)
[2020-01-09] MEDS: Calcium Carbonate 500 MG Tablet PO SCH (09:48)
[2020-01-09] MEDS: Budesonide 0.5 MG/2 ML Neb Susp INH SCH ×2 (09:49→21:19)
[2020-01-09] MEDS: Multivitamins with Iron/Calcium/Folic Acid/Minerals Tab PO SCH (09:49)
[2020-01-09] MEDS: Tiotropium Inhaler 18 MCG Inhalation Powder Cap Kit of 5 INH SCH (09:49)
[2020-01-09] MEDS: Acetaminophen 500 MG Tab PO SCH ×4 (09:49→21:18)
[2020-01-09] MEDS: Cholecalciferol (Vitamin D3) 25 MCG Tab PO SCH (09:50)
[2020-01-09] MEDS: Pregabalin 75 MG Cap PO SCH ×2 (09:54→21:16)
[2020-01-09] MEDS: Azithromycin 500 MG Tab PO SCH (13:43)
[2020-01-09] MEDS: Famotidine 20 MG Tab PO SCH (21:17)
[2020-01-09] MEDS: Melatonin 3 MG Tab PO SCH (21:19)
[2020-01-10] MEDS: Pantoprazole 40 MG Tab.CR PO SCH (06:16)
[2020-01-10] MEDS: Dicyclomine 10 MG Cap PO SCH ×3 (06:47→18:35)
[2020-01-10] MEDS: Magnesium Chloride 64 MG Tab.ER PO SCH ×2 (08:57→18:36)
[2020-01-10] MEDS: Carvedilol 3.125 MG Tab PO SCH ×2 (08:57→21:15)
[2020-01-10] MEDS: Arformoterol 15 MCG/2 ML Neb Soln INH SCH ×2 (08:57→21:13)
[2020-01-10] MEDS: Tamsulosin 0.4 MG Cap.ER PO SCH (08:58)
[2020-01-10] MEDS: Pregabalin 75 MG Cap PO SCH ×2 (08:59→21:15)
[2020-01-10] MEDS: Furosemide 20 MG Tab PO SCH (08:59)
[2020-01-10] MEDS: Potassium Chloride 10 MEQ Tab.ER PO SCH (08:59)
[2020-01-10] MEDS: Enoxaparin 40 MG/0.4 ML Syringe SUBCUT SCH (08:59)
[2020-01-10] MEDS: Ibuprofen 200 MG Tab PO SCH ×4 (08:59→21:14)
[2020-01-10] MEDS: Tiotropium Inhaler 18 MCG Inhalation Powder Cap Kit of 5 INH SCH (09:00)
[2020-01-10] MEDS: Budesonide 0.5 MG/2 ML Neb Susp INH SCH ×2 (09:00→21:13)
[2020-01-10] MEDS: Multivitamins with Iron/Calcium/Folic Acid/Minerals Tab PO SCH (09:00)
[2020-01-10] MEDS: Acetaminophen 500 MG Tab PO SCH ×4 (09:00→21:14)
[2020-01-10] MEDS: Calcium Carbonate 500 MG Tablet PO SCH (09:00)
[2020-01-10] MEDS: Cholecalciferol (Vitamin D3) 25 MCG Tab PO SCH (09:01)
[2020-01-10] MEDS: Melatonin 3 MG Tab PO SCH (21:15)
[2020-01-10] MEDS: Famotidine 20 MG Tab PO SCH (21:34)
[2020-01-11] MEDS: Dicyclomine 10 MG Cap PO SCH ×3 (06:32→17:05)
[2020-01-11] MEDS: Pantoprazole 40 MG Tab.CR PO SCH (06:32)
[2020-01-11] MEDS: Magnesium Chloride 64 MG Tab.ER PO SCH ×2 (09:07→17:05)
[2020-01-11] MEDS: Arformoterol 15 MCG/2 ML Neb Soln INH SCH ×2 (09:07→20:20)
[2020-01-11] MEDS: Budesonide 0.5 MG/2 ML Neb Susp INH SCH ×2 (09:08→20:20)
[2020-01-11] MEDS: Ibuprofen 200 MG Tab PO SCH ×4 (09:08→20:25)
[2020-01-11] MEDS: Enoxaparin 40 MG/0.4 ML Syringe SUBCUT SCH (09:08)
[2020-01-11] MEDS: Pregabalin 75 MG Cap PO SCH ×2 (09:09→20:25)
[2020-01-11] MEDS: Furosemide 20 MG Tab PO SCH (09:09)
[2020-01-11] MEDS: Carvedilol 3.125 MG Tab PO SCH ×2 (09:09→20:25)
[2020-01-11] MEDS: Tamsulosin 0.4 MG Cap.ER PO SCH (09:09)
[2020-01-11] MEDS: Potassium Chloride 10 MEQ Tab.ER PO SCH (09:09)
[2020-01-11] MEDS: Acetaminophen 500 MG Tab PO SCH ×4 (09:10→20:25)
[2020-01-11] MEDS: Multivitamins with Iron/Calcium/Folic Acid/Minerals Tab PO SCH (09:10)
[2020-01-11] MEDS: Calcium Carbonate 500 MG Tablet PO SCH (09:10)
[2020-01-11] MEDS: Cholecalciferol (Vitamin D3) 25 MCG Tab PO SCH (09:10)
[2020-01-11] MEDS: Tiotropium Inhaler 18 MCG Inhalation Powder Cap Kit of 5 INH SCH (09:12)
[2020-01-11] MEDS: Melatonin 3 MG Tab PO SCH (20:26)
[2020-01-11] MEDS: Famotidine 20 MG Tab PO SCH (20:26)
[2020-01-12] MEDS: Pantoprazole 40 MG Tab.CR PO SCH (06:26)
[2020-01-12] MEDS: Dicyclomine 10 MG Cap PO SCH ×3 (06:29→17:49)
[2020-01-12] MEDS: Tiotropium Inhaler 18 MCG Inhalation Powder Cap Kit of 5 INH SCH (08:42)
[2020-01-12] MEDS: Enoxaparin 40 MG/0.4 ML Syringe SUBCUT SCH (08:44)
[2020-01-12] MEDS: Arformoterol 15 MCG/2 ML Neb Soln INH SCH ×2 (08:44→21:17)
[2020-01-12] MEDS: Acetaminophen 500 MG Tab PO SCH ×4 (08:46→21:18)
[2020-01-12] MEDS: Carvedilol 3.125 MG Tab PO SCH ×2 (08:46→21:17)
[2020-01-12] MEDS: Magnesium Chloride 64 MG Tab.ER PO SCH ×2 (08:47→17:49)
[2020-01-12] MEDS: Multivitamins with Iron/Calcium/Folic Acid/Minerals Tab PO SCH (08:47)
[2020-01-12] MEDS: Ibuprofen 200 MG Tab PO SCH ×4 (08:47→21:17)
[2020-01-12] MEDS: Furosemide 20 MG Tab PO SCH (08:48)
[2020-01-12] MEDS: Ferrous Sulfate 325 MG Tab PO SCH (08:49)
[2020-01-12] MEDS: Tamsulosin 0.4 MG Cap.ER PO SCH (08:49)
[2020-01-12] MEDS: Potassium Chloride 10 MEQ Tab.ER PO SCH (08:50)
[2020-01-12] MEDS: Cholecalciferol (Vitamin D3) 25 MCG Tab PO SCH (08:50)
[2020-01-12] MEDS: Calcium Carbonate 500 MG Tablet PO SCH (08:50)
[2020-01-12] MEDS: Budesonide 0.5 MG/2 ML Neb Susp INH SCH ×2 (09:00→21:18)
[2020-01-12] MEDS: Pregabalin 75 MG Cap PO SCH ×2 (09:18→21:17)
[2020-01-12] MEDS: Azithromycin 500 MG Tab PO SCH (14:47)
[2020-01-12] MEDS: Melatonin 3 MG Tab PO SCH (21:17)
[2020-01-12] MEDS: Famotidine 20 MG Tab PO SCH (21:18)
[2020-01-13] MEDS: Dicyclomine 10 MG Cap PO SCH ×3 (06:48→16:44)
[2020-01-13] MEDS: Pantoprazole 40 MG Tab.CR PO SCH (06:48)
[2020-01-13] MEDS: Enoxaparin 40 MG/0.4 ML Syringe SUBCUT SCH (08:02)
[2020-01-13] MEDS: Potassium Chloride 10 MEQ Tab.ER PO SCH (08:02)
[2020-01-13] MEDS: Tamsulosin 0.4 MG Cap.ER PO SCH (08:02)
[2020-01-13] MEDS: Magnesium Chloride 64 MG Tab.ER PO SCH ×2 (08:02→17:53)
[2020-01-13] MEDS: Acetaminophen 500 MG Tab PO SCH ×4 (08:02→21:14)
[2020-01-13] MEDS: Arformoterol 15 MCG/2 ML Neb Soln INH SCH ×2 (08:03→21:13)
[2020-01-13] MEDS: Ibuprofen 200 MG Tab PO SCH ×4 (08:03→21:13)
[2020-01-13] MEDS: Budesonide 0.5 MG/2 ML Neb Susp INH SCH ×2 (08:03→21:14)
[2020-01-13] MEDS: Multivitamins with Iron/Calcium/Folic Acid/Minerals Tab PO SCH (08:03)
[2020-01-13] MEDS: Cholecalciferol (Vitamin D3) 25 MCG Tab PO SCH (08:03)
[2020-01-13] MEDS: Furosemide 20 MG Tab PO SCH (08:03)
[2020-01-13] MEDS: Calcium Carbonate 500 MG Tablet PO SCH (08:03)
[2020-01-13] MEDS: Carvedilol 3.125 MG Tab PO SCH ×2 (08:05→21:18)
[2020-01-13] MEDS: Acetaminophen/HYDROcodone 325-5 MG Tab PO PRN (08:07)
[2020-01-13] MEDS: Tiotropium Inhaler 18 MCG Inhalation Powder Cap Kit of 5 INH SCH (08:08)
[2020-01-13] MEDS: Pregabalin 75 MG Cap PO SCH ×2 (08:08→21:18)
[2020-01-13] MEDS: Melatonin 3 MG Tab PO SCH (21:13)
[2020-01-13] MEDS: Famotidine 20 MG Tab PO SCH (21:13)
[2020-01-14] MEDS: Pantoprazole 40 MG Tab.CR PO SCH (05:35)
[2020-01-14] MEDS: Acetaminophen/HYDROcodone 325-5 MG Tab PO PRN ×2 (06:45→20:45)
[2020-01-14] MEDS: Dicyclomine 10 MG Cap PO SCH ×3 (06:45→17:06)
[2020-01-14] MEDS: Arformoterol 15 MCG/2 ML Neb Soln INH SCH ×2 (08:36→20:35)
[2020-01-14] MEDS: Budesonide 0.5 MG/2 ML Neb Susp INH SCH ×2 (08:36→20:35)
[2020-01-14] MEDS: Ferrous Sulfate 325 MG Tab PO SCH (08:38)
[2020-01-14] MEDS: Carvedilol 3.125 MG Tab PO SCH ×2 (08:38→20:41)
[2020-01-14] MEDS: Magnesium Chloride 64 MG Tab.ER PO SCH ×2 (08:38→17:06)
[2020-01-14] MEDS: Furosemide 20 MG Tab PO SCH (08:39)
[2020-01-14] MEDS: Tamsulosin 0.4 MG Cap.ER PO SCH (08:39)
[2020-01-14] MEDS: Enoxaparin 40 MG/0.4 ML Syringe SUBCUT SCH (08:39)
[2020-01-14] MEDS: Ibuprofen 200 MG Tab PO SCH ×4 (08:39→20:44)
[2020-01-14] MEDS: Potassium Chloride 10 MEQ Tab.ER PO SCH (08:39)
[2020-01-14] MEDS: Calcium Carbonate 500 MG Tablet PO SCH (08:40)
[2020-01-14] MEDS: Multivitamins with Iron/Calcium/Folic Acid/Minerals Tab PO SCH (08:41)
[2020-01-14] MEDS: Cholecalciferol (Vitamin D3) 25 MCG Tab PO SCH (08:41)
[2020-01-14] MEDS: Acetaminophen 500 MG Tab PO SCH ×4 (08:41→20:45)
[2020-01-14] MEDS: Tiotropium Inhaler 18 MCG Inhalation Powder Cap Kit of 5 INH SCH (08:42)
[2020-01-14] MEDS: Pregabalin 75 MG Cap PO SCH ×2 (08:46→20:43)
[2020-01-14] MEDS: Azithromycin 500 MG Tab PO SCH (13:44)
[2020-01-14] MEDS: Famotidine 20 MG Tab PO SCH (20:44)
[2020-01-14] MEDS: Melatonin 3 MG Tab PO SCH (20:44)
[2020-01-15] MEDS: Dicyclomine 10 MG Cap PO SCH ×3 (06:33→17:37)
[2020-01-15] MEDS: Acetaminophen/HYDROcodone 325-5 MG Tab PO PRN (06:33)
[2020-01-15] MEDS: Pantoprazole 40 MG Tab.CR PO SCH (06:33)
[2020-01-15] MEDS: Ibuprofen 200 MG Tab PO SCH ×4 (08:55→20:06)
[2020-01-15] MEDS: Pregabalin 75 MG Cap PO SCH ×2 (08:55→20:05)
[2020-01-15] MEDS: Magnesium Chloride 64 MG Tab.ER PO SCH ×2 (08:55→17:37)
[2020-01-15] MEDS: Arformoterol 15 MCG/2 ML Neb Soln INH SCH ×2 (08:55→20:03)
[2020-01-15] MEDS: Tamsulosin 0.4 MG Cap.ER PO SCH (08:55)
[2020-01-15] MEDS: Acetaminophen 500 MG Tab PO SCH ×4 (08:55→20:06)
[2020-01-15] MEDS: Multivitamins with Iron/Calcium/Folic Acid/Minerals Tab PO SCH (08:55)
[2020-01-15] MEDS: Furosemide 20 MG Tab PO SCH (08:55)
[2020-01-15] MEDS: Cholecalciferol (Vitamin D3) 25 MCG Tab PO SCH (08:55)
[2020-01-15] MEDS: Potassium Chloride 10 MEQ Tab.ER PO SCH (08:55)
[2020-01-15] MEDS: Enoxaparin 40 MG/0.4 ML Syringe SUBCUT SCH (08:55)
[2020-01-15] MEDS: Calcium Carbonate 500 MG Tablet PO SCH (08:55)
[2020-01-15] MEDS: Budesonide 0.5 MG/2 ML Neb Susp INH SCH ×2 (08:56→20:09)
[2020-01-15] MEDS: Tiotropium Inhaler 18 MCG Inhalation Powder Cap Kit of 5 INH SCH (08:56)
[2020-01-15] MEDS: Carvedilol 3.125 MG Tab PO SCH ×2 (08:56→20:08)
[2020-01-15] MEDS: Melatonin 3 MG Tab PO SCH (20:06)
[2020-01-15] MEDS: Famotidine 20 MG Tab PO SCH (20:10)
[2020-01-16] MEDS: Pantoprazole 40 MG Tab.CR PO SCH (05:10)
[2020-01-16] MEDS: Dicyclomine 10 MG Cap PO SCH ×3 (06:39→17:15)
[2020-01-16] MEDS: Ferrous Sulfate 325 MG Tab PO SCH (08:43)
[2020-01-16] MEDS: Magnesium Chloride 64 MG Tab.ER PO SCH ×2 (08:43→17:16)
[2020-01-16] MEDS: Arformoterol 15 MCG/2 ML Neb Soln INH SCH ×2 (08:43→20:14)
[2020-01-16] MEDS: Ibuprofen 200 MG Tab PO SCH ×4 (08:44→20:16)
[2020-01-16] MEDS: Potassium Chloride 10 MEQ Tab.ER PO SCH (08:44)
[2020-01-16] MEDS: Budesonide 0.5 MG/2 ML Neb Susp INH SCH ×2 (08:44→20:21)
[2020-01-16] MEDS: Enoxaparin 40 MG/0.4 ML Syringe SUBCUT SCH (08:44)
[2020-01-16] MEDS: Acetaminophen 500 MG Tab PO SCH ×4 (08:44→20:16)
[2020-01-16] MEDS: Furosemide 20 MG Tab PO SCH (08:44)
[2020-01-16] MEDS: Pregabalin 75 MG Cap PO SCH ×2 (08:44→20:29)
[2020-01-16] MEDS: Cholecalciferol (Vitamin D3) 25 MCG Tab PO SCH (08:45)
[2020-01-16] MEDS: Multivitamins with Iron/Calcium/Folic Acid/Minerals Tab PO SCH (08:45)
[2020-01-16] MEDS: Tamsulosin 0.4 MG Cap.ER PO SCH (08:45)
[2020-01-16] MEDS: Calcium Carbonate 500 MG Tablet PO SCH (08:45)
[2020-01-16] MEDS: Carvedilol 3.125 MG Tab PO SCH ×2 (08:45→20:17)
[2020-01-16] MEDS: Tiotropium Inhaler 18 MCG Inhalation Powder Cap Kit of 5 INH SCH (08:52)
[2020-01-16] MEDS: Azithromycin 500 MG Tab PO SCH (13:45)
--- NOTE | 2020-01-16 14:30 | PN ---
DATE SEEN: 01/16/2020 HISTORY OF PRESENT ILLNESS: Crystal Hilario is a 74-year-old female, admitted on 01/05/2020. She had a complicated fall, sustaining a nondisplaced trochanteric fracture adjacent to the left hip prosthesis, which has been placed remotely, and a right patellar fracture, which was nonsurgical in nature. Therapy in place. Rehab is in place, and she is doing reasonably well. Plan is to go to [facility] upon discharge. MEDICATIONS: Reviewed and appropriate. 1. Hydrocodone p.r.n. 2. Daily maintenance medications including subcu Lovenox. OBJECTIVE: VITAL SIGNS: Temperature 36.1, 140/70, respirations 18, pulse 92. GENERAL: Appears comfortable. NECK: Benign. Thyroid small. CHEST: Clear in all lung [place]. HEART: No ectopy or murmur. ABDOMEN: Benign. Orthopedic equipment in place. Complicated fractures. PLAN: Rehab intervention and care. Treatment as appropriate. /[id number] [id number] KATIE/EDDI
[2020-01-16] MEDS: Melatonin 3 MG Tab PO SCH (20:16)
[2020-01-16] MEDS: Famotidine 20 MG Tab PO SCH (20:19)
[2020-01-17] MEDS: Acetaminophen/HYDROcodone 325-5 MG Tab PO PRN (02:29)
[2020-01-17] MEDS: Pantoprazole 40 MG Tab.CR PO SCH (05:11)
[2020-01-17] MEDS: Dicyclomine 10 MG Cap PO SCH ×3 (06:43→17:42)
[2020-01-17] MEDS: Arformoterol 15 MCG/2 ML Neb Soln INH SCH ×2 (08:41→19:59)
[2020-01-17] MEDS: Enoxaparin 40 MG/0.4 ML Syringe SUBCUT SCH (08:41)
[2020-01-17] MEDS: Budesonide 0.5 MG/2 ML Neb Susp INH SCH ×2 (08:41→19:59)
[2020-01-17] MEDS: Magnesium Chloride 64 MG Tab.ER PO SCH ×2 (08:41→17:42)
[2020-01-17] MEDS: Pregabalin 75 MG Cap PO SCH ×2 (08:42→20:06)
[2020-01-17] MEDS: Furosemide 20 MG Tab PO SCH (08:42)
[2020-01-17] MEDS: Ibuprofen 200 MG Tab PO SCH ×4 (08:42→20:00)
[2020-01-17] MEDS: Calcium Carbonate 500 MG Tablet PO SCH (08:42)
[2020-01-17] MEDS: Tamsulosin 0.4 MG Cap.ER PO SCH (08:42)
[2020-01-17] MEDS: Multivitamins with Iron/Calcium/Folic Acid/Minerals Tab PO SCH (08:42)
[2020-01-17] MEDS: Carvedilol 3.125 MG Tab PO SCH ×2 (08:42→20:00)
[2020-01-17] MEDS: Potassium Chloride 10 MEQ Tab.ER PO SCH (08:42)
[2020-01-17] MEDS: Acetaminophen 500 MG Tab PO SCH ×4 (08:42→20:00)
[2020-01-17] MEDS: Tiotropium Inhaler 18 MCG Inhalation Powder Cap Kit of 5 INH SCH (08:43)
[2020-01-17] MEDS: Cholecalciferol (Vitamin D3) 25 MCG Tab PO SCH (08:43)
--- NOTE | 2020-01-17 11:34 | PN ---
DATE SEEN: 01/17/2020 SUBJECTIVE: Crystal Hilario is a 74-year-old female, admitted in transfer. Hospitalized here on 01/05/2020. Had taken a fall, sustained a nondisplaced intertrochanteric fracture of left hip prosthesis. She was also found to have a right patellar fracture, presently braced and intervention in place. Doing well. Up walking and ambulating better. OBJECTIVE: VITAL SIGNS: 36.4, 84, 125/86, 92% on room air. GENERAL: Appears comfortable. NECK: Benign. Thyroid small. CHEST: Clear in all lung stapleton. HEART: No ectopy or murmur. ABDOMEN: Benign. LABORATORY STUDIES: Not indicated. ASSESSMENT: Complicated orthopedic issues. PLAN: Pain medications on board, treatment in place. Lovenox on board, therapy in place. /[id number] 1040 1102 KATIE/EDDI
[2020-01-17] MEDS: Melatonin 3 MG Tab PO SCH (19:59)
[2020-01-17] MEDS: Famotidine 20 MG Tab PO SCH (19:59)
[2020-01-18] MEDS: Acetaminophen/HYDROcodone 325-5 MG Tab PO PRN ×2 (02:11→10:42)
[2020-01-18] MEDS: Pantoprazole 40 MG Tab.CR PO SCH (05:11)
[2020-01-18] MEDS: Dicyclomine 10 MG Cap PO SCH ×3 (06:36→17:56)
[2020-01-18] MEDS: Cholecalciferol (Vitamin D3) 25 MCG Tab PO SCH (08:30)
[2020-01-18] MEDS: Pregabalin 75 MG Cap PO SCH ×2 (08:30→20:09)
[2020-01-18] MEDS: Potassium Chloride 10 MEQ Tab.ER PO SCH (08:30)
[2020-01-18] MEDS: Ibuprofen 200 MG Tab PO SCH ×4 (08:30→20:03)
[2020-01-18] MEDS: Magnesium Chloride 64 MG Tab.ER PO SCH ×2 (08:30→17:57)
[2020-01-18] MEDS: Furosemide 20 MG Tab PO SCH (08:31)
[2020-01-18] MEDS: Acetaminophen 500 MG Tab PO SCH ×4 (08:31→20:03)
[2020-01-18] MEDS: Carvedilol 3.125 MG Tab PO SCH ×2 (08:31→20:02)
[2020-01-18] MEDS: Tamsulosin 0.4 MG Cap.ER PO SCH (08:31)
[2020-01-18] MEDS: Multivitamins with Iron/Calcium/Folic Acid/Minerals Tab PO SCH (08:32)
[2020-01-18] MEDS: Enoxaparin 40 MG/0.4 ML Syringe SUBCUT SCH (08:32)
[2020-01-18] MEDS: Calcium Carbonate 500 MG Tablet PO SCH (08:32)
[2020-01-18] MEDS: Tiotropium Inhaler 18 MCG Inhalation Powder Cap Kit of 5 INH SCH (09:13)
[2020-01-18] MEDS: Budesonide 0.5 MG/2 ML Neb Susp INH SCH ×2 (09:13→19:59)
[2020-01-18] MEDS: Arformoterol 15 MCG/2 ML Neb Soln INH SCH ×2 (09:13→20:04)
--- NOTE | 2020-01-18 12:58 | PN ---
DATE SEEN: 01/18/2020 SUBJECTIVE: Crystal Hilario is a delightful 74-year-old female in rehab therapy. She has nondisplaced trochanteric fracture adjacent to previous left hip arthroplasty, and a more remote right patellar fracture. Doing well. Ambulating comfortable in good spirits. Hydrocodone use for pain. OBJECTIVE: VITAL SIGNS: 36.4, 80, 126/76, 19 is the respiration. GENERAL: Appears comfortable. NECK: Benign. Thyroid small. CHEST: Clear. HEART: Regular. ABDOMEN: Brace in place. ASSESSMENT: Orthopedic issue is under review, under treatment. PLAN: Ortho recommendations in place. Plans for Sunday for brace removal. /[id number] 1152 1227 KATIE/EDDI
[2020-01-18] MEDS: Melatonin 3 MG Tab PO SCH (20:02)
[2020-01-18] MEDS: Famotidine 20 MG Tab PO SCH (20:02)
[2020-01-19] MEDS: Pantoprazole 40 MG Tab.CR PO SCH (06:31)
[2020-01-19] MEDS: Dicyclomine 10 MG Cap PO SCH ×3 (06:31→18:16)
[2020-01-19] MEDS: Arformoterol 15 MCG/2 ML Neb Soln INH SCH ×2 (08:30→20:11)
[2020-01-19] MEDS: Ferrous Sulfate 325 MG Tab PO SCH (08:30)
[2020-01-19] MEDS: Magnesium Chloride 64 MG Tab.ER PO SCH ×2 (08:30→18:15)
[2020-01-19] MEDS: Furosemide 20 MG Tab PO SCH (08:34)
[2020-01-19] MEDS: Tamsulosin 0.4 MG Cap.ER PO SCH (08:34)
[2020-01-19] MEDS: Carvedilol 3.125 MG Tab PO SCH ×2 (08:34→20:08)
[2020-01-19] MEDS: Potassium Chloride 10 MEQ Tab.ER PO SCH (08:34)
[2020-01-19] MEDS: Ibuprofen 200 MG Tab PO SCH ×4 (08:35→20:07)
[2020-01-19] MEDS: Enoxaparin 40 MG/0.4 ML Syringe SUBCUT SCH (08:35)
[2020-01-19] MEDS: Tiotropium Inhaler 18 MCG Inhalation Powder Cap Kit of 5 INH SCH (08:36)
[2020-01-19] MEDS: Budesonide 0.5 MG/2 ML Neb Susp INH SCH ×2 (08:36→20:05)
[2020-01-19] MEDS: Calcium Carbonate 500 MG Tablet PO SCH (08:36)
[2020-01-19] MEDS: Multivitamins with Iron/Calcium/Folic Acid/Minerals Tab PO SCH (08:37)
[2020-01-19] MEDS: Acetaminophen 500 MG Tab PO SCH ×4 (08:37→20:08)
[2020-01-19] MEDS: Cholecalciferol (Vitamin D3) 25 MCG Tab PO SCH (08:37)
[2020-01-19] MEDS: Pregabalin 75 MG Cap PO SCH ×2 (08:46→20:11)
--- NOTE | 2020-01-19 12:35 | PN ---
DATE SEEN: 01/19/2020 SUBJECTIVE: Crystal Hilario is a 74-year-old female in swing bed. Proximal left femur fracture, right patellar fracture. Doing better. Ambulation is comfortable. [facility] under consideration. Pain is controlled. OBJECTIVE: VITAL SIGNS: 76, 88, 119/84. GENERAL: Appears comfortable. Speech was fluent. CHEST: Clear in all lung stapleton. HEART: No ectopy or murmur. ABDOMEN: Brace in place. ASSESSMENT: 1. Left femur fracture. 2. Right patellar fracture. PLAN: PT on board. /[id number] [id number] 1131 /EDDI
[2020-01-19] MEDS: Azithromycin 500 MG Tab PO SCH (15:26)
[2020-01-19] MEDS: Melatonin 3 MG Tab PO SCH (20:07)
[2020-01-19] MEDS: Famotidine 20 MG Tab PO SCH (20:08)
[2020-01-20] MEDS: Acetaminophen/HYDROcodone 325-5 MG Tab PO PRN (04:23)
[2020-01-20] MEDS: Pantoprazole 40 MG Tab.CR PO SCH (06:28)
[2020-01-20] MEDS: Dicyclomine 10 MG Cap PO SCH ×3 (06:32→17:38)
[2020-01-20] MEDS: Magnesium Chloride 64 MG Tab.ER PO SCH ×2 (08:50→18:34)
[2020-01-20] MEDS: Arformoterol 15 MCG/2 ML Neb Soln INH SCH ×2 (08:51→20:25)
[2020-01-20] MEDS: Carvedilol 3.125 MG Tab PO SCH ×2 (08:51→20:26)
[2020-01-20] MEDS: Potassium Chloride 10 MEQ Tab.ER PO SCH (08:52)
[2020-01-20] MEDS: Tamsulosin 0.4 MG Cap.ER PO SCH (08:52)
[2020-01-20] MEDS: Furosemide 20 MG Tab PO SCH (08:52)
[2020-01-20] MEDS: Ibuprofen 200 MG Tab PO SCH ×4 (08:53→20:29)
[2020-01-20] MEDS: Pregabalin 75 MG Cap PO SCH ×2 (08:53→20:33)
[2020-01-20] MEDS: Calcium Carbonate 500 MG Tablet PO SCH (08:54)
[2020-01-20] MEDS: Budesonide 0.5 MG/2 ML Neb Susp INH SCH ×2 (08:54→20:34)
[2020-01-20] MEDS: Tiotropium Inhaler 18 MCG Inhalation Powder Cap Kit of 5 INH SCH (08:54)
[2020-01-20] MEDS: Acetaminophen 500 MG Tab PO SCH ×4 (08:55→20:30)
[2020-01-20] MEDS: Multivitamins with Iron/Calcium/Folic Acid/Minerals Tab PO SCH (08:55)
[2020-01-20] MEDS: Enoxaparin 40 MG/0.4 ML Syringe SUBCUT SCH (08:55)
[2020-01-20] MEDS: Cholecalciferol (Vitamin D3) 25 MCG Tab PO SCH (08:55)
--- NOTE | 2020-01-20 12:19 | PN ---
DATE SEEN: 01/20/2020 Crystal Hilario is a delightful 74-year-old female, seen today for routine followup. Had a proximal femur fracture, nonsurgical and a predated patellar fracture. X-rays will be obtained today. Making good progress. Using a walker and maintaining good balance in daily activities. Discharge likely in the next 2 days. We will do radiographs today and see how they are from a healing point of view. /[id number] [id number] /EDDI
--- NOTE | 2020-01-20 17:38 | CR ---
INDICATION: Followup fracture. LEFT FEMUR: Five images of the left femur in frontal and lateral projections were obtained 01/20/20, compared with 12/12/19 revealing interval placement of screws through the patella to fix fracture fragments in satisfactory position and alignment. Compared with a hip from 06/12/18, there is again noted a femoral prosthesis for hip arthroplasty. There is an interval fracture through the intertrochanteric areas with slight offset of the fracture fragments compared with a previous study of 06/12/18. The fracture is evident but is less displaced on previous x-ray of the left hip dated 01/02/20. There does appear to be periosteal new bone formation compatible with interval progress in healing at the intertrochanteric fracture site. MTDD
--- NOTE | 2020-01-20 17:42 | CR ---
INDICATION: Followup fracture. RIGHT KNEE: Three images of the right knee were obtained 01/20/20 - no comparison. There appears to be a comminuted fracture of the patella with separation of fracture fragments of a maximum of approximately 7.9 mm and with offset of fracture fragments of up to approximately 5 mm. The fracture has a T-shape - is comminuted. No other fracture or dislocation was suggested. There appears to be some demineralization suggesting osteoporosis. Compared with 12/12/19 examination, the fracture fragments appear similar in position and alignment. A new acute process was not suggested. MTDD
[2020-01-20] MEDS: Melatonin 3 MG Tab PO SCH (20:29)
[2020-01-20] MEDS: Famotidine 20 MG Tab PO SCH (20:30)
[2020-01-21] MEDS: Polyethylene Glycol 3350 Powder 17 GM Packet PO PRN (04:20)
[2020-01-21] MEDS: Pantoprazole 40 MG Tab.CR PO SCH (05:11)
[2020-01-21] MEDS: Dicyclomine 10 MG Cap PO SCH ×3 (07:50→16:45)
[2020-01-21] MEDS: Ferrous Sulfate 325 MG Tab PO SCH (07:54)
[2020-01-21] MEDS: Magnesium Chloride 64 MG Tab.ER PO SCH ×2 (07:54→16:59)
[2020-01-21] MEDS: Carvedilol 3.125 MG Tab PO SCH ×2 (08:03→20:34)
[2020-01-21] MEDS: Tamsulosin 0.4 MG Cap.ER PO SCH (08:03)
[2020-01-21] MEDS: Enoxaparin 40 MG/0.4 ML Syringe SUBCUT SCH (08:04)
[2020-01-21] MEDS: Potassium Chloride 10 MEQ Tab.ER PO SCH (08:04)
[2020-01-21] MEDS: Furosemide 20 MG Tab PO SCH (08:04)
[2020-01-21] MEDS: Pregabalin 75 MG Cap PO SCH ×2 (08:04→20:33)
[2020-01-21] MEDS: Ibuprofen 200 MG Tab PO SCH ×4 (08:04→20:34)
[2020-01-21] MEDS: Budesonide 0.5 MG/2 ML Neb Susp INH SCH ×2 (08:05→20:36)
[2020-01-21] MEDS: Calcium Carbonate 500 MG Tablet PO SCH (08:05)
[2020-01-21] MEDS: Multivitamins with Iron/Calcium/Folic Acid/Minerals Tab PO SCH (08:06)
[2020-01-21] MEDS: Arformoterol 15 MCG/2 ML Neb Soln INH SCH ×2 (08:07→20:35)
[2020-01-21] MEDS: Cholecalciferol (Vitamin D3) 25 MCG Tab PO SCH (08:07)
[2020-01-21] MEDS: Acetaminophen 500 MG Tab PO SCH ×4 (08:07→20:34)
[2020-01-21] MEDS: Tiotropium Inhaler 18 MCG Inhalation Powder Cap Kit of 5 INH SCH (08:09)
[2020-01-21] MEDS: Azithromycin 500 MG Tab PO SCH (13:55)
--- NOTE | 2020-01-21 14:48 | PN ---
DATE SEEN: 01/21/2020 SUBJECTIVE: Crystal Hilario is a young lady 74 years old, in for swing bed. Left femur fracture, right patellar fracture. Making good progress. Using a walker and increasing ambulatory benefits. Plan is to return to the [facility]. OBJECTIVE: VITAL SIGNS: Stable, 136/57 and 61. GENERAL: In good spirits. ABDOMEN: Brace present. EXTREMITIES: Well perfused. ASSESSMENT: Complicated fractures. PLAN: Rehab in place. /[id number] 1312 /ARTEMIOL
[2020-01-21] MEDS: Famotidine 20 MG Tab PO SCH (20:33)
[2020-01-21] MEDS: Melatonin 3 MG Tab PO SCH (20:33)
[2020-01-22] MEDS: Pantoprazole 40 MG Tab.CR PO SCH (06:18)
[2020-01-22] MEDS: Dicyclomine 10 MG Cap PO SCH ×3 (06:36→17:41)
[2020-01-22] MEDS: Magnesium Chloride 64 MG Tab.ER PO SCH ×2 (07:58→17:42)
[2020-01-22] MEDS: Arformoterol 15 MCG/2 ML Neb Soln INH SCH ×2 (07:59→20:44)
[2020-01-22] MEDS: Carvedilol 3.125 MG Tab PO SCH ×2 (08:05→20:56)
[2020-01-22] MEDS: Potassium Chloride 10 MEQ Tab.ER PO SCH (08:09)
[2020-01-22] MEDS: Tamsulosin 0.4 MG Cap.ER PO SCH (08:09)
[2020-01-22] MEDS: Acetaminophen 500 MG Tab PO SCH ×4 (08:10→20:45)
[2020-01-22] MEDS: Calcium Carbonate 500 MG Tablet PO SCH (08:10)
[2020-01-22] MEDS: Furosemide 20 MG Tab PO SCH (08:10)
[2020-01-22] MEDS: Multivitamins with Iron/Calcium/Folic Acid/Minerals Tab PO SCH (08:10)
[2020-01-22] MEDS: Ibuprofen 200 MG Tab PO SCH ×4 (08:10→20:45)
[2020-01-22] MEDS: Cholecalciferol (Vitamin D3) 25 MCG Tab PO SCH (08:10)
[2020-01-22] MEDS: Enoxaparin 40 MG/0.4 ML Syringe SUBCUT SCH (08:13)
[2020-01-22] MEDS: Budesonide 0.5 MG/2 ML Neb Susp INH SCH ×2 (08:14→20:43)
[2020-01-22] MEDS: Pregabalin 75 MG Cap PO SCH ×2 (08:19→20:56)
[2020-01-22] MEDS: Tiotropium Inhaler 18 MCG Inhalation Powder Cap Kit of 5 INH SCH (08:25)
--- NOTE | 2020-01-22 13:06 | PN ---
DATE SEEN: 01/22/2020 SUBJECTIVE: Crystal Hilario is a delightful 74-year-old female in rehab therapy, doing wonderfully. Has little sliding event to the floor without conflict or issue. Dealing with left femur fracture and right patellar fracture. Walker is going well. Plan is to return to [facility]. DIAGNOSTIC STUDIES: None new. OBJECTIVE: VITAL SIGNS: 36.0, 90, 142/77, 16, and 93. GENERAL: In good spirits. CHEST: Clear. HEART: Regular. ABDOMEN: Benign. Brace in place. ASSESSMENT: Lower extremity fractures. PLAN: Rehab in place. Plan for discharge next week to [facility]. /[id number] 1022 1241 KATIE/EDDI
[2020-01-22] MEDS: Famotidine 20 MG Tab PO SCH (20:44)
[2020-01-22] MEDS: Melatonin 3 MG Tab PO SCH (20:45)
[2020-01-23] MEDS: Acetaminophen/HYDROcodone 325-5 MG Tab PO PRN (05:18)
[2020-01-23] MEDS: Pantoprazole 40 MG Tab.CR PO SCH (05:18)
[2020-01-23] MEDS: Dicyclomine 10 MG Cap PO SCH ×3 (06:48→16:48)
[2020-01-23] MEDS: Arformoterol 15 MCG/2 ML Neb Soln INH SCH ×2 (08:13→21:29)
[2020-01-23] MEDS: Tamsulosin 0.4 MG Cap.ER PO SCH (08:15)
[2020-01-23] MEDS: Ferrous Sulfate 325 MG Tab PO SCH (08:15)
[2020-01-23] MEDS: Magnesium Chloride 64 MG Tab.ER PO SCH ×2 (08:15→17:59)
[2020-01-23] MEDS: Carvedilol 3.125 MG Tab PO SCH ×2 (08:15→21:29)
[2020-01-23] MEDS: Ibuprofen 200 MG Tab PO SCH ×4 (08:17→21:28)
[2020-01-23] MEDS: Multivitamins with Iron/Calcium/Folic Acid/Minerals Tab PO SCH (08:17)
[2020-01-23] MEDS: Cholecalciferol (Vitamin D3) 25 MCG Tab PO SCH (08:17)
[2020-01-23] MEDS: Furosemide 20 MG Tab PO SCH (08:17)
[2020-01-23] MEDS: Calcium Carbonate 500 MG Tablet PO SCH (08:17)
[2020-01-23] MEDS: Potassium Chloride 10 MEQ Tab.ER PO SCH (08:17)
[2020-01-23] MEDS: Enoxaparin 40 MG/0.4 ML Syringe SUBCUT SCH (08:18)
[2020-01-23] MEDS: Acetaminophen 500 MG Tab PO SCH ×4 (08:18→21:28)
[2020-01-23] MEDS: Tiotropium Inhaler 18 MCG Inhalation Powder Cap Kit of 5 INH SCH (08:19)
[2020-01-23] MEDS: Budesonide 0.5 MG/2 ML Neb Susp INH SCH ×2 (08:19→21:29)
[2020-01-23] MEDS: Pregabalin 75 MG Cap PO SCH ×2 (08:24→21:28)
[2020-01-23] MEDS: Azithromycin 500 MG Tab PO SCH (14:48)
[2020-01-23] MEDS: Melatonin 3 MG Tab PO SCH (21:28)
[2020-01-23] MEDS: Famotidine 20 MG Tab PO SCH (21:28)
[2020-01-23] MEDS: Polyethylene Glycol 3350 Powder 17 GM Packet PO PRN (21:37)
[2020-01-24] MEDS: Pantoprazole 40 MG Tab.CR PO SCH (05:54)
[2020-01-24] MEDS: Arformoterol 15 MCG/2 ML Neb Soln INH SCH ×2 (08:12→21:19)
[2020-01-24] MEDS: Magnesium Chloride 64 MG Tab.ER PO SCH ×2 (08:14→17:21)
[2020-01-24] MEDS: Carvedilol 3.125 MG Tab PO SCH ×2 (08:14→21:20)
[2020-01-24] MEDS: Dicyclomine 10 MG Cap PO SCH ×3 (08:14→17:21)
[2020-01-24] MEDS: Furosemide 20 MG Tab PO SCH (08:15)
[2020-01-24] MEDS: Tamsulosin 0.4 MG Cap.ER PO SCH (08:15)
[2020-01-24] MEDS: Potassium Chloride 10 MEQ Tab.ER PO SCH (08:15)
[2020-01-24] MEDS: Ibuprofen 200 MG Tab PO SCH ×4 (08:17→21:18)
[2020-01-24] MEDS: Multivitamins with Iron/Calcium/Folic Acid/Minerals Tab PO SCH (08:17)
[2020-01-24] MEDS: Calcium Carbonate 500 MG Tablet PO SCH (08:17)
[2020-01-24] MEDS: Acetaminophen 500 MG Tab PO SCH ×4 (08:17→21:18)
[2020-01-24] MEDS: Cholecalciferol (Vitamin D3) 25 MCG Tab PO SCH (08:17)
[2020-01-24] MEDS: Enoxaparin 40 MG/0.4 ML Syringe SUBCUT SCH (08:18)
[2020-01-24] MEDS: Tiotropium Inhaler 18 MCG Inhalation Powder Cap Kit of 5 INH SCH (08:18)
[2020-01-24] MEDS: Budesonide 0.5 MG/2 ML Neb Susp INH SCH ×2 (08:18→21:18)
[2020-01-24] MEDS: Pregabalin 75 MG Cap PO SCH ×2 (08:24→21:18)
[2020-01-24] MEDS: Melatonin 3 MG Tab PO SCH (21:18)
[2020-01-24] MEDS: Famotidine 20 MG Tab PO SCH (21:19)
[2020-01-25] MEDS: Pantoprazole 40 MG Tab.CR PO SCH (05:58)
[2020-01-25] MEDS: Acetaminophen/HYDROcodone 325-5 MG Tab PO PRN (06:03)
[2020-01-25] MEDS: Dicyclomine 10 MG Cap PO SCH ×3 (06:55→17:20)
[2020-01-25] MEDS: Arformoterol 15 MCG/2 ML Neb Soln INH SCH ×2 (08:25→20:04)
[2020-01-25] MEDS: Tamsulosin 0.4 MG Cap.ER PO SCH (08:26)
[2020-01-25] MEDS: Furosemide 20 MG Tab PO SCH (08:26)
[2020-01-25] MEDS: Magnesium Chloride 64 MG Tab.ER PO SCH ×2 (08:26→17:21)
[2020-01-25] MEDS: Carvedilol 3.125 MG Tab PO SCH ×2 (08:27→20:33)
[2020-01-25] MEDS: Potassium Chloride 10 MEQ Tab.ER PO SCH (08:27)
[2020-01-25] MEDS: Enoxaparin 40 MG/0.4 ML Syringe SUBCUT SCH (08:28)
[2020-01-25] MEDS: Cholecalciferol (Vitamin D3) 25 MCG Tab PO SCH (08:28)
[2020-01-25] MEDS: Ibuprofen 200 MG Tab PO SCH ×4 (08:28→20:03)
[2020-01-25] MEDS: Multivitamins with Iron/Calcium/Folic Acid/Minerals Tab PO SCH (08:29)
[2020-01-25] MEDS: Acetaminophen 500 MG Tab PO SCH ×4 (08:29→20:05)
[2020-01-25] MEDS: Calcium Carbonate 500 MG Tablet PO SCH (08:29)
[2020-01-25] MEDS: Budesonide 0.5 MG/2 ML Neb Susp INH SCH ×2 (08:29→20:05)
--- NOTE | 2020-01-25 08:29 | PCM.PN ---
- General Info Date of Service: 01/25/20 Admission Dx/Problem (Free Text): Patient is without complaints. She says her pain is manageable and she is doing well. - Patient Data Vitals - Most Recent: Last Vital Signs Temp 97.0 F 01/24/20 08:00 Pulse 84 01/25/20 08:27 Resp 16 01/24/20 08:00 BP 125/74 01/25/20 08:27 Pulse Ox 92 L 01/24/20 08:00 Weight - Most Recent: 168 lb 14.4 oz Med Orders - Current: Current Medications Acetaminophen (Tylenol Extra Strength) 500 mg PO QID [facility] Last Admin: 01/24/20 21:18 Dose: 500 mg Hydrocodone Bitart/Acetaminophen ([place] 325-5 Mg) 1 tab PO Q4H PRN PRN Reason: Pain (moderate 4-6) Last Admin: 01/25/20 06:03 Dose: 1 tab Albuterol (Proventil Neb Soln) 2.5 mg INH Q4H PRN PRN Reason: SHORTNESS OF BREATH Arformoterol Tartrate (Brovana) 15 mcg INH BID [facility] Last Admin: 01/25/20 08:25 Dose: 15 mcg Azithromycin (Zithromax) 500 mg PO MOWEFR [facility] Last Admin: 01/23/20 14:48 Dose: 500 mg Bisacodyl (Dulcolax) 10 mg RECTAL Q3D PRN PRN Reason: CONSTIPATION Budesonide (Pulmicort) 0.5 mg INH BID [facility] Last Admin: 01/24/20 21:18 Dose: 0.5 mg Calcium Carbonate/Glycine (Oyster Shell Calcium) 500 mg PO DAILY [facility] Last Admin: 01/24/20 08:17 Dose: 500 mg Carvedilol (Coreg) 3.125 mg PO BID [facility] Last Admin: 01/25/20 08:27 Dose: 3.125 mg Cholecalciferol (Vitamin D3) 25 mcg PO DAILY [facility] Last Admin: 01/24/20 08:17 Dose: 25 mcg Dicyclomine HCl (Bentyl) 10 mg PO TIDAC [facility] Last Admin: 01/25/20 06:55 Dose: 10 mg Docusate Sodium (Colace) 100 mg PO BID PRN PRN Reason: Constipation Enoxaparin Sodium (Lovenox) 40 mg SUBCUT Q24H [facility] Last Admin: 01/24/20 08:18 Dose: 40 mg Famotidine (Pepcid) 40 mg PO BEDTIME [facility] Last Admin: 01/24/20 21:19 Dose: 40 mg Ferrous Sulfate (Ferrous Sulfate) 325 mg PO MoWeFr@0800 [facility] Last Admin: 01/23/20 08:15 Dose: 325 mg Furosemide (Lasix) 20 mg PO DAILY [facility] Last Admin: 01/25/20 08:26 Dose: 20 mg Guaifenesin (Robitussin) 200 mg PO Q4H PRN PRN Reason: Cough Last Admin: 01/10/20 23:07 Dose: 200 mg Ibuprofen (Motrin) 200 mg PO QID [facility] Last Admin: 01/24/20 21:18 Dose: 200 mg Loperamide HCl (Imodium) 2 mg PO ASDIRECTED PRN PRN Reason: DIARRHEA Magnesium Chloride (Mag-64) 64 mg PO BIDMEALS [facility] Last Admin: 01/25/20 08:26 Dose: 64 mg Melatonin (Melatonin) 9 mg PO BEDTIME [facility] Last Admin: 01/24/20 21:18 Dose: 9 mg Multivitamins/Minerals (Thera M Plus) 1 tab PO DAILY [facility] Last Admin: 01/24/20 08:17 Dose: 1 tab Ondansetron HCl (Zofran Odt) 4 mg PO Q4H PRN PRN Reason: nausea, able to take PO Last Admin: 01/13/20 16:44 Dose: 4 mg Pantoprazole Sodium (Protonix) 40 mg PO 0600 [facility] Last Admin: 01/25/20 05:58 Dose: 40 mg Polyethylene Glycol (Miralax) 17 gm PO DAILY PRN PRN Reason: Constipation Last Admin: 01/23/20 21:37 Dose: 17 gm Potassium Chloride (Klor-Con 10) 10 meq PO DAILY [facility] Last Admin: 01/24/20 08:15 Dose: 10 meq Pregabalin (Lyrica) 75 mg PO BID [facility] Last Admin: 01/24/20 21:18 Dose: 75 mg Tamsulosin HCl (Flomax) 0.4 mg PO DAILY [facility] Last Admin: 01/25/20 08:26 Dose: 0.4 mg Tiotropium [place] (Spiriva Handihaler) 18 mcg INH DAILY [facility] Last Admin: 01/24/20 08:18 Dose: 18 mcg Discontinued Medications Polyethylene Glycol (Miralax) 17 gm PO DAILY PRN PRN Reason: Constipation - Exam General: Alert, Oriented, Cooperative Extremities: Other (Deferred) Sepsis Event Note - Evaluation Sepsis Screening Result: No Definite Risk - Focused Exam Vital Signs: Vital Signs Pulse BP 01/25/20 08:27 84 125/74 01/24/20 21:20 0 L 0/0 L Date Exam was Performed: 01/25/20 Time Exam was Performed: 08:28 - Problem List & Annotations (1) Fracture of greater trochanter of left femur SNOMED Code(s): 063779689, 28974037334653964 Code(s): S72.112A - DISP FX OF GREATER TROCHANTER OF LEFT FEMUR, INIT Status: Acute Current Visit: No Onset Date: ~01/02/20 Qualifiers: Encounter type: sequela Fracture type: closed Fracture alignment: nondisplaced Qualified Code(s): S72.115S - Nondisplaced fracture of greater trochanter of left femur, sequela (2) Fracture of patella, right, closed SNOMED Code(s): 94179536, 09994366518541988 Code(s): S82.001A - UNSP FRACTURE OF RIGHT PATELLA, INIT FOR CLOS FX Status : Acute Current Visit: No Onset Date: ~12/12/19 Qualifiers: Encounter type: sequela Fracture morphology: unspecified fracture morphology (3) General weakness SNOMED Code(s): 75780258 Code(s): R53.1 - WEAKNESS Status: Acute Current Visit: No Annotation/ Comment:: Significant debility and weakness after almost a month of illness and 2 weeks of that in the hospital. PT and OT to evaluate and treat. Dietary consult for nutritional supplementation. - Problem List Review Problem List Initiated/Reviewed/Updated: Yes - Plan Plan:: 1. Continue current care.
[2020-01-25] MEDS: Tiotropium Inhaler 18 MCG Inhalation Powder Cap Kit of 5 INH SCH (08:30)
[2020-01-25] MEDS: Pregabalin 75 MG Cap PO SCH ×2 (08:34→20:04)
[2020-01-25] MEDS: Melatonin 3 MG Tab PO SCH (20:04)
[2020-01-25] MEDS: Famotidine 20 MG Tab PO SCH (20:05)
[2020-01-26] MEDS: Acetaminophen/HYDROcodone 325-5 MG Tab PO PRN (06:15)
[2020-01-26] MEDS: Pantoprazole 40 MG Tab.CR PO SCH (06:16)
[2020-01-26] MEDS: Dicyclomine 10 MG Cap PO SCH ×3 (06:45→18:30)
[2020-01-26] MEDS: Enoxaparin 40 MG/0.4 ML Syringe SUBCUT SCH (08:16)
[2020-01-26] MEDS: Cholecalciferol (Vitamin D3) 25 MCG Tab PO SCH (08:17)
[2020-01-26] MEDS: Magnesium Chloride 64 MG Tab.ER PO SCH ×2 (08:17→18:57)
[2020-01-26] MEDS: Carvedilol 3.125 MG Tab PO SCH ×2 (08:18→21:02)
[2020-01-26] MEDS: Ibuprofen 200 MG Tab PO SCH ×4 (08:18→21:02)
[2020-01-26] MEDS: Multivitamins with Iron/Calcium/Folic Acid/Minerals Tab PO SCH (08:18)
[2020-01-26] MEDS: Ferrous Sulfate 325 MG Tab PO SCH (08:18)
[2020-01-26] MEDS: Potassium Chloride 10 MEQ Tab.ER PO SCH (08:18)
[2020-01-26] MEDS: Acetaminophen 500 MG Tab PO SCH ×4 (08:19→21:03)
[2020-01-26] MEDS: Furosemide 20 MG Tab PO SCH (08:19)
[2020-01-26] MEDS: Tamsulosin 0.4 MG Cap.ER PO SCH (08:19)
[2020-01-26] MEDS: Calcium Carbonate 500 MG Tablet PO SCH (08:20)
[2020-01-26] MEDS: Arformoterol 15 MCG/2 ML Neb Soln INH SCH ×2 (08:22→20:55)
[2020-01-26] MEDS: Budesonide 0.5 MG/2 ML Neb Susp INH SCH ×2 (08:26→20:55)
[2020-01-26] MEDS: Pregabalin 75 MG Cap PO SCH ×2 (08:27→21:02)
[2020-01-26] MEDS: Tiotropium Inhaler 18 MCG Inhalation Powder Cap Kit of 5 INH SCH (08:28)
[2020-01-26] MEDS: Azithromycin 500 MG Tab PO SCH (13:46)
[2020-01-26] MEDS: Melatonin 3 MG Tab PO SCH (21:02)
[2020-01-26] MEDS: Famotidine 20 MG Tab PO SCH (21:04)
[2020-01-27] MEDS: Pantoprazole 40 MG Tab.CR PO SCH (05:53)
[2020-01-27] MEDS: Dicyclomine 10 MG Cap PO SCH ×3 (06:33→17:43)
[2020-01-27] MEDS: Arformoterol 15 MCG/2 ML Neb Soln INH SCH ×2 (08:51→20:41)
[2020-01-27] MEDS: Enoxaparin 40 MG/0.4 ML Syringe SUBCUT SCH (08:51)
[2020-01-27] MEDS: Cholecalciferol (Vitamin D3) 25 MCG Tab PO SCH (08:51)
[2020-01-27] MEDS: Magnesium Chloride 64 MG Tab.ER PO SCH ×2 (08:51→17:43)
[2020-01-27] MEDS: Tiotropium Inhaler 18 MCG Inhalation Powder Cap Kit of 5 INH SCH (08:52)
[2020-01-27] MEDS: Ibuprofen 200 MG Tab PO SCH ×4 (08:53→20:44)
[2020-01-27] MEDS: Tamsulosin 0.4 MG Cap.ER PO SCH (08:53)
[2020-01-27] MEDS: Multivitamins with Iron/Calcium/Folic Acid/Minerals Tab PO SCH (08:53)
[2020-01-27] MEDS: Calcium Carbonate 500 MG Tablet PO SCH (08:53)
[2020-01-27] MEDS: Potassium Chloride 10 MEQ Tab.ER PO SCH (08:55)
[2020-01-27] MEDS: Acetaminophen 500 MG Tab PO SCH ×4 (08:55→20:44)
[2020-01-27] MEDS: Furosemide 20 MG Tab PO SCH (08:55)
[2020-01-27] MEDS: Carvedilol 3.125 MG Tab PO SCH ×2 (08:56→20:45)
[2020-01-27] MEDS: Budesonide 0.5 MG/2 ML Neb Susp INH SCH ×2 (08:57→20:41)
[2020-01-27] MEDS: Pregabalin 75 MG Cap PO SCH ×2 (11:15→20:54)
[2020-01-27] MEDS: Famotidine 20 MG Tab PO SCH (20:44)
[2020-01-27] MEDS: Melatonin 3 MG Tab PO SCH (20:45)
[2020-01-28] MEDS: Pantoprazole 40 MG Tab.CR PO SCH (05:12)
[2020-01-28] MEDS: Dicyclomine 10 MG Cap PO SCH ×3 (06:36→17:58)
[2020-01-28] MEDS: Arformoterol 15 MCG/2 ML Neb Soln INH SCH ×2 (08:05→20:31)
[2020-01-28] MEDS: Budesonide 0.5 MG/2 ML Neb Susp INH SCH ×2 (08:07→20:34)
[2020-01-28] MEDS: Calcium Carbonate 500 MG Tablet PO SCH (08:09)
[2020-01-28] MEDS: Carvedilol 3.125 MG Tab PO SCH ×2 (08:09→20:39)
[2020-01-28] MEDS: Enoxaparin 40 MG/0.4 ML Syringe SUBCUT SCH (08:09)
[2020-01-28] MEDS: Furosemide 20 MG Tab PO SCH (08:09)
[2020-01-28] MEDS: Multivitamins with Iron/Calcium/Folic Acid/Minerals Tab PO SCH (08:10)
[2020-01-28] MEDS: Ibuprofen 200 MG Tab PO SCH ×4 (08:10→20:37)
[2020-01-28] MEDS: Tamsulosin 0.4 MG Cap.ER PO SCH (08:10)
[2020-01-28] MEDS: Potassium Chloride 10 MEQ Tab.ER PO SCH (08:10)
[2020-01-28] MEDS: Pregabalin 75 MG Cap PO SCH ×2 (08:10→20:38)
[2020-01-28] MEDS: Ferrous Sulfate 325 MG Tab PO SCH (08:10)
[2020-01-28] MEDS: Magnesium Chloride 64 MG Tab.ER PO SCH ×2 (08:11→17:58)
[2020-01-28] MEDS: Acetaminophen 500 MG Tab PO SCH ×4 (08:11→20:35)
[2020-01-28] MEDS: Cholecalciferol (Vitamin D3) 25 MCG Tab PO SCH (08:11)
[2020-01-28] MEDS: Tiotropium Inhaler 18 MCG Inhalation Powder Cap Kit of 5 INH SCH (08:19)
[2020-01-28] MEDS: Azithromycin 500 MG Tab PO SCH (14:50)
[2020-01-28] MEDS: Melatonin 3 MG Tab PO SCH (20:38)
[2020-01-28] MEDS: Famotidine 20 MG Tab PO SCH (20:39)
[2020-01-28] MEDS: Acetaminophen/HYDROcodone 325-5 MG Tab PO PRN (20:41)
[2020-01-29] MEDS: Pantoprazole 40 MG Tab.CR PO SCH (05:39)
[2020-01-29] MEDS: Dicyclomine 10 MG Cap PO SCH ×3 (07:22→17:38)
[2020-01-29] MEDS: Magnesium Chloride 64 MG Tab.ER PO SCH ×2 (08:21→17:38)
[2020-01-29] MEDS: Carvedilol 3.125 MG Tab PO SCH ×2 (08:21→20:08)
[2020-01-29] MEDS: Enoxaparin 40 MG/0.4 ML Syringe SUBCUT SCH (08:22)
[2020-01-29] MEDS: Furosemide 20 MG Tab PO SCH (08:22)
[2020-01-29] MEDS: Potassium Chloride 10 MEQ Tab.ER PO SCH (08:22)
[2020-01-29] MEDS: Tamsulosin 0.4 MG Cap.ER PO SCH (08:22)
[2020-01-29] MEDS: Ibuprofen 200 MG Tab PO SCH ×4 (08:23→20:09)
[2020-01-29] MEDS: Calcium Carbonate 500 MG Tablet PO SCH (08:24)
[2020-01-29] MEDS: Multivitamins with Iron/Calcium/Folic Acid/Minerals Tab PO SCH (08:24)
[2020-01-29] MEDS: Acetaminophen 500 MG Tab PO SCH ×4 (08:24→20:10)
[2020-01-29] MEDS: Cholecalciferol (Vitamin D3) 25 MCG Tab PO SCH (08:24)
[2020-01-29] MEDS: Arformoterol 15 MCG/2 ML Neb Soln INH SCH ×2 (08:30→20:10)
[2020-01-29] MEDS: Pregabalin 75 MG Cap PO SCH ×2 (08:34→20:08)
[2020-01-29] MEDS: Budesonide 0.5 MG/2 ML Neb Susp INH SCH ×2 (08:38→20:10)
[2020-01-29] MEDS: Tiotropium Inhaler 18 MCG Inhalation Powder Cap Kit of 5 INH SCH (08:39)
[2020-01-29] MEDS: Famotidine 20 MG Tab PO SCH (20:08)
[2020-01-29] MEDS: Melatonin 3 MG Tab PO SCH (20:10)
[2020-01-30] MEDS: Acetaminophen/HYDROcodone 325-5 MG Tab PO PRN (01:05)
[2020-01-30] MEDS: Dicyclomine 10 MG Cap PO SCH ×3 (06:36→17:12)
[2020-01-30] MEDS: Pantoprazole 40 MG Tab.CR PO SCH (06:36)
[2020-01-30] MEDS: Ferrous Sulfate 325 MG Tab PO SCH (08:19)
[2020-01-30] MEDS: Carvedilol 3.125 MG Tab PO SCH ×2 (08:20→20:26)
[2020-01-30] MEDS: Tamsulosin 0.4 MG Cap.ER PO SCH (08:20)
[2020-01-30] MEDS: Potassium Chloride 10 MEQ Tab.ER PO SCH (08:20)
[2020-01-30] MEDS: Magnesium Chloride 64 MG Tab.ER PO SCH ×2 (08:20→17:12)
[2020-01-30] MEDS: Furosemide 20 MG Tab PO SCH (08:20)
[2020-01-30] MEDS: Enoxaparin 40 MG/0.4 ML Syringe SUBCUT SCH (08:21)
[2020-01-30] MEDS: Ibuprofen 200 MG Tab PO SCH ×4 (08:21→20:25)
[2020-01-30] MEDS: Pregabalin 75 MG Cap PO SCH ×2 (08:21→20:26)
[2020-01-30] MEDS: Budesonide 0.5 MG/2 ML Neb Susp INH SCH ×2 (08:22→20:27)
[2020-01-30] MEDS: Calcium Carbonate 500 MG Tablet PO SCH (08:22)
[2020-01-30] MEDS: Cholecalciferol (Vitamin D3) 25 MCG Tab PO SCH (08:23)
[2020-01-30] MEDS: Acetaminophen 500 MG Tab PO SCH ×4 (08:23→20:26)
[2020-01-30] MEDS: Multivitamins with Iron/Calcium/Folic Acid/Minerals Tab PO SCH (08:23)
[2020-01-30] MEDS: Arformoterol 15 MCG/2 ML Neb Soln INH SCH ×2 (08:25→20:27)
[2020-01-30] MEDS: Tiotropium Inhaler 18 MCG Inhalation Powder Cap Kit of 5 INH SCH (09:55)
[2020-01-30] MEDS: Azithromycin 500 MG Tab PO SCH (13:47)
[2020-01-30] MEDS: Famotidine 20 MG Tab PO SCH (20:26)
[2020-01-30] MEDS: Melatonin 3 MG Tab PO SCH (20:27)
[2020-01-31] MEDS: Pantoprazole 40 MG Tab.CR PO SCH (06:12)
[2020-01-31] MEDS: Dicyclomine 10 MG Cap PO SCH ×3 (06:39→17:03)
[2020-01-31] MEDS: Magnesium Chloride 64 MG Tab.ER PO SCH ×2 (07:51→17:06)
[2020-01-31] MEDS: Arformoterol 15 MCG/2 ML Neb Soln INH SCH ×2 (08:00→20:06)
[2020-01-31] MEDS: Potassium Chloride 10 MEQ Tab.ER PO SCH (08:01)
[2020-01-31] MEDS: Carvedilol 3.125 MG Tab PO SCH ×2 (08:01→20:07)
[2020-01-31] MEDS: Tamsulosin 0.4 MG Cap.ER PO SCH (08:01)
[2020-01-31] MEDS: Enoxaparin 40 MG/0.4 ML Syringe SUBCUT SCH (08:02)
[2020-01-31] MEDS: Furosemide 20 MG Tab PO SCH (08:02)
[2020-01-31] MEDS: Pregabalin 75 MG Cap PO SCH ×2 (08:02→20:07)
[2020-01-31] MEDS: Ibuprofen 200 MG Tab PO SCH ×4 (08:03→20:07)
[2020-01-31] MEDS: Tiotropium Inhaler 18 MCG Inhalation Powder Cap Kit of 5 INH SCH (08:04)
[2020-01-31] MEDS: Calcium Carbonate 500 MG Tablet PO SCH (08:04)
[2020-01-31] MEDS: Multivitamins with Iron/Calcium/Folic Acid/Minerals Tab PO SCH (08:04)
[2020-01-31] MEDS: Budesonide 0.5 MG/2 ML Neb Susp INH SCH ×2 (08:04→20:08)
[2020-01-31] MEDS: Acetaminophen 500 MG Tab PO SCH ×4 (08:05→20:07)
[2020-01-31] MEDS: Cholecalciferol (Vitamin D3) 25 MCG Tab PO SCH (08:05)
[2020-01-31] MEDS: Famotidine 20 MG Tab PO SCH (20:06)
[2020-01-31] MEDS: Melatonin 3 MG Tab PO SCH (20:07)
[2020-02-01] MEDS: Pantoprazole 40 MG Tab.CR PO SCH (06:11)
[2020-02-01] MEDS: Dicyclomine 10 MG Cap PO SCH ×3 (06:33→17:52)
[2020-02-01] MEDS: Arformoterol 15 MCG/2 ML Neb Soln INH SCH ×2 (08:02→20:00)
[2020-02-01] MEDS: Budesonide 0.5 MG/2 ML Neb Susp INH SCH ×2 (08:02→20:25)
[2020-02-01] MEDS: Enoxaparin 40 MG/0.4 ML Syringe SUBCUT SCH (08:03)
[2020-02-01] MEDS: Magnesium Chloride 64 MG Tab.ER PO SCH ×2 (08:09→17:53)
[2020-02-01] MEDS: Tamsulosin 0.4 MG Cap.ER PO SCH (08:09)
[2020-02-01] MEDS: Pregabalin 75 MG Cap PO SCH ×2 (08:10→20:40)
[2020-02-01] MEDS: Ibuprofen 200 MG Tab PO SCH ×4 (08:10→20:32)
[2020-02-01] MEDS: Furosemide 20 MG Tab PO SCH (08:10)
[2020-02-01] MEDS: Potassium Chloride 10 MEQ Tab.ER PO SCH (08:10)
[2020-02-01] MEDS: Tiotropium Inhaler 18 MCG Inhalation Powder Cap Kit of 5 INH SCH (08:11)
[2020-02-01] MEDS: Calcium Carbonate 500 MG Tablet PO SCH (08:12)
[2020-02-01] MEDS: Multivitamins with Iron/Calcium/Folic Acid/Minerals Tab PO SCH (08:12)
[2020-02-01] MEDS: Cholecalciferol (Vitamin D3) 25 MCG Tab PO SCH (08:13)
[2020-02-01] MEDS: Acetaminophen 500 MG Tab PO SCH ×4 (08:13→20:31)
[2020-02-01] MEDS: Carvedilol 3.125 MG Tab PO SCH ×2 (08:13→20:31)
[2020-02-01] MEDS: Famotidine 20 MG Tab PO SCH (20:31)
[2020-02-01] MEDS: Melatonin 3 MG Tab PO SCH (20:31)
[2020-02-02] MEDS: Pantoprazole 40 MG Tab.CR PO SCH (06:39)
[2020-02-02] MEDS: Dicyclomine 10 MG Cap PO SCH ×3 (06:39→17:38)
[2020-02-02] MEDS: Arformoterol 15 MCG/2 ML Neb Soln INH SCH ×2 (08:01→20:37)
[2020-02-02] MEDS: Ferrous Sulfate 325 MG Tab PO SCH (08:01)
[2020-02-02] MEDS: Magnesium Chloride 64 MG Tab.ER PO SCH ×2 (08:01→17:38)
[2020-02-02] MEDS: Potassium Chloride 10 MEQ Tab.ER PO SCH (08:02)
[2020-02-02] MEDS: Carvedilol 3.125 MG Tab PO SCH ×2 (08:02→20:43)
[2020-02-02] MEDS: Tamsulosin 0.4 MG Cap.ER PO SCH (08:02)
[2020-02-02] MEDS: Furosemide 20 MG Tab PO SCH (08:02)
[2020-02-02] MEDS: Calcium Carbonate 500 MG Tablet PO SCH (08:03)
[2020-02-02] MEDS: Multivitamins with Iron/Calcium/Folic Acid/Minerals Tab PO SCH (08:03)
[2020-02-02] MEDS: Ibuprofen 200 MG Tab PO SCH ×4 (08:03→20:41)
[2020-02-02] MEDS: Acetaminophen 500 MG Tab PO SCH ×4 (08:03→20:42)
[2020-02-02] MEDS: Budesonide 0.5 MG/2 ML Neb Susp INH SCH ×2 (08:03→20:37)
[2020-02-02] MEDS: Enoxaparin 40 MG/0.4 ML Syringe SUBCUT SCH (08:03)
[2020-02-02] MEDS: Cholecalciferol (Vitamin D3) 25 MCG Tab PO SCH (08:04)
[2020-02-02] MEDS: Pregabalin 75 MG Cap PO SCH ×2 (08:06→20:39)
[2020-02-02] MEDS: Tiotropium Inhaler 18 MCG Inhalation Powder Cap Kit of 5 INH SCH (08:07)
[2020-02-02] MEDS: Acetaminophen/HYDROcodone 325-5 MG Tab PO PRN ×2 (08:58→20:44)
[2020-02-02] MEDS: Azithromycin 500 MG Tab PO SCH (13:53)
[2020-02-02] MEDS: Famotidine 20 MG Tab PO SCH (20:41)
[2020-02-02] MEDS: Melatonin 3 MG Tab PO SCH (20:42)
[2020-02-03] MEDS: Pantoprazole 40 MG Tab.CR PO SCH (05:44)
[2020-02-03] MEDS: Dicyclomine 10 MG Cap PO SCH ×3 (06:30→17:31)
[2020-02-03] MEDS: Budesonide 0.5 MG/2 ML Neb Susp INH SCH ×2 (08:15→20:19)
[2020-02-03] MEDS: Furosemide 20 MG Tab PO SCH (08:16)
[2020-02-03] MEDS: Ibuprofen 200 MG Tab PO SCH ×4 (08:16→20:59)
[2020-02-03] MEDS: Magnesium Chloride 64 MG Tab.ER PO SCH ×2 (08:17→17:31)
[2020-02-03] MEDS: Potassium Chloride 10 MEQ Tab.ER PO SCH (08:17)
[2020-02-03] MEDS: Multivitamins with Iron/Calcium/Folic Acid/Minerals Tab PO SCH (08:17)
[2020-02-03] MEDS: Calcium Carbonate 500 MG Tablet PO SCH (08:17)
[2020-02-03] MEDS: Carvedilol 3.125 MG Tab PO SCH ×2 (08:17→20:56)
[2020-02-03] MEDS: Tamsulosin 0.4 MG Cap.ER PO SCH (08:18)
[2020-02-03] MEDS: Cholecalciferol (Vitamin D3) 25 MCG Tab PO SCH (08:18)
[2020-02-03] MEDS: Tiotropium Inhaler 18 MCG Inhalation Powder Cap Kit of 5 INH SCH (08:18)
[2020-02-03] MEDS: Acetaminophen 500 MG Tab PO SCH ×4 (08:18→21:00)
[2020-02-03] MEDS: Enoxaparin 40 MG/0.4 ML Syringe SUBCUT SCH (08:20)
[2020-02-03] MEDS: Pregabalin 75 MG Cap PO SCH ×2 (08:23→20:58)
[2020-02-03] MEDS: Arformoterol 15 MCG/2 ML Neb Soln INH SCH ×2 (08:25→20:10)
[2020-02-03] MEDS: Melatonin 3 MG Tab PO SCH (20:58)
[2020-02-03] MEDS: Famotidine 20 MG Tab PO SCH (21:01)
[2020-02-04] MEDS: Pantoprazole 40 MG Tab.CR PO SCH (06:41)
[2020-02-04] MEDS: Dicyclomine 10 MG Cap PO SCH ×3 (06:45→17:34)
[2020-02-04] MEDS: Arformoterol 15 MCG/2 ML Neb Soln INH SCH ×2 (08:36→20:23)
[2020-02-04] MEDS: Tamsulosin 0.4 MG Cap.ER PO SCH (08:36)
[2020-02-04] MEDS: Furosemide 20 MG Tab PO SCH (08:36)
[2020-02-04] MEDS: Potassium Chloride 10 MEQ Tab.ER PO SCH (08:36)
[2020-02-04] MEDS: Magnesium Chloride 64 MG Tab.ER PO SCH ×2 (08:36→17:34)
[2020-02-04] MEDS: Ferrous Sulfate 325 MG Tab PO SCH (08:36)
[2020-02-04] MEDS: Enoxaparin 40 MG/0.4 ML Syringe SUBCUT SCH (08:36)
[2020-02-04] MEDS: Multivitamins with Iron/Calcium/Folic Acid/Minerals Tab PO SCH (08:37)
[2020-02-04] MEDS: Ibuprofen 200 MG Tab PO SCH ×4 (08:37→20:24)
[2020-02-04] MEDS: Calcium Carbonate 500 MG Tablet PO SCH (08:37)
[2020-02-04] MEDS: Cholecalciferol (Vitamin D3) 25 MCG Tab PO SCH (08:37)
[2020-02-04] MEDS: Tiotropium Inhaler 18 MCG Inhalation Powder Cap Kit of 5 INH SCH (08:37)
[2020-02-04] MEDS: Budesonide 0.5 MG/2 ML Neb Susp INH SCH ×2 (08:37→20:24)
[2020-02-04] MEDS: Acetaminophen 500 MG Tab PO SCH ×4 (08:37→20:23)
[2020-02-04] MEDS: Pregabalin 75 MG Cap PO SCH ×2 (08:41→20:33)
[2020-02-04] MEDS: Carvedilol 3.125 MG Tab PO SCH ×2 (09:48→20:25)
[2020-02-04] MEDS: Acetaminophen/HYDROcodone 325-5 MG Tab PO PRN ×2 (09:49→20:33)
[2020-02-04] MEDS: Azithromycin 500 MG Tab PO SCH (13:45)
[2020-02-04] MEDS: Famotidine 20 MG Tab PO SCH (20:26)
[2020-02-04] MEDS: Melatonin 3 MG Tab PO SCH (20:26)
[2020-02-05] MEDS: Dicyclomine 10 MG Cap PO SCH ×3 (06:33→17:31)
[2020-02-05] MEDS: Acetaminophen/HYDROcodone 325-5 MG Tab PO PRN ×2 (06:33→13:46)
[2020-02-05] MEDS: Pantoprazole 40 MG Tab.CR PO SCH (06:33)
[2020-02-05] MEDS: Arformoterol 15 MCG/2 ML Neb Soln INH SCH ×2 (08:25→20:22)
[2020-02-05] MEDS: Furosemide 20 MG Tab PO SCH (08:25)
[2020-02-05] MEDS: Enoxaparin 40 MG/0.4 ML Syringe SUBCUT SCH (08:25)
[2020-02-05] MEDS: Tamsulosin 0.4 MG Cap.ER PO SCH (08:25)
[2020-02-05] MEDS: Potassium Chloride 10 MEQ Tab.ER PO SCH (08:25)
[2020-02-05] MEDS: Carvedilol 3.125 MG Tab PO SCH ×2 (08:25→20:21)
[2020-02-05] MEDS: Magnesium Chloride 64 MG Tab.ER PO SCH ×2 (08:25→17:31)
[2020-02-05] MEDS: Budesonide 0.5 MG/2 ML Neb Susp INH SCH ×2 (08:26→20:22)
[2020-02-05] MEDS: Pregabalin 75 MG Cap PO SCH ×2 (08:26→20:22)
[2020-02-05] MEDS: Ibuprofen 200 MG Tab PO SCH (08:26)
[2020-02-05] MEDS: Calcium Carbonate 500 MG Tablet PO SCH (08:26)
[2020-02-05] MEDS: Multivitamins with Iron/Calcium/Folic Acid/Minerals Tab PO SCH (08:27)
[2020-02-05] MEDS: Tiotropium Inhaler 18 MCG Inhalation Powder Cap Kit of 5 INH SCH (08:27)
[2020-02-05] MEDS: Acetaminophen 500 MG Tab PO SCH ×4 (08:27→20:22)
[2020-02-05] MEDS: Cholecalciferol (Vitamin D3) 25 MCG Tab PO SCH (08:27)
[2020-02-05] MEDS ORDERED: Ibuprofen 200 MG Tab PO PRN (09:44)
[2020-02-05] MEDS: Melatonin 3 MG Tab PO SCH (20:22)
[2020-02-05] MEDS: Famotidine 20 MG Tab PO SCH (20:22)
[2020-02-06] MEDS: Polyethylene Glycol 3350 Powder 17 GM Packet PO PRN (03:17)
[2020-02-06] MEDS: Acetaminophen/HYDROcodone 325-5 MG Tab PO PRN (06:07)
[2020-02-06] MEDS: Pantoprazole 40 MG Tab.CR PO SCH (06:08)
[2020-02-06] MEDS: Dicyclomine 10 MG Cap PO SCH (08:29)
[2020-02-06] MEDS: Pregabalin 75 MG Cap PO SCH (08:29)
[2020-02-06] MEDS: Arformoterol 15 MCG/2 ML Neb Soln INH SCH (08:30)
[2020-02-06] MEDS: Tamsulosin 0.4 MG Cap.ER PO SCH (08:30)
[2020-02-06] MEDS: Cholecalciferol (Vitamin D3) 25 MCG Tab PO SCH (08:30)
[2020-02-06] MEDS: Magnesium Chloride 64 MG Tab.ER PO SCH (08:30)
[2020-02-06] MEDS: Acetaminophen 500 MG Tab PO SCH (08:30)
[2020-02-06] MEDS: Ferrous Sulfate 325 MG Tab PO SCH (08:30)
[2020-02-06] MEDS: Enoxaparin 40 MG/0.4 ML Syringe SUBCUT SCH (08:31)
[2020-02-06] MEDS: Potassium Chloride 10 MEQ Tab.ER PO SCH (08:31)
[2020-02-06] MEDS: Budesonide 0.5 MG/2 ML Neb Susp INH SCH (08:31)
[2020-02-06] MEDS: Multivitamins with Iron/Calcium/Folic Acid/Minerals Tab PO SCH (08:31)
[2020-02-06] MEDS: Furosemide 20 MG Tab PO SCH (08:31)
[2020-02-06] MEDS: Tiotropium Inhaler 18 MCG Inhalation Powder Cap Kit of 5 INH SCH (08:31)
[2020-02-06] MEDS: Calcium Carbonate 500 MG Tablet PO SCH (08:32)
[2020-02-06] MEDS: Carvedilol 3.125 MG Tab PO SCH (09:14)
--- NOTE | 2020-02-06 11:07 | PCM.DCSUM1 ---
Discharge Summary - Hospital Course HPI Initial Comments: Acute HPI: Crystal was using a bedside commode last night when she was trying to get up the commode broke, throwing her to the left side, hitting her left hip and shoulder on the floor. She sustained a non-displaced trochanter fracture adjacent to her left hip prosthesis. She had seen her orthopedic yesterday morning, John Pena PA-C for recheck of her right patellar fracture, they had adjusted her knee brace and told her it was healing well. Denies any fevers , chills, cough, shortness of breath, or chest pain. No nausea, vomiting or diarrhea. No change in her urinary habits, no burning. Pain is currently controlled, icing her left hip. She is not on oxygen at home, her COPD is stable per patient, feels she is at her base line. Hospital course: Crystal was admitted Sunday evening for non-displaced left greater trochanter fracture adjacent to left hip prosthesis. Spoke with [facility], Dr Dutton on Sunday morning, reviewed her CT pelvis & femur x-ray , advised that this is a non-surgical fracture, recommended 50% weight bearing, NO hip ABduction with follow up with Orthopedics in 1 week. Patient had right patellar fracture, healing with knee immobilizer on when out of bed, 100% weight bearing. Her COPD is stable. Labs stable on admission. She was evaluated by PT/OT who recommended swing bed placement for rehab therapies. She will be transferred to swing bed care today and anticipate discharge back to the [facility]. Diagnosis: Stroke: No - Discharge Data Discharge Date: 02/06/20 ([facility]) Discharge Disposition: Home, W Home Health Agency 06 Condition: Good - Referral to Home Health Date of Face to Face Encounter: 02/06/20 Reason for Homebound Status: [facility] Primary Care Physician: Te Lee MD Skilled Need: PT/OT - Discharge Diagnosis/Problem(s) (1) Fracture of greater trochanter of left femur SNOMED Code(s): 916090671, 44689343788113747 ICD Code: S72.112A - DISP FX OF GREATER TROCHANTER OF LEFT FEMUR, INIT Status: Acute Current Visit: No Onset Date: ~01/02/20 Qualifiers: Encounter type: sequela Fracture type: closed Fracture alignment: nondisplaced Qualified Code(s): S72.115S - Nondisplaced fracture of greater trochanter of left femur, sequela (2) Fracture of patella, right, closed SNOMED Code(s): 03627197, 11103798008586872 ICD Code: S82.001A - UNSP FRACTURE OF RIGHT PATELLA, INIT FOR CLOS FX Status: Acute Current Visit: No Onset Date: ~12/12/19 Qualifiers: Encounter type: sequela Fracture morphology: unspecified fracture morphology (3) Hx of total hip arthroplasty SNOMED Code(s): 146378692203, 584530953858 ICD Code: Z96.649 - PRESENCE OF UNSPECIFIED ARTIFICIAL HIP JOINT Status: Chronic Current Visit: No Qualifiers: Laterality: left Qualified Code(s): Z96.642 - Presence of left artificial hip joint (4) Stage III chronic kidney disease SNOMED Code(s): 980037955 ICD Code: N18.3 - CHRONIC KIDNEY DISEASE, STAGE 3 (MODERATE) Status: Chronic Current Visit: No (5) COPD (chronic obstructive pulmonary disease) SNOMED Code(s): 74919859 ICD Code: J44.9 - CHRONIC OBSTRUCTIVE PULMONARY DISEASE, UNSPECIFIED Status : Chronic Current Visit: No Qualifiers: COPD type: unspecified COPD Qualified Code(s): J44.9 - Chronic obstructive pulmonary disease, unspecified (6) GERD (gastroesophageal reflux disease) SNOMED Code(s): 670263273 ICD Code: K21.9 - GASTRO-ESOPHAGEAL REFLUX DISEASE WITHOUT ESOPHAGITIS Status: Chronic Current Visit: No Qualifiers: Esophagitis presence: without esophagitis Qualified Code(s): K21.9 - Gastro -esophageal reflux disease without esophagitis (7) DNI (do not intubate) SNOMED Code(s): 842793533 ICD Code: Z78.9 - OTHER SPECIFIED HEALTH STATUS Status: Chronic Current Visit: No (8) DNR no code (do not resuscitate) Status: Chronic Current Visit: No (9) Former smoker SNOMED Code(s): 6225512 ICD Code: Z87.891 - PERSONAL HISTORY OF NICOTINE DEPENDENCE Status: Chronic Current Visit: No (10) Palliative care status SNOMED Code(s): 334662726 ICD Code: Z51.5 - ENCOUNTER FOR PALLIATIVE CARE Status: Chronic Current Visit: No - Patient Summary/Data Consults: Consultations 01/05/20 14:04 OT Evaluation and Treatment [CONS] Routine Please Evaluate and Treat. OT Reason for Consult: ADL's Special Instructions: 50% weight bearing on left, no hip abduction on left; 100% on right, brace on when out of bed. This query below is only for informational purposes and is not editable. PT Evaluation and Treatment [CONS] Routine Please Evaluate and Treat. PT Reason for Consult: Ambulation Special Instructions: 50% weight bearing on left, no hip abduction on left; 100% on right, brace on when out of bed. This query below is only for informational purposes and is not editable. Hospital Course: Crystal has progressed nicely during her swing bed stay for Rehab services, she had repeat x-rays done prior to her ortho appt last week. Ortho discontinued her leg brace for her patellar fracture. She is as tolerated for weight bearing on the left, she reports that she's not full weight bearing maybe 75%. She has not required oxygen during her swing bed course, stable in regards to her COPD. She is requiring [place] twice a day for breakthrough pain with schedule Tylenol and as needed low dose Ibuprofen. Will go back to the [facility] with PT/OT. - Patient Instructions Diet: Regular Diet as Tolerated Activity: As Tolerated Showering/Bathing: May Shower Notify Provider of: Fever, Increased Pain, Nausea and/or Vomiting Other/Special Instructions: Follow up with Jesse Sanchez PA-C at [facility] in 1 week. - Discharge Plan *PRESCRIPTION DRUG MONITORING PROGRAM REVIEWED*: Yes *COPY OF PRESCRIPTION DRUG MONITORING REPORT IN PATIENT AMITA: No Prescriptions/Med Rec: Acetaminophen/HYDROcodone [[place] 325-5 MG] 1 tab PO Q6H PRN 5 Days #10 tab PRN Reason: Pain (Severe 7-10) Home Medications: Home Meds Aspirin [Adult Low Dose Aspirin EC] 81 mg PO DAILY 10/23/17 [History] Pregabalin [Lyrica] 75 mg PO BID 10/23/17 [History] Calcium Carb/Vitamin D3/Vit K1 [Calcium + D Soft Chewable Tab] 1 tab PO DAILY [History] Loratadine [Claritin] 10 mg PO DAILY 05/04/18 [History] Omeprazole 20 mg PO DAILY 05/04/18 [History] Melatonin 9 mg PO BEDTIME 05/06/18 [History] Albuterol [Ventolin HFA] 2 puff IH Q4H PRN 08/12/18 [History] polyethylene glycoL 3350 [MiraLAX] 17 gm PO DAILY PRN 08/12/18 [History] Furosemide [Lasix] 20 mg PO DAILY 08/26/18 [History] Arformoterol [Brovana] 15 mcg INH BID 05/07/19 [History] Bifidobacterium Infantis [Align] 4 mg PO BID 05/07/19 [History] Budesonide [Pulmicort] 0.5 mg PO BID 05/07/19 [History] Dicyclomine [Bentyl] 10 mg PO TIDAC 05/07/19 [History] Ferrous Gluconate 324 mg PO MOWEFR@08 05/07/19 [History] Incruse 62.5 mcg IH DAILY 05/07/19 [History] Loperamide [Imodium AD] 2 mg PO ASDIRECTED PRN 05/07/19 [History] Magnesium Chloride [Mag-64] 64 mg PO BIDMEALS 05/07/19 [History] Potassium Chloride 10 meq PO DAILY 05/07/19 [History] Tamsulosin HCl [Flomax] 0.4 mg PO DAILY 05/07/19 [History] carvediloL [Coreg] 3.125 mg PO BID 05/07/19 [History] Azithromycin 500 mg PO MOWEFR 12/12/19 [History] Famotidine 40 mg PO BEDTIME 12/12/19 [History] Bisacodyl [Laxative Suppository] 10 mg RC Q3D PRN 01/02/20 [History] Cholecalciferol (Vitamin D3) [Vitamin D3] 1,000 unit PO DAILY 01/02/20 [History] Magnesium Hydroxide [Milk of Magnesia] 30 ml PO DAILY PRN 01/02/20 [History] Multivit-Min/FA/Lycopen/Lutein [Certavite Sr-Antioxidant Tab] 1 each PO DAILY [History] guaiFENesin [Robitussin] 200 mg PO Q4H PRN 01/02/20 [History] Albuterol Sulfate 1.25 mg IH Q4H PRN 01/05/20 [History] Acetaminophen [Tylenol Extra Strength] 500 mg PO QID tablet 02/06/20 [Rx] Acetaminophen/HYDROcodone [[place] 325-5 MG] 1 tab PO Q6H PRN 5 Days #10 tab 02/05 [Rx] Ibuprofen [Motrin] 200 mg PO QID PRN tablet 02/06/20 [Rx] Maintain SPO2% less than: 92 Maintain SpO2% greater than: 88 Patient Handouts: Hip Fracture, Fall Prevention in Hospitals, Adult, Venous Thromboembolism Prevention Referrals: Jesse Sanchez PA [Physician Senior Payroll Manager] - - Discharge Summary/Plan Comment DC Time >30 min.: Yes - General Info Date of Service: 02/06/20 Admission Dx/Problem (Free Text: Pain well controlled, right leg brace was discontinued by ortho, 75% weight bearing currently on left leg per patient. As tolerated per ortho. No shortness of breath, chest pain and bowel movements regular. Functional Status: Reports: Pain Controlled, Tolerating Diet, Ambulating, Urinating - Patient Data Vitals - Most Recent: Last Vital Signs Temp 98.7 F 02/06/20 03:06 Pulse 85 02/06/20 09:14 Resp 16 02/06/20 03:06 BP 116/68 02/06/20 09:14 Pulse Ox 89 L 02/06/20 03:06 Weight - Most Recent: 166 lb Lab Results - Last 24 hrs: Laboratory Results - last 24 hr 02/06/20 Range/Units 06:06 SARS Virus RNA (PCR) Negative (NEGATIVE) Med Orders - Current: Current Medications Acetaminophen (Tylenol Extra Strength) 500 mg PO QID [facility] Last Admin: 02/06/20 08:30 Dose: 500 mg Hydrocodone Bitart/Acetaminophen ([place] 325-5 Mg) 1 tab PO Q4H PRN PRN Reason: Pain (moderate 4-6) Last Admin: 02/06/20 06:07 Dose: 1 tab Albuterol (Proventil Neb Soln) 2.5 mg INH Q4H PRN PRN Reason: SHORTNESS OF BREATH Arformoterol Tartrate (Brovana) 15 mcg INH BID [facility] Last Admin: 02/06/20 08:30 Dose: 15 mcg Azithromycin (Zithromax) 500 mg PO MOWEFR [facility] Last Admin: 02/04/20 13:45 Dose: 500 mg Bisacodyl (Dulcolax) 10 mg RECTAL Q3D PRN PRN Reason: CONSTIPATION Budesonide (Pulmicort) 0.5 mg INH BID [facility] Last Admin: 02/06/20 08:31 Dose: 0.5 mg Calcium Carbonate/Glycine (Oyster Shell Calcium) 500 mg PO DAILY [facility] Last Admin: 02/06/20 08:32 Dose: 500 mg Carvedilol (Coreg) 3.125 mg PO BID [facility] Last Admin: 02/06/20 09:14 Dose: 3.125 mg Cholecalciferol (Vitamin D3) 25 mcg PO DAILY [facility] Last Admin: 02/06/20 08:30 Dose: 25 mcg Dicyclomine HCl (Bentyl) 10 mg PO TIDAC [facility] Last Admin: 02/06/20 08:29 Dose: 10 mg Docusate Sodium (Colace) 100 mg PO BID PRN PRN Reason: Constipation Enoxaparin Sodium (Lovenox) 40 mg SUBCUT Q24H [facility] Last Admin: 02/06/20 08:31 Dose: 40 mg Famotidine (Pepcid) 40 mg PO BEDTIME [facility] Last Admin: 02/05/20 20:22 Dose: 40 mg Ferrous Sulfate (Ferrous Sulfate) 325 mg PO MoWeFr@0800 [facility] Last Admin: 02/06/20 08:30 Dose: 325 mg Furosemide (Lasix) 20 mg PO DAILY [facility] Last Admin: 02/06/20 08:31 Dose: 20 mg Guaifenesin (Robitussin) 200 mg PO Q4H PRN PRN Reason: Cough Last Admin: 01/10/20 23:07 Dose: 200 mg Ibuprofen (Motrin) 200 mg PO QID PRN PRN Reason: PAIN Loperamide HCl (Imodium) 2 mg PO ASDIRECTED PRN PRN Reason: DIARRHEA Magnesium Chloride (Mag-64) 64 mg PO BIDMEALS [facility] Last Admin: 02/06/20 08:30 Dose: 64 mg Melatonin (Melatonin) 9 mg PO BEDTIME [facility] Last Admin: 02/05/20 20:22 Dose: 9 mg Multivitamins/Minerals (Thera M Plus) 1 tab PO DAILY [facility] Last Admin: 02/06/20 08:31 Dose: 1 tab Ondansetron HCl (Zofran Odt) 4 mg PO Q4H PRN PRN Reason: nausea, able to take PO Last Admin: 01/13/20 16:44 Dose: 4 mg Pantoprazole Sodium (Protonix) 40 mg PO 0600 [facility] Last Admin: 02/06/20 06:08 Dose: 40 mg Polyethylene Glycol (Miralax) 17 gm PO DAILY PRN PRN Reason: Constipation Last Admin: 02/06/20 03:17 Dose: 17 gm Potassium Chloride (Klor-Con 10) 10 meq PO DAILY [facility] Last Admin: 02/06/20 08:31 Dose: 10 meq Pregabalin (Lyrica) 75 mg PO BID [facility] Last Admin: 02/06/20 08:29 Dose: 75 mg Tamsulosin HCl (Flomax) 0.4 mg PO DAILY [facility] Last Admin: 02/06/20 08:30 Dose: 0.4 mg Tiotropium [place] (Spiriva Handihaler) 18 mcg INH DAILY [facility] Last Admin: 02/06/20 08:31 Dose: 18 mcg Discontinued Medications Ibuprofen (Motrin) 200 mg PO QID [facility] Last Admin: 02/05/20 08:26 Dose: 200 mg Polyethylene Glycol (Miralax) 17 gm PO DAILY PRN PRN Reason: Constipation - Exam Quality Assessment: Denies: Supplemental Oxygen General: Reports: Alert, Oriented, Cooperative, No Acute Distress Lungs: Reports: Clear to Auscultation, Normal Respiratory Effort. Denies: Wheezing Cardiovascular: Reports: Regular Rate, Regular Rhythm GI/Abdominal Exam: Normal Bowel Sounds, Soft, Non-Tender, No Distention Extremities: No Pedal Edema
== END 2020-02-06 10:45 | disposition home health service (06) | DRG 561 ==
LOC: FB.MS 13:30
PROVIDERS: ADMIT Family Medicine; ATTEND Family Medicine
DX: S72.115D Nondisplaced fracture of greater trochanter of left femur, subsequent encounter for closed fracture with routine healing (principal); M97.02XD Periprosthetic fracture around internal prosthetic left hip joint, subsequent encounter; S82.002D Unspecified fracture of left patella, subsequent encounter for closed fracture with routine healing; N18.3 Chronic kidney disease, stage 3 (moderate); Z66 Do not resuscitate; J44.9 Chronic obstructive pulmonary disease, unspecified; Z51.5 Encounter for palliative care; K21.9 Gastro-esophageal reflux disease without esophagitis; Z87.891 Personal history of nicotine dependence; H54.7 Unspecified visual loss; K59.09 Other constipation; Z86.010 Personal history of colon polyps; Z87.01 Personal history of pneumonia (recurrent); D64.9 Anemia, unspecified; M81.0 Age-related osteoporosis without current pathological fracture; Z79.01 Long term (current) use of anticoagulants; Z85.828 Personal history of other malignant neoplasm of skin; Z90.89 Acquired absence of other organs; Z96.642 Presence of left artificial hip joint; Z79.82 Long term (current) use of aspirin; Z79.899 Other long term (current) drug therapy; Z96.652 Presence of left artificial knee joint; W19.XXXD Unspecified fall, subsequent encounter
CPT/HCPCS: 73552-LT; 73562-RT; 81001; 82962; 94150; 94640; 97110-GO; 97110-GP; 97116-GP; 97530-GO; 97530-GP; 97535-GO; 97542-GO; A9270-GY; J1650; J7605; U0002

== ENCOUNTER 2020-07-01 09:55 | Emergency (ER) | payer MEDICARE, OTHER ==
[2020-07-01] MEDS ORDERED: predniSONE 20 MG Tab PO ONE (10:29)
[2020-07-01] MEDS ORDERED: Ondansetron 4 MG Tab.DIS PO STA (10:29)
--- NOTE | 2020-07-01 10:41 | EDM.PDOC ---
ED HPI GENERAL MEDICAL PROBLEM - General Chief Complaint: Respiratory Problem Stated Complaint: POSS COVID Time Seen by Provider: 07/01/20 10:00 Source of Information: Reports: Patient, EMS History Limitations: Reports: No Limitations - History of Present Illness INITIAL COMMENTS - FREE TEXT/NARRATIVE: Patient presented to the ED from the [facility] because of cough,dyspnea, and fever. She was diagnosed with COVID19 10 days ago. There is no N/V/D. - Related Data Allergies Allergy/AdvReac Type Severity Reaction Status Date / Time No Known Allergies Allergy Verified 07/01/20 10:15 Home Meds: Home Meds Aspirin [Adult Low Dose Aspirin EC] 81 mg PO DAILY 10/23/17 [History] Pregabalin [Lyrica] 75 mg PO BID 10/23/17 [History] Calcium Carb/Vitamin D3/Vit K1 [Calcium + D Soft Chewable Tab] 1 tab PO DAILY 11/14/17 [History] Loratadine [Claritin] 10 mg PO DAILY 05/04/18 [History] Omeprazole 20 mg PO DAILY 05/04/18 [History] Melatonin 9 mg PO BEDTIME 05/06/18 [History] Albuterol [Ventolin HFA] 2 puff IH Q4H PRN 08/12/18 [History] polyethylene glycoL 3350 [MiraLAX] 17 gm PO DAILY PRN 08/12/18 [History] Furosemide [Lasix] 20 mg PO DAILY 08/26/18 [History] Arformoterol [Brovana] 15 mcg INH BID 05/07/19 [History] Bifidobacterium Infantis [Align] 4 mg PO BID 05/07/19 [History] Budesonide [Pulmicort] 0.5 mg PO BID 05/07/19 [History] Dicyclomine [Bentyl] 10 mg PO TIDAC 05/07/19 [History] Ferrous Gluconate 324 mg PO MOWEFR@08 05/07/19 [History] Incruse 62.5 mcg IH DAILY 05/07/19 [History] Loperamide [Imodium AD] 2 mg PO ASDIRECTED PRN 05/07/19 [History] Magnesium Chloride [Mag-64] 64 mg PO BIDMEALS 05/07/19 [History] Potassium Chloride 10 meq PO DAILY 05/07/19 [History] Tamsulosin HCl [Flomax] 0.4 mg PO DAILY 05/07/19 [History] carvediloL [Coreg] 3.125 mg PO BID 05/07/19 [History] Azithromycin 500 mg PO MOWEFR 12/12/19 [History] Famotidine 40 mg PO BEDTIME 12/12/19 [History] Bisacodyl [Laxative Suppository] 10 mg RC Q3D PRN 01/02/20 [History] Cholecalciferol (Vitamin D3) [Vitamin D3] 1,000 unit PO DAILY 01/02/20 [History] Magnesium Hydroxide [Milk of Magnesia] 30 ml PO DAILY PRN 01/02/20 [History] Multivit-Min/FA/Lycopen/Lutein [Certavite Sr-Antioxidant Tab] 1 each PO DAILY 01/02/20 [History] guaiFENesin [Robitussin] 200 mg PO Q4H PRN 01/02/20 [History] Albuterol Sulfate 1.25 mg IH Q4H PRN 01/05/20 [History] Acetaminophen [Tylenol Extra Strength] 500 mg PO QID tablet 02/06/20 [Rx] Acetaminophen/HYDROcodone [Brock 325-5 MG] 1 tab PO Q6H PRN 5 Days #10 tablet 02/06/20 [Rx] Ibuprofen [Motrin] 200 mg PO QID PRN tablet 02/06/20 [Rx] Azithromycin [Zithromax] 250 mg PO DAILY #6 tablet 07/01/20 [Rx] Ondansetron [Zofran ODT] 4 mg PO Q4H PRN #7 tab.dis 07/01/20 [Rx] predniSONE [Prednisone] 40 mg PO DAILY #10 tablet 07/01/20 [Rx] Past Medical History HEENT History: Reports: Impaired Vision Other HEENT History: wears glasses. Has ear wax build up and needs gerald cleaned out Cardiovascular History: Reports: None Respiratory History: Reports: COPD, Pneumonia, Recurrent, SOB Other Respiratory History: Nicotine dependence, acute and chronic respiratory failure. 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 Endocrine/Metabolic History: Reports: None Hematologic History: Reports: Anemia, Anticoagulation Therapy, Blood Transfusion(s) Other Hematologic History: ASA 81mg Daily Immunologic History: Reports: None Oncologic (Cancer) History: Reports: Basal Cell Carcinoma, Other (See Below) Other Oncologic History: removed mole from by right eye Dermatologic History: Reports: Psoriasis Other Dermatologic History: years ago - Infectious Disease History Infectious Disease History: Reports: Measles - Past Surgical History Head Surgeries/Procedures: Reports: None HEENT Surgical History: Reports: Adenoidectomy, Tonsillectomy Respiratory Surgical History: Reports: None GI Surgical History: Reports: Colonoscopy Musculoskeletal Surgical History: Reports: Hip Replacement, Knee Replacement, Other (See Below) Other Musculoskeletal Surgeries/Procedures:: fx hip left and knee replacement left Oncologic Surgical History: Reports: None Dermatological Surgical History: Reports: None Social & Family History - Family History Family Medical History: Noncontributory - Tobacco Use Tobacco Use Status *Q: Former Tobacco User Used Tobacco, but Quit: Yes Month/Year Tobacco Last Used: unable to remember. - Caffeine Use Caffeine Use: Reports: Coffee Other Caffeine Use: 1-2 cups per day - Recreational Drug Use Recreational Drug Use: No ED ROS GENERAL - Review of Systems Review Of Systems: See Below Constitutional: Reports: Fever HEENT: Reports: Rhinitis Respiratory: Reports: Shortness of Breath, Cough Cardiovascular: Reports: No Symptoms Endocrine: Reports: No Symptoms GI/Abdominal: Reports: No Symptoms : Reports: No Symptoms Musculoskeletal: Reports: No Symptoms Skin: Reports: No Symptoms Neurological: Reports: No Symptoms Psychiatric: Reports: No Symptoms ED EXAM, GENERAL - Physical Exam Exam: See Below Exam Limited By: No Limitations General Appearance: Alert, No Apparent Distress Eye Exam: Bilateral Eye: PERRL Ears: Normal External Exam, Normal Canal Nose: Normal Inspection, Normal Mucosa, No Blood Throat/Mouth: Normal Inspection, Normal Lips, Normal Teeth Neck: Normal Inspection, Supple, Non-Tender, Full Range of Motion Respiratory/Chest: No Respiratory Distress, Lungs Clear, Wheezing Cardiovascular: Normal Peripheral Pulses, Regular Rate, Rhythm, No Edema GI/Abdominal: Normal Bowel Sounds, Soft, Non-Tender Back Exam: Normal Inspection, Full Range of Motion Extremities: Normal Inspection, Normal Range of Motion, Non-Tender Course - Vital Signs Text/Narrative:: labs/CXR result was discussed with patient Prednisone 40 mg po x1 Zofran ODT 4 mg po x1 Last Recorded V/S: Last Vital Signs Temp 36.6 C 07/01/20 09:55 Pulse 83 07/01/20 09:55 Resp 17 07/01/20 09:55 BP 103/40 L 07/01/20 09:55 Pulse Ox 92 L 07/01/20 10:55 - Orders/Labs/Meds Labs: Laboratory Tests 07/01/20 07/01/20 07/01/20 Range/Units 10:30 10:30 10:30 WBC 6.0 (4.5-12.0) X10-3/uL RBC 4.69 (3.23-5.20) x10(6)uL Hgb 12.8 (11.5-15.5) g/dL Hct 39.6 (30.0-51.3) % MCV 84.4 (80-96) fL MCH 27.3 L (27.7-33.6) pg MCHC 32.3 (32.2-35.4) g/dL RDW 13.3 (11.5-15.5) % Plt Count 257 (125-369) X10(3)uL MPV 8.0 (7.4-10.4) fL Neut % (Auto) 75.9 (46-82) % Lymph % (Auto) 15.5 (13-37) % Brooks % (Auto) 7.6 (4-12) % Eos % (Auto) 1 (1.0-5.0) % Baso % (Auto) 0 (0-2) % Neut # (Auto) 4.5 (1.6-8.3) # Lymph # (Auto) 0.9 (0.6-5.0) # Brooks # (Auto) 0.5 (0.0-1.3) # Eos # (Auto) 0.0 (0.0-0.8) # Baso # (Auto) 0.0 (0.0-0.2) # D-Dimer, Quantitative 0.58 (0.0-0.59) mg/LFEU Sodium 138 (135-145) mmol/L Potassium 4.9 (3.5-5.3) mmol/L Chloride 102 (100-110) mmol/L Carbon Dioxide 26 (21-32) mmol/L BUN 14 (7-18) mg/dL Creatinine 0.8 (0.55-1.02) mg/dL Est Cr Clr Drug Dosing 58.18 mL/min Estimated GFR (MDRD) > 60 (>60) BUN/Creatinine Ratio 17.5 (9-20) Glucose 133 H (80-116) mg/dL Calcium 8.3 L (8.6-10.2) mg/dL Total Bilirubin 0.4 (0.1-1.3) mg/dL AST 83 H D (5-25) IU/L ALT 82 H D (12-36) U/L Alkaline Phosphatase 176 H (56-112) IU/L Troponin I (4.0-60.3) pg/mL C-Reactive Protein (0.5-0.9) mg/dL NT-Pro-B Natriuret Pep (<=450) pg/mL Total Protein 6.5 (6.0-8.0) g/dL Albumin 2.9 L (3.2-4.6) g/dL Globulin 3.6 g/dL Albumin/Globulin Ratio 0.8 11//20 Range/Units 10:30 WBC (4.5-12.0) X10-3/uL RBC (3.23-5.20) x10(6)uL Hgb (11.5-15.5) g/dL Hct (30.0-51.3) % MCV (80-96) fL MCH (27.7-33.6) pg MCHC (32.2-35.4) g/dL RDW (11.5-15.5) % Plt Count (125-369) X10(3)uL MPV (7.4-10.4) fL Neut % (Auto) (46-82) % Lymph % (Auto) (13-37) % Brooks % (Auto) (4-12) % Eos % (Auto) (1.0-5.0) % Baso % (Auto) (0-2) % Neut # (Auto) (1.6-8.3) # Lymph # (Auto) (0.6-5.0) # Brooks # (Auto) (0.0-1.3) # Eos # (Auto) (0.0-0.8) # Baso # (Auto) (0.0-0.2) # D-Dimer, Quantitative (0.0-0.59) mg/LFEU Sodium (135-145) mmol/L Potassium (3.5-5.3) mmol/L Chloride (100-110) mmol/L Carbon Dioxide (21-32) mmol/L BUN (7-18) mg/dL Creatinine (0.55-1.02) mg/dL Est Cr Clr Drug Dosing mL/min Estimated GFR (MDRD) (>60) BUN/Creatinine Ratio (9-20) Glucose (80-116) mg/dL Calcium (8.6-10.2) mg/dL Total Bilirubin (0.1-1.3) mg/dL AST (5-25) IU/L ALT (12-36) U/L Alkaline Phosphatase (56-112) IU/L Troponin I 6.4 (4.0-60.3) pg/mL C-Reactive Protein 10.4 H* (0.5-0.9) mg/dL NT-Pro-B Natriuret Pep 281 (<=450) pg/mL Total Protein (6.0-8.0) g/dL Albumin (3.2-4.6) g/dL Globulin g/dL Albumin/Globulin Ratio Meds: Medications Discontinued Medications Generic Name Dose Route Start Last Admin Trade Name Freq PRN Reason Stop Dose Admin Ondansetron HCl 4 mg 07/01/20 10:29 07/01/20 10:38 Zofran Odt PO 07/01/20 10:30 4 mg NOW STA Administration Prednisone 40 mg 07/01/20 10:29 07/01/20 10:38 Prednisone PO 07/01/20 10:30 40 mg ONETIME ONE Administration Departure - Departure Time of Disposition: 11:40 Disposition: Home, Self-Care 01 Condition: Good Clinical Impression: COVID-19, COPD exacerbation - Discharge Information Prescriptions: predniSONE [Prednisone] 40 mg PO DAILY #10 tablet Azithromycin [Zithromax] 250 mg PO DAILY #6 tablet Ondansetron [Zofran ODT] 4 mg PO Q4H PRN #7 tab.dis PRN Reason: Nausea Instructions: Chronic Obstructive Pulmonary Disease Exacerbation, [id number], COVID-19 Frequently Asked Questions Referrals: Pamella Segura, [facility] [Primary Care Provider] - Forms: ED Department Discharge Additional Instructions: Please read discharge instructions on COVID 19 and COPD exacerbation Increase oral fluids Zofran ODT 4 mg every 4 hours as needed for nausea Z-brandon as directed Prednisone 20mg, take 2 tablets daily starting tomorrow for 5 days Use your inhalers as directed Follow up as needed Sepsis Event Note (ED) - Evaluation Sepsis Screening Result: No Definite Risk - Focused Exam Vital Signs: Vital Signs Temp Pulse Resp BP Pulse Ox Pulse Ox 07/01/20 10:55 92 L 07/01/20 09:55 36.6 C 83 17 103/40 L 87 L
--- NOTE | 2020-07-01 11:13 | CR ---
INDICATION: Dyspnea. CHEST, ONE VIEW: An AP upright view of the chest was obtained 07/01/20 and compared with 05/09/19 and 08/26/18. The heart did not appear enlarged, but is emphasized by rotation of the chest to the left. There may be some very minimal calcification in the arch of the aorta. Heavy markings are noted in the right mid to lower lung field and left lower lung field likely fibrotic in nature. Overall, they appear similar to the 2018 examination. This appearance does make it difficult to entirely exclude minimal patchy bronchopneumonia superimposed. However, no definite consolidating pneumonia or pleural effusion could be identified acutely. MTDD
== END 2020-07-01 11:48 | disposition home or self-care (01) ==
LOC: FB.ED 09:55
DX: U07.1 COVID-19 (principal); J44.1 Chronic obstructive pulmonary disease with (acute) exacerbation; G62.9 Polyneuropathy, unspecified; K21.9 Gastro-esophageal reflux disease without esophagitis; Z79.899 Other long term (current) drug therapy; Z79.82 Long term (current) use of aspirin; Z87.891 Personal history of nicotine dependence
CPT/HCPCS: 36415; 71045; 80053; 83880; 84484; 85025; 85379; 86140; 99285; A9270; J7512

== ENCOUNTER 2023-06-16 11:48 | Inpatient (IN) | payer MEDICARE, OTHER ==
[2023-06-16 12:51] LABS: HEMATOCRIT 40.5 % (34.2-48.2); HEMOGLOBIN 13.3 g/dL (11.4-15.5); MEAN CORPUSCULAR HEMOGLOBIN 28.5 pg (23.9-33.9); MEAN CORPUSCULAR HGB CONC 32.8 g/dL (31.9-34.8); MEAN PLATELET VOLUME 7.7 fL (7.1-12.4); PLATELET COUNT,PLT 254 x10(3)uL (151-488); RED BLOOD CELL COUNT 4.66 x10(6)uL (3.60-5.20); RED CELL DISTRIBUTION WIDTH 13.8 % (12.3-16.5); WHITE BLOOD CELL COUNT,WBC 17.2 x10-3/uL (3.0-10.3)
[2023-06-16 12:54] LABS: BLOOD UREA NITROGEN,BUN 12 mg/dL (7-18); CALCIUM 9.5 mg/dL (8.6-10.2); CARBON DIOXIDE,CO2 32 mmol/L (21-32); CHLORIDE,CL 98 mmol/L (100-110); CREATININE 0.8 mg/dL (0.55-1.02); EST CRCL DRUG DOSING (CG) 53.38 mL/min; ESTIMATED GFR 75 mL/min (>60); GLUCOSE RANDOM 145 mg/dL (80-116); POTASSIUM,K 4.7 mmol/L (3.5-5.3); SODIUM,NA 133 mmol/L (135-145)
[2023-06-16 12:55] LABS: BASE EXCESS VENOUS,POC 4 mmol/L (-2 - 3+); PCO2 VENOUS,POC 55 mmHg (41-51); PH VENOUS,POC 7.36 pH Units (7.32-7.43)
[2023-06-16 13:02] LABS: A/G RATIO 0.8; ALANINE AMINOTRANSFERASE,ALT 72 U/L (12-36); ALBUMIN 3.3 g/dL (3.2-4.6); ALKALINE PHOSPHATASE 94 IU/L (56-112); ASPARTATE AMNIOTRANSFERASE,AST 35 IU/L (5-25); BILIRUBIN TOTAL 0.7 mg/dL (0.1-1.3); PROTEIN TOTAL,TP 7.4 g/dL (6.0-8.0)
[2023-06-16 13:04] LABS: LYMPHOCYTES PERCENT MAN 9 % (13-37); MONOCYTES PERCENT MAN 6 % (4-12); SEG NEUTROPHILS PERCENT MAN 85 % (46-82)
[2023-06-16] MEDS ORDERED: Albuterol/Ipratropium 3.0-0.5 MG/3 ML Neb Soln NEB ONE (13:15)
[2023-06-16 13:19] LABS: TROPONIN I 13.2 pg/mL (4.0-60.3)
[2023-06-16 13:23] LABS: INFLUENZA A NAA NEGATIVE (NEGATIVE); INFLUENZA B NAA NEGATIVE (NEGATIVE); RESPIRATORY SYNCYTIAL VIR NAA NEGATIVE (NEGATIVE)
[2023-06-16 13:26] LABS: C-REACTIVE PROTEIN 13.71 mg/dL (<0.33)
[2023-06-16 13:31] LABS: CORONAVIRUS COVID-19 NAA NEGATIVE (NEGATIVE)
[2023-06-16] MEDS ORDERED: Sodium Chloride 0.9% 500 ML IV ONE (13:41)
[2023-06-16 13:44] LABS: BILIRUBIN,URINE NEGATIVE (NEGATIVE); GLUCOSE,URINE NORMAL (NORMAL); KETONES,URINE NEGATIVE (NEGATIVE); LEUKOCYTE ESTERASE,URINE MODERATE (NEGATIVE); NITRITE,URINE NEGATIVE (NEGATIVE); OCCULT BLOOD,URINE MODERATE (NEGATIVE); PROTEIN,URINE NEGATIVE (NEGATIVE); UROBILINOGEN,URINE NORMAL (NEGATIVE)
[2023-06-16 13:53] LABS: APPEARANCE,URINE CLEAR (CLEAR); BACTERIA,URINE FEW (NS); COLOR,URINE YELLOW (YELLOW); HYALINE CASTS,URINE FEW (NS); MUCUS,URINE FEW (NS); RBC,URINE 0-5 (0-5); SQUAMOUS EPITHELIAL CELLS,UR FEW (NS,R,O); WBC,URINE 0-5 (0-5)
[2023-06-16] MEDS ORDERED: Iopamidol 755 Mg/ML 100 ML Bottle IV ONE (15:36)
[2023-06-16] MEDS ORDERED: Ondansetron 4 MG/2 ML SDV IV PRN (16:32)
[2023-06-16] MEDS ORDERED: Albuterol 0.083% 2.5 MG/3 ML Neb Soln NEB PRN (16:32)
[2023-06-16] MEDS ORDERED: Docusate Sodium 100 MG Cap PO PRN (16:32)
[2023-06-16] MEDS ORDERED: Acetaminophen 325 MG Tab PO PRN (16:32)
[2023-06-16] MEDS ORDERED: Doxycycline 100 MG Vial ONE (16:51)
[2023-06-16] MEDS: Pantoprazole 40 MG Vial IVPUSH SCH (17:05)
[2023-06-16] MEDS: Doxycycline 100 MG in Sodium Chloride 0.9% 100 ML IV SCH (17:10)
[2023-06-16] MEDS: methylPREDNISolone Sodium Succinate 40 MG/1 ML SDV IVPUSH SCH (17:21)
[2023-06-16] MEDS: cefTRIAXone 2 GM Vial IVPUSH SCH (19:06)
[2023-06-16] MEDS: Enoxaparin 40 MG/0.4 ML Syringe SUBCUT SCH (19:07)
[2023-06-16] MEDS: Sodium Chloride 0.9% 1,000 ML IV SCH (19:07)
[2023-06-16] MEDS: Albuterol/Ipratropium 3.0-0.5 MG/3 ML Neb Soln NEB SCH (20:22)
[2023-06-17] MEDS: Pantoprazole 40 MG Vial IVPUSH SCH ×2 (04:59→16:15)
[2023-06-17] MEDS: Doxycycline 100 MG in Sodium Chloride 0.9% 100 ML IV SCH ×2 (04:59→16:30)
[2023-06-17] MEDS: methylPREDNISolone Sodium Succinate 40 MG/1 ML SDV IVPUSH SCH (04:59)
[2023-06-17] MEDS: Sodium Chloride 0.9% 1,000 ML IV SCH (06:13)
[2023-06-17] MEDS: Albuterol/Ipratropium 3.0-0.5 MG/3 ML Neb Soln NEB SCH ×4 (06:17→20:59)
[2023-06-17 06:47] LABS: BASOPHILS ABSOLUTE AUTO 0.1 x10-3/uL (0.0-0.1); BASOPHILS PERCENT AUTO 0.6 % (0.2-1.5); HEMATOCRIT 39.3 % (34.2-48.2); HEMOGLOBIN 12.5 g/dL (11.4-15.5); LYMPHOCYTES ABSOLUTE AUTO 1.3 x10-3/uL (1.0-4.4); LYMPHOCYTES PERCENT AUTO 9.9 % (18.4-52.1); MEAN CORPUSCULAR HEMOGLOBIN 28.1 pg (23.9-33.9); MEAN CORPUSCULAR HGB CONC 31.9 g/dL (31.9-34.8); MEAN CORPUSCULAR VOLUME 88.1 fL (76.7-100.5); MEAN PLATELET VOLUME 7.8 fL (7.1-12.4); MONOCYTES ABSOLUTE AUTO 0.9 x10-3/uL (0.3-1.0); NEUTROPHILS PERCENT AUTO 82.5 % (30.8-76.2); PLATELET COUNT,PLT 263 x10(3)uL (151-488); RED BLOOD CELL COUNT 4.46 x10(6)uL (3.60-5.20); WHITE BLOOD CELL COUNT,WBC 13.3 x10-3/uL (3.0-10.3)
[2023-06-17 06:52] LABS: BLOOD UREA NITROGEN,BUN 11 mg/dL (7-18); BUN/CREATININE RATIO 15.7 (9-20); CALCIUM 8.8 mg/dL (8.6-10.2); CARBON DIOXIDE,CO2 30 mmol/L (21-32); CHLORIDE,CL 103 mmol/L (100-110); CREATININE 0.7 mg/dL (0.55-1.02); EST CRCL DRUG DOSING (CG) 63.37 mL/min; ESTIMATED GFR 88 mL/min (>60); GLUCOSE RANDOM 137 mg/dL (80-116); POTASSIUM,K 4.5 mmol/L (3.5-5.3); SODIUM,NA 138 mmol/L (135-145)
[2023-06-17] MEDS ORDERED: Polyethylene Glycol 3350 Powder 17 GM Packet PO PRN (08:07)
[2023-06-17] MEDS ORDERED: Diclofenac Sodium 1% Gel 100 GM Tube TOP PRN (08:07)
[2023-06-17] MEDS ORDERED: hydrOXYzine HCl 25 MG Tab PO PRN (08:07)
[2023-06-17] MEDS: Budesonide 0.5 MG/2 ML Neb Susp NEB SCH ×2 (09:14→20:59)
[2023-06-17] MEDS: Cholecalciferol (Vitamin D3) 25 MCG Tab PO SCH (09:43)
[2023-06-17] MEDS: Multivitamins with Iron/Calcium/Folic Acid/Minerals Tab PO SCH (09:43)
[2023-06-17] MEDS: Dicyclomine 10 MG Cap PO SCH ×3 (09:44→21:38)
[2023-06-17] MEDS: Pregabalin 75 MG Cap PO SCH ×2 (09:44→20:58)
[2023-06-17] MEDS: Loratadine 10 MG Tab PO SCH (09:44)
[2023-06-17] MEDS: Carvedilol 3.125 MG Tab PO SCH (09:44)
[2023-06-17] MEDS: Magnesium Chloride 64 MG Tab.ER PO SCH ×2 (09:44→20:58)
[2023-06-17] MEDS: Acetaminophen 500 MG Tab PO SCH ×4 (09:45→20:59)
[2023-06-17] MEDS: Furosemide 20 MG Tab PO SCH (09:45)
[2023-06-17] MEDS: methylPREDNISolone Sodium Succinate 125 MG/2 ML SDV IVPUSH SCH ×2 (09:47→18:35)
[2023-06-17] MEDS: Sertraline 25 MG Tab PO SCH (10:29)
[2023-06-17] MEDS: Aspirin 81 MG Tab.EC PO SCH (10:29)
[2023-06-17] MEDS: Psyllium 0.52 GM Cap PO SCH (10:29)
[2023-06-17] MEDS: Arformoterol 15 MCG/2 ML Neb Soln INH SCH ×2 (10:30→21:38)
[2023-06-17] MEDS: INCRUSE 62.5 MCG INH SCH (14:06)
[2023-06-17] MEDS: cefTRIAXone 2 GM Vial IVPUSH SCH (17:34)
[2023-06-17] MEDS: Enoxaparin 40 MG/0.4 ML Syringe SUBCUT SCH (18:30)
[2023-06-17] MEDS: Melatonin 3 MG Tab PO SCH (20:58)
[2023-06-17] MEDS ORDERED: Carvedilol 3.125 MG Tab PO SCH (21:00)
[2023-06-18] MEDS: methylPREDNISolone Sodium Succinate 125 MG/2 ML SDV IVPUSH SCH ×3 (02:36→18:38)
[2023-06-18] MEDS: Pantoprazole 40 MG Vial IVPUSH SCH ×2 (03:01→16:01)
[2023-06-18] MEDS: Doxycycline 100 MG in Sodium Chloride 0.9% 100 ML IV SCH ×2 (03:01→16:00)
[2023-06-18] MEDS: Budesonide 0.5 MG/2 ML Neb Susp NEB SCH ×2 (06:29→20:45)
[2023-06-18] MEDS: Albuterol/Ipratropium 3.0-0.5 MG/3 ML Neb Soln NEB SCH ×4 (06:30→20:45)
[2023-06-18] MEDS: Arformoterol 15 MCG/2 ML Neb Soln INH SCH ×2 (06:30→20:45)
[2023-06-18 06:43] LABS: HEMATOCRIT 38.3 % (34.2-48.2); HEMOGLOBIN 12.2 g/dL (11.4-15.5); MEAN CORPUSCULAR HGB CONC 31.9 g/dL (31.9-34.8); MEAN CORPUSCULAR VOLUME 87.8 fL (76.7-100.5); MEAN PLATELET VOLUME 7.7 fL (7.1-12.4); PLATELET COUNT,PLT 265 x10(3)uL (151-488); RED BLOOD CELL COUNT 4.36 x10(6)uL (3.60-5.20); RED CELL DISTRIBUTION WIDTH 14.4 % (12.3-16.5); WHITE BLOOD CELL COUNT,WBC 14.2 x10-3/uL (3.0-10.3)
[2023-06-18 06:55] LABS: BLOOD UREA NITROGEN,BUN 11 mg/dL (7-18); BUN/CREATININE RATIO 15.7 (9-20); CALCIUM 9.1 mg/dL (8.6-10.2); CARBON DIOXIDE,CO2 29 mmol/L (21-32); CHLORIDE,CL 102 mmol/L (100-110); CREATININE 0.7 mg/dL (0.55-1.02); EST CRCL DRUG DOSING (CG) 63.37 mL/min; ESTIMATED GFR 88 mL/min (>60); GLUCOSE RANDOM 164 mg/dL (80-116); POTASSIUM,K 4.3 mmol/L (3.5-5.3); SODIUM,NA 138 mmol/L (135-145)
[2023-06-18 07:09] LABS: HYPERSEGMENTED NEUTROPHILS MODERATE; LYMPHOCYTES PERCENT MAN 10 % (13-37); MONOCYTES PERCENT MAN 3 % (4-12); SEG NEUTROPHILS PERCENT MAN 87 % (46-82)
[2023-06-18] MEDS: Magnesium Chloride 64 MG Tab.ER PO SCH ×2 (08:30→20:42)
[2023-06-18] MEDS: Dicyclomine 10 MG Cap PO SCH ×3 (08:30→20:41)
[2023-06-18] MEDS: Aspirin 81 MG Tab.EC PO SCH (08:31)
[2023-06-18] MEDS: Cholecalciferol (Vitamin D3) 25 MCG Tab PO SCH (08:31)
[2023-06-18] MEDS: Multivitamins with Iron/Calcium/Folic Acid/Minerals Tab PO SCH (08:31)
[2023-06-18] MEDS: Furosemide 20 MG Tab PO SCH (08:31)
[2023-06-18] MEDS: Carvedilol 3.125 MG Tab PO SCH (08:31)
[2023-06-18] MEDS: Loratadine 10 MG Tab PO SCH (08:32)
[2023-06-18] MEDS: INCRUSE 62.5 MCG INH SCH (08:32)
[2023-06-18] MEDS: Psyllium 0.52 GM Cap PO SCH (08:33)
[2023-06-18] MEDS: Acetaminophen 500 MG Tab PO SCH ×4 (08:34→20:41)
[2023-06-18] MEDS: Sertraline 25 MG Tab PO SCH (08:34)
[2023-06-18] MEDS: Pregabalin 75 MG Cap PO SCH ×2 (08:42→20:53)
[2023-06-18] MEDS ORDERED: Tamsulosin 0.4 MG Cap.ER PO SCH (09:00)
[2023-06-18] MEDS: Sodium Chloride 0.9% 10 ML Syringe FLUSH PRN ×4 (10:19→18:38)
[2023-06-18] MEDS: cefTRIAXone 2 GM Vial IVPUSH SCH (17:08)
[2023-06-18] MEDS: Enoxaparin 40 MG/0.4 ML Syringe SUBCUT SCH (18:38)
[2023-06-18] MEDS: Melatonin 3 MG Tab PO SCH (20:41)
[2023-06-18] MEDS ORDERED: Carvedilol 6.25 MG Tab PO SCH (21:00)
[2023-06-19] MEDS: methylPREDNISolone Sodium Succinate 125 MG/2 ML SDV IVPUSH SCH (01:43)
[2023-06-19] MEDS: Sodium Chloride 0.9% 10 ML Syringe FLUSH PRN (01:44)
[2023-06-19] MEDS: Pantoprazole 40 MG Vial IVPUSH SCH (04:23)
[2023-06-19] MEDS: Doxycycline 100 MG in Sodium Chloride 0.9% 100 ML IV SCH (04:23)
[2023-06-19] MEDS: Budesonide 0.5 MG/2 ML Neb Susp NEB SCH (06:36)
[2023-06-19] MEDS: Arformoterol 15 MCG/2 ML Neb Soln INH SCH (06:36)
[2023-06-19] MEDS: Albuterol/Ipratropium 3.0-0.5 MG/3 ML Neb Soln NEB SCH ×2 (06:36→12:05)
[2023-06-19] MEDS: Sertraline 25 MG Tab PO SCH (08:09)
[2023-06-19] MEDS: Cholecalciferol (Vitamin D3) 25 MCG Tab PO SCH (08:09)
[2023-06-19] MEDS: Dicyclomine 10 MG Cap PO SCH ×2 (08:09→13:10)
[2023-06-19] MEDS: Aspirin 81 MG Tab.EC PO SCH (08:09)
[2023-06-19] MEDS: Multivitamins with Iron/Calcium/Folic Acid/Minerals Tab PO SCH (08:09)
[2023-06-19] MEDS: Acetaminophen 500 MG Tab PO SCH ×2 (08:09→13:10)
[2023-06-19] MEDS: Loratadine 10 MG Tab PO SCH (08:09)
[2023-06-19] MEDS: Pregabalin 75 MG Cap PO SCH (08:09)
[2023-06-19] MEDS: INCRUSE 62.5 MCG INH SCH (08:09)
[2023-06-19] MEDS: Carvedilol 3.125 MG Tab PO SCH (08:10)
[2023-06-19] MEDS: Magnesium Chloride 64 MG Tab.ER PO SCH (08:10)
[2023-06-19 08:47] LABS: HEMATOCRIT 41.5 % (34.2-48.2); HEMOGLOBIN 13.2 g/dL (11.4-15.5); MEAN CORPUSCULAR HEMOGLOBIN 28.2 pg (23.9-33.9); MEAN CORPUSCULAR HGB CONC 31.8 g/dL (31.9-34.8); MEAN CORPUSCULAR VOLUME 88.5 fL (76.7-100.5); PLATELET COUNT,PLT 271 x10(3)uL (151-488); RED BLOOD CELL COUNT 4.69 x10(6)uL (3.60-5.20); RED CELL DISTRIBUTION WIDTH 14.2 % (12.3-16.5); WHITE BLOOD CELL COUNT,WBC 13.1 x10-3/uL (3.0-10.3)
[2023-06-19 08:55] LABS: BLOOD UREA NITROGEN,BUN 14 mg/dL (7-18); BUN/CREATININE RATIO 17.5 (9-20); CALCIUM 8.9 mg/dL (8.6-10.2); CARBON DIOXIDE,CO2 30 mmol/L (21-32); CHLORIDE,CL 100 mmol/L (100-110); CREATININE 0.8 mg/dL (0.55-1.02); EST CRCL DRUG DOSING (CG) 55.45 mL/min; ESTIMATED GFR 75 mL/min (>60); GLUCOSE RANDOM 274 mg/dL (80-116); POTASSIUM,K 3.5 mmol/L (3.5-5.3); SODIUM,NA 138 mmol/L (135-145)
[2023-06-19] MEDS: Furosemide 20 MG Tab PO SCH (09:08)
[2023-06-19 09:10] LABS: BAND PERCENT MAN 1 % (0-6); LYMPHOCYTES PERCENT MAN 11 % (13-37); MONOCYTES PERCENT MAN 4 % (4-12); SEG NEUTROPHILS PERCENT MAN 84 % (46-82)
[2023-06-19] MEDS: Psyllium 0.52 GM Cap PO SCH (09:10)
[2023-06-19 09:11] LABS: HYPERSEGMENTED NEUTROPHILS FEW
[2023-06-19] MEDS ORDERED: Doxycycline 100 MG Tab PO SCH (16:00)
[2023-06-20] MEDS ORDERED: predniSONE 20 MG Tab PO SCH (08:00)
== END 2023-06-19 14:00 | disposition home health service (06) | DRG 189 ==
LOC: FB.ED 11:48 → FB.MS 16:22
PROVIDERS: ADMIT Family Medicine; ATTEND Family Medicine
PROC: 4A033R1 Measurement of Arterial Saturation, Peripheral, Percutaneous Approach (ICD-10-PCS; principal; 2023-06-16)
DX: J96.01 Acute respiratory failure with hypoxia (principal); J96.21 Acute and chronic respiratory failure with hypoxia; R53.1 Weakness; J44.1 Chronic obstructive pulmonary disease with (acute) exacerbation; J45.901 Unspecified asthma with (acute) exacerbation; J96.22 Acute and chronic respiratory failure with hypercapnia; E86.0 Dehydration; K21.9 Gastro-esophageal reflux disease without esophagitis; Z20.822 Contact with and (suspected) exposure to COVID-19; Z66 Do not resuscitate; G62.9 Polyneuropathy, unspecified; K59.09 Other constipation; M81.0 Age-related osteoporosis without current pathological fracture; D64.9 Anemia, unspecified; Z96.659 Presence of unspecified artificial knee joint; Z96.649 Presence of unspecified artificial hip joint; Z98.51 Tubal ligation status; Z51.5 Encounter for palliative care; Z87.891 Personal history of nicotine dependence; Z87.01 Personal history of pneumonia (recurrent); Z79.82 Long term (current) use of aspirin; Z79.51 Long term (current) use of inhaled steroids; Z79.899 Other long term (current) drug therapy; Z79.01 Long term (current) use of anticoagulants; Z98.890 Other specified postprocedural states; Z86.010 Personal history of colon polyps
CPT/HCPCS: 0241U; 36415; 71045; 71275; 80048; 80053; 81001; 83605; 83735; 83880; 84484; 85025; 85379; 86140; 87040; 93005; 94150; 94640; 94760; 96360; 99222; 99232; 99238; 99285-25; A9270-GY; C9113; J0696; J1650; J2920; J2930; J3490; J7030; J7040; J7605; J7620; Q9967